=== PATIENT | female | born 1965 | race Caucasian/White ===

== ENCOUNTER 2017-01-30 18:54 | Emergency (ER) | payer SELFPAY ==
[~2017-01-30] VITALS: Ht 154.9 cm; Wt 55.7 kg
[2017-01-30 18:57] VITALS: Ht 154.9 cm; Wt 55.7 kg
[2017-01-30] MEDS ORDERED: PROPARACAINE HCL 0.5% OP SOLN 15 ML BTL OP STA (19:11)
[2017-01-30] MEDS ORDERED: MULT-223 PO (19:14)
[2017-01-30] MEDS ORDERED: B-COTAB18 PO (19:14)
[2017-01-30] MEDS ORDERED: IBUP-103 PO (19:14)
[2017-01-30] MEDS ORDERED: CIPROFLOXACIN HCL 0.3% OP SOLN 2.5 ML BTL OP ONE (20:00)
[2017-01-30 20:30] VITALS: BP 131/79; PULSE 96; TEMP 36.9; O2SAT 97
--- NOTE | 2017-02-05 22:55 | EMERGENCY ROOM VISIT NOTE ---
History Report prepared by Chepe: Mallorie Martinez Under the Supervision of: Dr. Shahid Maradiaga M.D. 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 The patient currently rates her pain as a 7/10 in severity. She states that she was mowing the lawn and a stone shot up and hit her in the eye. She notes that she was not wearing safety glasses. The patient states that her eye hurts and she is experiencing blurry vision. The patient states that bright lights make it worse. She reports that she made it through work today at [employer] and decided it wasn't getting better, so she should come to the ED. She denies any headache, use of contacts, or taking any blood thinners. She notes that she does wear reading glasses. The patient states that she does not know if her tetanus is up to date. Source of History: patient Onset: yesterday Position: eye (right) Symptom Intensity: 7/10 Timing: other (episode) Modifying Factors (Worsening): other (bright lights) Associated Symptoms: No headache Note: The patient reports blurry vision. Review of Systems See HPI for pertinent positives & negatives. A total of 10 systems reviewed and were otherwise negative. Past Medical & Surgical Medical Problems: (1) No pertinent past medical history Old medical records were reviewed. Nurse's notes were reviewed and I agree with. Family History No pertinent family history Social History Smoking Status: Current Every Day Smoker Marital Status: Housing Status: lives with significant other Occupation Status: employed Current/Historical Medications Scheduled B-Complex Vitamins (Vitamin B Complex), 1 TAB PO DAILY Ibuprofen Tab (Advil), 200 MG PO DAILY Multiple Vitamins W/ Minerals (Multi For Her 50+), 1 TAB PO DAILY Allergies Coded Allergies: No Known Allergies (Unverified , 01/30/17) Physical Exam Vital Signs Date Time Temp Pulse Resp B/P Pulse Ox O2 Delivery O2 Flow Rate FiO2 01/30/17 20:30 36.9 96 18 131/79 97 01/30/17 18:57 36.9 96 18 131/79 97 Room Air Physical Exam General: Well developed well nourished in no acute distress, breathing comfortably on room air. Normal speech. non-ill appearing middle aged female. no acute distress HEENT: Normal cephalic atraumatic. Pupils are equal round and reactive to light. Extraocular movements are intact. Oropharynx is pink with moist mucous membranes. No swelling of the mouth lips or tongue. Right eye has clear tears and injection-less flare up. No hyphema. Normal pupil exam. Extraocular movements are intact. Neck: Supple with a midline trachea. No meningeal signs or stiffness, no JVD or bruits. No Stridor. Chest: Clear to auscultation bilaterally. No wheezes or rhonchi. No increased work of breathing. Heart: regular rate and rhythm. Abdomen: Soft nontender, nondistended without rebound guarding or rigidity. Extremities: No cyanosis clubbing or edema. No calf tenderness or assymetry Spine/Back. Non tender to palpation. No CVA tenderness Skin: Good turgor without rashes. Neurologic exam: Cranial nerves two through 12 are intact. Motor and sensation are intact and symmetrical throughout. Medical Decision & Procedures Medications Administered Medications (Trade) Dose Ordered Sig/Obinna Route Start Time Stop Time Status Last Admin Dose Admin Ciprofloxacin HCl (Ciprofloxacin 0.3% Op Soln) 1 drops NOW ONCE OP 01/30/17 20:00 01/30/17 20:01 DC 01/30/17 20:06 1 DROPS Procedure Slit Lamp Examination Indication: right eye trauma The right eye was prepped with topical proparacaine. Slit lamp examination was performed in the standard fashion. Cornea appeared with a abrasion/ small laceration at approximately three o'clock. Anterior chamber normal. Scleral injection present. No discharge present. Fluorescein examination performed and revealed corneal abrasion. No foreign bodies noted. Negative Desiree sign. The patient tolerated the procedure well without complication. ED Course 1899: Past medical records reviewed. The patient was evaluated in room D3, and a complete history and physical examination were performed. 1: Ordered Proparacaine HCl 2 drops OP. 1947: I talked to Dr. Fam about the patient's case. He recommends to have the patient follow up in his office tomorrow. 1999: Ordered Ciprofloxacin HCl 1 drops OP. 2006: Upon reevaluation, the patient is resting comfortably. I discussed the results and treatment plan with her. The patient verbalized agreement of the treatment plan. The patient was discharged home. Medical Decision Differential diagnoses include corneal abrasion, foreign body in eye, hyphema, ruptured globe. This patient comes in as described above she had injury to her right eye while mowing the lawn .she has a corneal abrasion with this laceration associated with it. There is no hyphema or any anterior chamber abnormalities. There is nothing to suggest an open globe. There are no other injuries seen. She believes that she is up-to-date on her tetanus booster. I did discuss the case with Dr. Jordan, the on-call superintendent warehouse, and he will see her in the office tomorrow and I will have her use Ciloxan eyedrops 1 drop every 2 hours while awake. She can use ibuprofen for pain and/or Tylenol but do not exceed the [id number] recommended dosages. Return to the ER if: Increasing pain , change in vision , worsening of symptoms, any new problems or concerns. Consults Time Called: 1945 Consulting Physician: Dr. Fam Returned Call: [address] Fam about the patient's case. He recommends to have the patient follow up in his office tomorrow. Impression Primary Impression: Cornea abrasion Additional Impression: Pain in right eye Scribe Attestation The scribe's documentation has been prepared under my direction and personally reviewed by me in its entirety. I confirm that the note above accurately reflects all work, treatment, procedures, and medical decision making performed by me. Departure Information Dispostion Home / Self-Care Referrals Nj Braxton M.D. (PCP) Forms HOME CARE DOCUMENTATION FORM, IMPORTANT VISIT INFORMATION, WORK / SCHOOL INSTRUCTIONS Patient Instructions My [facility] Additional Instructions Rest. Use Ciloxan eyedrops-1 drop every 2 hours while awake Use ibuprofen or Tylenol and [id number] dosages as needed for pain Do not exceed the [id number] recommended dosages Follow-up with Dr. Gagnon tomorrow for recheck. He is in his [facility] [employer] office call to make an appointment Problem Qualifiers
[2017-05-25] MEDS ORDERED: DIPH25CA65 PO (16:02)
[2017-05-25] MEDS ORDERED: METF500T PO (16:02)
[2017-05-25] MEDS ORDERED: INSU1INJ17 SC (16:02)
[2017-05-25] MEDS ORDERED: CIPR250T5 PO (16:02)
[2017-07-07] MEDS ORDERED: METF-80 PO (11:05)
[2017-07-07] MEDS ORDERED: INSU70IN2 SQ (11:05)
[2017-07-07] MEDS ORDERED: DIPH25CA65 PO (11:05)
== END 2017-01-30 20:31 | disposition home or self-care (01) ==
LOC: C.EDB 18:56 → C.EDD 20:31
DX: S05.01XA Injury of conjunctiva and corneal abrasion without foreign body, right eye, initial encounter (principal); H57.11 Ocular pain, right eye; W22.8XXA Striking against or struck by other objects, initial encounter; Y92.096 Garden or yard of other non-institutional residence as the place of occurrence of the external cause; F17.210 Nicotine dependence, cigarettes, uncomplicated

== ENCOUNTER 2017-05-22 15:36 | Inpatient (IN) | payer SELFPAY ==
[~2017-05-22] VITALS: Ht 154.9 cm; Wt 48.8 kg
[~2017-05-22 15:36] MED LIST: B-COTAB18 PO; IBUP-103 PO; MULT-223 PO
[2017-05-22] MEDS ORDERED: OPTIRAY 320 IV PRN (16:00)
[2017-05-22 16:12] LABS: BASO % 0.4 %; BASO ABS # 0.04 K/uL (0-0.2); COMPLETE YES; EOS % 1.1 %; HEMATOCRIT 36.3 % (37-47); IG% 0.4 %; LYMPH % 16.9 %; LYMPH ABS # 1.93 K/uL (1.2-3.4); MEAN CELL VOLUME 90.3 fL (80-100); MEAN CORPUSCULAR HEMOGLOBIN 31.3 pg (25-34); MEAN CORPUSCULAR HGB CONC 34.7 g/dl (32-36); MEAN PLATELET VOLUME 9.7 fL (7.4-10.4); MONO % 5.5 %; NEUT % 75.7 %; PLATELET COUNT 302 K/uL (130-400); RED BLOOD COUNT 4.02 M/uL (4.2-5.4); WHITE BLOOD COUNT 11.42 K/uL (4.8-10.8)
[2017-05-22 16:40] LABS: BUN/CREATININE RATIO 4.4 (10-20); CALCIUM 9.8 mg/dl (8.5-10.1); POTASSIUM 2.4 mmol/L (3.5-5.1)
[2017-05-22 16:48] LABS: URINE APPEARANCE CLEAR (CLEAR); URINE BILIRUBIN NEG (NEG); URINE COLOR DK YELLOW; URINE NITRITE NEG (NEG); URINE PH 6.5 (4.5-7.5); URINE SPECIFIC GRAVITY 1.029 (1.000-1.030); UROBILINOGEN NEG (NEG)
[2017-05-22 16:52] LABS: MANUAL MICROSCOPIC REQUIRED? NO; REVIEW REQ? YES
[2017-05-22 16:56] LABS: BETA-HYDROXYBUTYRATE 0.98 mg/dL (0.2-2.81)
[2017-05-22] MEDS ORDERED: SODIUM CHLORIDE 0.9% 1000ML 1,000 ML IV STA (16:59)
[2017-05-22] MEDS ORDERED: POTASSIUM CHLORIDE 10 MEQ / 100ML WTR IV STA (16:59)
[2017-05-22] MEDS ORDERED: POTASSIUM CHLORIDE 10 MEQ TABCR PO STA ×2 (16:59→19:36)
--- NOTE | 2017-05-22 18:58 | DIAGNOSTIC IMAGING REPORT ---
ABD/PELVIS IV AND ORAL CONT CLINICAL HISTORY: 51 years-old Female presenting with eval for mass, lower abdominal pain and weight loss, tired and 80. TECHNIQUE: Multidetector CT of the abdomen and pelvis was performed after the administration of intravenous contrast. IV contrast: 116 mL of Optiray 320. A dose lowering technique was used consistent with the principles of ALARA (as low as reasonably achievable). COMPARISON: None. CT DOSE (mGy.cm): The estimated cumulative dose is 323.03 mGy.cm. FINDINGS: Stock Handler topogram: Unremarkable. Lung bases: Minimal dependent groundglass opacity likely atelectasis. Normal heart size. No pericardial or pleural effusion. Liver: Normal morphology. No liver lesion. Patent hepatic vasculature. Biliary: No intrahepatic or extrahepatic biliary ductal dilatation. Normal gallbladder. Pancreas: 1.6 cm cystic lesion in the tail of the pancreas with peripheral coarse calcification. Minimal upstream pancreatic ductal dilatation may be present. Spleen: Normal. Adrenal glands: Normal. Kidneys and ureters: No nephrolithiasis. Normal parenchymal enhancement. Dilatation of the bilateral renal collecting systems, left greater than right. Ureters are minimally dilated bilaterally with mild urothelial thickening. Bladder: Circumferential bladder wall thickening. No gross invasion of the bladder. Pelvic organs: The cervix is expanded with heterogeneous soft tissue which appears to grossly extend into the parametrium to the serosa of the transiting sigmoid colon. Apparent hypervascular nodularity on the ovaries may represent dilated ovarian veins versus serosal implants. Bowel: The mid sigmoid colon is narrowed by the and base of cervical mass extending into the parametrium. However, no significant upstream dilatation to suggest functional obstruction. Normal appendix. Peritoneal cavity: No free fluid or gas. No peritoneal soft tissue nodularity is apparent. No infiltration of the omentum or root of the mesentery. No abdominal wall nodularity. Vasculature: Atherosclerosis of the normal caliber abdominal aorta. Duplicated IVC. Lymph nodes: Pathologically enlarged hypervascular lymph node in the left external iliac region measuring 3 x 2.7 cm. Multiple subcentimeter aortocaval lymph nodes, which are not pathologically enlarged by CT size criteria. Abdominal wall: Normal. Musculoskeletal: Degenerative changes of the spine. IMPRESSION: 1. Findings highly suspicious for cervical neoplasm with invasion of the parametrium an invasion to the sigmoid colon serosa. No ethel bowel obstruction. 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 Grossly metastatic left external iliac lymphadenopathy (N1). 2. 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 3. Bladder wall thickening could suggest cystitis. Correlate with urinalysis. Electronically signed by: Freddie Martinez M.D. 05/22/2017 6:57 PM Dictated Date/Time: 05/22/2017 6:41 PM
[2017-05-22] MEDS ORDERED: NSS + 20MEQ KCL 1000ML 1,000 ML IV SCH (19:45)
[2017-05-22] MEDS ORDERED: INSULIN GLARGINE SOLOSTAR 100 UNITS/ML 3 ML PEN SC ONE (19:47)
[2017-05-22] MEDS ORDERED: INSULIN IV INFUSION PROTOCOL STA (19:47)
[2017-05-22] MEDS ORDERED: GLUCOSE 10 TABS/TUBE PO PRN (20:00)
[2017-05-22] MEDS ORDERED: INSULIN REGULAR 250 UNITS in SODIUM CHLORIDE 0.9% 250ML 250 ML IV SCH (20:00)
[2017-05-22] MEDS ORDERED: GLUCAGON FOR INJ 1 MG VIAL SQ PRN (20:00)
[2017-05-22] MEDS ORDERED: SEVERE STRESS LEVEL ONE (20:00)
[2017-05-22] MEDS ORDERED: GLUCOSE 40% GEL 15 GM TUBE PO PRN (20:00)
[2017-05-22] MEDS ORDERED: DEXTROSE 50% 50 ML SYR IV PRN (20:00)
[2017-05-22] MEDS ORDERED: LANTUS PER UNIT CHARGE SQ ONE (20:00)
[2017-05-22] MEDS ORDERED: NICOTINE POLACRILEX 2 MG GUM MT PRN (20:00)
[2017-05-22] MEDS ORDERED: INSULIN HUMAN REGULAR IV BOLUS 2 UNIT in SYRINGE 0 ML IV SCH (20:00)
[2017-05-22] MEDS ORDERED: INSULIN PROTOCOL GOAL RANGE ONE (20:00)
[2017-05-22] MEDS ORDERED: CEFEPIME IV 2,000 MG in DEXTROSE 5% 100ML 100 ML IV STA (20:05)
--- NOTE | 2017-05-22 20:16 | EMERGENCY ROOM VISIT NOTE ---
History Report prepared by Chepe: Franc Narayan Under the Supervision of: Dr. Tyler Hull M.D. First contact with patient: 15:42 Chief Complaint: ABDOMINAL PAIN Stated Complaint: EXTREME WEIGHT LOSS, ABDOMINAL PAIN, TIRED, ACHY History of Present Illness The patient is a 51 year old female who presents to the Emergency Room with complaints of intermittent low abdominal pain that started around a month and a half ago. The patient states that she has the pain at least 5 or 6 times per week, but not every day. The patient describes her discomfort as a cramping pain. She adds that she has not been eating as well as she used to over the past month and a half due to the pain, and has lost around 20 to 25 pounds during this time period. She was noted to only be able to eat half a hamburger at a time. The patient notes that sometimes the pain comes before eating, and sometimes the pain comes on after eating. She denies any nausea, vomiting, fevers, diarrhea, rectal bleeding, melena, or urinary symptoms. The patient notes no chronic medical problems. She adds that she was bit by fleas a while ago, and has rashes to her extremities with itching. She has since gotten rid of the calves and no longer has fleabites. She notes no history of colon cancer in her family. Source of History: patient, family Onset: Around a month and a half ago Position: abdomen (low) Quality: cramping Timing: intermittent Associated Symptoms: No fevers, No nausea, No vomiting, No melena, No diarrhea, No urinary symptoms Note: Associated symptoms: Decreased appetite, has lost 20-25 pound. Denies rectal bleeding. Rash and itching to extremities after flea bites. Review of Systems See HPI for pertinent positives & negatives. A total of 10 systems reviewed and were otherwise negative. Past Medical & Surgical Medical Problems: (1) No pertinent past medical history Family History No pertinent family history Social History Smoking Status: Current Every Day Smoker Marital Status: Housing Status: lives with significant other Occupation Status: employed Current/Historical Medications Scheduled B-Complex Vitamins (Vitamin B Complex), 1 TAB PO DAILY Ibuprofen Tab (Advil), 200 MG PO DAILY Multiple Vitamins W/ Minerals (Multi For Her 50+), 1 TAB PO DAILY Allergies Coded Allergies: No Known Allergies (Unverified , 8/31/17) Physical Exam Vital Signs Date Time Temp Pulse Resp B/P (MAP) Pulse Ox O2 Delivery O2 Flow Rate FiO2 05/22/17 19:33 85 16 127/74 96 Room Air 05/22/17 17:34 76 05/22/17 17:30 81 16 107/68 100 Room Air 05/22/17 15:39 36.7 105 16 121/81 96 Room Air Physical Exam Constitutional: Vital signs reviewed. Eyes: Pupils are equal round reactive to light. Conjunctiva are noninjected. ENT: Pharynx is clear without erythema or exudate. Mucous membranes are moist. Neck supple without meningeal signs. Respiratory: Clear to auscultation bilaterally. Breath sounds are equal bilaterally. Cardiovascular: Regular rate and rhythm. No rubs or gallops. GI: Suprapubic tenderness. Soft and nondistended Bowel sounds are present. Musculoskeletal: No CVA tenderness. No peripheral edema. Integumentary: No cyanosis. Excoriated lesions to the arms and legs. Neurological: The patient is awake and alert. No focal deficits. Psychiatric: Normal affect. Medical Decision & Procedures ER Provider Diagnostic Interpretation: CT results as stated below per my review and radiologist interpretation. ABD/PELVIS IV AND ORAL CONT CLINICAL HISTORY: 51 years-old Female presenting with eval for mass, lower abdominal pain and weight loss, tired and 80. TECHNIQUE: Multidetector CT of the abdomen and pelvis was performed after the administration of intravenous contrast. IV contrast: 116 mL of Optiray 320. A dose lowering technique was used consistent with the principles of ALARA (as low as reasonably achievable). COMPARISON: None. CT DOSE (mGy.cm): The estimated cumulative dose is 323.03 mGy.cm. FINDINGS: Outreach Professional topogram: Unremarkable. Lung bases: Minimal dependent groundglass opacity likely atelectasis. Normal heart size. No pericardial or pleural effusion. Liver: Normal morphology. No liver lesion. Patent hepatic vasculature. Biliary: No intrahepatic or extrahepatic biliary ductal dilatation. Normal gallbladder. Pancreas: 1.6 cm cystic lesion in the tail of the pancreas with peripheral coarse calcification. Minimal upstream pancreatic ductal dilatation may be present. Spleen: Normal. Adrenal glands: Normal. Kidneys and ureters: No nephrolithiasis. Normal parenchymal enhancement. Dilatation of the bilateral renal collecting systems, left greater than right. Ureters are minimally dilated bilaterally with mild urothelial thickening. Bladder: Circumferential bladder wall thickening. No gross invasion of the bladder. Pelvic organs: The cervix is expanded with heterogeneous soft tissue which appears to grossly extend into the parametrium to the serosa of the transiting sigmoid colon. Apparent hypervascular nodularity on the ovaries may represent dilated ovarian veins versus serosal implants. Bowel: The mid sigmoid colon is narrowed by the and base of cervical mass extending into the parametrium. However, no significant upstream dilatation to suggest functional obstruction. Normal appendix. Peritoneal cavity: No free fluid or gas. No peritoneal soft tissue nodularity is apparent. No infiltration of the omentum or root of the mesentery. No abdominal wall nodularity. Vasculature: Atherosclerosis of the normal caliber abdominal aorta. Duplicated IVC. Lymph nodes: Pathologically enlarged hypervascular lymph node in the left external iliac region measuring 3 x 2.7 cm. Multiple subcentimeter aortocaval lymph nodes, which are not pathologically enlarged by CT size criteria. Abdominal wall: Normal. Musculoskeletal: Degenerative changes of the spine. IMPRESSION: 1. Findings highly suspicious for cervical neoplasm with invasion of the parametrium an invasion to the sigmoid colon serosa. No ethel bowel obstruction. 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 Grossly metastatic left external iliac lymphadenopathy (N1). 2. 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 3. Bladder wall thickening could suggest cystitis. Correlate with urinalysis. Electronically signed by: Freddie Martinez M.D. 05/22/2017 6:57 PM Dictated Date/Time: 05/22/2017 6:41 PM Laboratory Results 05/22/17 16:00 Red Blood Count 4.02, Mean Corpuscular Volume 90.3, Mean Corpuscular Hemoglobin 31.3, Mean Corpuscular Hemoglobin Concent 34.7, Mean Platelet Volume 9.7, Neutrophils (%) (Auto) 75.7, Lymphocytes (%) (Auto) 16.9, Monocytes (%) (Auto) 5.5, Eosinophils (%) (Auto) 1.1, Basophils (%) (Auto) 0.4, Neutrophils # (Auto) 8.66, Lymphocytes # (Auto) 1.93, Monocytes # (Auto) 0.63, Eosinophils # (Auto) 0.12, Basophils # (Auto) 0.04 05/22/17 16:00 Test 05/22/17 16:00 White Blood Count 11.42 K/uL (4.8-10.8) Red Blood Count 4.02 M/uL (4.2-5.4) Hemoglobin 12.6 g/dL (12.0-16.0) Hematocrit 36.3 % (37-47) Mean Corpuscular Volume 90.3 fL (80-100) Mean Corpuscular Hemoglobin 31.3 pg (25-34) Mean Corpuscular Hemoglobin Concent 34.7 g/dl (32-36) Platelet Count 302 K/uL (130-400) Mean Platelet Volume 9.7 fL (7.4-10.4) Neutrophils (%) (Auto) 75.7 % Lymphocytes (%) (Auto) 16.9 % Monocytes (%) (Auto) 5.5 % Eosinophils (%) (Auto) 1.1 % Basophils (%) (Auto) 0.4 % Neutrophils # (Auto) 8.66 K/uL (1.4-6.5) Lymphocytes # (Auto) 1.93 K/uL (1.2-3.4) Monocytes # (Auto) 0.63 K/uL (0.11-0.59) Eosinophils # (Auto) 0.12 K/uL (0-0.5) Basophils # (Auto) 0.04 K/uL (0-0.2) RDW Standard Deviation 42.2 fL (36.4-46.3) RDW Coefficient of Variation 12.7 % (11.5-14.5) Immature Granulocyte % (Auto) 0.4 % Immature Granulocyte # (Auto) 0.04 K/uL (0.00-0.02) Urine Color DK YELLOW Urine Appearance CLEAR (CLEAR) Urine pH 6.5 (4.5-7.5) Urine Specific [place] 1.029 (1.000-1.030) Urine Protein NEG (NEG) Urine Glucose (UA) 3+ (NEG) Urine Ketones NEG (NEG) Urine Occult Blood 1+ (NEG) Urine Nitrite NEG (NEG) Urine Bilirubin NEG (NEG) Urine Urobilinogen NEG (NEG) Urine Leukocyte Esterase MODERATE (NEG) Urine WBC (Auto) >30 /hpf (0-5) Urine RBC (Auto) 0-4 /hpf (0-4) Urine Hyaline Casts (Auto) 0 /lpf (0-5) Urine Epithelial Cells (Auto) 10-20 /lpf (0-5) Urine Bacteria (Auto) 1+ (NEG) Anion Gap 10.0 mmol/L (3-11) Est Creatinine Clear Calc Drug Dose 49.1 ml/min Estimated GFR () 74.5 Estimated GFR (Non- 64.3 BUN/Creatinine Ratio 4.4 (10-20) Calcium Level 9.8 mg/dl (8.5-10.1) Total Bilirubin 0.5 mg/dl (0.2-1) Direct Bilirubin 0.2 mg/dl (0-0.2) Aspartate Amino Transf (AST/SGOT) 9 U/L (15-37) Alanine Aminotransferase (ALT/SGPT) 12 U/L (12-78) Alkaline Phosphatase 111 U/L (45-117) Total Protein 7.5 gm/dl (6.4-8.2) Albumin 2.9 gm/dl (3.4-5.0) Lipase 161 U/L (73-393) Beta-Hydroxybutyric Acid 0.98 mg/dL (0.2-2.81) Laboratory results as reviewed by me. Medications Administered Medications (Trade) Dose Ordered Sig/Obinna Route Start Time Stop Time Status Last Admin Dose Admin Sodium Chloride 1,000 ml @ 999 mls/hr Q1H1M STAT IV 05/22/17 16:59 05/22/17 17:59 DC 05/22/17 17:21 999 MLS/HR Potassium Chloride (Kcl 10 Meq / Wtr) 10 meq NOW STAT IV 05/22/17 16:59 05/22/17 17:00 DC 05/22/17 17:21 10 MEQ Potassium Chloride (Klor-Con M10) 40 meq NOW STAT PO 05/22/17 16:59 05/22/17 17:00 DC 05/22/17 17:22 40 MEQ ECG Indication: other (hypokalemia) Rate (beats per minute): 78 Rhythm: normal sinus Findings: T-wave inversion (in V1 and V2), other (no U waves, QTC of 465 ms) ED Course 1544: The patient was evaluated in room B7. A complete history and physical exam was performed. 1645: I reevaluated the patient and talked to her about the blood test results. 1659: Ordered Klor-Con M10 40 meq PO, Kcl 10 Meq / Wtr 10 meq IV, NSS 1000 ml @ 999 mls/hr IV. 1916: I reevaluated the patient and discussed the test results with her and her daughter. The patient verbally expressed understanding and agreement of the treatment plan. The patient will be evaluated for further treatment. 1919: I discussed the patient with Dr. Milli Owens tailings dam pumper - he will evaluate the patient for further treatment. Medical Decision This is a 51-year-old female who presents with abdominal pain and weight loss. Differential diagnosis includes colonic mass, gynecologic mass, inflammatory bowel disease, irritable bowel syndrome, pancreatitis. I did perform a limited focused review of portions of the patient's old chart on the electronic medical record. The patient has had no recent pertinent visits to this hospital. I did evaluate the patient as noted above. Patient is presenting with abdominal pain in the lower abdomen with significant weight loss. I was concerned about the potential for neoplasm. IV access was established. I did order and review the patient's blood work as noted in the electronic medical record. The patient has significant hypokalemia. She also has hyperglycemia. She has no prior history of diabetes. She is not acidotic. She is not in DKA. I did treat her with normal saline IV. The patient was placed on a continuous cardiac surgeon. I did order and personally review the patient's 12- lead EKG as described above. I did treat her with IV KCl. I did order a CT of the abdomen and pelvis. I did review the images myself as well as the radiology report as described above. She does unfortunately have what appears to be cervical cancer with metastatic spread to the sigmoid colon and lymph nodes. There is also a pancreatic mass. I did discuss the test results with the patient and her daughter. I did recommend hospitalization for further care and evaluation. I did discuss case with the hospitalist and renal case manager. Medication Reconcilliation Current Medication List: was personally reviewed by me Blood Pressure Screening Patient's blood pressure: Normal blood pressure Consults Time Called: 1917 Consulting Physician: Dr. Milli Owens tailings dam pumper Returned Call: 1919 I discussed the patient with Dr. Milli Owens tailings dam pumper - he will evaluate the patient for further treatment. Impression Primary Impression: Diabetes mellitus, new onset Additional Impressions: Hypokalemia Urinary tract infection Primary cervical cancer with metastasis to other site Scribe Attestation The scribe's documentation has been prepared under my direct and personally reviewed by me in its entirety. I confirm that the note above accurately reflects all work, treatment, procedures, and medical decision making performed by me. Departure Information Dispostion Being Evaluated By Hospitalist Referrals Nj Braxton M.D. (PCP) Patient Instructions My [facility] Problem Qualifiers Additional Impressions: Urinary tract infection Urinary tract infection type: acute cystitis Hematuria presence: with hematuria Qualified Codes: N30.01 - Acute cystitis with hematuria
[2017-05-22 20:40] VITALS: BMI 20.3
[2017-05-22] MEDS ORDERED: INSULIN ASPART 100 UNITS/ML 3 ML PEN SC SCH (21:00)
[2017-05-22] MEDS ORDERED: TRAMADOL HCL 50 MG TAB PO PRN (21:45)
[2017-05-22] MEDS ORDERED: LORAZEPAM 2 MG/ML 1 ML VIAL IV PRN (21:45)
[2017-05-22] MEDS ORDERED: IBUPROFEN 200 MG TAB PO PRN (21:45)
[2017-05-22] MEDS ORDERED: MoRPHine SULFATE 4 MG/ML 1 ML CARP\\VIAL IV PRN (21:45)
[2017-05-22] MEDS ORDERED: ACETAMINOPHEN 325 MG TAB PO PRN (21:45)
[2017-05-22] MEDS ORDERED: KETOROLAC TROMETHAMINE 15 MG/ML VIAL IV. PRN (21:45)
[2017-05-22] MEDS ORDERED: NICOTINE 14 MG/24 HR TDSY TD ONE (22:15)
[2017-05-22] MEDS ORDERED: CEFEPIME CONSULT ACTIVE PRN ×2 (22:15)
[2017-05-22] MEDS ORDERED: NSS + 20MEQ KCL 1000ML 1,000 ML IV ONE (22:15)
[2017-05-22] MEDS ORDERED: LORAZEPAM INJ 0.5 MG in SYRINGE 0.75 ML IV PRN (22:30)
[2017-05-22] MEDS ORDERED: POTASSIUM CHLORIDE 10 MEQ TABCR PO ONE (23:00)
[2017-05-22 23:07] LABS: PROTHROMBIN TIME (PATIENT) 11.1 SECONDS (9.0-12.0)
[2017-05-22 23:46] VITALS: BP 110/73; PULSE 82; TEMP 36.9; O2SAT 92
[2017-05-23] VITALS (7 sets, daily range): BP systolic 107–132; BP diastolic 69–81; PULSE 58–98; TEMP 36.2–37.2; O2SAT 93–97; BMI 20.7
--- NOTE | 2017-05-23 01:22 | HISTORY & PHYSICAL EXAMINATION ---
DATE OF ADMISSION: 05/22/2017 PRIMARY CARE DOCTOR: Dr. Braxton. CHIEF COMPLAINT: Abdominal pain. HISTORY OF PRESENT ILLNESS: History obtained from patient and records. Medical history significant for tobacco abuse. For about a month now, patient has had intermittent lower achy abdominal pain with some cramping. No vaginal bleeding, poor appetite, a 20-pound weight loss in the last month. No chest pain, no shortness of breath. Denies dysuria - sometimes urinating a lot, sometimes not as much. Patient brought to the Emergency Room. MEDICAL HISTORY: As above. SURGERIES: Removal of tubes for for ectopic HOME MEDICATIONS: Include multivitamins. ALLERGIES: No known drug allergies. FAMILY HISTORY: diabetes and some throat cancer. PERSONAL AND SOCIAL HISTORY: Half pack daily. No chronic intake of alcoholic beverages. [employer] food [employer] employee employee. REVIEW OF SYSTEMS: As per HPI, all other ROS negative. PHYSICAL EXAMINATION: VITAL SIGNS: Blood pressure was noted to be 107/60, pulse rate 81, RR 16, temperature 36.7, sats 96 on room air. GENERAL: Noted to be anxious, comfortable, no respiratory distress. SKIN: Normal color. HEENT: [place] palpable conjunctivae. Dry mucosa. NECK: No JVD. Supple. CHEST: Clear to auscultation. HEART: Regular rate and rhythm. ABDOMEN: Hypogastric tenderness. EXTREMITIES: No edema. No tenderness NEUROLOGIC: No gross focality. LABS: Hemoglobin was 13.6, hematocrit 36.3, white blood cells 11.5, platelets 212. Sodium noted to be 135, potassium 2.4, chloride 88, CO2 35, BUN 20, creatinine 1, glucose 523. CT of the abdomen and pelvis showed a possible highly suspicious cervical neoplasm invasion of the parametrium and invasion of the sigmoid colon serosa. No ethel bowel obstruction. Bilateral hydronephrosis, consistent with pelvic extension, grossly metastatic left external iliac lymphadenopathy. Incidentally, a cystic neoplasm of the pancreatic tail, cystitis. UA, occult blood, moderate, WBCs positive, epithelial cells AP 1. Complicated UTI, secondary to cervical neoplasm, likely malignancy with bilateral ureteral involvement Normal kidney function. no sepsis. 2. hyperglycemia, likely new diagnosis of diabetes mellitus 3. Hypokalemia, secondary to illness 4. pancreatic tumor on CT, possible malignancy 5. ongoing tobacco abuse, GMF Urine CS, Cefepime IV insulin overlapping with basal insulin. DC IV insulin once blood sugar less than 200. ISS BG goal 140-180. Check hemoglobin A1c. May need Diabetic education pending HgA1c results. Replace potassium. Check magnesium. Gynecology consult RE : cervical mass. Urology consult RE bilateral hydronephrosis outpatient GI consult RE : pancreatic tumor, Nicotine patch. DVT prophylaxis, Lovenox subQ. Full code. Patient's daughter requesting updates from providers. Miss Kathy Milan at [phone]. MTDD
[2017-05-23] MEDS ORDERED: DEXTROSE 50% 50 ML SYR IV PRN (02:00)
[2017-05-23] MEDS ORDERED: GLUCAGON FOR INJ 1 MG VIAL SQ PRN (02:00)
[2017-05-23] MEDS ORDERED: GLUCOSE 40% GEL 15 GM TUBE PO PRN (02:00)
[2017-05-23] MEDS ORDERED: NURSING VERBAL MED ORDER ONE (02:00)
[2017-05-23] MEDS ORDERED: GLUCOSE 10 TABS/TUBE PO PRN (02:00)
[2017-05-23] MEDS ORDERED: INSULIN ASPART 100 UNITS/ML 3 ML PEN SC ONE ×2 (04:00→06:24)
[2017-05-23 05:49] LABS: BASO % 0.3 %; BASO ABS # 0.03 K/uL (0-0.2); COMPLETE YES; EOS % 1.3 %; HEMATOCRIT 33.1 % (37-47); IG% 0.3 %; LYMPH % 14.1 %; LYMPH ABS # 1.48 K/uL (1.2-3.4); MEAN CELL VOLUME 89.9 fL (80-100); MEAN CORPUSCULAR HEMOGLOBIN 29.9 pg (25-34); MEAN CORPUSCULAR HGB CONC 33.2 g/dl (32-36); MEAN PLATELET VOLUME 9.6 fL (7.4-10.4); MONO % 6.7 %; NEUT % 77.3 %; PLATELET COUNT 300 K/uL (130-400); RED BLOOD COUNT 3.68 M/uL (4.2-5.4); WHITE BLOOD COUNT 10.53 K/uL (4.8-10.8)
[2017-05-23 06:17] LABS: BUN/CREATININE RATIO 6.3 (10-20); CALCIUM 8.8 mg/dl (8.5-10.1); CREATININE 0.65 mg/dl (0.60-1.20); POTASSIUM 3.4 mmol/L (3.5-5.1)
[2017-05-23] MEDS ORDERED: POTASSIUM CHLORIDE 10 MEQ TABCR PO STA ×2 (06:23→07:35)
[2017-05-23 06:25] LABS: ESTIMATED AVERAGE GLUCOSE 352 mg/dl; HA1C FLAG Normal (Normal)
[2017-05-23] MEDS ORDERED: INSULIN GLARGINE SOLOSTAR 100 UNITS/ML 3 ML PEN SC ONE ×2 (06:28→22:15)
[2017-05-23] MEDS ORDERED: LACTATED RINGER'S 1000ML 1,000 ML IV ONE (06:30)
[2017-05-23] MEDS ORDERED: CEFEPIME IV 1,000 MG in DEXTROSE 5% 100ML IV SCH (08:00)
[2017-05-23] MEDS ORDERED: INSULIN GLARGINE SOLOSTAR 100 UNITS/ML 3 ML PEN SC SCH ×2 (08:00→20:00)
[2017-05-23] MEDS: CEFEPIME IV 2,000 MG in DEXTROSE 5% 100ML 100 ML IV SCH ×2 (09:06→20:08)
[2017-05-23] MEDS: VITAMIN B COMPLEX TAB PO SCH (09:07)
[2017-05-23] MEDS: CEROVITE ADV FORMULA TAB PO SCH (09:08)
[2017-05-23] MEDS: ENOXAPARIN 40 MG/0.4 ML SYR SQ SCH (09:09)
[2017-05-23] MEDS: NICOTINE 14 MG/24 HR TDSY TD SCH (09:10)
[2017-05-23] MEDS ORDERED: FERRIC SUBSULFATE 8 GM VIAL ONE (10:34)
[2017-05-23] MEDS ORDERED: FERRIC SUBSULFATE 8 GM VIAL TOP ONE (10:45)
[2017-05-23] MEDS: INSULIN ASPART 100 UNITS/ML 3 ML PEN SC SCH ×3 (13:17→21:46)
--- NOTE | 2017-05-23 14:03 | Gastrointestinal Consultation ---
Gastrointestinal Consultation Date of Consultation: May 23, 2017 History of Present Illness Patient is a 51 year old female whom I been asked to see for evaluation of a pancreatic cyst. She has been having one to 2 months of lower pelvic pain described as crampy menstrual type pain without vaginal bleeding. But has apparently had a significant amount of weight loss. She has no history of alcohol as does chronically drink, she does smoke but does not have pancreatitis to her knowledge in the past. She has no family history of pancreatic disease including pancreatic cancer. Upon CT scan here she was noted to have a 1.6 cm cystic lesion in detail the pancreas without mass or lesion. More Importantly she was noted to have a significant pelvic mass lesion that after being seen by [facility] today was concern for a necrotic cervical mass. She is aware of her likely diagnosis of [facility] malignancy and is scheduled to be seen by [facility] oncology after discharge. She is tolerating diet without issues. CT Pancreas: 1.6 cm cystic lesion in the tail of the pancreas with peripheral coarse calcification. Minimal upstream pancreatic ductal dilatation may be present. Spleen: Normal. Adrenal glands: Normal. Kidneys and ureters: No nephrolithiasis. Normal parenchymal enhancement. Dilatation of the bilateral renal collecting systems, left greater than right. Ureters are minimally dilated bilaterally with mild urothelial thickening. Bladder: Circumferential bladder wall thickening. No gross invasion of the bladder. Pelvic organs: The cervix is expanded with heterogeneous soft tissue which appears to grossly extend into the parametrium to the serosa of the transiting sigmoid colon. Apparent hypervascular nodularity on the ovaries may represent dilated ovarian veins versus serosal implants. Bowel: The mid sigmoid colon is narrowed by the and base of cervical mass extending into the parametrium. However, no significant upstream dilatation to suggest functional obstruction. Normal appendix. Peritoneal cavity: No free fluid or gas. No peritoneal soft tissue nodularity is apparent. No infiltration of the omentum or root of the mesentery. No abdominal wall nodularity. Vasculature: Atherosclerosis of the normal caliber abdominal aorta. Duplicated IVC. Lymph nodes: Pathologically enlarged hypervascular lymph node in the left external iliac region measuring 3 x 2.7 cm. Multiple subcentimeter aortocaval lymph nodes, which are not pathologically enlarged by CT size criteria. Abdominal wall: Normal. Musculoskeletal: Degenerative changes of the spine. IMPRESSION: 1. Findings highly suspicious for cervical neoplasm with invasion of the parametrium an invasion to the sigmoid colon serosa. No ethel bowel obstruction. 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 Grossly metastatic left external iliac lymphadenopathy (N1). 2. 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 3. Bladder wall thickening could suggest cystitis. Correlate with urinalysis. Past Medical/Surgical History Medical Problems: (1) Diabetes mellitus, new onset Status: Acute (2) Hypokalemia Status: Acute (3) Primary cervical cancer with metastasis to other site Status: Acute (4) Urinary tract infection Status: Acute Family History No pertinent family history Social History Smoking Status: Current Every Day Smoker Marital Status: Housing Status: lives with significant other Occupation Status: employed Allergies Coded Allergies: No Known Allergies (Unverified , 05/22/17) Current Medications Home Meds and Scripts Medications Dose Route/Sig Max Daily Dose Days Date Category Advil (Ibuprofen) 200 Mg Tab 200 Mg PO DAILY 01/30/17 Reported Vitamin B Complex (B-Complex Vitamins) 1 Tab Tab 1 Tab PO DAILY 01/30/17 Reported Multi For Her 50+ (Multiple Vitamins W/ Minerals) 1 Tab Tab 1 Tab PO DAILY 01/30/17 Reported Review of Systems Constitutional: + see HPI, No fever, No chills, No sweats, No weight loss, No weakness, No fatigue, No problem reported Eyes: No see HPI, No worsening of vision, No eye pain, No redness, No discharge , No diplopia, No problem reported ENT: No see HPI, No hearing loss, No unusual epistaxis, No nasal symptoms, No sore throat, No tinnitus, No dental problems, No trouble swallowing, No pain on swallowing, No problem reported Respiratory: No see HPI, No cough, No sputum, No wheezing, No shortness of breath, No dyspnea on exertion, No dyspnea at rest, No hemoptysis, No problem reported Cardiac: No see HPI, No chest pain, No orthopnea, No PND, No edema, No claudication, No palpitations, No problem reported Abdomen: No see HPI, No pain, No nausea, No vomiting, No diarrhea, No constipation, No GI bleeding, No dysphagia, No odynophagia, No acolic stools, No jaundice, No dark urine, No problem reported Musculoskeletal: No see HPI, No joint pain, No muscle pain, No swelling, No calf pain, No problem reported Physical Exam Date Time Temp Pulse Resp B/P (MAP) Pulse Ox O2 Delivery O2 Flow Rate FiO2 05/23/17 11:51 37.0 92 18 112/75 (87) 97 Room Air 05/23/17 09:00 Room Air 05/23/17 07:21 36.7 58 16 115/73 (87) 96 Room Air 05/23/17 04:14 36.8 91 18 123/80 (94) 96 Room Air 05/23/17 02:20 Room Air 05/22/17 23:46 36.9 82 20 110/73 (85) 92 Room Air 05/22/17 21:45 80 17 128/81 95 05/22/17 21:07 86 05/22/17 20:40 Room Air 05/22/17 19:33 85 16 127/74 96 Room Air 05/22/17 17:34 76 05/22/17 17:30 81 16 107/68 100 Room Air 05/22/17 15:39 36.7 105 16 121/81 96 Room Air General Appearance: WD/WN Eyes: normal inspection ENT: normal ENT inspection Neck: supple, no adenopathy Respiratory/Chest: chest non-tender, lungs clear Cardiovascular: regular rate, rhythm, no edema, no gallop Abdomen: normal bowel sounds, non tender Extremities: normal range of motion Skin: normal color, no jaundice Laboratory Results Last 24 Hours Test 05/22/17 16:00 05/22/17 19:25 05/22/17 21:34 05/22/17 22:42 White Blood Count 11.42 K/uL Red Blood Count 4.02 M/uL Hemoglobin 12.6 g/dL Hematocrit 36.3 % Mean Corpuscular Volume 90.3 fL Mean Corpuscular Hemoglobin 31.3 pg Mean Corpuscular Hemoglobin Concent 34.7 g/dl Platelet Count 302 K/uL Mean Platelet Volume 9.7 fL Neutrophils (%) (Auto) 75.7 % Lymphocytes (%) (Auto) 16.9 % Monocytes (%) (Auto) 5.5 % Eosinophils (%) (Auto) 1.1 % Basophils (%) (Auto) 0.4 % Neutrophils # (Auto) 8.66 K/uL Lymphocytes # (Auto) 1.93 K/uL Monocytes # (Auto) 0.63 K/uL Eosinophils # (Auto) 0.12 K/uL Basophils # (Auto) 0.04 K/uL RDW Standard Deviation 42.2 fL RDW Coefficient of Variation 12.7 % Immature Granulocyte % (Auto) 0.4 % Immature Granulocyte # (Auto) 0.04 K/uL Prothrombin Time 11.1 SECONDS Prothromb Time International Ratio 1.0 Urine Color DK YELLOW Urine Appearance CLEAR Urine pH 6.5 Urine Specific [place] 1.029 Urine Protein NEG Urine Glucose (UA) 3+ Urine Ketones NEG Urine Occult Blood 1+ Urine Nitrite NEG Urine Bilirubin NEG Urine Urobilinogen NEG Urine Leukocyte Esterase MODERATE Urine WBC (Auto) >30 /hpf Urine RBC (Auto) 0-4 /hpf Urine Hyaline Casts (Auto) 0 /lpf Urine Epithelial Cells (Auto) 10-20 /lpf Urine Bacteria (Auto) 1+ Sodium Level 133 mmol/L Potassium Level 2.4 mmol/L Chloride Level 88 mmol/L Carbon Dioxide Level 35 mmol/L Anion Gap 10.0 mmol/L Blood Urea Nitrogen 4 mg/dl Creatinine 1.00 mg/dl Est Creatinine Clear Calc Drug Dose 49.1 ml/min Estimated GFR () 74.5 Estimated GFR (Non- 64.3 BUN/Creatinine Ratio 4.4 Random Glucose 523 mg/dl Estimated Average Glucose 352 mg/dl Hemoglobin A1c 13.9 % Calcium Level 9.8 mg/dl Magnesium Level 2.0 mg/dl Total Bilirubin 0.5 mg/dl Direct Bilirubin 0.2 mg/dl Aspartate Amino Transf (AST/SGOT) 9 U/L Alanine Aminotransferase (ALT/SGPT) 12 U/L Alkaline Phosphatase 111 U/L Total Protein 7.5 gm/dl Albumin 2.9 gm/dl Lipase 161 U/L Beta-Hydroxybutyric Acid 0.98 mg/dL Hepatitis C Antibody Screen NEG Bedside Glucose 362 mg/dl 374 mg/dl 356 mg/dl Test 05/22/17 23:35 05/23/17 00:32 05/23/17 01:31 05/23/17 03:58 Bedside Glucose 340 mg/dl 283 mg/dl 209 mg/dl 161 mg/dl Test 05/23/17 05:20 05/23/17 06:53 05/23/17 08:06 05/23/17 11:48 White Blood Count 10.53 K/uL Red Blood Count 3.68 M/uL Hemoglobin 11.0 g/dL Hematocrit 33.1 % Mean Corpuscular Volume 89.9 fL Mean Corpuscular Hemoglobin 29.9 pg Mean Corpuscular Hemoglobin Concent 33.2 g/dl Platelet Count 300 K/uL Mean Platelet Volume 9.6 fL Neutrophils (%) (Auto) 77.3 % Lymphocytes (%) (Auto) 14.1 % Monocytes (%) (Auto) 6.7 % Eosinophils (%) (Auto) 1.3 % Basophils (%) (Auto) 0.3 % Neutrophils # (Auto) 8.14 K/uL Lymphocytes # (Auto) 1.48 K/uL Monocytes # (Auto) 0.71 K/uL Eosinophils # (Auto) 0.14 K/uL Basophils # (Auto) 0.03 K/uL RDW Standard Deviation 41.8 fL RDW Coefficient of Variation 12.7 % Immature Granulocyte % (Auto) 0.3 % Immature Granulocyte # (Auto) 0.03 K/uL Sodium Level 141 mmol/L Potassium Level 3.4 mmol/L Chloride Level 101 mmol/L Carbon Dioxide Level 34 mmol/L Anion Gap 6.0 mmol/L Blood Urea Nitrogen 4 mg/dl Creatinine 0.65 mg/dl Est Creatinine Clear Calc Drug Dose 75.5 ml/min Estimated GFR () 117.5 Estimated GFR (Non- 101.4 BUN/Creatinine Ratio 6.3 Random Glucose 233 mg/dl Calcium Level 8.8 mg/dl Magnesium Level 1.9 mg/dl Bedside Glucose 207 mg/dl 177 mg/dl 221 mg/dl Impression Patient is a 51 year old female with a pancreatic cystic tail lesion in the setting of a new GI malignancy Plan The pancreatic tail lesion appears to be a cystic lesion without high-risk features. Her likely diagnosis of [facility] malignancy should be evaluated and treated first, we can follow her up as an outpatient for an elective endoscopic ultrasound. This does not have solid components within it to be concerning for a metastatic lesion.
--- NOTE | 2017-05-23 14:12 | GYNECOLOGICAL CONSULTATION ---
DATE OF CONSULTATION: 05/23/2017 DATE OF CONSULTATION: 05/23/2017 CONSULTING PHYSICIAN: Dr. Morley. REASON FOR CONSULT: Cervical mass, possibly cervical cancer on CT of abdomen and pelvis. CHIEF COMPLAINT: Abdominal cramping. HISTORY OF PRESENT ILLNESS: The patient is a 51-year-old G8, P7-0-1-6 postmenopausal female who is being admitted for lower abdominal cramping and hyperglycemia. She has been having lower abdominal cramping for the last 2 days and presented to ER. Cramping has been on and off and better now. She is not a good historian. She does not remember exactly how many babies she has and when was the last baby she had. She thinks her last baby was born in 2000 or 2001 when she saw her OB/chemical laboratory chief last time. Since then she has not been to any chemical laboratory chief. She does not remember having Pap smears. She was found to have hyperglycemia and started for her insulin. Her CT scan of abdomen and pelvis showed a highly suspicious lesion versus cervical neoplasm with invasion of the parametrium, invasion to the sigmoid colon serosa and hydronephrosis. This will be consistent with pelvic sidewall extension stage IIIb. I discussed the above findings with the patient and recommended a pelvic exam and Pap smear and a possible cervical biopsy. She agreed with plan. We brought her to labor and delivery room where the pelvic bed is available. She signed a consent. She declined breast examination. See below. PAST MEDICAL HISTORY: The patient denies any medical problems except lower abdominal pain and recent diagnosis hyperglycemia. PAST SURGICAL HISTORY: The patient had spontaneous vaginal deliveries and 1 time ectopic which her tubes were removed. Does not remember the date. MEDICATIONS: She only takes multivitamins and vitamin B. ALLERGIES: No known drug allergies. SOCIAL HISTORY: The patient smokes half a pack a day. She drinks alcohol. GYNECOLOGIC HISTORY: As above. She has 6 or 7 babies, 1 at 2 months of age and 1 ectopic for which she had surgery and her tubes were removed. No records. She denies any history of STDs including Chlamydia, gonorrhea, herpes. She has been sexually active with her for 5 years. She denies any problem, pain or bleeding during sex. She denies vaginal discharge, itching, burning or vaginal bleeding. She thinks she has been postmenopausal since her last child about 16 years ago. She has not had periods since then. PHYSICAL EXAMINATION: VITAL SIGNS: Blood pressure is 117/73, pulse 58, temperature 36.7, pulse ox is 96. CARDIOVASCULAR SYSTEM: S1, S2, RRR. LUNGS: Clear to auscultation bilaterally. ABDOMEN: Soft, nontender, flat. EXTREMITIES: Nontender, no edema. PELVIC EXAMINATION: External genitalia is atrophic, widened genital hiatus. She has recto and cystocele on inspection of external genitalia. Speculum was placed. Cervix was visualized to be large irregular with a necrotizing type of mass within the endocervical canal. It is firm to touch. Pap smear was obtained and the cervix started to bleed. She lost about 20 mL of blood which was controlled with pressure with sponges. then Monsel's soution was brought from pharmacy. Spekulum exam was repeated. With a long Allis clamp a small piece os tissue from the mass in the middle of the cervix was biopsied and sent to pathology. The bleeding was controlled with pressure and Monsel's solution and good hemostasis was achieved. Then bimanual exam revealed large irregular cervix fixed to the parametrium, uterus was enlarged about 8 weeks size and both adnexa were firm and palpable with fullness. ASSESSMENT AND PLAN: The patient is a 51-year-old G8, P7-0-1-6, poor historian, postmenopausal female with no DIETITIAN THERAPEUTIC care. Admitted for lower abdominal cramping and hyperglycemia found to have cervical mass extending into the parametrium and the colon on the CT scan. Pelvic examination revealed large irregular cervix with a necrotic mass in the middle of canal, most likely cervical cancer. Pap smear obtained, biopsy was taken for pathology. Plan to await the results and start referral to DIETITIAN THERAPEUTIC oncologist for further care. I explained to the patient what to expect and referral to DIETITIAN THERAPEUTIC oncologist in [facility], in [place]. She agreed with the plan. All questions were answered. OGRGE
--- NOTE | 2017-05-23 15:50 | Progress Note ---
Internal Med Progress Note Date of Service: May 23, 2017. Provider Documentation: SUBJECTIVE: resting comfortably denies abdominal pains s/p pap smear today no nausea afebrile OBJECTIVE: Vital Signs-as noted below Exam: General-alert and oriented. Not in distress. ENT-normal hearing Neck-no neck masses Lungs-cta b/l no wheezing or crackles Heart-s1 and s2 heard regular rate and rhythm, no murmurs Abdomen-soft bowel sounds present non tender no distension Extremities no edema no erythema Neuro-alert and oriented moves extremities Lab data as noted below. ASSESSMENT & PLAN: 1. Complicated UTI, secondary to most likely cervical neoplasm s/p pap smear- aait studies on cefepime for uti await urology inputs 2. New onset DM hba1c 13.2 on lantus and iss no insurance' needs insulin on discharge - possibly will be d/monica on novolin 70/30 diabetes teaching. 3. Hypokalemia, secondary to illness replaced. 4. pancreatic cyst on CT, possible malignancy? Appreciate Gi inputs f/u as out patient. 5. ongoing tobacco abuse, DVT PROPHYLAXIS Lovenox DISPOSITION to be determined Vital Signs: Date Time Temp Pulse Resp B/P (MAP) Pulse Ox O2 Delivery O2 Flow Rate FiO2 05/23/17 11:51 37.0 92 18 112/75 (87) 97 Room Air 05/23/17 09:00 Room Air 05/23/17 07:21 36.7 58 16 115/73 (87) 96 Room Air 05/23/17 04:14 36.8 91 18 123/80 (94) 96 Room Air 05/23/17 02:20 Room Air 05/22/17 23:46 36.9 82 20 110/73 (85) 92 Room Air 05/22/17 21:45 80 17 128/81 95 05/22/17 21:07 86 05/22/17 20:40 Room Air 05/22/17 19:33 85 16 127/74 96 Room Air 05/22/17 17:34 76 05/22/17 17:30 81 16 107/68 100 Room Air 05/22/17 15:39 36.7 105 16 121/81 96 Room Air Lab Results: Results Past 24 Hours Test 05/22/17 16:00 05/22/17 19:25 05/22/17 21:34 05/22/17 22:42 Range/Units White Blood Count 11.42 4.8-10.8 K/uL Red Blood Count 4.02 4.2-5.4 M/uL Hemoglobin 12.6 12.0-16.0 g/dL Hematocrit 36.3 37-47 % Mean Corpuscular Volume 90.3 80-100 fL Mean Corpuscular Hemoglobin 31.3 25-34 pg Mean Corpuscular Hemoglobin Concent 34.7 32-36 g/dl Platelet Count 302 130-400 K/uL Mean Platelet Volume 9.7 7.4-10.4 fL Neutrophils (%) (Auto) 75.7 % Lymphocytes (%) (Auto) 16.9 % Monocytes (%) (Auto) 5.5 % Eosinophils (%) (Auto) 1.1 % Basophils (%) (Auto) 0.4 % Neutrophils # (Auto) 8.66 1.4-6.5 K/uL Lymphocytes # (Auto) 1.93 1.2-3.4 K/uL Monocytes # (Auto) 0.63 0.11-0.59 K/uL Eosinophils # (Auto) 0.12 0-0.5 K/uL Basophils # (Auto) 0.04 0-0.2 K/uL RDW Standard Deviation 42.2 36.4-46.3 fL RDW Coefficient of Variation 12.7 11.5-14.5 % Immature Granulocyte % (Auto) 0.4 % Immature Granulocyte # (Auto) 0.04 0.00-0.02 K/uL Prothrombin Time 11.1 9.0-12.0 SECONDS Prothromb Time International Ratio 1.0 0.9-1.1 Urine Color DK YELLOW Urine Appearance CLEAR CLEAR Urine pH 6.5 4.5-7.5 Urine Specific [place] 1.029 1.000-1.030 Urine Protein NEG NEG Urine Glucose (UA) 3+ NEG Urine Ketones NEG NEG Urine Occult Blood 1+ NEG Urine Nitrite NEG NEG Urine Bilirubin NEG NEG Urine Urobilinogen NEG NEG Urine Leukocyte Esterase MODERATE NEG Urine WBC (Auto) >30 0-5 /hpf Urine RBC (Auto) 0-4 0-4 /hpf Urine Hyaline Casts (Auto) 0 0-5 /lpf Urine Epithelial Cells (Auto) 10-20 0-5 /lpf Urine Bacteria (Auto) 1+ NEG Sodium Level 133 136-145 mmol/L Potassium Level 2.4 3.5-5.1 mmol/L Chloride Level 88 98-107 mmol/L Carbon Dioxide Level 35 21-32 mmol/L Anion Gap 10.0 3-11 mmol/L Blood Urea Nitrogen 4 7-18 mg/dl Creatinine 1.00 0.60-1.20 mg/dl Est Creatinine Clear Calc Drug Dose 49.1 ml/min Estimated GFR () 74.5 Estimated GFR (Non- 64.3 BUN/Creatinine Ratio 4.4 10-20 Random Glucose 523 70-99 mg/dl Estimated Average Glucose 352 mg/dl Hemoglobin A1c 13.9 4.5-5.6 % Calcium Level 9.8 8.5-10.1 mg/dl Magnesium Level 2.0 1.8-2.4 mg/dl Total Bilirubin 0.5 0.2-1 mg/dl Direct Bilirubin 0.2 0-0.2 mg/dl Aspartate Amino Transf (AST/SGOT) 9 15-37 U/L Alanine Aminotransferase (ALT/SGPT) 12 12-78 U/L Alkaline Phosphatase 111 45-117 U/L Total Protein 7.5 6.4-8.2 gm/dl Albumin 2.9 3.4-5.0 gm/dl Lipase 161 73-393 U/L Beta-Hydroxybutyric Acid 0.98 0.2-2.81 mg/dL Hepatitis C Antibody Screen NEG NEG Bedside Glucose 362 374 356 70-90 mg/dl Test 05/22/17 23:35 05/23/17 00:32 05/23/17 01:31 05/23/17 03:58 Range/Units Bedside Glucose 340 283 209 161 70-90 mg/dl Test 05/23/17 05:20 05/23/17 06:53 05/23/17 08:06 05/23/17 11:48 Range/Units White Blood Count 10.53 4.8-10.8 K/uL Red Blood Count 3.68 4.2-5.4 M/uL Hemoglobin 11.0 12.0-16.0 g/dL Hematocrit 33.1 37-47 % Mean Corpuscular Volume 89.9 80-100 fL Mean Corpuscular Hemoglobin 29.9 25-34 pg Mean Corpuscular Hemoglobin Concent 33.2 32-36 g/dl Platelet Count 300 130-400 K/uL Mean Platelet Volume 9.6 7.4-10.4 fL Neutrophils (%) (Auto) 77.3 % Lymphocytes (%) (Auto) 14.1 % Monocytes (%) (Auto) 6.7 % Eosinophils (%) (Auto) 1.3 % Basophils (%) (Auto) 0.3 % Neutrophils # (Auto) 8.14 1.4-6.5 K/uL Lymphocytes # (Auto) 1.48 1.2-3.4 K/uL Monocytes # (Auto) 0.71 0.11-0.59 K/uL Eosinophils # (Auto) 0.14 0-0.5 K/uL Basophils # (Auto) 0.03 0-0.2 K/uL RDW Standard Deviation 41.8 36.4-46.3 fL RDW Coefficient of Variation 12.7 11.5-14.5 % Immature Granulocyte % (Auto) 0.3 % Immature Granulocyte # (Auto) 0.03 0.00-0.02 K/uL Sodium Level 141 136-145 mmol/L Potassium Level 3.4 3.5-5.1 mmol/L Chloride Level 101 98-107 mmol/L Carbon Dioxide Level 34 21-32 mmol/L Anion Gap 6.0 3-11 mmol/L Blood Urea Nitrogen 4 7-18 mg/dl Creatinine 0.65 0.60-1.20 mg/dl Est Creatinine Clear Calc Drug Dose 75.5 ml/min Estimated GFR () 117.5 Estimated GFR (Non- 101.4 BUN/Creatinine Ratio 6.3 10-20 Random Glucose 233 70-99 mg/dl Calcium Level 8.8 8.5-10.1 mg/dl Magnesium Level 1.9 1.8-2.4 mg/dl Bedside Glucose 207 177 221 70-90 mg/dl Microbiology Results 05/22/17 Urine Culture - Final, Complete MORE THAN THREE TYPES OF ORGANISMS SC...
--- NOTE | 2017-05-23 16:10 | Urology Consultation ---
History General Date of Service: May 23, 2017. Chief Complaint: hydronephrosis Primary Care Physician: Nj Braxton M.D. Pt seen a urologist before?: No History of Present Illness I am asked by Dr Morales to evaluate and treat patient for hydronephrosis. She is admitted with pelvic pain and weight loss. Her CT scan shows large cancer in cervix locally advanced and metastatic to one lymph node. SHe has mild bilateral hydronephrosis. Her creatinine is normal. She has weight loss and crampy pain in pelvis like a period. No vaginal bleeding. Had menopause about 10 yrs ago. SHe just had a cervical biopsy today. Imaging Imaging: CT Laboratory Results Past 24 Hours Test 05/22/17 19:25 05/22/17 21:34 05/22/17 22:42 05/22/17 23:35 Range/Units Bedside Glucose 362 374 356 340 70-90 mg/dl Test 05/23/17 00:32 05/23/17 01:31 05/23/17 03:58 05/23/17 05:20 Range/Units Bedside Glucose 283 209 161 70-90 mg/dl White Blood Count 10.53 4.8-10.8 K/uL Red Blood Count 3.68 4.2-5.4 M/uL Hemoglobin 11.0 12.0-16.0 g/dL Hematocrit 33.1 37-47 % Mean Corpuscular Volume 89.9 80-100 fL Mean Corpuscular Hemoglobin 29.9 25-34 pg Mean Corpuscular Hemoglobin Concent 33.2 32-36 g/dl Platelet Count 300 130-400 K/uL Mean Platelet Volume 9.6 7.4-10.4 fL Neutrophils (%) (Auto) 77.3 % Lymphocytes (%) (Auto) 14.1 % Monocytes (%) (Auto) 6.7 % Eosinophils (%) (Auto) 1.3 % Basophils (%) (Auto) 0.3 % Neutrophils # (Auto) 8.14 1.4-6.5 K/uL Lymphocytes # (Auto) 1.48 1.2-3.4 K/uL Monocytes # (Auto) 0.71 0.11-0.59 K/uL Eosinophils # (Auto) 0.14 0-0.5 K/uL Basophils # (Auto) 0.03 0-0.2 K/uL RDW Standard Deviation 41.8 36.4-46.3 fL RDW Coefficient of Variation 12.7 11.5-14.5 % Immature Granulocyte % (Auto) 0.3 % Immature Granulocyte # (Auto) 0.03 0.00-0.02 K/uL Sodium Level 141 136-145 mmol/L Potassium Level 3.4 3.5-5.1 mmol/L Chloride Level 101 98-107 mmol/L Carbon Dioxide Level 34 21-32 mmol/L Anion Gap 6.0 3-11 mmol/L Blood Urea Nitrogen 4 7-18 mg/dl Creatinine 0.65 0.60-1.20 mg/dl Est Creatinine Clear Calc Drug Dose 75.5 ml/min Estimated GFR () 117.5 Estimated GFR (Non- 101.4 BUN/Creatinine Ratio 6.3 10-20 Random Glucose 233 70-99 mg/dl Calcium Level 8.8 8.5-10.1 mg/dl Magnesium Level 1.9 1.8-2.4 mg/dl Test 05/23/17 06:53 05/23/17 08:06 05/23/17 11:48 Range/Units Bedside Glucose 207 177 221 70-90 mg/dl Labs were reviewed and are within normal limits unless listed below. Labs are available in the chart and at [facility] Problem List Medical Problems: (1) Diabetes mellitus, new onset Status: Acute (2) Hypokalemia Status: Acute (3) Primary cervical cancer with metastasis to other site Status: Acute (4) Urinary tract infection Status: Acute Past History no pertinent history Past Surgical History: other (salpingectomy for tubal ) Family History No pertinent family history no cancer Social History Hx Tobacco Use In Past Year?: Yes Smoking: less than 1 pack/day Alcohol: socially Drug use: none Marital status: Occupation status: employed Allergies Coded Allergies: No Known Allergies (Unverified , 05/22/17) Medications Home Medications: Home Meds and Scripts Medications Dose Route/Sig Max Daily Dose Days Date Category Advil (Ibuprofen) 200 Mg Tab 200 Mg PO DAILY 01/30/17 Reported Vitamin B Complex (B-Complex Vitamins) 1 Tab Tab 1 Tab PO DAILY 01/30/17 Reported Multi For Her 50+ (Multiple Vitamins W/ Minerals) 1 Tab Tab 1 Tab PO DAILY 01/30/17 Reported Inpatient Medications: Current Inpatient Medications Medications (Trade) Dose Ordered Sig/[place] Route Start Time Stop Time Status Last Admin Dose Admin Ioversol (Optiray 320) 100 ml UD PRN IV 05/22/17 16:00 05/26/17 15:59 Nicotine (Nicoderm Cq 14MG Patch) 1 patch QAM TD 05/23/17 08:00 06/22/17 08:59 05/23/17 09:10 1 PATCH Nicotine Polacrilex (Nicorette 2MG Gum) 1 piece Q1H PRN MT 05/22/17 20:00 06/21/17 19:59 Miscellaneous (Remove Nicoderm Patch) 1 ea HS N/A 05/23/17 07:59 06/22/17 07:58 05/23/17 09:08 1 EA Enoxaparin Sodium (Lovenox Inj) 40 mg Q24H SQ 05/23/17 09:00 06/22/17 08:59 05/23/17 09:09 40 MG Acetaminophen (Tylenol Tab) 650 mg Q4H PRN PO 05/22/17 21:45 06/21/17 21:44 Ketorolac Tromethamine (Toradol Inj) 15 mg Q6H PRN IV. 05/22/17 21:45 05/27/17 21:44 Lorazepam (Ativan Inj) 0.5 mg Q4H PRN IV 05/22/17 21:45 06/21/17 21:44 Tramadol HCl (Ultram Tab) not relieved by tylenol @ Q6H PRN PO 05/22/17 21:45 06/21/17 21:44 Morphine Sulfate (MoRPHine SULFATE INJ) 4 mg Q3H PRN IV 05/22/17 21:45 06/05/17 21:44 Multivitamins/ Minerals (Multivitamin W/ Minerals Tab) 1 tab DAILY PO 05/23/17 08:00 06/22/17 08:59 05/23/17 09:08 1 TAB Vitamin B Complex (Vitamin B Complex) 1 tab DAILY PO 05/23/17 08:00 06/22/17 08:59 05/23/17 09:07 1 TAB Ibuprofen (Advil Tab) 400 mg Q6H PRN PO 05/22/17 21:45 06/21/17 21:44 Cefepime HCl (Consult) 1 ea UD PRN N/A 05/22/17 22:15 06/21/17 22:14 Lorazepam 0.5 mg/ Syringe 1 ml @ 1 mls/min Q4H PRN IV 05/22/17 22:30 06/21/17 22:29 Cefepime HCl 2000 mg/Dextrose 112.5 ml @ 222.6 mls/ hr Q12H IV 05/23/17 08:00 06/02/17 07:59 05/23/17 09:06 222.6 MLS/HR Insulin Aspart (novoLOG ASPART) SLIDING SCALE If C... ACHS SC 05/23/17 11:00 06/22/17 10:59 05/23/17 13:17 3 UNITS Glucose (Glucose 40% Gel) 15-30 GRAMS 15 GRAMS... UD PRN PO 05/23/17 02:00 06/22/17 01:59 Glucose (Glucose Chew Tab) 4-8 Tablets 4 Tabl... UD PRN PO 05/23/17 02:00 06/22/17 01:59 Dextrose (Dextrose 50% 50ML Syringe) 25-50ML OF 50% DW IV FOR... UD PRN IV 05/23/17 02:00 06/22/17 01:59 Glucagon (Glucagon Inj) 1 mg UD PRN SQ 05/23/17 02:00 06/22/17 01:59 Insulin Glargine (Lantus Solostar Pen) 10 units BID SC 05/23/17 20:00 06/22/17 08:59 Lactated Ringer's 1,000 ml @ 80 mls/hr [id number] ONCE IV 05/23/17 06:30 05/23/17 18:59 05/23/17 06:48 80 MLS/HR Enteral Nutritional Formula (Boost Glucose Control) 1 can BID PO 05/23/17 20:00 06/22/17 19:59 Review of Systems Review of Systems Constitutional: + weight loss (10 pounds ), No fever, No chills Neurological: No dizzy Endocrine: + tired/sluggish, No excessive thirst, No too hot, No too cold Gastrointestinal: + abdominal pain, No constipation Cardiovascular: No chest pain, No palpitations Respiratory: No shortness of breath Female : + frequent urination, No weak stream, No blood in urine, No infections, No abnormal vaginal bleeding Physical Exam Vital Signs: Vital Signs Past 12 Hours Date Time Temp Pulse Resp B/P (MAP) Pulse Ox O2 Delivery O2 Flow Rate FiO2 05/23/17 15:54 36.2 69 20 132/69 (90) 93 Room Air 05/23/17 15:52 94 18 107/74 (85) 97 Room Air 05/23/17 11:51 37.0 92 18 112/75 (87) 97 Room Air 05/23/17 09:00 Room Air 05/23/17 07:21 36.7 58 16 115/73 (87) 96 Room Air 05/23/17 04:14 36.8 91 18 123/80 (94) 96 Room Air Physical Exam: General Appearance: WD/WN, no apparent distress Eyes: bilateral eyes normal inspection ENT: hearing grossly normal Neck: supple, no adenopathy, no JVD, trachea midline Respiratory/Chest: no respiratory distress, no accessory muscle use Gastrointestinal: Abdomen: normal abdomen Renal: normal renal Hernia: absent hernia Extremities: non-tender, normal inspection, no pedal edema, no calf tenderness Neurologic/Psychiatric: alert, normal mood/affect, oriented x 3 Skin: normal color, warm/dry, no rash Lymphatic: no adenopathy Assessment & Plan Assessment & Plan locally advanced colorist cancer likely cervical. no need for ureteral stenting at this time. she will have labs done intermittently and imaging in future so if more significant obstruction develops we can add stents in future.
[2017-05-23] MEDS: BOOST GLUCOSE CONTROL PO SCH (20:01)
[2017-05-24] VITALS (7 sets, daily range): BP systolic 114–126; BP diastolic 75–78; PULSE 94–100; TEMP 36.6–37.5; O2SAT 97–99; Ht 154.9 cm; Wt 48.8 kg
[2017-05-24 06:24] LABS: CREATININE 0.68 mg/dl (0.60-1.20)
[2017-05-24] MEDS ORDERED: INSULIN GLARGINE SOLOSTAR 100 UNITS/ML 3 ML PEN SC SCH (08:00)
[2017-05-24] MEDS: NICOTINE 14 MG/24 HR TDSY TD SCH (08:35)
[2017-05-24] MEDS: BOOST GLUCOSE CONTROL PO SCH ×2 (08:35→20:00)
[2017-05-24] MEDS: CEROVITE ADV FORMULA TAB PO SCH (08:37)
[2017-05-24] MEDS: VITAMIN B COMPLEX TAB PO SCH (08:37)
[2017-05-24] MEDS: CEFEPIME IV 2,000 MG in DEXTROSE 5% 100ML 100 ML IV SCH (08:49)
[2017-05-24] MEDS: ENOXAPARIN 40 MG/0.4 ML SYR SQ SCH (08:49)
[2017-05-24] MEDS: INSULIN ASPART 100 UNITS/ML 3 ML PEN SC SCH ×4 (09:16→20:33)
[2017-05-24] MEDS ORDERED: PHARMACY GLYCEMIC MGMT CONSULT PRN (13:07)
--- NOTE | 2017-05-24 14:21 | Pharmacy Progress Note ---
Glycemic Control Intl Consult Date of Service May 24, 2017. Scope Glycemic Pharmacist consulted by Dr Cota on 05/24/17 for glycemic control and to write orders per [facility] inpatient glycemic control protocol Objective Weight (Kilograms): 49.400 Accuchecks BSG (last 24hrs): Test 05/23/17 16:41 05/23/17 21:00 05/24/17 07:41 05/24/17 11:39 Bedside Glucose 188 mg/dl (70-90) 309 mg/dl (70-90) 242 mg/dl (70-90) 187 mg/dl (70-90) Laboratory Data (last 24hrs) Test 05/24/17 05:09 Creatinine 0.68 mg/dl HbA1c Test 05/22/17 16:00 Hemoglobin A1c 13.9 % (4.5-5.6) H Recent Pertinent Medications The patient is currently receiving: * Basal insulin: Lantus 20 units every 12 hours * Correctional Insulin: Novolog Correction per scale ACHS Goal Range: Low 140 mg/dL - High 180 mg/dL Correction Factor: 25 mg/dL/unit * Prandial insulin: Per carb ratio of 1 unit per 15 grams CHO consumed Risk Factors for Insulin Resistance: * Infection: complicated UTI - on Cefepime IV Assessment & Plan ASSESSMENT: * 51 yr old female with new diagnosis of diabetes, A1c 13.9% * Pt has been started on basal + bolus insulin regimen * BSGs ranged from 188 to 309 mg/dL over the past 24 hours * received 56 units of insulin (40 basal/16 units bolus) * regimen highly basal weighted - current basal dose is significantly more aggressive than wt/stress 3 * Will redistribute current regimen with goal of 50% basal and 50% bolus to avoid hypoglycemia. * ADA & AACE recommend a goal blood sugar range 140-180 mg/dl for the majority of critically ill & non-critically ill patients. However, more stringent targets may be selected in individual cases. PLAN FOR INPATIENT GLYCEMIC CONTROL: * Basal insulin * Lantus 20 units SQ this am (given prior to consult) * Lantus 5-12 units SQ tonight * 5 units for BSG less than 120 mg/dL * 10 units for BSG 120-180 mg/dL * 12 units for BSG greater than 180 mg/dL * Correctional Insulin with NOVOLOG per scale ACHS * Goal Range: Low 140 mg/dL - High 180 mg/dL * Correction Factor: 30 mg/dL/unit * Nutritional / Prandial insulin per carb ratio of 1 unit per 11 grams CHO consumed * add check with coverage at 0200 LOOKING AHEAD TO DISCHARGE: * Combination therapy with insulin warranted for A1c greater than 10% * Recommend metformin + basal insulin + mealtime insulin or GLP-1 * unable to provide doses at this time * Please note that the plan above was derived based on current level of insulin resistance and hospital stress. These recommendations are appropriate for inpatient admission only. Plan of care upon discharge will need to be reassessed to avoid potential outpatient hypo/hyperglycemia. Thank you.
--- NOTE | 2017-05-24 16:02 | Progress Note ---
Internal Med Progress Note Date of Service: May 24, 2017. Provider Documentation: SUBJECTIVE: complains of itching all over the body says she was bitten by flea few days back afebrile no nausea somewhat unhappy that she needs to be on insulin OBJECTIVE: Vital Signs-as noted below Exam: General-alert and oriented. Not in distress. ENT-normal hearing Neck-no neck masses Lungs-cta b/l no wheezing or crackles Heart-s1 and s2 heard regular rate and rhythm, no murmurs Abdomen-soft bowel sounds present non tender no distension Extremities no edema no erythema skin- papular rash all over the body Neuro-alert and oriented moves extremities Lab data as noted below. ASSESSMENT & PLAN: 1. Complicated UTI, secondary to most likely cervical neoplasm s/p pap smear- aait studies on cefepime for uti- wiill change to cipro as patient having itching 2. New onset DM hba1c 13.2 on lantus and iss no insurance' needs insulin on discharge - possibly will be d/monica on novolin 70/30 pharmacy consult diabetes teaching. 3.b/ l Hydronephrosis mostly from cervical cancer seen by urology and no plan derick stents at this time needs followup. 4. Hypokalemia, secondary to illness replaced. 5. pancreatic cyst on CT, possible malignancy? Appreciate Gi inputs f/u as out patient. 6. ongoing tobacco abuse, counselling. 7. Skin rash itching Benadryl cream stopping cefepime will monitor DVT PROPHYLAXIS Lovenox DISPOSITION possible d/c in 1-2 days Vital Signs: Date Time Temp Pulse Resp B/P (MAP) Pulse Ox O2 Delivery O2 Flow Rate FiO2 05/24/17 14:59 36.6 96 18 122/78 (93) 99 Room Air 05/24/17 11:29 36.7 95 18 114/76 (89) 99 Room Air 05/24/17 07:45 98 Room Air 05/24/17 07:35 36.7 97 18 118/75 (89) 98 Room Air 05/24/17 04:10 37.0 97 18 126/77 (93) 97 Room Air 05/24/17 00:00 Room Air 05/23/17 23:43 37.2 98 18 118/74 (89) 97 Room Air 05/23/17 21:00 Room Air 05/23/17 20:01 36.8 96 18 128/81 (97) 97 Room Air Lab Results: Results Past 24 Hours Test 05/23/17 16:41 05/23/17 21:00 05/24/17 05:09 05/24/17 07:41 Range/Units Bedside Glucose 188 309 242 70-90 mg/dl Creatinine 0.68 0.60-1.20 mg/dl Est Creatinine Clear Calc Drug Dose 72.1 ml/min Estimated GFR () 115.7 Estimated GFR (Non- 99.9 Test 05/24/17 11:39 Range/Units Bedside Glucose 187 70-90 mg/dl
[2017-05-24] MEDS: DiphenhydrAMINE 2%/ZINC 0.1% CREAM 28GM TUBE EXT SCH ×2 (16:46→20:00)
[2017-05-24] MEDS: CIPROFLOXACIN 250 MG TAB PO SCH (20:28)
[2017-05-24] MEDS: INSULIN GLARGINE SOLOSTAR 100 UNITS/ML 3 ML PEN SC SCH (20:34)
--- NOTE | 2017-05-24 21:22 | Progress Note ---
Subjective Date of Service: May 24, 2017. Subjective Pt evaluation today including: conversation w/ patient, chart review, lab review Voiding: no voiding problems Pt voiding well. No hem. No dys. No flank pain. No nausea Urine Cx: >3 types (possible contaminant) CT: B/L [place] Cr: 0.68 Problem List Medical Problems: (1) Diabetes mellitus, new onset Status: Acute (2) Hypokalemia Status: Acute (3) Primary cervical cancer with metastasis to other site Status: Acute (4) Urinary tract infection Status: Acute Review of Systems Constitutional: No fever, No chills Respiratory: No shortness of breath Cardiac: No chest pain Abdomen: No nausea Female : No dysuria, No hematuria Objective Vital Signs Date Time Temp Pulse Resp B/P (MAP) Pulse Ox O2 Delivery O2 Flow Rate FiO2 05/24/17 19:28 37.0 100 18 122/75 (91) 97 Room Air 05/24/17 15:55 Room Air 05/24/17 14:59 36.6 96 18 122/78 (93) 99 Room Air 05/24/17 11:29 36.7 95 18 114/76 (89) 99 Room Air 05/24/17 07:45 98 Room Air 05/24/17 07:35 36.7 97 18 118/75 (89) 98 Room Air 05/24/17 04:10 37.0 97 18 126/77 (93) 97 Room Air 05/24/17 00:00 Room Air 05/23/17 23:43 37.2 98 18 118/74 (89) 97 Room Air Physical Exam General Appearance: WD/WN Neck: supple Respiratory/Chest: lungs clear Cardiovascular: regular rate, rhythm Abdomen: non tender, soft Extremities: non-tender Laboratory Results Last 24 Hours Test 05/24/17 05:09 05/24/17 07:41 05/24/17 11:39 05/24/17 16:27 Creatinine 0.68 mg/dl Est Creatinine Clear Calc Drug Dose 72.1 ml/min Estimated GFR () 115.7 Estimated GFR (Non- 99.9 Bedside Glucose 242 mg/dl 187 mg/dl 185 mg/dl Test 05/24/17 20:24 Bedside Glucose 187 mg/dl Assessment and Plan (1) Hydronephrosis (2) Urinary tract infection [place] present. Cr normal. No flank pain. Still no need for surgical intervention at this time. Continue to monitor Cr. Continue antibiotics Should have repeat abd imaging w/ in 1 mos to follow hydro Problem Qualifiers (1) Urinary tract infection: Urinary tract infection type: acute cystitis Hematuria presence: with hematuria Qualified Codes: N30.01 - Acute cystitis with hematuria
[2017-05-25] MEDS ORDERED: INSULIN ASPART 100 UNITS/ML 3 ML PEN SC SCH (02:00)
[2017-05-25 04:22] VITALS: BP 115/74; PULSE 96; TEMP 37.1; O2SAT 96
[2017-05-25 05:27] LABS: HEMATOCRIT 31.6 % (37-47); MEAN CELL VOLUME 91.1 fL (80-100); MEAN CORPUSCULAR HEMOGLOBIN 30.8 pg (25-34); MEAN CORPUSCULAR HGB CONC 33.9 g/dl (32-36); MEAN PLATELET VOLUME 9.3 fL (7.4-10.4); PLATELET COUNT 290 K/uL (130-400); RED BLOOD COUNT 3.47 M/uL (4.2-5.4)
[2017-05-25 05:50] LABS: CREATININE 0.65 mg/dl (0.60-1.20)
[2017-05-25 07:45] VITALS: O2SAT 97
[2017-05-25] MEDS: BOOST GLUCOSE CONTROL PO SCH (08:00)
[2017-05-25] MEDS: DiphenhydrAMINE 2%/ZINC 0.1% CREAM 28GM TUBE EXT SCH (08:00)
[2017-05-25 08:13] VITALS: BP 109/71; PULSE 97; TEMP 37.5; O2SAT 95
[2017-05-25] MEDS: NICOTINE 14 MG/24 HR TDSY TD SCH (08:24)
[2017-05-25] MEDS: VITAMIN B COMPLEX TAB PO SCH (08:24)
[2017-05-25] MEDS: CEROVITE ADV FORMULA TAB PO SCH (08:24)
[2017-05-25] MEDS: CIPROFLOXACIN 250 MG TAB PO SCH (08:24)
[2017-05-25] MEDS: ENOXAPARIN 40 MG/0.4 ML SYR SQ SCH (08:26)
[2017-05-25] MEDS: INSULIN ASPART 100 UNITS/ML 3 ML PEN SC SCH ×3 (09:01→16:30)
[2017-05-25] MEDS: INSULIN GLARGINE SOLOSTAR 100 UNITS/ML 3 ML PEN SC SCH (09:29)
--- NOTE | 2017-05-25 09:58 | Pharmacy Progress Note ---
Glycemic Control Progress Note Date of Service May 25, 2017. Scope Glycemic Pharmacist consulted for glycemic control to write orders per [facility] inpatient glycemic control protocol. Objective Accuchecks BSG (last 24hrs): Test 05/24/17 11:39 05/24/17 16:27 05/24/17 20:24 05/25/17 01:56 Bedside Glucose 187 mg/dl (70-90) 185 mg/dl (70-90) 187 mg/dl (70-90) 131 mg/dl (70-90) Test 05/25/17 07:37 Bedside Glucose 99 mg/dl (70-90) HbA1c: Test 05/22/17 16:00 Hemoglobin A1c 13.9 % (4.5-5.6) H Recent Pertinent Medications The patient is currently receiving: * Basal insulin: Lantus 20 units qAM and 12 units qPM (on 05/24) * Correctional Insulin: Novolog Correction per scale ACHS Goal Range: Low 140 mg/dL - High 180 mg/dL Correction Factor: 30 mg/dL/unit * Prandial insulin: Per carb ratio of 1 unit per 11 grams CHO consumed Risk Factors for Insulin Resistance: * Infection: complicated UTI. Cefepime IV -> cipro PO Outpatient Anti-Diabetic Meds none Assessment & Plan ASSESSMENT: * 51 yr old female with new diagnosis of diabetes, A1c 13.9%. Pt being treated for UTI, hydronephrosis. * Pt has been started on basal + bolus insulin regimen. * Consulted Circuit Judge to assist in care * BSGs ranged from 99 - 242 mg/dL over the past 24 hours * received 49 units of insulin (32 basal/17 units bolus) * fasting BSG (99 mg/dL) improved and at goal * unexpected BSG of 310 mg/dL at lunch - discussed with SLOAN Evans; pt denies snacking between meals, however, she does report bad eating habits at home. I am hesitant to overreact to this value since BSGs have otherwise been trending down over the past 12 hours. * Will slightly tighten CF/CR. * will continue to redistribute current regimen with goal of 50% basal and 50% bolus to avoid hypoglycemia PLAN FOR INPATIENT GLYCEMIC CONTROL: * Basal insulin * Lantus 10 units SQ qAM * Lantus 15 - 18 units SQ qPM * 15 units for BSG 180 mg/dL or less * 18 units for BSG > 180 mg/dL * Correctional Insulin with NOVOLOG per scale ACHS * Goal Range: Low 140 mg/dL - High 180 mg/dL * Correction Factor: 25 mg/dL/unit * Nutritional / Prandial insulin per carb ratio of 1 unit per 9 grams CHO consumed * add check with coverage at 00 and 04 LOOKING AHEAD TO DISCHARGE: * Combination therapy with insulin warranted for A1c greater than 10% * Recommend metformin + basal insulin + mealtime insulin or GLP-1 * unable to provide exact doses at this time * Please note that the plan above was derived based on current level of insulin resistance and hospital stress. These recommendations are appropriate for inpatient admission only. Plan of care upon discharge will need to be reassessed to avoid potential outpatient hypo/hyperglycemia. Thank you.
[2017-05-25 11:18] VITALS: BP 111/71; PULSE 94; TEMP 36.8; O2SAT 98
[2017-05-25 15:06] VITALS: BP 103/67; PULSE 94; TEMP 36.9; O2SAT 97
[2017-05-25] MEDS ORDERED: METF500T PO (16:02)
[2017-05-25] MEDS ORDERED: INSU1INJ17 SC (16:02)
[2017-05-25] MEDS ORDERED: DIPH25CA65 PO (16:02)
[2017-05-25] MEDS ORDERED: CPR250 PO (16:02)
--- NOTE | 2017-05-25 16:10 | Discharge Instructions ---
Discharge Instructions Date of Service May 25, 2017. Admission Reason for Admission: Hyperglycemia Discharge Discharge Diagnosis / Problem: new onset DM, cervical mass, uti? Discharge Goals Goal(s): Decrease discomfort, Improve function Activity Recommendations Activity Limitations: resume your previous activity . Instructions / Follow-Up Instructions / Follow-Up FOLLOWUP WITH FAMILY DOCTOR Nj Agustin ON AT 11AM. FOLLOWUP WITH RELAY TELEGRAPHER Jovani Tejeda NEXT WEEK FOR BIOPSY RESULTS AND FURTHER PLAN OF CARE. FOLLOWUP WITH UROLOGY IN ONE MONTH FOR RENAL ULTRASOUND FOR HYDRONEPHROSIS. FOLLOWUP WITH GI FOR PANCREATIC CYST IN 1 MONTH. PLEASE CHECK BLOOD SUGARS TWICE DAILY, ONCE BEFORE MEALS AND ONCE AFTER MEALS AND NOTE THE READINGS IN A LOG BOOK AND SHOW THEM TO FAMILY DOCTOR FOR FURTHER ADJUSTMENTS OF INSULIN REGIMEN. TO CALL FAMILY DOCTOR IF BLOOD SUGARS ABOVE 350 OR BELOW 80. TO TAKE SUGAR OR ORANGE JUICE IF BLOOD SUGARS BELOW 80 AND CALL FAMILY DOCTOR. REPORT TO ER FOR ANY CHANGE IN MEDICAL CONDITION. Current Hospital Diet Patient's current hospital diet: Diabetes Type 2 Diet Discharge Diet Recommended Diet: Diabetes Type 2 Diet Pending Studies Studies pending at discharge: no Laboratory Results Hemoglobin A1c Test 05/22/17 16:00 Range/Units Estimated Average Glucose 352 mg/dl Hemoglobin A1c 13.9 H 4.5-5.6 % Medical Emergencies . Who to Call and When: Medical Emergencies: If at any time you feel your situation is an emergency, please call 911 immediately. . Non-Emergent Contact Non-Emergency issues call your: Primary Care Provider . . "Provider Documentation" section prepared by Sajan Cota. . VTE Core Measure Inpt VTE Proph given/why not?: Enoxaparin (Lovenox)SQ (DECLINED)
[2017-05-25] MEDS ORDERED: INSULIN HUMAN 70% NPH/30% REGULAR SC SCH (17:00)
[2017-05-25 17:14] VITALS: BP 103/67; PULSE 94; TEMP 36.9; O2SAT 97
--- NOTE | 2017-05-25 17:15 | Progress Note ---
Internal Med Progress Note Date of Service: May 25, 2017. Provider Documentation: SUBJECTIVE: resting comfortably itching improving ambulated fine eating ok no sob afebrile ok to go home OBJECTIVE: Vital Signs-as noted below Exam: General-alert and oriented. Not in distress. ENT-normal hearing Neck-no neck masses Lungs-cta b/l no wheezing or crackles Heart-s1 and s2 heard regular rate and rhythm, no murmurs Abdomen-soft bowel sounds present non tender no distension Extremities no edema no erythema skin- papular rash all over the body-improving Neuro-alert and oriented moves extremities Lab data as noted below. ASSESSMENT & PLAN: 1. Complicated UTI, secondary to most likely cervical neoplasm s/p pap smear- aait studies on cefepime for uti- wiill change to cipro as patient having itching d/c on po cipro 2. New onset DM hba1c 13.2 on lantus and iss no insurance' needs insulin on discharge - possibly will be d/monica on novolin 70/30 pharmacy consult diabetes teaching. discharged on novolin 70/30 20units bid metformin 500mg daily and further titration by PCP close followup with pcp 3.B/LHydronephrosis mostly from cervical cancer seen by urology and no plan derick stents at this time Urology recommends one month f/u with repeat renal ultrasound. 4. Hypokalemia, secondary to illness replaced. 5. pancreatic cyst on CT, possible malignancy? Appreciate Gi inputs f/u as out patient. 6. ongoing tobacco abuse, counselling. 7. Skin rash itching Benadryl cream stopping cefepime Discharged home Vital Signs: Date Time Temp Pulse Resp B/P (MAP) Pulse Ox O2 Delivery O2 Flow Rate FiO2 05/25/17 15:06 36.9 94 18 103/67 (79) 97 Room Air 05/25/17 11:18 36.8 94 18 111/71 (84) 98 Room Air 05/25/17 08:13 37.5 97 18 109/71 (84) 95 Room Air 05/25/17 07:45 97 Room Air 05/25/17 04:22 37.1 96 18 115/74 (88) 96 Room Air 05/25/17 00:00 Room Air 05/24/17 23:35 37.5 94 18 118/75 (89) 97 Room Air 05/24/17 21:37 Room Air 05/24/17 19:28 37.0 100 18 122/75 (91) 97 Room Air Lab Results: Results Past 24 Hours Test 05/24/17 20:24 05/25/17 01:56 05/25/17 05:08 05/25/17 07:37 Range/Units Bedside Glucose 187 131 99 70-90 mg/dl White Blood Count 12.30 4.8-10.8 K/uL Red Blood Count 3.47 4.2-5.4 M/uL Hemoglobin 10.7 12.0-16.0 g/dL Hematocrit 31.6 37-47 % Mean Corpuscular Volume 91.1 80-100 fL Mean Corpuscular Hemoglobin 30.8 25-34 pg Mean Corpuscular Hemoglobin Concent 33.9 32-36 g/dl RDW Standard Deviation 43.3 36.4-46.3 fL RDW Coefficient of Variation 13.0 11.5-14.5 % Platelet Count 290 130-400 K/uL Mean Platelet Volume 9.3 7.4-10.4 fL Creatinine 0.65 0.60-1.20 mg/dl Est Creatinine Clear Calc Drug Dose 75.5 ml/min Estimated GFR () 117.5 Estimated GFR (Non- 101.4 Test 05/25/17 11:49 05/25/17 16:36 Range/Units Bedside Glucose 310 94 70-90 mg/dl
--- NOTE | 2017-05-25 19:41 | Discharge Summary ---
Discharge Summary Date of Service May 25, 2017. Discharge Summary Admission Date: May 22, 2017 at 20:43 Discharge Date: May 25, 2017 Discharge Disposition: Home Principal Diagnosis: CERVICAL MASS B/L HYDRONEPHROSIS NEW ONSET DIABETES PANCREATIC CYST UTI? Procedures: CT ABD/PELVIS: 1. Findings highly suspicious for cervical neoplasm with invasion of the parametrium an invasion to the sigmoid colon serosa. No ethel bowel obstruction. 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 Grossly metastatic left external iliac lymphadenopathy (N1). 2. 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 3. Bladder wall thickening could suggest cystitis. Correlate with urinalysis. S/P PAP SMEAR Consultations: [facility]OLOG[facility] GI Medication Reconciliation New Medications: Diphenhydramine Hcl (Benadryl Allergy) 25 Mg Cap 1 CAP PO BID PRN for Itching for 30 Days, #20 CAP Insulin Isophane & Reg (Human) (Novolin 70/30 Relion) 1 Inj Inj 20 UNITS SC BID, #1 3 Refills Metformin Hcl (Glucophage) 500 Mg Tab 500 MG PO DAILY, #30 TAB 1 Refill Ciprofloxacin (Ciprofloxacin HCl) 250 Mg Tab 250 MG PO BID for 3 Days, TAB Continued Medications: B-Complex Vitamins (Vitamin B Complex) 1 Tab Tab 1 TAB PO DAILY Multiple Vitamins W/ Minerals (Multi For Her 50+) 1 Tab Tab 1 TAB PO DAILY Discontinued Medications: Ibuprofen Tab (Advil) 200 Mg Tab 200 MG PO DAILY, TAB Admission Information HPI (per Admitting provider): History obtained from patient and records. Medical history significant for tobacco abuse. For about a month now, patient has had intermittent lower achy abdominal pain with some cramping. No vaginal bleeding, poor appetite, a 20-pound weight loss in the last month. No chest pain, no shortness of breath. Denies dysuria - sometimes urinating a lot, sometimes not as much. Physical Exam (per Admitting): VITAL SIGNS: Blood pressure was noted to be 107/60, pulse rate 81, RR 16, temperature 36.7, sats 96 on room air. GENERAL: Noted to be anxious, comfortable, no respiratory distress. SKIN: Normal color. HEENT: [place] palpable conjunctivae. Dry mucosa. NECK: No JVD. Supple. CHEST: Clear to auscultation. HEART: Regular rate and rhythm. ABDOMEN: Hypogastric tenderness. EXTREMITIES: No edema. No tenderness NEUROLOGIC: No gross focality Hospital Course 1. Complicated UTI, secondary to most likely cervical neoplasm s/p pap smear- aait studies on cefepime for uti- wiill change to cipro as patient having itching d/c on po cipro 2. New onset DM hba1c 13.2 on lantus and iss no insurance' needs insulin on discharge - possibly will be d/monica on novolin 70/30 pharmacy consult diabetes teaching. discharged on novolin 70/30 20units bid metformin 500mg daily and further titration by PCP close followup with pcp 3.B/LHydronephrosis mostly from cervical cancer seen by urology and no plan derick stents at this time Urology recommends one month f/u with repeat renal ultrasound. 4. Hypokalemia, secondary to illness replaced. 5. pancreatic cyst on CT, possible malignancy? Appreciate Gi inputs f/u as out patient. 6. ongoing tobacco abuse, counselling. 7. Skin rash itching Benadryl cream stopping cefepime Discharged home Total time spent on discharge = 40MINUTES This includes examination of the patient, discharge planning, medication reconciliation, and communication with other providers. Discharge Instructions Discharge Instructions Date of Service May 25, 2017. Admission Reason for Admission: Hyperglycemia Discharge Discharge Diagnosis / Problem: new onset DM, cervical mass, uti? Discharge Goals Goal(s): Decrease discomfort, Improve function Activity Recommendations Activity Limitations: resume your previous activity . Instructions / Follow-Up Instructions / Follow-Up FOLLOWUP WITH FAMILY DOCTOR Nj Agustin ON AT 11AM. FOLLOWUP WITH RING CONDUCTOR Jovani Tejdea NEXT WEEK FOR BIOPSY RESULTS AND FURTHER PLAN OF CARE. FOLLOWUP WITH UROLOGY IN ONE MONTH FOR RENAL ULTRASOUND FOR HYDRONEPHROSIS. FOLLOWUP WITH GI FOR PANCREATIC CYST IN 1 MONTH. PLEASE CHECK BLOOD SUGARS TWICE DAILY, ONCE BEFORE MEALS AND ONCE AFTER MEALS AND NOTE THE READINGS IN A LOG BOOK AND SHOW THEM TO FAMILY DOCTOR FOR FURTHER ADJUSTMENTS OF INSULIN REGIMEN. TO CALL FAMILY DOCTOR IF BLOOD SUGARS ABOVE 350 OR BELOW 80. TO TAKE SUGAR OR ORANGE JUICE IF BLOOD SUGARS BELOW 80 AND CALL FAMILY DOCTOR. REPORT TO ER FOR ANY CHANGE IN MEDICAL CONDITION. Current Hospital Diet Patient's current hospital diet: Diabetes Type 2 Diet Discharge Diet Recommended Diet: Diabetes Type 2 Diet Pending Studies Studies pending at discharge: no Laboratory Results Hemoglobin A1c Test 05/22/17 16:00 Range/Units Estimated Average Glucose 352 mg/dl Hemoglobin A1c 13.9 H 4.5-5.6 % Medical Emergencies . Who to Call and When: Medical Emergencies: If at any time you feel your situation is an emergency, please call 911 immediately. . Non-Emergent Contact Non-Emergency issues call your: Primary Care Provider . . "Provider Documentation" section prepared by Sajan Cota.
[2017-05-26] MEDS ORDERED: INSULIN ASPART 100 UNITS/ML 3 ML PEN SC SCH
== END 2017-05-25 18:34 | disposition home or self-care (01) | DRG 744 ==
LOC: C.EDB 15:38 → C.4E 20:43 → ENRESERV 20:57
PROVIDERS: ADMIT Internal Medicine; ATTEND Internal Medicine
PROC: 0UBC7ZX Excision of Cervix, Via Natural or Artificial Opening, Diagnostic (ICD-10-PCS; principal; 2017-05-23)
DX: C53.9 Malignant neoplasm of cervix uteri, unspecified (principal); C78.5 Secondary malignant neoplasm of large intestine and rectum; N39.0 Urinary tract infection, site not specified; N13.30 Unspecified hydronephrosis; E11.9 Type 2 diabetes mellitus without complications; E87.6 Hypokalemia; F17.200 Nicotine dependence, unspecified, uncomplicated; Z83.3 Family history of diabetes mellitus; R21 Rash and other nonspecific skin eruption

== ENCOUNTER → 2017-06-25 | Outpatient (CLI) | payer SELFPAY ==
[~2017-06-25] MED LIST changes: +CPR250 PO; +DIPH25CA65 PO; -IBUP-103 PO; +INSU1INJ17 SC; +METF500T PO
--- NOTE | 2017-06-25 12:34 | DIAGNOSTIC IMAGING REPORT ---
LEFT LOWER EXTREMITY VENOUS DOPPLER HISTORY: Left leg SWELLING COMPARISON STUDY: None. FINDINGS: There is normal compressibility, flow, and augmentation within the left lower extremity deep venous system. IMPRESSION: No DVT within the left lower extremity. Electronically signed by: Herb Kay M.D. 06/25/2017 12:33 PM Dictated Date/Time: 06/25/2017 12:33 PM
== END | disposition home or self-care (01) ==
LOC: C.ULTR 11:36
PROVIDERS: ATTEND Physician Assistant Medical
DX: M79.605 Pain in left leg (principal); R22.42 Localized swelling, mass and lump, left lower limb

== ENCOUNTER → 2017-06-30 | Outpatient (CLI) | payer OTHER ==
[~2017-06-30] MED LIST changes: -CPR250 PO; +GADAVIST IV PRN; +INSU70IN2 SQ; +METF-80 PO
--- NOTE | 2017-07-01 12:51 | DIAGNOSTIC IMAGING REPORT ---
MRI OF THE BRAIN WITHOUT AND WITH IV CONTRAST CLINICAL HISTORY: Abnormal PET/CT. Cervical cancer. COMPARISON STUDY: PET CT June 18, 2017. TECHNIQUE: Utilizing a 1.5 Debo magnet and dedicated coil, multiplanar, multiecho imaging of the brain was performed pre and postcontrast administration. IV administration of 5 mL of Gadavist contrast was uneventful. Thin cut post contrast imaging was performed. FINDINGS: There are no areas of restricted diffusion. No acute intracranial hemorrhage, midline shift or mass effect is present. Ventricular system is normal. Basilar cisterns are patent. There are no extra-axial collections. Flow-voids for the major intracranial vessels are present. There is no intracranial mass or pathologic enhancement. Specifically, there is no abnormality to correspond to the focus of radiotracer uptake within the right frontal lobe shown on prior PET/CT of June 18, 2017. A few small white matter T2 hyperintense foci suggest mild small vessel disease. No calvarial lesions are identified. The sinuses and orbits are unremarkable. IMPRESSION: 1. No evidence of metastatic disease. No finding to correspond to the focus of radiotracer uptake on PET/CT of June 18, 2017 which was likely artifactual. 2. No acute intracranial findings. 3. Minimal small vessel disease. Electronically signed by: Leo Louis M.D. 07/01/2017 12:50 PM Dictated Date/Time: 06/30/2017 8:47 AM
== END | disposition home or self-care (01) ==
LOC: C.MRIBC 07:03
PROVIDERS: ATTEND Physician Assistant Medical
DX: R93.8 Abnormal findings on diagnostic imaging of other specified body structures (principal); C53.8 Malignant neoplasm of overlapping sites of cervix uteri

== ENCOUNTER → 2017-07-01 | Outpatient (CLI) | payer OTHER ==
--- NOTE | 2017-07-01 13:15 | DIAGNOSTIC IMAGING REPORT ---
MRI OF THE PELVIS WITH AND WITHOUT CONTRAST CLINICAL HISTORY: Recently diagnosed cervical cancer. Abnormal PET/CT. COMPARISON STUDY: CT of the abdomen and pelvis May 22, 2017 and PET/CT June 18, 2017. TECHNIQUE: Utilizing a 1.5 Debo magnet, multiplanar, multiecho imaging of the pelvis was performed pre and postcontrast ministration. Injection of 5.1 cc of Gadavist IV was uneventful. FINDINGS: Note is made of a large T1 hypointense, intermediate T2 signal intensity mass centered within the left aspect of the cervix that measures approximately 6.9 x 6.3 x 6.4 cm. There is invasion of the parametrium and tumor invasion into the adjacent soft tissues, including extensive involvement of the mid sigmoid colon, as shown on prior PET/CT. No definite rectal involvement is present. There is invasion into the inferior aspect of the uterus as well as the upper vagina. Note is made of mild left hydroureter due to ureteral involvement. A 4.2 x 3.5 x 2.8 cm pathologic left iliac bifurcation node shown on image 12 of 46 represents alison involvement. This pathologic lymph node results in severe narrowing of the left external iliac vein. There is a smaller adjacent pathologic lymph node as well. A 1.9 x 1.2 cm left presacral implant is noted on axial image 14 of 46. There is associated diminished T1 signal and marrow edema on the T2-weighted sequence within the adjacent osseous structures. This suggests bony involvement. No additional sites of marrow signal abnormality are present. Mild left pelvic/left hip soft tissue edema is present. IMPRESSION: 1. 6.9 x 6.3 x 6.4 cm cervical mass with parametrial invasion and invasion into the adjacent soft tissues, including involvement of the sigmoid colon, uterus and vagina. No rectal involvement identified by MRI. Mild left hydroureter due to involvement of the distal left ureter. 2. 4.2 x 3.5 x 2.8 cm left iliac bifurcation lymph node consistent with alison spread of disease. This node results in severe narrowing of the left external iliac vein. 3. 1.9 x 1.2 cm left presacral tumor implant with findings suspicious for involvement of the underlying bone. Electronically signed by: Leo Louis M.D. 07/01/2017 1:14 PM Dictated Date/Time: 07/01/2017 12:18 PM
== END ==
LOC: C.MRI 09:51
PROVIDERS: ATTEND Physician Assistant Medical
DX: M79.605 Pain in left leg (principal); R22.42 Localized swelling, mass and lump, left lower limb; C53.8 Malignant neoplasm of overlapping sites of cervix uteri; R93.8 Abnormal findings on diagnostic imaging of other specified body structures

== ENCOUNTER → 2017-07-08 | Day surgery (SDC) | payer SELFPAY ==
[2017-07-07 11:05] VITALS: BMI 23.0
[~2017-07-08] VITALS: Ht 152.4 cm; Wt 53.2 kg
[~2017-07-08] MED LIST changes: +CEFAZOLIN 2000 MG/60 ML D5W 60 ML IV SCH; +FENTANYL CITRATE INJ 50 MCG/1 ML 2 ML VIAL ONE; -GADAVIST IV PRN; -INSU1INJ17 SC; +LACTATED RINGER'S 1000ML 1,000 ML IV SCH; +LIDOCAINE HCL 2% 2 ML VIAL (20MG/ML) ONE; -METF500T PO; +MIDAZOLAM HCL 1 MG/ML 2ML VIAL ONE; +POTASSIUM CHLORIDE 20 MEQ TABCR PO SCH; +POTASSIUM CHLORIDE 20 MEQ TABCR PO STA; +PROPOFOL IV EMULSION 10 MG/ML 20 ML VIAL IV ONE
[2017-07-08 07:21] VITALS: BP 120/69; PULSE 89; TEMP 37.2; O2SAT 99; Ht 152.4 cm; Wt 53.2 kg
[2017-07-08 08:39] LABS: BUN/CREATININE RATIO 9.6 (10-20); CALCIUM 9.5 mg/dl (8.5-10.1); CREATININE 0.79 mg/dl (0.60-1.20); POTASSIUM 2.2 mmol/L (3.5-5.1)
== END | disposition home or self-care (01) ==
LOC: C.ACU 06:39
PROVIDERS: ATTEND Surgery
DX: C53.1 Malignant neoplasm of exocervix (principal); Z53.9 Procedure and treatment not carried out, unspecified reason; F17.200 Nicotine dependence, unspecified, uncomplicated; E11.9 Type 2 diabetes mellitus without complications; K86.9 Disease of pancreas, unspecified; Z79.4 Long term (current) use of insulin; Z82.49 Family history of ischemic heart disease and other diseases of the circulatory system; Z83.3 Family history of diabetes mellitus

== ENCOUNTER → 2017-10-21 | Outpatient (CLI) | payer OTHER ==
[~2017-10-21] MED LIST changes: -CEFAZOLIN 2000 MG/60 ML D5W 60 ML IV SCH; -FENTANYL CITRATE INJ 50 MCG/1 ML 2 ML VIAL ONE; +GADAVIST IV PRN; -LACTATED RINGER'S 1000ML 1,000 ML IV SCH; -LIDOCAINE HCL 2% 2 ML VIAL (20MG/ML) ONE; -MIDAZOLAM HCL 1 MG/ML 2ML VIAL ONE; -POTASSIUM CHLORIDE 20 MEQ TABCR PO SCH; -POTASSIUM CHLORIDE 20 MEQ TABCR PO STA; -PROPOFOL IV EMULSION 10 MG/ML 20 ML VIAL IV ONE
--- NOTE | 2017-10-21 18:00 | DIAGNOSTIC IMAGING REPORT ---
MRI ABDOMEN COMBO CLINICAL HISTORY: Squamous cell carcinoma the cervix. Cystic pancreatic lesion. TECHNIQUE: Imaging was performed prior to and following IV contrast injection. The patient was administered 5.5 cc of intravenous Gadavist. COMPARISON STUDY: CT scan dated 05/22/2017 FINDINGS: Imaging was performed in the coronal and axial planes before and after the administration of contrast. No hepatic masses are visualized. There is borderline gallbladder distention. No calculi are visualized. There is no ductal dilatation. No splenic masses are visualized. Incidental note is made of a small splenule. No renal masses are visualized. There is no evidence of abdominal aortic dilatation. No adrenal masses are visualized. There is no evidence of pathologic upper abdominal lymphadenopathy. There is a 15 mm cystic lesion within the pancreatic tail. This likely abuts the pancreatic duct. There is no pathologic enhancement. There are no mural nodules. This lesion likely represents either a mucinous cystic neoplasm or IPMN. The lesion remains unchanged in size when compared the prior CT scan. IMPRESSION: 1. Stable 15 mm cystic pancreatic tail lesion. There is no pathologic mural nodularity. There is no significant ductal dilatation This lesion likely represents either a mucinous cystic neoplasm or IPMN. Electronically signed by: Lance Cameron M.D. 10/21/2017 5:58 PM Dictated Date/Time: 10/21/2017 5:50 PM
== END | disposition home or self-care (01) ==
LOC: C.MRI 16:37
PROVIDERS: ATTEND Internal Medicine Hematology & Oncology
DX: C53.9 Malignant neoplasm of cervix uteri, unspecified (principal); K86.2 Cyst of pancreas

== ENCOUNTER → 2017-10-29 | Outpatient (CLI) | payer OTHER ==
--- NOTE | 2017-10-29 16:58 | DIAGNOSTIC IMAGING REPORT ---
MRI OF THE PELVIS WITH AND WITHOUT CONTRAST CLINICAL HISTORY: MALIGNANT NEOPLASM OVERLAPING SITES CERVIX/UTERI COMPARISON STUDY: Pelvis MRI 07/01/2017. TECHNIQUE: Utilizing a 1.5 Debo magnet, multiplanar, multiecho imaging of the pelvis was performed pre and postcontrast ministration. Injection of Gadavist IV was uneventful. FINDINGS: There is again noted a T1 hypointense, intermediate T2 signal intensity mass within the cervix that measures approximately 5.1 x 3.1 x 3.0 cm. This has decreased in size and previously measured again noted 6.9 x 6.3 x 6.4 cm. There is invasion of the parametrium and tumor invasion into the adjacent soft tissues which is also improved. The tumor abuts and likely invades into the undersurface of the mid sigmoid colon. However, this is also significantly improved. No definite rectal involvement is present. There is invasion into the inferior aspect of the uterus as well as the upper vagina which has improved. The mass abuts but does not clearly invade into the posterior bladder wall. The distal left ureter is partially encased which has improved. The left-sided hydroureter has resolved decrease in size in the left pelvic sidewall lymph nodes. Dominant lymph node measures 2.3 cm, previous measuring 3.5 cm. The left presacral implant has also improved and currently measures 9 mm, previously measuring 19 mm. No sites of marrow signal abnormality are present at this time. Mild left pelvic/left hip soft tissue edema is present. IMPRESSION: 1. Overall improvement in disease compared to the prior study. 2. Specifically, the 5.1 x 3.1 x 3.0 cm cervical mass has decreased in size. This demonstrates improved parametrial invasion and invasion into the adjacent soft tissues, including involvement of the sigmoid colon, uterus and vagina. No rectal involvement identified by MRI. Mild left hydroureter has resolved. 3. Decrease in size in the left iliac bifurcation lymphadenopathy and left presacral implant. Electronically signed by: Herb Kay M.D. 10/29/2017 4:56 PM Dictated Date/Time: 10/29/2017 4:42 PM
== END | disposition home or self-care (01) ==
LOC: C.MRI 15:09
PROVIDERS: ATTEND Physician Assistant Medical
DX: C53.8 Malignant neoplasm of overlapping sites of cervix uteri (principal)

== ENCOUNTER 2017-12-07 19:44 | Emergency (ER) | payer OTHER ==
[~2017-12-07] VITALS: Ht 152.4 cm; Wt 57.6 kg
[~2017-12-07 19:44] MED LIST changes: -GADAVIST IV PRN
[2017-12-07 19:47] VITALS: Ht 152.4 cm; Wt 57.6 kg
[2017-12-07] MEDS ORDERED: ONDANSETRON 4MG OD TAB PO STA (19:57)
--- NOTE | 2017-12-07 20:13 | EMERGENCY ROOM VISIT NOTE ---
History Report prepared by Chepe: Corey Domínguez Under the Supervision of: Dr. Carlitos Cook M.D. First contact with patient: 19:53 Chief Complaint: HYPOGLYCEMIA Stated Complaint: SUGAR LOW,SWEATING,CHILLING History of Present Illness The patient is a 52 year old female who presents to the Emergency Room with complaints of constant hyperglycemia that began this morning. The patient states that she developed nausea yesterday, which resulted in her vomiting. The patient states that her blood sugar was 58 this morning, which is low for her. She states that she felt generally ill today, including shaking, diaphoresis, and chills. The patient states that at one point her blood sugar declined to 39. She states that she tried to eat and drink a Pepsi today to increase her blood sugar without any success. The patient reports that she has also been experiencing a cough. She denies a change in medications and urinary symptoms.The patient states that she has a history of Diabetes mellitus and cervical cancer. She states that she is being treated with radiation 5 times a week and chemotherapy every week, with her last chemo treatment three days ago. Source of History: patient Onset: this morning Position: other (global) Quality: other (39) Timing: constant Modifying Factors (Relieving): other (Pepsi, food) Associated Symptoms: + cough, + nausea, + vomiting, No urinary symptoms Review of Systems See HPI for pertinent positives & negatives. A total of 10 systems reviewed and were otherwise negative. Past Medical & Surgical Medical Problems: (1) Hydronephrosis (2) Hyperglycemia (3) No pertinent past medical history Family History No pertinent family history Social History Smoking Status: Current Every Day Smoker Marital Status: Housing Status: lives with significant other Occupation Status: employed Current/Historical Medications Scheduled B-Complex Vitamins (Vitamin B Complex), 1 TAB PO QAM Diphenhydramine Hcl (Benadryl Allergy), 1 CAP PO QAM Insulin Isophan/Regular (Novolin 70/30), 20 UNITS SQ BID Metformin Hcl (Fortamet), 500 MG PO QAM Multiple Vitamins W/ Minerals (Multi For Her 50+), 1 TAB PO QAM Allergies Coded Allergies: No Known Allergies (Unverified , 12/07/17) Physical Exam Vital Signs Date Time Temp Pulse Resp B/P (MAP) Pulse Ox O2 Delivery O2 Flow Rate FiO2 3/19/18 02:54 82 18 101/60 99 12/08/17 02:22 82 17 92/63 97 Room Air 12/08/17 00:30 80 18 106/63 96 Room Air 12/07/17 23:30 75 18 87/62 96 Room Air 12/07/17 21:34 36.4 87 16 88/56 97 Room Air 12/07/17 20:52 33.8 12/07/17 19:47 91 18 105/75 95 Room Air Physical Exam GENERAL: Patient is in no acute distress. HEENT: No acute trauma, normocephalic atraumatic, mucous membranes moist, no nasal congestion, no scleral icterus. NECK: No stridor, no adenopathy, no meningismus, trachea is midline. LUNGS: Clear to auscultation bilaterally, no wheeze, no rhonchi, breath sounds equal. HEART: Without murmurs gallops or rubs, regular rate and rhythm. ABDOMEN: Soft, nontender, bowel sounds positive, no hernias, no peritonitis. EXTREMITIES: No cyanosis or edema, full range of motion of all the joints without pain or difficulty, no signs for acute trauma. NEUROLOGIC: Oriented x 3, no acute motor or sensory deficits, no focal weakness. SKIN: No rash, no jaundice, no diaphoresis, slightly pale. Medical Decision & Procedures ER Provider Diagnostic Interpretation: X-ray results as stated below per interpretation by me and the radiologist: CHEST ONE VIEW PORTABLE HISTORY: 52 years-old Female EVALUATE ALTERED MENTAL STATUS/WEAKNESS acute altered mental status COMPARISON: PET CT 10/15/2017 TECHNIQUE: Portable AP view of the chest FINDINGS: Cardiomediastinal and hilar silhouettes are within normal limits. There is no pneumothorax, pleural effusion, focal airspace consolidation or overt pulmonary edema. The bones of the chest appear grossly intact. Degenerative changes are seen throughout the shoulders and spine. IMPRESSION: No acute process. The above report was generated using voice recognition software. It may contain grammatical, syntax or spelling errors. Electronically signed by: Deniz Rivera M.D. 12/07/2017 8:24 PM Dictated Date/Time: 12/07/2017 8:22 PM Laboratory Results 12/07/17 23:32 Red Blood Count 3.77, Mean Corpuscular Volume 91.5, Mean Corpuscular Hemoglobin 31.6, Mean Corpuscular Hemoglobin Concent 34.5, Mean Platelet Volume 9.0, Neutrophils (%) (Auto) 73.5, Lymphocytes (%) (Auto) 12.0, Monocytes (%) (Auto) 9.5, Eosinophils (%) (Auto) 4.7, Basophils (%) (Auto) 0.3, Neutrophils # (Auto) 2.33, Lymphocytes # (Auto) 0.38, Monocytes # (Auto) 0.30, Eosinophils # (Auto) 0.15, Basophils # (Auto) 0.01 12/07/17 23:32 Test 12/07/17 22:24 12/07/17 23:32 12/08/17 02:44 Urine Color DK YELLOW Urine Appearance CLOUDY (CLEAR) Urine pH 5.0 (4.5-7.5) Urine Specific [place] 1.020 (1.000-1.030) Urine Protein TRACE (NEG) Urine Glucose (UA) TRACE (NEG) Urine Ketones NEG (NEG) Urine Occult Blood NEG (NEG) Urine Nitrite NEG (NEG) Urine Bilirubin NEG (NEG) Urine Urobilinogen NEG (NEG) Urine Leukocyte Esterase SMALL (NEG) Urine WBC (Auto) 10-30 /hpf (0-5) Urine RBC (Auto) 10-30 /hpf (0-4) Urine Hyaline Casts (Auto) 10-30 /lpf (0-5) Urine Epithelial Cells (Auto) >30 /lpf (0-5) Urine Bacteria (Auto) 3+ (NEG) Urine Renal Epithelial Cells /lpf (0-5) White Blood Count 3.17 K/uL (4.8-10.8) Red Blood Count 3.77 M/uL (4.2-5.4) Hemoglobin 11.9 g/dL (12.0-16.0) Hematocrit 34.5 % (37-47) Mean Corpuscular Volume 91.5 fL (80-100) Mean Corpuscular Hemoglobin 31.6 pg (25-34) Mean Corpuscular Hemoglobin Concent 34.5 g/dl (32-36) Platelet Count 126 K/uL (130-400) Mean Platelet Volume 9.0 fL (7.4-10.4) Neutrophils (%) (Auto) 73.5 % Lymphocytes (%) (Auto) 12.0 % Monocytes (%) (Auto) 9.5 % Eosinophils (%) (Auto) 4.7 % Basophils (%) (Auto) 0.3 % Neutrophils # (Auto) 2.33 K/uL (1.4-6.5) Lymphocytes # (Auto) 0.38 K/uL (1.2-3.4) Monocytes # (Auto) 0.30 K/uL (0.11-0.59) Eosinophils # (Auto) 0.15 K/uL (0-0.5) Basophils # (Auto) 0.01 K/uL (0-0.2) RDW Standard Deviation 46.9 fL (36.4-46.3) RDW Coefficient of Variation 14.6 % (11.5-14.5) Immature Granulocyte % (Auto) 0.0 % Immature Granulocyte # (Auto) 0.00 K/uL (0.00-0.02) Anion Gap 7.0 mmol/L (3-11) Est Creatinine Clear Calc Drug Dose 39.0 ml/min Estimated GFR () 53.4 Estimated GFR (Non- 46.0 BUN/Creatinine Ratio 11.4 (10-20) Calcium Level 9.6 mg/dl (8.5-10.1) Magnesium Level 1.4 mg/dl (1.8-2.4) Total Bilirubin 0.3 mg/dl (0.2-1) Aspartate Amino Transf (AST/SGOT) 21 U/L (15-37) Alanine Aminotransferase (ALT/SGPT) 23 U/L (12-78) Alkaline Phosphatase 61 U/L (45-117) Total Protein 7.1 gm/dl (6.4-8.2) Albumin 3.4 gm/dl (3.4-5.0) Globulin 3.7 gm/dl (2.5-4.0) Albumin/Globulin Ratio 0.9 (0.9-2) Bedside Glucose 245 mg/dl (70-90) Laboratory results reviewed by me. Medications Administered Medications (Trade) Dose Ordered Sig/Obinna Route Start Time Stop Time Status Last Admin Dose Admin Ondansetron HCl (Zofran Odt) 8 mg NOW STAT PO 12/07/17 19:57 12/07/17 20:00 DC 12/07/17 20:04 8 MG Sodium Chloride 1,000 ml @ 999 mls/hr Q1H1M STAT IV 12/07/17 22:58 12/07/17 23:58 DC 12/07/17 22:58 999 MLS/HR Magnesium Sulfate (Magnesium Sulfate) 2 gm NOW STAT IV 12/08/17 00:01 12/08/17 00:02 DC 12/08/17 00:18 2 GM ED Course 1954: The patient was evaluated in room C07. A complete history and physical exam was performed. 1956: Ordered Ondansetron HCl 8 mg PO. 2211: I reevaluated the patient and she is doing better. She is going to try and give a urine sample. 2253: I reevaluated the patient and she is feeling better. She still has an elevated blood pressure. I will start and IV. 2257: Ordered Sodium Chloride 1000 ml @ 999 mls/hr IV. 2257: Ordered Magnesium Sulfate 2 gm IV. 16: I reevaluated the patient and she is better. Her blood pressure is improving. Medical Decision The patient is a 52 year old female who presents to the Emergency Room with complaints of constant hyperglycemia that began this morning. Differential diagnoses considered include dehydration, pneumonia, UTI, poor PO intake, hypoglycemia, and accidental medication overdose. The patient does have a mildly low white count, hemoglobin and platelet count- this is likely from her chemotherapy. Renal panel testing does not show renal failure. Blood sugar was initially low in the 50s. Magnesium was low. There was no hepatitis. Urinalysis shows contamination, no obvious infection, urine culture is pending. Chest film does not show pneumonia or CHF. The patient presented with hypoglycemia which had been persistent all day. She was awake and talking, she was alert. Her body temperature was low, likely from the persistent hypoglycemia throughout the day. She was placed on the warren hugger. Initially, the patient did not want any IV access. She was given a meal, she received oral Zofran. Her blood sugar did improve. The patient's blood pressure dropped to the 80 systolic range. I had a discussion with her and she did consent to an IV. She received IV saline and then IV magnesium. Her blood pressure is now adequate and she feels well. The patient is being discharged to stay hydrated. She will keep a watch on her blood sugar and try to eat more proper, regular meals. If worsening, she can return. Medication Reconcilliation Current Medication List: was personally reviewed by me Blood Pressure Screening Patient's blood pressure: Normal blood pressure Impression Primary Impression: Hypoglycemia Additional Impressions: Hypotension Hypomagnesemia Dehydration Hypothermia Scribe Attestation The scribe's documentation has been prepared under my direction and personally reviewed by me in its entirety. I confirm that the note above accurately reflects all work, treatment, procedures, and medical decision making performed by me. Departure Information Dispostion Home / Self-Care Referrals No Doctor, Assigned (PCP) Forms HOME CARE DOCUMENTATION FORM, IMPORTANT VISIT INFORMATION, WORK / SCHOOL INSTRUCTIONS Patient Instructions [facility] Additional Instructions fluids rest keep a watch on your blood sugars talk with your doctors tomorrow return if worsening be sure to eat regular meals to keep the sugar adequate Problem Qualifiers
--- NOTE | 2017-12-07 20:25 | DIAGNOSTIC IMAGING REPORT ---
CHEST ONE VIEW PORTABLE HISTORY: 52 years-old Female EVALUATE ALTERED MENTAL STATUS/WEAKNESS acute altered mental status COMPARISON: PET CT 10/15/2017 TECHNIQUE: Portable AP view of the chest FINDINGS: Cardiomediastinal and hilar silhouettes are within normal limits. There is no pneumothorax, pleural effusion, focal airspace consolidation or overt pulmonary edema. The bones of the chest appear grossly intact. Degenerative changes are seen throughout the shoulders and spine. IMPRESSION: No acute process. The above report was generated using voice recognition software. It may contain grammatical, syntax or spelling errors. Electronically signed by: Deniz Rivera M.D. 12/07/2017 8:24 PM Dictated Date/Time: 12/07/2017 8:22 PM
[2017-12-07 21:34] VITALS: TEMP 36.4
[2017-12-07] MEDS ORDERED: SODIUM CHLORIDE 0.9% 1000ML 1,000 ML IV STA (22:58)
[2017-12-07 23:41] LABS: BASO % 0.3 %; BASO ABS # 0.01 K/uL (0-0.2); EOS % 4.7 %; EOS ABS # 0.15 K/uL (0-0.5); HEMATOCRIT 34.5 % (37-47); HEMOGLOBIN 11.9 g/dL (12.0-16.0); LYMPH ABS # 0.38 K/uL (1.2-3.4); MEAN CELL VOLUME 91.5 fL (80-100); MEAN CORPUSCULAR HEMOGLOBIN 31.6 pg (25-34); MEAN CORPUSCULAR HGB CONC 34.5 g/dl (32-36); MONO % 9.5 %; NEUT % 73.5 %; NEUT ABS # 2.33 K/uL (1.4-6.5); PLATELET COUNT 126 K/uL (130-400); RED CELL DISTRIBUTION WIDTH CV 14.6 % (11.5-14.5); RED CELL DISTRIBUTION WIDTH SD 46.9 fL (36.4-46.3); WHITE BLOOD COUNT 3.17 K/uL (4.8-10.8)
[2017-12-07 23:59] LABS: ALBUMIN 3.4 gm/dl (3.4-5.0); CALCIUM 9.6 mg/dl (8.5-10.1); CREATININE 1.31 mg/dl (0.60-1.20); POTASSIUM 4.1 mmol/L (3.5-5.1)
[2017-12-08] MEDS ORDERED: MAGNESIUM SULFATE 1GM / D5W 1 GM BAG IV STA (00:01)
[2017-12-08 00:07] LABS: TOTAL PROTEIN 7.1 gm/dl (6.4-8.2)
[2017-12-08] MEDS ORDERED: SODIUM CHLORIDE 0.9% 500ML 500 ML IV STA (02:35)
[2017-12-08 02:54] VITALS: BP 101/60; PULSE 82; O2SAT 99
[2017-12-09] MEDS ORDERED: PROM25TA9 PO (14:49)
[2017-12-09] MEDS ORDERED: ONDA-170 PO (14:49)
[2017-12-09] MEDS ORDERED: CARV12.52 PO (14:49)
--- NOTE | 2017-12-11 15:09 | Pharmacy Progress Note ---
ED Pharmacist Culture FollowUp Date of Service: Dec 11, 2017. Enterobacter aerogenes isolated from urine culture. Patient had denied urinary symptoms during her ED visit. It is possible that this is a contaminant as patient had numerous epithelial cells in her UA but patient is at high risk for UTI and also at risk for significant complications were this to be a UTI as follows: she has cervical cancer for which she is actively receiving both chemotherapy (last 3 days prior to this visit) and radiation. Furthermore, upon further review of her chart, she has surgery planned for insertion of cervical sleeve and D&C on 12/17. Called patient - she denied any urinary symptoms, including but not limited to increased urinary frequency/urgency, dysuria, or suprapubic pain. I notified her of bacteria found in her urine and possible UTI. However, because she is asymptomatic, no antibiotics were prescribed at this time. Instead, patient was instructed to obtain an appointment for a repeat urine culture [place]. Counseled that she should discuss the best way to ensure culture is a clean- catch specimen prior to providing the repeat sample. I also counseled that both her oncologist and her surgeon should be notified (prior to surgery). I informed her that a repeat urine culture must be done prior to her scheduled surgery in 6 days and that this may end up delaying her surgery, at the discretion of her surgical/oncological team. Patient acknowledged understanding. Patient noted she has an appointment at the cancer center tomorrow.
== END 2017-12-08 02:56 | disposition home or self-care (01) ==
LOC: C.EDB 19:45 → C.EDC 12-08 02:56
DX: E11.649 Type 2 diabetes mellitus with hypoglycemia without coma (principal); I95.9 Hypotension, unspecified; E61.2 Magnesium deficiency; E86.0 Dehydration; R68.0 Hypothermia, not associated with low environmental temperature; D72.819 Decreased white blood cell count, unspecified; D69.6 Thrombocytopenia, unspecified; D64.9 Anemia, unspecified; R11.2 Nausea with vomiting, unspecified; C53.9 Malignant neoplasm of cervix uteri, unspecified; F17.200 Nicotine dependence, unspecified, uncomplicated; Z79.84 Long term (current) use of oral hypoglycemic drugs; Z79.4 Long term (current) use of insulin

== ENCOUNTER → 2017-12-30 | Day surgery (SDC) | payer OTHER ==
[2017-12-09 14:51] VITALS: BMI 24.0
[2017-12-23 09:59] VITALS: BMI 24.0
--- NOTE | 2017-12-23 10:23 | PAT Medication Instructions ---
Service Date Dec 23, 2017. Current Home Medication List B-Complex Vitamins (Vitamin B Complex), 1 TAB PO QAM Carvedilol (Coreg), 12.5 MG PO BID Diphenhydramine Hcl (Benadryl Allergy), 1 CAP PO QAM PRN for ITCHING Insulin Isophan/Regular (Novolin 70/30), 20 UNITS SQ BID Metformin Hcl (Fortamet), 500 MG PO QAM Multiple Vitamins W/ Minerals (Multi For Her 50+), 1 TAB PO QAM Ondansetron Hcl (Zofran), 8 MG PO Q8H PRN for Nausea Promethazine Hcl (Phenergan), 25 MG PO Q4H PRN for Nausea Medication Instructions For Your Scheduled Surgery - Hold the following medications the morning of surgery: B-Complex Vitamins (Vitamin B Complex), 1 TAB PO QAM Diphenhydramine Hcl (Benadryl Allergy), 1 CAP PO QAM PRN for ITCHING Metformin Hcl (Fortamet), 500 MG PO QAM Multiple Vitamins W/ Minerals (Multi For Her 50+), 1 TAB PO QAM - Take the following medications the morning of surgery with a sip of water: Carvedilol (Coreg), 12.5 MG PO BID Ondansetron Hcl (Zofran), 8 MG PO Q8H PRN for Nausea (if needed) Promethazine Hcl (Phenergan), 25 MG PO Q4H PRN for Nausea (if needed) - Take the following medications as scheduled the night before surgery: Carvedilol (Coreg), 12.5 MG PO BID Diphenhydramine Hcl (Benadryl Allergy), 1 CAP PO QAM PRN for ITCHING (if needed) Insulin Isophan/Regular (Novolin 70/30), 20 UNITS SQ BID Ondansetron Hcl (Zofran), 8 MG PO Q8H PRN for Nausea (if needed) Promethazine Hcl (Phenergan), 25 MG PO Q4H PRN for Nausea (if needed) - For Insulin Dependent Diabetic patients: Test blood sugar A.M. of surgery. - If BLOOD SUGAR IS GREATER 150, take half of your regular dose of: Insulin Isophan/Regular (Novolin 70/30) --TAKE 10 UNITS - If BLOOD SUGAR IS LESS THAN 150, do not take any: Insulin Isophan/ Regular (Novolin 70/30) If you have any questions please call us at [phone] or [phone] or [phone]
--- NOTE | 2017-12-26 10:37 | Radiation Oncology Follow-Up ---
Radiation Oncology Follow-Up Date of Visit Dec 26, 2017. Reason For Visit To undergo tandem and ovoid placement for HDR radiation therapy. Procedure in the operating room. She will have a total of 5 treatments. These will begin December 30. Diagnosis (1) Cervical carcinoma Status: Acute Onset Date: 05/23/2017 Histology Subtype: Squamous cell carcinoma Stage: lll (B) Permanent Comment: Abdominal pain, ER evaluation and finding of a cervical mass on CT Status post cervical biopsy 05/23/2017 revealing high-grade squamous cell carcinoma Clinical stage T3b N1 Stage IIIB Status post 3 cycles of chemotherapy, Taxol and Platinol Last Edited By: Lillian Ren on Oct 24, 2017 11:01 History of Present Illness Ms. Whiting presented with complaints of abdominal pain and presented to the emergency room. The patient underwent a CT of the abdomen/pelvis on 05/22/2017 which revealed: "IMPRESSION: 1. Findings highly suspicious for cervical neoplasm with invasion of the parametrium an invasion to the sigmoid colon serosa. No ethel bowel obstruction. 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 Grossly metastatic left external iliac lymphadenopathy (N1). 2. 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 3. Bladder wall thickening could suggest cystitis. Correlate with urinalysis." The patient was seen by Dr. Manuel from gynecology who did perform a biopsy of the cervical mass which did reveal invasive nonkeratinizing squamous cell carcinoma. The patient was referred to Dr. Haas from gynecology oncology in [facility] in [place], [place].. Dr. Haas did perform a gynecologic examination which revealed a large cervical mass replacing the cervix and involving the upper vagina with extension to the left pelvic sidewall and right parametrial involvement as well. Dr. Haas ordered a PET/CT scan which was completed on 06/19/2017 which revealed an infiltrative left cervical tumor with suspected invasion of the uterus, vagina, left distal ureter, overlying sigmoid colon and possibly the rectum; there was also noted to be metastatic implants into the left pelvic sidewall as well as involvement into the left parasagittal presacral space with potential neural foraminal involvement. The CT component of the scan also noted left hydroureteronephrosis due to obstructed distal ureter and did note a foci of metabolic activity in the right frontal lobe that was partially imaged potentially concerning for metastatic disease. A cystic mass in the distal pancreas was also noted. The patient is scheduled to see Dr. Wilks from medical oncology. We are now seeing the patient in consultation to discuss the role of radiation therapy. She had undergone an MRI of the pelvis. With the extent of her disease it was felt that she should undergo chemotherapy prior to her combined radiation and chemotherapy. Chemotherapy began with cycle 1 on 08/11/2017. Cycle 2 was given 09/02/2017 and cycle 3 was given 09/24/2017. She received cisplatin and paclitxel. She tolerated this well. She had no nausea, vomiting, or diarrhea. She did have fatigue the week after chemotherapy. This would then resolved. She has no complaints of neuropathy. She's had no vaginal discharge or bleeding. She has no abdominal pressure pain no pelvic pressure or pain. She is presented today for her CT simulation to begin the process of radiation therapy. We had seen her previously in consultation and discussed the external beam treatment as well as brachytherapy with tandem and ovoids. Chemotherapy is planned with weekly cisplatin. Interim History She has been undergoing combined radiation and chemotherapy. She will have a total of 33 external treatments. She will be undergoing 5 HDR treatments. She has been doing well. She did have some issues with diarrhea. This is now controlled. She also was treated for urinary tract infection. Urinalysis was rechecked and has shown that the infection was cleared. She underwent placement of a cervical sleeve by Dr. Haas. She will begin HDR treatments December 30. Allergies Coded Allergies: No Known Allergies (Unverified , 12/23/17) Home Medications Scheduled B-Complex Vitamins (Vitamin B Complex), 1 TAB PO QAM Carvedilol (Coreg), 12.5 MG PO BID Insulin Isophan/Regular (Novolin 70/30), 20 UNITS SQ BID Metformin Hcl (Fortamet), 500 MG PO QAM Multiple Vitamins W/ Minerals (Multi For Her 50+), 1 TAB PO QAM Scheduled PRN Diphenhydramine Hcl (Benadryl Allergy), 1 CAP PO QAM PRN for ITCHING Ondansetron Hcl (Zofran), 8 MG PO Q8H PRN for Nausea Promethazine Hcl (Phenergan), 25 MG PO Q4H PRN for Nausea Review of Systems Gastrointestinal: Symptoms: Diarrhea (Now controlled with Imodium and Lomotil) Oral: Symptoms: No Problems Respiratory: Symptoms: Moist Cough (Resolving upper respiratory infection steadily improved) Urinary: Symptoms: WNL (Previous urinary tract infection. Recheck urinalysis and C& S reveals that the infection has cleared) Skin: Other Skin Symptoms: No complaints of external skin irritation Physical Exam General Appearance: no apparent distress Eyes: normal inspection, EOMI ENT: normal ENT inspection, hearing grossly normal Respiratory/Chest: no respiratory distress, no accessory muscle use, + decreased breath sounds Cardiovascular: regular rate, rhythm, no gallop, no murmur Abdomen: non tender, soft, no organomegaly Extremities: no pedal edema Neurologic/Psychiatric: no motor/sensory deficits, alert, normal mood/affect Skin: warm/dry Pain Management Patient Reports Pain: No Pain Management Plan She denies pain therefore requires no pain management. Laboratory Laboratory Results: were reviewed Laboratory Comments: Preadmission testing reviewed. Pathology Pathology Results: were reviewed, and pertinent findings noted in HPI Imaging Imaging Studies: were reviewed, and pertinent findings noted in HPI Assessment & Plan Plan: Patient will continue and complete her 33 fractions of radiation therapy. She will have 5 HDR treatments. These will require placement of tandem and ovoids. Surgical sleeve placed by Dr. Haas. Tandem and ovoids will be placed in the operating room. She previously signed her consents and these are up-to-date. Dr. Valverde reviewed with her potential side effects. We will continue to follow her at her on treatment visits until the external treatments are complete. Assessment & Plan (Attending) I agree with note created by Lillian Ren PA-C. I reviewed the patient's chart and information with her. I have examined and evaluated the patient. I reviewed relevant clinical information and answered the patient's and/or family' s questions. [employer]ISS[employer]WMEMBER Total Time In Follow-Up Previously spent 20 minutes speaking to the patient and performing examination. I spent 15 minutes reviewing information and completing this note. She is seen and examined every Friday during her external beam therapy. Copy To Mary Brown MD; Boris Haas DO; Nj Braxton M.D.
[~2017-12-30] VITALS: Ht 152.4 cm; Wt 55.7 kg
[~2017-12-30] MED LIST changes: +ATROPINE SULFATE 0.1 MG/ML 5ML SYR IV PRN; +CARV12.52 PO; +EpHEDrine SULFATE INJ 50 MG/ML AMP IV PRN; +FENTANYL CITRATE INJ 50 MCG/1 ML 2 ML VIAL IV PRN; +FENTANYL CITRATE INJ 50 MCG/1 ML 2 ML VIAL ONE; +LACTATED RINGER'S 1000ML 1,000 ML IV SCH; +LACTATED RINGER'S 1000ML 500 ML IV SCH; +LIDOCAINE HCL 2% 2 ML VIAL (20MG/ML) ONE; +MIDAZOLAM HCL 1 MG/ML 2ML VIAL ONE; +ONDA-170 PO; +ONDANSETRON INJ 2 MG/ML 2 ML VIAL IV PRN; +ONDANSETRON INJ 2 MG/ML 2 ML VIAL ONE; +PROM25TA9 PO; +PROPOFOL IV EMULSION 10 MG/ML 20 ML VIAL IV ONE
[2017-12-30 06:20] VITALS: BP 101/69; PULSE 92; TEMP 36.4; O2SAT 96; Ht 152.4 cm; Wt 55.7 kg
[2017-12-30 06:28] LABS: BASO % 0.4 %; BASO ABS # 0.01 K/uL (0-0.2); EOS % 1.3 %; EOS ABS # 0.03 K/uL (0-0.5); HEMATOCRIT 27.9 % (37-47); HEMOGLOBIN 9.7 g/dL (12.0-16.0); IG# 0.01 K/uL (0.00-0.02); LYMPH % 23.6 %; LYMPH ABS # 0.54 K/uL (1.2-3.4); MEAN CELL VOLUME 94.6 fL (80-100); MEAN CORPUSCULAR HEMOGLOBIN 32.9 pg (25-34); MEAN PLATELET VOLUME 8.7 fL (7.4-10.4); MONO % 10.9 %; MONO ABS # 0.25 K/uL (0.11-0.59); NEUT % 63.4 %; NEUT ABS # 1.45 K/uL (1.4-6.5); PLATELET COUNT 118 K/uL (130-400); RED CELL DISTRIBUTION WIDTH CV 16.4 % (11.5-14.5); RED CELL DISTRIBUTION WIDTH SD 54.8 fL (36.4-46.3); WHITE BLOOD COUNT 2.29 K/uL (4.8-10.8)
[2017-12-30 06:29] LABS: MEAN CORPUSCULAR HGB CONC 34.8 g/dl (32-36)
--- NOTE | 2017-12-30 07:03 | History & Physical Bridge Note ---
H&P Re-Evaluation Bridge Note: I have examined the patient, reviewed the History & Physical and in the interval since the performance of the History & Physical I have noted the following changes of clinical significance: No changes noted. Tandem Ovoid Insertion 09/26.
--- NOTE | 2017-12-30 08:32 | [facility] Post Operative Brief Note ---
Immediate Operative Summary Operative Date Dec 30, 2017. Pre-Operative Diagnosis Cervical carcinoma Post-Operative Diagnosis Cervical carcinoma Procedure(s) Performed Insertion of Tandem and Oviods Surgeon Dr. Ivette Valverde Twister In Surgeon(s) Lillian Ren PA-c Estimated Blood Loss 0 ml Findings Cervical sleeve in place. No evidence of perforation, lacerations or tears. Specimens None per surgeon Anesthesia Deep Sedation Complication(s) None Disposition Recovery Room / PACU
--- NOTE | 2017-12-30 08:50 | DIAGNOSTIC IMAGING REPORT ---
PELVIS 1 OR 2 VIEWS ROUTINE CLINICAL HISTORY: 52 years-old Female presenting with INSERTION OF TANDEM AND OVOIDS. TECHNIQUE: 2 fluoroscopic spot image(s) obtained as part of an intraoperative procedure. COMPARISON: CT from 05/22/2017. FINDINGS/IMPRESSION: Cervical radiation probe projects in the region of the cervix and uterus. A Mccollum catheter is in place. Please see surgical report for further details. Fluoroscopy dosage (mGy): 2.72. Fluoroscopy time: 10.9 seconds. Number of fluoroscopic spot images: 2. Electronically signed by: Freddie Martinez M.D. 12/30/2017 8:49 AM Dictated Date/Time: 12/30/2017 8:47 AM
--- NOTE | 2017-12-30 09:33 | Anesthesiology Progress Note ---
Anesthesia Post Op Note Date & Time Dec 30, 2017 at 09:33 Vital Signs Pain Intensity: 0 Vital Signs Past 12 Hours Date Time Temp Pulse Resp B/P (MAP) Pulse Ox O2 Delivery O2 Flow Rate FiO2 12/30/17 09:20 67 16 109/72 100 Oxymask 4 12/30/17 09:14 36.4 66 19 113/61 100 Oxymask 4 12/30/17 06:20 36.4 92 20 101/69 (80) 96 Room Air Notes Mental Status: alert / awake / arousable, participated in evaluation Pt Amnestic to Procedure: Yes Nausea / Vomiting: adequately controlled Pain: adequately controlled Airway Patency, RR, SpO2: stable & adequate BP & HR: stable & adequate Hydration State: stable & adequate Neuraxial Anesthesia: was administered, sensory block is resolving Anesthetic Complications: no major complications apparent
[2017-12-30 09:45] VITALS: BP 114/73; PULSE 82; TEMP 36.3; O2SAT 97
[2017-12-30 10:15] VITALS: BP 109/68; PULSE 85; TEMP 36.7; O2SAT 98
--- NOTE | 2017-12-30 10:22 | [facility] Operative Report ---
Operative Report Operative Date Dec 30, 2017. Pre-Operative Diagnosis Cervical carcinoma Post-Operative Diagnosis Cervical carcinoma Procedure(s) Performed Placement of Tandem/Ovoid HDR Applicator for Treatment of Cervical Cancer, Insertion 09/[address] Ivette Valverde Incendiary Powder Mixer Surgeon(s) Lillian Ren PA-c Estimated Blood Loss 0 ml Findings Cervical sleeve in place and sutured to vagina/cervix. Minimal blood in the vaginal vault noted prior to procedure. No palpable clinical disease involving the cervix/vagina. No evidence of lacerations/perforations/tears prior to or following the completion of the procedure. Specimens None per surgeon Anesthesia Deep Sedation Complication(s) None Disposition Recovery Room / PACU Indications Ms. Whiting is a 52 year old female with locally advanced cervical cancer who has elected for pelvic chemoradiation and Tandem/Ovoid HDR Brachytherapy. She now presents for tandem/ovoid HDR brachytherapy. Insertion 1 of . Description of Procedure The patient was seen today for her 1st of a planned 5 insertions. The patient was identified in the operating room and a timeout was performed. The patient was placed in stirrups and the packing that was placed to prevent movement of the cervical sleeve was removed. The area was cleansed with iodine. A Mccollum catheter was placed. We confirmed no evidence of perforations/tears/ lacerations in the vagina/cervix region. The cervical sleeve was identified and a tandem was inserted into the cervical sleeve. The left ovoid was then placed followed by the right ovoid. These 3 devices were connected and secured. The ovoids were spread and secured. Alatus vaginal packing balloons were placed anteriorly/posteriorly and filled with 30 mL each to provide adequate bladder and rectal packing. Radiology was then called for imaging. An anterior image was taken showing good orientation of the tandem and ovoid. A lateral image was then obtained showing excellent placement without significant rotation. The insertion procedure was completed and the patient was taken to the recovery room. There was minimal evidence of excoriation of the introitus secondary to her treatment. There was no significant blood loss during the procedure. The patient will be brought to our department where she will undergo a simulation and following completion of treatment planning will receive her second fraction of HDR brachytherapy. I attest to the content of the Intraoperative Record and any orders documented therein. Any exceptions are noted below.
[2017-12-30 10:45] VITALS: BP 120/68; PULSE 89; TEMP 37; O2SAT 99
== END | disposition home or self-care (01) ==
LOC: C.ACU 06:00
PROVIDERS: ATTEND Radiology Radiation Oncology
DX: C53.9 Malignant neoplasm of cervix uteri, unspecified (principal); D69.6 Thrombocytopenia, unspecified; E11.9 Type 2 diabetes mellitus without complications; F17.200 Nicotine dependence, unspecified, uncomplicated; Z79.84 Long term (current) use of oral hypoglycemic drugs; Z79.4 Long term (current) use of insulin

== ENCOUNTER → 2018-01-01 | Day surgery (SDC) | payer OTHER ==
[2017-12-31 10:13] VITALS: BMI 24.0
[~2018-01-01] VITALS: Ht 152.4 cm; Wt 55.7 kg
[~2018-01-01] MED LIST changes: +Cysto-Conray II 17.2% 250ML BOTTLE ONE; +EpHEDrine SULFATE 50MG/5ML SYR ONE; +FLUMAZENIL 0.1 MG/1 ML 10 ML VIAL IV PRN; +HYDROmorphone INJ 2 MG/ML SYR/VIAL IV PRN; +LABETALOL HCL IV 5 MG/ML 20ML IV PRN; -LACTATED RINGER'S 1000ML 500 ML IV SCH; +MEPERIDINE HCL 25 MG/ML CARP IV PRN; +NALOXONE HCL 0.4 MG/1 ML VIAL/CARP IV PRN; +PHENYLEPHRINE 100MCG/ML 5ML SYR IV PRN
[2018-01-01 06:37] VITALS: BP 98/69; PULSE 96; TEMP 36.5; O2SAT 97; Ht 152.4 cm; Wt 55.7 kg
--- NOTE | 2018-01-01 07:00 | History & Physical Bridge Note ---
H&P Re-Evaluation Bridge Note: I have examined the patient, reviewed the History & Physical and in the interval since the performance of the History & Physical I have noted the following changes of clinical significance: No changes noted. Insertion 2 of 5.
[2018-01-01 07:05] LABS: HEMATOCRIT 24.7 % (37-47); HEMOGLOBIN 8.5 g/dL (12.0-16.0); MEAN CORPUSCULAR HEMOGLOBIN 32.7 pg (25-34); MEAN PLATELET VOLUME 8.8 fL (7.4-10.4); PLATELET COUNT 138 K/uL (130-400); RED CELL DISTRIBUTION WIDTH CV 16.9 % (11.5-14.5); WHITE BLOOD COUNT 3.13 K/uL (4.8-10.8)
[2018-01-01 07:12] LABS: MEAN CORPUSCULAR HGB CONC 34.4 g/dl (32-36)
--- NOTE | 2018-01-01 08:35 | [facility] Post Operative Brief Note ---
Immediate Operative Summary Operative Date Jan 01, 2018. Pre-Operative Diagnosis Cervical Carcinoma Post-Operative Diagnosis Cervical Carcinoma Procedure(s) Performed Insertion of Tandem and Ovoids Surgeon Dr Valverde Tree Expert Surgeon(s) Lillian Ren PA-C Estimated Blood Loss 0 cc Findings Sleeve in place. No lacerations/tears/perforations noted prior to or after completion of the procedure. Tandem/Ovoid applicator and vaginal packing balloons successfully placed. Specimens None per surgeon Drains Urinary dean catheter Anesthesia Sedation with saddle block Complication(s) None Disposition Radiation Oncology
--- NOTE | 2018-01-01 09:03 | Anesthesiology Progress Note ---
Anesthesia Post Op Note Date & Time Jan 01, 2018 at 09:02 Vital Signs Pain Intensity: 0 Vital Signs Past 12 Hours Date Time Temp Pulse Resp B/P (MAP) Pulse Ox O2 Delivery O2 Flow Rate FiO2 01/01/18 06:37 36.5 96 20 98/69 (79) 97 Room Air Notes Mental Status: alert / awake / arousable, participated in evaluation Pt Amnestic to Procedure: Yes Nausea / Vomiting: adequately controlled Pain: adequately controlled Airway Patency, RR, SpO2: stable & adequate BP & HR: stable & adequate Hydration State: stable & adequate Neuraxial Anesthesia: was administered, sensory block is resolving Anesthetic Complications: no major complications apparent The patient was transferred by Dr. Henson to radiation oncology.
--- NOTE | 2018-01-01 09:10 | DIAGNOSTIC IMAGING REPORT ---
PELVIS POST SEED IMPLANT CLINICAL HISTORY: 52 years-old Female presenting with TANDEM AND OVOID INSERTION. TECHNIQUE: 2 fluoroscopic image(s) recorded as part of an intraoperative procedure. COMPARISON: Nondiagnostic CT from the earlier the same day. FINDINGS/IMPRESSION: Tandem and ovoids brachytherapy applicator projects over the uterus and vagina. A Mccollum catheter is in place. Please see surgical report for further details. Fluoroscopy dosage (mGy): 3.38. Fluoroscopy time: 12.4 seconds. Number of fluoroscopic spot images: 0. Electronically signed by: Freddie Martinez M.D. 01/01/2018 9:09 AM Dictated Date/Time: 01/01/2018 9:07 AM
[2018-01-01 09:45] VITALS: BP 135/78; PULSE 80; TEMP 36.5; O2SAT 96
[2018-01-01 10:15] VITALS: BP 114/73; PULSE 78; O2SAT 96
--- NOTE | 2018-01-01 11:06 | [facility] Operative Report ---
Operative Report Operative Date Jan 01, 2018. Pre-Operative Diagnosis Cervical Carcinoma Post-Operative Diagnosis Cervical Carcinoma Procedure(s) Performed Placement of Tandem/Ovoid HDR Applicator for Treatment of Cervical Cancer, Insertion 10/[address] Valverde Skills Instructor Surgeon(s) Lillian Ren PA-C Estimated Blood Loss 0 cc Findings Cervical sleeve in place and sutured to vagina/cervix. Minimal blood in the vaginal vault noted prior to procedure. No palpable clinical disease involving the cervix/vagina. No evidence of lacerations/perforations/tears prior to or following the completion of the procedure. Specimens None per surgeon Drains Urinary dean catheter Anesthesia Sedation with saddle block Complication(s) None Disposition Radiation Oncology Indications Ms. Whiting is a 52 year old female with locally advanced cervical cancer who has elected for pelvic chemoradiation and Tandem/Ovoid HDR Brachytherapy. She now presents for tandem/ovoid HDR brachytherapy. Insertion 2 of 5. Description of Procedure The patient was seen today for her 2nd of a planned 5 insertions. The patient was identified in the operating room and a timeout was performed. The patient was placed in stirrups and the packing that was placed to prevent movement of the cervical sleeve was removed. The area was cleansed with iodine. A Dean catheter was placed. We confirmed no evidence of perforations/tears/ lacerations in the vagina/cervix region. The cervical sleeve was identified and a tandem was inserted into the cervical sleeve. The left ovoid was then placed followed by the right ovoid. These 3 devices were connected and secured. The ovoids were spread and secured. Alatus vaginal packing balloons were placed anteriorly/posteriorly and filled with 30 mL each to provide adequate bladder and rectal packing. Radiology was then called for imaging. An anterior image was taken showing good orientation of the tandem and ovoid. A lateral image was then obtained showing excellent placement without significant rotation. The insertion procedure was completed and the patient was taken to the recovery room. There was minimal evidence of excoriation of the introitus secondary to her treatment. There was no significant blood loss during the procedure. The patient will be brought to our department where she will undergo a simulation and following completion of treatment planning will receive her second fraction of HDR brachytherapy. I attest to the content of the Intraoperative Record and any orders documented therein. Any exceptions are noted below.
== END | disposition home or self-care (01) ==
LOC: C.ACU 06:10
PROVIDERS: ATTEND Radiology Radiation Oncology
DX: C53.9 Malignant neoplasm of cervix uteri, unspecified (principal); K86.2 Cyst of pancreas; R00.0 Tachycardia, unspecified; E10.9 Type 1 diabetes mellitus without complications; D69.6 Thrombocytopenia, unspecified

== ENCOUNTER → 2018-01-14 | Day surgery (SDC) | payer OTHER ==
[2018-01-12 15:20] VITALS: BMI 24.0
[~2018-01-14] VITALS: Ht 152.4 cm; Wt 55.7 kg
[~2018-01-14] MED LIST changes: -Cysto-Conray II 17.2% 250ML BOTTLE ONE; +DEXAMETHASONE SOD INJ 4 MG/ML VIAL ONE; -EpHEDrine SULFATE 50MG/5ML SYR ONE; -FENTANYL CITRATE INJ 50 MCG/1 ML 2 ML VIAL IV PRN; -FLUMAZENIL 0.1 MG/1 ML 10 ML VIAL IV PRN; -HYDROmorphone INJ 2 MG/ML SYR/VIAL IV PRN; -LABETALOL HCL IV 5 MG/ML 20ML IV PRN; -MEPERIDINE HCL 25 MG/ML CARP IV PRN; -NALOXONE HCL 0.4 MG/1 ML VIAL/CARP IV PRN
[2018-01-14 05:48] VITALS: BP 87/61; PULSE 104; TEMP 36.8; O2SAT 97; Ht 152.4 cm; Wt 55.7 kg
[2018-01-14 06:00] LABS: HEMATOCRIT 27.8 % (37-47); HEMOGLOBIN 9.6 g/dL (12.0-16.0); MEAN CELL VOLUME 96.5 fL (80-100); MEAN CORPUSCULAR HEMOGLOBIN 33.3 pg (25-34); MEAN PLATELET VOLUME 8.9 fL (7.4-10.4); PLATELET COUNT 127 K/uL (130-400); RED CELL DISTRIBUTION WIDTH CV 16.8 % (11.5-14.5); RED CELL DISTRIBUTION WIDTH SD 59.1 fL (36.4-46.3); WHITE BLOOD COUNT 4.73 K/uL (4.8-10.8)
[2018-01-14 06:05] LABS: MEAN CORPUSCULAR HGB CONC 34.5 g/dl (32-36)
--- NOTE | 2018-01-14 07:13 | History & Physical Bridge Note ---
H&P Re-Evaluation Bridge Note: I have examined the patient, reviewed the History & Physical and in the interval since the performance of the History & Physical I have noted the following changes of clinical significance: No changes noted. Insertion and HDR Fraction 11/24.
--- NOTE | 2018-01-14 08:20 | [facility] Post Operative Brief Note ---
Immediate Operative Summary Operative Date Jan 14, 2018. Pre-Operative Diagnosis Cervical carcinoma Post-Operative Diagnosis Cervical Carcinoma Procedure(s) Performed Insertion of tandem and ovoids Surgeon Dr. Ivette Valverde Dispatch Officer Surgeon(s) Lillian Ren PA-C Estimated Blood Loss 0 ml Findings Tandem/ovoid applicator successfully placed and confirmed by X-Ray. No blood loss. No lacerations, tears or perforation. Specimens none Drains Mccollum Urinary Catheter Anesthesia Sedation with saddle block. Complication(s) None Disposition Recovery Room / PACU
--- NOTE | 2018-01-14 08:37 | [facility] Operative Report ---
Operative Report Operative Date Jan 14, 2018. Pre-Operative Diagnosis Cervical Carcinoma Post-Operative Diagnosis Cervical Carcinoma Procedure(s) Performed Placement of Tandem/Ovoid HDR Applicator for Treatment of Cervical Cancer, Insertion 11/[address] Ivette Valverde Fruit Worker Surgeon(s) Lillian Ren PA-C Estimated Blood Loss 0 ml Findings Cervical sleeve in place and sutured to vagina/cervix. No blood in the vaginal vault noted prior to procedure. No palpable clinical disease involving the cervix/vagina. No evidence of lacerations/perforations/tears prior to or following the completion of the procedure. Specimens none Drains Mccollum Urinary Catheter Anesthesia Sedation with saddle block. Complication(s) None Disposition Recovery Room / PACU Indications Ms. Whiting is a 52 year old female with locally advanced cervical cancer who has elected for pelvic chemoradiation and Tandem/Ovoid HDR Brachytherapy. She now presents for tandem/ovoid HDR brachytherapy. Insertion 3 of 5. Description of Procedure The patient was seen today for her 3rd of a planned 5 insertions. The patient was identified in the operating room and a timeout was performed. The patient was placed in stirrups and the packing that was placed to prevent movement of the cervical sleeve was removed. The area was cleansed with iodine. A Mccollum catheter was placed. We confirmed no evidence of perforations/tears/ lacerations in the vagina/cervix region. The cervical sleeve was identified and a tandem was inserted into the cervical sleeve. The left ovoid was then placed followed by the right ovoid. These 3 devices were connected and secured. The ovoids were spread and secured. Alatus vaginal packing balloons were placed anteriorly/posteriorly and filled with 30 mL each to provide adequate bladder and rectal packing. Radiology was then called for imaging. An anterior image was taken showing good orientation of the tandem and ovoid. A lateral image was then obtained showing excellent placement without significant rotation. The insertion procedure was completed and the patient was taken to the recovery room. There was minimal evidence of excoriation of the introitus secondary to her treatment. There was no significant blood loss during the procedure. The patient will be brought to our department where she will undergo a simulation and following completion of treatment planning will receive her second fraction of HDR brachytherapy. I attest to the content of the Intraoperative Record and any orders documented therein. Any exceptions are noted below.
--- NOTE | 2018-01-14 08:49 | DIAGNOSTIC IMAGING REPORT ---
[facility] POST SEED IMPLANT CLINICAL HISTORY: INSERTION OF TANDEM AND OVOIDS Fluoroscopy time: 23 seconds. FINDINGS: 2 fluoroscopic spot images of the pelvis were submitted. Fluoroscopy was provided for insertion of tandem and ovoid. These appear to be in good position. IMPRESSION: Fluoroscopy provided for radiation oncology procedure. Electronically signed by: Herb Kay M.D. 01/14/2018 8:48 AM Dictated Date/Time: 01/14/2018 8:47 AM
--- NOTE | 2018-01-14 09:03 | Anesthesiology Progress Note ---
Anesthesia Post Op Note Date & Time Jan 14, 2018 at 09:03 Vital Signs Pain Intensity: 0 Vital Signs Past 12 Hours Date Time Temp Pulse Resp B/P (MAP) Pulse Ox O2 Delivery O2 Flow Rate FiO2 01/14/18 08:55 80 14 93/64 100 Nasal Cannula 2 01/14/18 08:45 82 14 88/61 98 Nasal Cannula 2 01/14/18 08:35 78 18 92/60 98 Nasal Cannula 2 01/14/18 08:27 36.7 92 18 96/64 98 Nasal Cannula 2 01/14/18 05:48 36.8 104 20 87/61 (70) 97 Room Air Notes Mental Status: alert / awake / arousable, participated in evaluation Pt Amnestic to Procedure: Yes Nausea / Vomiting: adequately controlled Pain: adequately controlled Airway Patency, RR, SpO2: stable & adequate BP & HR: stable & adequate Hydration State: stable & adequate Anesthetic Complications: no major complications apparent
[2018-01-14 09:54] VITALS: PULSE 84; TEMP 36.8
[2018-01-14 10:10] VITALS: BP 90/61; O2SAT 93
[2018-01-14 10:40] VITALS: BP 90/63; PULSE 92; O2SAT 96
[2018-01-14 11:10] VITALS: BP 90/63; PULSE 92; O2SAT 97
[2018-01-14 11:40] VITALS: BP 84/59; PULSE 100; O2SAT 98
== END | disposition home or self-care (01) ==
LOC: C.ACU 05:26
PROVIDERS: ATTEND Radiology Radiation Oncology
DX: C53.9 Malignant neoplasm of cervix uteri, unspecified (principal)

== ENCOUNTER → 2018-01-16 | Day surgery (SDC) | payer OTHER ==
[2018-01-12 15:30] VITALS: BMI 24.0
[~2018-01-16] VITALS: Ht 152.4 cm; Wt 55.7 kg
[~2018-01-16] MED LIST changes: +CONRAY 60% 50 ML VIAL INSTIL ONE; -DEXAMETHASONE SOD INJ 4 MG/ML VIAL ONE; +FENTANYL CITRATE INJ 50 MCG/1 ML 2 ML VIAL IV PRN; -PHENYLEPHRINE 100MCG/ML 5ML SYR IV PRN
[2018-01-16 05:45] LABS: HEMATOCRIT 29.1 % (37-47); HEMOGLOBIN 9.9 g/dL (12.0-16.0); MEAN CELL VOLUME 98.3 fL (80-100); MEAN CORPUSCULAR HEMOGLOBIN 33.4 pg (25-34); MEAN PLATELET VOLUME 8.8 fL (7.4-10.4); PLATELET COUNT 161 K/uL (130-400); RED CELL DISTRIBUTION WIDTH CV 16.7 % (11.5-14.5); RED CELL DISTRIBUTION WIDTH SD 59.4 fL (36.4-46.3); WHITE BLOOD COUNT 4.33 K/uL (4.8-10.8)
[2018-01-16 05:49] VITALS: BP 116/78; PULSE 88; TEMP 36.5; O2SAT 98; Ht 152.4 cm; Wt 55.7 kg
--- NOTE | 2018-01-16 06:32 | History & Physical Bridge Note ---
H&P Re-Evaluation Bridge Note: I have examined the patient, reviewed the History & Physical and in the interval since the performance of the History & Physical I have noted the following changes of clinical significance: No changes noted. Insertion 12/25.
--- NOTE | 2018-01-16 07:54 | [facility] Post Operative Brief Note ---
Immediate Operative Summary Operative Date Jan 16, 2018. Pre-Operative Diagnosis Cervical carcinoma Post-Operative Diagnosis Cervical Carcinoma Procedure(s) Performed Insertion of Tandem and Ovoids Surgeon Dr Ezekiel Valverde Commercial Marketing Specialist Surgeon(s) Cherri Ren PA-C Estimated Blood Loss 5ML Findings Vincent Sleeve in place. No lacerations/tears/perforations noted before, during or after procedure. Tandem/Ovoid applicator successfully placed. Specimens None Drains Mccollum Urinary Anesthesia Saddle block with conscious sedation Complication(s) None Disposition Recovery Room / PACU
--- NOTE | 2018-01-16 08:19 | Anesthesiology Progress Note ---
Anesthesia Post Op Note Date & Time Jan 16, 2018 at 08:19 Vital Signs Pain Intensity: 0 Vital Signs Past 12 Hours Date Time Temp Pulse Resp B/P (MAP) Pulse Ox O2 Delivery O2 Flow Rate FiO2 01/16/18 05:49 36.5 88 16 116/78 (91) 98 Room Air Notes Mental Status: alert / awake / arousable, participated in evaluation Pt Amnestic to Procedure: Yes Nausea / Vomiting: adequately controlled Pain: adequately controlled Airway Patency, RR, SpO2: stable & adequate BP & HR: stable & adequate Hydration State: stable & adequate Neuraxial Anesthesia: was administered, sensory block is resolving Anesthetic Complications: no major complications apparent
--- NOTE | 2018-01-16 09:02 | [facility] Operative Report ---
Operative Report Operative Date Jan 16, 2018. Pre-Operative Diagnosis Cervical carcinoma Post-Operative Diagnosis Cervical Carcinoma Procedure(s) Performed Placement of Tandem/Ovoid HDR Applicator for Treatment of Cervical Cancer, Insertion 12/[address] Ivette Valverde Passenger Rate Clerk Surgeon(s) Cherri Ren PA-C Estimated Blood Loss 5ML Findings Cervical sleeve in place and sutured to vagina/cervix. No blood in the vaginal vault noted prior to procedure. No palpable clinical disease involving the cervix/vagina. Of note, the sleeve/uterus was more anteverted today so it made it more difficult to initially confirm the opening of the sleeve. Angling the speculum enabled optimal visualization of the sleeve opening and we were finally able to insert the tandem into the sleeve with no compication.. Minimal bleeding noted from the cervix during manipulation due to mucosal friability. No evidence of lacerations/perforations/tears prior to or following the completion of the procedure. Specimens None Drains Mccollum Urinary Anesthesia Saddle block with conscious sedation Complication(s) None Disposition Recovery Room / PACU Indications Ms. Whiting is a 52 year old female with locally advanced cervical cancer who has elected for pelvic chemoradiation and Tandem/Ovoid HDR Brachytherapy. She now presents for tandem/ovoid HDR brachytherapy. Insertion 4 of 5. Description of Procedure The patient was seen today for her 4th of a planned 5 insertions. The patient was identified in the operating room and a timeout was performed. The patient was placed in stirrups and the packing that was placed to prevent movement of the cervical sleeve was removed. The area was cleansed with iodine. A Mccollum catheter was placed. We confirmed no evidence of perforations/tears/ lacerations in the vagina/cervix region. Of note, the sleeve/uterus was more anteverted today so it made it more difficult to initially confirm the opening of the sleeve. Angling the speculum enabled optimal visualization and the tandem was successfully placed with no complications. The left ovoid was then placed followed by the right ovoid. These 3 devices were connected and secured. The ovoids were spread and secured. Alatus vaginal packing balloons were placed anteriorly/posteriorly and filled with 30 mL each to provide adequate bladder and rectal packing. No evidence of lacerations/perforations/ tears prior to or following the completion of the procedure. Radiology was then called for imaging. An anterior image was taken showing good orientation of the tandem and ovoid. A lateral image was then obtained showing excellent placement without significant rotation. The insertion procedure was completed and the patient was taken to the recovery room. There was minimal evidence of excoriation of the introitus secondary to her treatment. There was no significant blood loss during the procedure. The patient will be brought to our department where she will undergo a simulation and following completion of treatment planning will receive her fourth fraction of HDR brachytherapy. I attest to the content of the Intraoperative Record and any orders documented therein. Any exceptions are noted below.
[2018-01-16 09:08] VITALS: BP 106/71; PULSE 84; TEMP 36.6; O2SAT 97
--- NOTE | 2018-01-16 09:16 | DIAGNOSTIC IMAGING REPORT ---
[facility] POST SEED IMPLANT CLINICAL HISTORY: TANDEM AND OVOIDS INSERTION FLUOROSCOPY TIME: 9 seconds. FINDINGS: 2 fluoroscopic images were submitted for interpretation. Fluoroscopy was provided for insertion of tandem and ovoid. Positioning appears appropriate. IMPRESSION: Fluoroscopy for tandem and ovoids insertion. Electronically signed by: Leo Louis M.D. 01/16/2018 9:15 AM Dictated Date/Time: 01/16/2018 9:13 AM
[2018-01-16 09:38] VITALS: BP 102/61; PULSE 80; O2SAT 96
[2018-01-16 10:08] VITALS: BP 93/63; PULSE 84; O2SAT 96
[2018-01-16 10:38] VITALS: BP 86/62; PULSE 84; O2SAT 97
[2018-01-16 11:08] VITALS: BP 95/63; PULSE 84; O2SAT 95
== END | disposition home or self-care (01) ==
LOC: C.ACU 05:17
PROVIDERS: ATTEND Radiology Radiation Oncology
DX: C53.9 Malignant neoplasm of cervix uteri, unspecified (principal); E11.9 Type 2 diabetes mellitus without complications; Z98.51 Tubal ligation status; F17.200 Nicotine dependence, unspecified, uncomplicated

== ENCOUNTER → 2018-01-20 | Day surgery (SDC) | payer OTHER ==
[2018-01-12 15:40] VITALS: BMI 24.0
[~2018-01-20] VITALS: Ht 152.4 cm; Wt 55.7 kg
[~2018-01-20] MED LIST changes: +DEXAMETHASONE SOD INJ 4 MG/ML VIAL ONE; -FENTANYL CITRATE INJ 50 MCG/1 ML 2 ML VIAL IV PRN; -ONDANSETRON INJ 2 MG/ML 2 ML VIAL IV PRN; +PHENYLEPHRINE 100MCG/ML 5ML SYR ONE; -PROPOFOL IV EMULSION 10 MG/ML 20 ML VIAL IV ONE; +PROPOFOL IV EMULSION 10 MG/ML 20 ML VIAL ONE
[2018-01-20 05:35] LABS: HEMATOCRIT 30.9 % (37-47); HEMOGLOBIN 10.4 g/dL (12.0-16.0); MEAN CELL VOLUME 98.7 fL (80-100); MEAN CORPUSCULAR HEMOGLOBIN 33.2 pg (25-34); PLATELET COUNT 214 K/uL (130-400); RED CELL DISTRIBUTION WIDTH CV 16.5 % (11.5-14.5); RED CELL DISTRIBUTION WIDTH SD 59.5 fL (36.4-46.3); WHITE BLOOD COUNT 5.28 K/uL (4.8-10.8)
[2018-01-20 05:40] VITALS: BP 99/66; PULSE 99; TEMP 36.8; O2SAT 95; Ht 152.4 cm; Wt 55.7 kg
[2018-01-20 05:40] LABS: MEAN CORPUSCULAR HGB CONC 33.7 g/dl (32-36)
--- NOTE | 2018-01-20 07:10 | History & Physical Bridge Note ---
H&P Re-Evaluation Bridge Note: I have examined the patient, reviewed the History & Physical and in the interval since the performance of the History & Physical I have noted the following changes of clinical significance: No changes noted
--- NOTE | 2018-01-20 08:19 | [facility] Operative Report ---
Operative Report Operative Date January 20, 2018. Pre-Operative Diagnosis Stage 3 cervical carcinoma Post-Operative Diagnosis Same Procedure(s) Performed Insertion of Tandem and Ovoids Surgeon Dr Jones Gum Machine Operator Surgeon(s) None Estimated Blood Loss 0 ml Findings Cervicle sleeve was in place and sutured to the cervix. There was no blood loss from the procedure. There was no vaginal lacerations/perforations/tears noted either prior to or after the procedure. Specimens None Drains Urinary floey catheter Anesthesia Type Spinal MAC Complication(s) none Description of Procedure The patient was seen today for her fifth of a planned five insertions. The patient was identified in the operating room and a time out was performed. The patient was placed in stirrups and the area was cleansed with iodine. A Mccollum catheter was placed. Examination confirmed no laceratiions/perforation/ tears were noted. The number 3 tandem with balloon surrounding the tandem and set for 6 cm depth was placed into the cervical sleeve. The right and then left small ovoids were place into the vaginal vault. The position was approved and the devices were connected . The rectal and then the vaginal balloon were place between the ovoid and the vagina. They were then inflated with 30 cc of fluid. An anterior and lateral images were taken and approved. There was no blood loss. The patient will be brought to our department where she will undergo simulation an following completion of treatment planning she will receive her fifth and final fraction of HDR brachytherapy. I attest to the content of the Intraoperative Record and any orders documented therein. Any exceptions are noted below.
--- NOTE | 2018-01-20 08:53 | Anesthesiology Progress Note ---
Anesthesia Post Op Note Date & Time January 20, 2018 at 08:53 Vital Signs Pain Intensity: 0 Vital Signs Past 12 Hours Date Time Temp Pulse Resp B/P (MAP) Pulse Ox O2 Delivery O2 Flow Rate FiO2 01/20/18 08:45 36.8 85 18 84/61 94 Room Air 01/20/18 08:35 83 18 80/58 96 Room Air 01/20/18 08:25 86 18 83/61 97 Room Air 01/20/18 08:15 89 18 76/46 99 Room Air 01/20/18 08:09 36.5 94 18 75/52 98 Room Air 01/20/18 05:40 36.8 99 18 99/66 (77) 95 Room Air Notes Mental Status: alert / awake / arousable, participated in evaluation Pt Amnestic to Procedure: Yes Nausea / Vomiting: adequately controlled Pain: adequately controlled Airway Patency, RR, SpO2: stable & adequate BP & HR: stable & adequate Hydration State: stable & adequate Anesthetic Complications: no major complications apparent
[2018-01-20 09:03] VITALS: BP 90/59; PULSE 83; TEMP 36.4; O2SAT 93
[2018-01-20 09:56] VITALS: BP 91/64; PULSE 8; PULSE 87; TEMP 36.7; O2SAT 95
[2018-01-20 10:35] VITALS: BP 90/63; PULSE 85; TEMP 36.7; O2SAT 94
[2018-01-20 11:30] VITALS: BP 108/67; PULSE 88; O2SAT 94
--- NOTE | 2018-01-20 13:44 | DIAGNOSTIC IMAGING REPORT ---
PELVIS POST SEED IMPLANT CLINICAL HISTORY: 52 years-old Female presenting with INSERTION OF TANDEM AND OVOIDS. TECHNIQUE: 2 fluoroscopic image(s) recorded as part of an intraoperative procedure. COMPARISON: 01/16/2018. FINDINGS/IMPRESSION: Tandem and ovoids project over the pelvis. Positioning appears appropriate. A Mccollum catheter may be in place. Please see surgical report for further details. Fluoroscopy dosage (mGy): 4.03. Fluoroscopy time: 8.7 seconds. Number of fluoroscopic spot images: 0. Electronically signed by: Freddie Martinez M.D. 01/20/2018 1:43 PM Dictated Date/Time: 01/20/2018 1:40 PM
== END | disposition home or self-care (01) ==
LOC: C.ACU 05:06
PROVIDERS: ATTEND Radiology Radiation Oncology
DX: C53.1 Malignant neoplasm of exocervix (principal); E11.9 Type 2 diabetes mellitus without complications; F17.200 Nicotine dependence, unspecified, uncomplicated; Z79.899 Other long term (current) drug therapy

== ENCOUNTER 2019-02-03 16:34 | Inpatient (IN) ==
[2019-02-03] MEDS ORDERED: SODIUM CHLORIDE 0.9% 1000ML 2,000 ML IV ONE (17:22)
[2019-02-03] MEDS ORDERED: ONDANSETRON INJ 2 MG/ML 2 ML VIAL IV STA (17:22)
[2019-02-03 17:58] LABS: Basophils # (auto) 0.02 K/uL (0-0.2); Basophils % (auto) 0.2 %; Eosinophils # (auto) 0.03 K/uL (0-0.5); Eosinophils % (auto) 0.3 %; Hematocrit (blood only) 34.7 % (37-47); Hemoglobin 11.7 g/dL (12.0-16.0); Immature Granulocytes # (auto) 0.03 K/uL (0.00-0.02); Immature Granulocytes % (auto) 0.3 %; Lymphocytes # (auto) 1.03 K/uL (1.2-3.4); Lymphocytes % (auto) 8.9 %; Mean Corpuscular Hgb Conc 33.7 g/dL (32-36); Mean Corpuscular Volume 94.6 fL (80-100); Mean Platelet Volume 9.4 fL (7.4-10.4); Monocytes # (auto) 0.86 K/uL (0.11-0.59); Monocytes % (auto) 7.5 %; Neutrophils # (auto) 9.54 K/uL (1.4-6.5); Neutrophils % (auto) 82.8 %; Platelet Count 261 K/uL (130-400); RDW Coefficient of Variation 15.5 % (11.5-14.5); RDW Standard Deviation 53.4 fL (36.4-46.3); Red Blood Count 3.67 M/uL (4.2-5.4); White Blood Count 11.51 K/uL (4.8-10.8)
[2019-02-03 18:28] LABS: Alanine Aminotransferase 13 U/L (12-78); Aspartate Aminotransferase 11 U/L (15-37); Blood Urea Nitrogen 23 mg/dl (7-18); Calcium 9.8 mg/dl (8.5-10.1); Carbon Dioxide 30 mmol/L (21-32); Chloride 94 mmol/L (98-107); Est GFR (African American) 90.7; Est GFR (Non-African American) 78.2; Glucose 120 mg/dl (70-99); Potassium 3.5 mmol/L (3.5-5.1); Sodium 133 mmol/L (136-145)
--- NOTE | 2019-02-03 18:29 | Emergency Department Note ---
History of Present Illness General Chief complaint: Weakness Stated complaint: REACTION TO CHEMO, WEAKNESS Source: patient Mode of arrival: ambulatory Limitations: no limitations History of Present Illness Provider Complaint: + generalized weakness and + lack of energy Onset (ago): week(s) 4 Duration: + constant and + progressively worsening Location: + generalized Migration: + none Severity: moderate Maximum Pain Intensity: 6 Current Pain Intensity: 6 Quality: + aching Relieved By: + none Exacerbated By: + movement Context: + history of similar (associated with chemotherapy) Associated symptoms: + loss of appetite and + myalgias This 53 year old female patient presents to the ED today, complaining of generalized weakness, myalgias, and loss of appetite for the past month since chemotherapy. The patient is been seen here twice in the past month since her last round of chemotherapy on January 07 for the same symptoms. The patient states she is feeling generalized weakness and fatigue. She was supposed to have a treatment on Friday, but did not due to her sensation of weakness. She has been following up with her oncologist, Dr. Bonilla, who is aware of the fatigue and weakness, but she did not contact them today prior to coming to the emergency department. The patient states she is now scheduled for her next chemotherapy infusion as well as PET scan in a few weeks. She reports nausea and some mild lower abdominal pain. Neither of the symptoms are new. She does report decreased appetite and states she has not eaten for several days. She denies any fever, illness, chest pain, difficulty breathing, constipation or diarrhea, or vomiting. The patient states her last bowel movement was today and was normal. She has been able to tolerate fluids. Home Medications Home Medications Medication Instructions Recorded Confirmed Type Paraplatin 1 dose IV DIRECTED 12/18/18 02/03/19 History bevacizumab [Avastin] 1 dose IV DIRECTED 12/18/18 02/03/19 History carvedilol 12.5 mg PO BID 12/18/18 02/03/19 History dexamethasone 12 mg PO DIRECTED 12/18/18 02/03/19 History qvzapxum-[id number]-N[place]-Ca carb-vit K 1 tab PO DAILY 12/18/18 02/03/19 History [Women's 50 Plus Daily Formula] ondansetron HCl [Zofran] 8 mg PO Q8 PRN 12/18/18 02/03/19 History paclitaxel 1 dose IV DIRECTED 12/18/18 02/03/19 History pegfilgrastim [Neulasta] 1 dose SUBCUT DIRECTED 12/18/18 02/03/19 History prochlorperazine maleate 10 mg PO Q6 PRN 12/18/18 02/03/19 History vitamin B complex 1 tab PO DAILY 12/18/18 02/03/19 History Allergies Allergy/AdvReac Type Severity Reaction Status Date / Time No Known Allergies Allergy Verified 02/03/19 18:37 Past Med/Surg History Medical History Cervical carcinoma Social History Preferred Language: Filipino Beliefs That Will Affect Care: None Feels Safe at Home: Yes Smoking Status: Current every day smoker Review of Systems A total of 10 systems reviewed and were otherwise negative Physical Exam Vital Signs Vital Signs - 24 hr 02/03/19 16:47 02/03/19 17:52 02/03/19 18:01 Temperature 36.5 C Temperature Source Oral Sepsis Recent Fever Within 48 Hours No Sepsis New/Unexplained Change in Mental Status No Sepsis Action Taken by Nursing No Action Required Pulse Rate 126 H 110 H Pulse Rate [Finger] Pulse Rate from SpO2 Sensor 111 H Respiratory Rate 20 21 Respiratory Effort / Characteristics Respiratory Depth Blood Pressure 113/80 149/107 H Blood Pressure [Left Arm] Blood Pressure Mean 91 121 Blood Pressure Mean [Left Arm] Pulse Oximetry 98 97 95 Oxygen Delivery Method Room Air Room Air Room Air 02/03/19 19:01 02/03/19 20:00 02/03/19 21:28 Temperature Temperature Source Sepsis Recent Fever Within 48 Hours Sepsis New/Unexplained Change in Mental Status Sepsis Action Taken by Nursing Pulse Rate 93 H 96 H 102 H Pulse Rate [Finger] Pulse Rate from SpO2 Sensor Respiratory Rate 20 15 18 Respiratory Effort / Characteristics Respiratory Depth Blood Pressure 119/76 122/75 134/86 Blood Pressure [Left Arm] Blood Pressure Mean 90 90 102 Blood Pressure Mean [Left Arm] Pulse Oximetry 97 96 94 Oxygen Delivery Method Room Air Room Air Room Air 02/03/19 22:39 02/03/19 23:33 Temperature Temperature Source Sepsis Recent Fever Within 48 Hours Sepsis New/Unexplained Change in Mental Status Sepsis Action Taken by Nursing Pulse Rate 100 H Pulse Rate [Finger] 104 H Pulse Rate from SpO2 Sensor Respiratory Rate 17 22 Respiratory Effort / Characteristics Non-Labored Spontaneous Respiratory Depth Normal Blood Pressure 120/66 Blood Pressure [Left Arm] 118/72 Blood Pressure Mean 84 Blood Pressure Mean [Left Arm] 87 Pulse Oximetry 95 99 Oxygen Delivery Method Room Air Room Air VITALS: Vitals are noted on the nurse's note and reviewed by myself. Patient is tachycardic with a heart rate of 126. GENERAL: This is a 53-year-old white female, in no acute distress, nondiaphoretic, well-developed well-nourished. The patient moves around the bed and changes positions without difficulty. SKIN: The skin was without rashes, erythema, edema, or bruising. There is no tenting of the skin. Capillary reflex less than 2 seconds. HEAD: Normocephalic atraumatic. EARS: External auditory canals clear, tympanic membranes pearly herrera without erythema or effusion bilaterally. EYES: Pupils equal round and reactive to light and accommodation. Conjunctivae without injection, sclerae without icterus. Extraocular movements intact. NOSE: Patent, turbinates without inflammation or discharge. No sinus tenderness. MOUTH: Mucous membranes moist. Tonsils are not enlarged. Pharynx without erythema or exudate. Uvula midline. Airway patent. Tongue does not deviate. NECK: Supple without nuchal rigidity. No lymphadenopathy. No thyromegaly. Cervical spine is nontender. No JVD. HEART: Regular rate and rhythm without murmurs gallops or rubs. LUNGS: Clear to auscultation bilaterally without wheezes, rales or rhonchi. No dullness to percussion. No retractions or accessory muscle use. ABDOMEN: Positive bowel sounds x 4. Normal tympanic percussion. Soft, nontender, without masses or organomegaly. Roberson sign negative. No guarding o r rebound tenderness. MUSCULOSKELETAL: No muscle atrophy, erythema, or edema noted. Full range of m otion without joint tenderness in all extremities. No tenderness to palpation. Normal gait. Strength 5/5 throughout. NEURO: Patient was alert and oriented to person place and time. Normal sensatio n to light and sharp touch. Deep tendon reflexes 2+ throughout. No focal neurological deficits. Course The patient was seen and evaluated as above. Previous medical records reviewed. IV access obtained, labs drawn. Labs reviewed by myself. I discussed the findings with the patient at bedside. She was reassessed and has been unable to provide a urine sample. The patient tried again to provide a urine sample and was unable. At this time, she states her suprapubic pain is worse than previously. We did elect to perform CT scan of the abdomen/pelvis to evaluate the pain. CT scan performed reviewed by myself and radiologist as above. I discussed the case with my attending. I consulted with Dr. Goff via phone. I advised him of the patient condition and sigmoid perforation noted on scan. He advised that this is not surgical and requested the patient be admitted to medicine with surgery consult. Patient was given IV Zosyn. Mccollum catheter placed due to urinary retention. Patient drained 800 cc of urine. Discussed the case with Dr. Morley. He did agree to evaluate the patient for admission. Please see hospitalist dictation regarding ongoing management care of this patient. Administered Medications Ioversol (Optiray 320 100ml) 94 ml IV ONCE PRN PRN Reason: Interaction Checking Stop: 02/07/19 22:01 Last Admin: 02/03/19 22:04 Dose: 94 ml Documented by: [id number] Discontinued Medications Sodium Chloride (Nss 1000ml) 2,000 mls @ 999 mls/hr IV .Q2H1M ONE Stop: 02/03/19 19:22 Last Infusion: 02/03/19 20:15 Dose: 0 mls/hr Documented by: [id number] Admin: 02/03/19 17:57 Dose: 999 mls/hr Documented by: [id number] Ketorolac Tromethamine (Toradol) Confirm Administered Dose 15 mg .ROUTE .STK-MED ONE Stop: 02/04/19 00:12 Last Admin: 02/04/19 00:13 Dose: 15 mg Documented by: [id number] Ondansetron HCl (Zofran) 4 mg IV NOW STA Stop: 02/03/19 17:23 Last Admin: 02/03/19 17:57 Dose: 4 mg Documented by: [id number] Medical Decision Making Differential Diagnosis + acute myocardial infarction, + anemia, + hypoglycemia, + hypothyroidism, + rhabdomyolysis, + sepsis, + dehydration, + UTI, + metabolic pneumonia, + ACS, + dysrhythmia, + orthostasis, + hypoglycemia, + hyperglycemia, + electrolyte abnormalities, + intracerebral event, + toxicologic and + neurologic Adverse reaction to chemotherapy, malignancy, and others Home Medications Current Medication List: was personally reviewed by me Laboratory Data Attestation: I reviewed the patient's lab results. Mild leukocytosis of 11.5. Mild anemia. No thrombus cytopenia. These labs are consistent with previous labs which have been performed. There is a shift with a neutrophil count of 9000. Patient is mildly hyponatremic at 133. Renal, hepatic function without significant abnormalities. Lipase 77. Magnesium 1.7. Urinalysis positive for 2+ ketones, otherwise no evidence of infection. Result diagrams: 02/03/19 17:44 02/03/19 17:44 Lab Results 02/03/19 02/03/19 02/03/19 Range/Units 17:44 17:44 23:35 WBC 11.51 H (4.8-10.8) K/uL RBC 3.67 L (4.2-5.4) M/uL Hgb 11.7 L (12.0-16.0) g/dL Hct 34.7 L (37-47) % MCV 94.6 (80-100) fL MCH 31.9 (25-34) pg MCHC 33.7 (32-36) g/dL RDW Std Deviation 53.4 H (36.4-46.3) fL RDW Coeff of Jessica 15.5 H (11.5-14.5) % Plt Count 261 (130-400) K/uL MPV 9.4 (7.4-10.4) fL Immature Gran % (Auto) 0.3 % Neut % (Auto) 82.8 % Lymph % (Auto) 8.9 % Hardy % (Auto) 7.5 % Eos % (Auto) 0.3 % Baso % (Auto) 0.2 % Immature Gran # (Auto) 0.03 H (0.00-0.02) K/uL Neut # (Auto) 9.54 H (1.4-6.5) K/uL Lymph # (Auto) 1.03 L (1.2-3.4) K/uL Hardy # (Auto) 0.86 H (0.11-0.59) K/uL Eos # (Auto) 0.03 (0-0.5) K/uL Baso # (Auto) 0.02 (0-0.2) K/uL Sodium 133 L (136-145) mmol/L Potassium 3.5 (3.5-5.1) mmol/L Chloride 94 L (98-107) mmol/L Carbon Dioxide 30 (21-32) mmol/L Anion Gap 9.0 (3-11) BUN 23 H (7-18) mg/dl Creatinine 0.84 (0.6-1.2) mg/dl Est Cr Clr Drug Dosing Not Reportable Est GFR ( Amer) 90.7 Est GFR (Non-Af Amer) 78.2 BUN/Creatinine Ratio 28.0 H (10-20) Glucose 120 H (70-99) mg/dl Calcium 9.8 (8.5-10.1) mg/dl Magnesium 1.7 L (1.8-2.4) mg/dl Total Bilirubin 0.4 (0.2-1) mg/dl AST 11 L (15-37) U/L ALT 13 (12-78) U/L Alkaline Phosphatase 77 (45-117) U/L Total Protein 7.9 (6.4-8.2) gm/dl Albumin 3.0 L (3.4-5.0) gm/dl Globulin 4.9 H (2.5-4.0) gm/dl Albumin/Globulin Ratio 0.6 L (0.9-2) Lipase 77 (73-393) U/L Urine Color Yellow Urine Appearance Clear (Clear) Urine pH 5.0 (4.5-7.5) Ur Specific [place] 1.032 H (1.000-1.030) Urine Protein Negative (Negative) Urine Glucose (UA) Negative (Negative) Urine Ketones 2+ H (Negative) Urine Blood Negative (Negative) Urine Nitrite Negative (Negative) Urine Bilirubin Negative (Negative) Urine Urobilinogen Negative (Negative) Ur Leukocyte Esterase Negative (Negative) Imaging Data Radiologist's Impression: CT abd pelvis IV con only CLINICAL HISTORY: urinary retention, lower abdominal pain COMPARISON STUDY: July 2018 TECHNIQUE: Patient was scanned in a dynamic helical fashion during intravenous administration of 94 cc of Optiray 320. A dose lowering technique was utilized adhering to the principles of ALARA. CT DOSE: 269.82 mGy.cm FINDINGS: Lower chest: The heart is normal in size and configuration, without pericardial effusion. The lung bases and pleural spaces are clear. Liver: The contrast-enhanced liver is normal in size, contour, and attenuation. There is no intrahepatic biliary ductal dilatation. The hepatic veins and portal veins are patent. Gallbladder: Unremarkable. Spleen: Normal in size and attenuation. Pancreas: Unremarkable. Adrenal glands: Unremarkable. Kidneys: There is symmetric renal cortical enhancement. The kidneys are normal in size without hydronephrosis. Bowel: There are no transition zones to indicate bowel obstruction. There is no acute diverticulitis. The appendix appears normal. Peritoneum: There is extraluminal air posterior to the uterus and the perisigmoid and perirectal space. There is minimal infiltration of the fat. There appears to be a focal defect within the anterior wall the sigmoid and the findings likely represent a sigmoid perforation. Surgical consultation is advocated. Vasculature: The abdominal aorta is normal in course and caliber. Adenopathy: None. Pelvic viscera: The bladder, and pelvic viscera are unremarkable. Skeletal structures: No destructive osseous lesions are seen. IMPRESSION: 1. Extraluminal gas is located posterior to the uterus and anterior to the sigmoid. 2. Focus of abnormally diminished enhancement involving the anterior wall of the sigmoid colon. The findings likely represent a sigmoid perforation. 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 Surgical consultation is advocated Electronically signed by: Lance Cameron M.D. 02/03/2019 10:42 PM ECG Data Attestation: I personally reviewed and interpreted this ECG as follows: Indication: tachycardia and weakness Rate (beats per minute): 119 Rhythm: sinus tachycardia Findings: no acute ischemic change and no ectopy Comparison ECG Date: from (January 11, 2019) Change: the following changes noted (T wave inversion no longer evident in anterior leads.) Blood Pressure Blood Pressure Findings: Normal blood pressure Head Trauma GCS Score: 15 MDM Narrative 53-year-old female patient presents to department today complaining of weakness, nausea, and generalized malaise and illness for the past month. This is the patient's third visit to the emergency department for the same symptoms. Today, she developed some left lower quadrant and suprapubic abdominal pain. Patient also states her symptoms with reaction from her chemotherapy which she last had 1 month ago. She was mildly tachycardic during evaluation. She did feel somewhat better after IV fluids and Zofran, but continued to experience the abdominal pain. Because of this and the patient's inability to provide a urine sample for approximately 5 hours after 2 L of fluids, we did elect to perform a CT scan of the abdomen/pelvis to evaluate for urinary retention. This showed evidence of a perforated sigmoid, likely associated with the patient's prior history of radiation for cervical cancer. I did consult with the general surgeon. He did not feel that this was a surgical problem at this time and requested the patient be admitted to medicine with surgical consult. I did speak with the medicine team. They agreed to admit the patient. A Mccollum catheter was placed. Please see hospitalist dictation regarding ongoing management care of this patient. The chart was completed utilizing [employer] Speech voice recognition software. Grammatical errors, random word insertions, pronoun errors, and incomplete sentences are an occasional consequence of this system due to software limitations, ambient noise, and hardware issues. Any formal questions or concerns about the content, text, or information contained within the body of this dictation should be directly addressed to the provider for clarification. Impression & Plan Perforation of sigmoid colon, Weakness, Acute urinary retention Discharge Plan Visit Data Chief Complaint: Weakness Stated Complaint: REACTION TO CHEMO, WEAKNESS ED Provider: Cody Herrera ED Midlevel Provider: Dominique Vanessa Discharge Problem: Perforation of sigmoid colon, Weakness, Acute urinary retention Patient Disposition: Admitted As Inpatient Condition: Fair Forms Stand Alone Forms: [facility], Important Visit Information Prescriptions Prescriptions: No Action carvedilol 12.5 mg Tablet 12.5 mg PO BID RF: 0 ondansetron HCl [Zofran] 8 mg Tablet 8 mg PO Q8 PRN (Reason: Nausea) RF: 0 prochlorperazine maleate 10 mg Tablet 10 mg PO Q6 PRN (Reason: Nausea) RF: 0 dexamethasone 4 mg Tablet 12 mg PO DIRECTED RF: 0 vitamin B complex Tablet 1 tab PO DAILY RF: 0 paclitaxel 6 mg/mL Concentrate 1 dose IV DIRECTED RF: 0 Avastin 25 mg/mL Solution 1 dose IV DIRECTED RF: 0 Women's 50 Plus Daily Formula 400 mcg-500 mg calcium-20 mcg Tablet 1 tab PO DAILY RF: 0 Neulasta 6 mg/0.6 mL Syringe, W/ Wearable Injector 1 dose SUBCUT DIRECTED RF: 0 Paraplatin 1 dose IV DIRECTED RF: 0 Referrals Referrals: Nj Braxton MD [Primary Care Provider] - Cadence Bonilla MD [Physician] -
[2019-02-03 18:30] LABS: Albumin Globulin Ratio 0.6 (0.9-2); Alkaline Phosphatase 77 U/L (45-117); Bilirubin,Total 0.4 mg/dl (0.2-1); Globulin 4.9 gm/dl (2.5-4.0); Total Protein 7.9 gm/dl (6.4-8.2)
[2019-02-03] MEDS ORDERED: IOVERSOL 100ml IV PRN (22:02)
--- NOTE | 2019-02-03 22:44 | CT Scan Report ---
CT abd pelvis IV con only CLINICAL HISTORY: urinary retention, lower abdominal pain COMPARISON STUDY: July 2018 TECHNIQUE: Patient was scanned in a dynamic helical fashion during intravenous administration of 94 c c of Optiray 320. A dose lowering technique was utilized adhering to the principles of ALARA. CT DOSE: 269.82 mGy.cm FINDINGS: Lower chest: The heart is normal in size and configuration, without pericardial effusion. The lung ba ses and pleural spaces are clear. Liver: The contrast-enhanced liver is normal in size, contour, and attenuation. There is no intrahepa tic biliary ductal dilatation. The hepatic veins and portal veins are patent. Gallbladder: Unremarkable. Spleen: Normal in size and attenuation. Pancreas: Unremarkable. Adrenal glands: Unremarkable. Kidneys: There is symmetric renal cortical enhancement. The kidneys are normal in size without hydron ephrosis. Bowel: There are no transition zones to indicate bowel obstruction. There is no acute diverticulitis. The appendix appears normal. Peritoneum: There is extraluminal air posterior to the uterus and the perisigmoid and perirectal spac e. There is minimal infiltration of the fat. There appears to be a focal defect within the anterior w all the sigmoid and the findings likely represent a sigmoid perforation. Surgical consultation is adv ocated. Vasculature: The abdominal aorta is normal in course and caliber. Adenopathy: None. Pelvic viscera: The bladder, and pelvic viscera are unremarkable. Skeletal structures: No destructive osseous lesions are seen. IMPRESSION: 1. Extraluminal gas is located posterior to the uterus and anterior to the sigmoid. 2. Focus of abnormally diminished enhancement involving the anterior wall of the sigmoid colon. The f indings likely represent a sigmoid perforation. Although the etiology of this perforation is not know n, given the history of prior radiation, this could represent a perforation secondary to radiation en teritis. Surgical consultation is advocated Electronically signed by: Lance Cameron M.D. 02/03/2019 10:42 PM
[2019-02-03] MEDS ORDERED: PIPERACILLIN/TAZOBACTAM 4.5 GM/120 ML BAG IV ONE (23:00)
[2019-02-03] MEDS ORDERED: PIPERACILL/TAZOBAC CONSULT ACTIVE PRN (23:00)
[2019-02-03 23:26] LABS: Magnesium 1.7 mg/dl (1.8-2.4)
[2019-02-03 23:46] LABS: Appearance Urine Clear (Clear); Bilirubin Urine Negative (Negative); Blood Urine Negative (Negative); Color Urine Yellow; Glucose Urine UA Negative (Negative); Ketones Urine 2+ (Negative); Leukocyte Esterase Urine Negative (Negative); Nitrite Urine Negative (Negative); Protein Urine Negative (Negative); Specific Gravity Urine 1.032 (1.000-1.030); Urobilinogen Urine Negative (Negative)
--- NOTE | 2019-02-04 00:06 | History & Physical Report ---
Date of Service February 04, 2019 Assessment & Plan (1) Sepsis: Secondary to sigmoid perforation hx recurrent cervical cancer with local mets ongoing chemotherapy status post radiation Hypertension, stable DM2, currently diet-controlled as per patient preference Suboptimal control as of recent outpatient hemoglobin A1c of 9.8 last September 2017 ongoing tobacco abuse Medical telemetry Cultures, check lactic acid, IV Zosyn Strict n.p.o. Surgery consult RE bowel perforation (ER provider already in touch with Dr. Goff.) ISS BG goal 140-180, basal insulin as necessary to attain goal, update hemoglobin A1c Nicotine patch as needed DVT prophylaxis. Lovenox subcu Full code Patient's requesting updates from providers. Mr.Bob Whiting, contact #[phone]. History of Present Illness Chief Complaint: Weakness Primary Care Provider: Nj Braxton MD History obtained from patient, family, and records. Medical history significant for recurrent cervical cancer ongoing chemotherapy status post radiation, HTN, hyperlipidemia as per records, DM2 currently diet- controlled as per patient preference, ongoing tobacco abuse. Recent confinement May 2017 for complicated UTI, new onset diabetes.. Cervical mass noted during confinement later found to be cervical cancer. Patient subsequently underwent chemotherapy followed by radiation. Psoas muscle mets later found status post radiation. PET scan done October 2018 showed left perirectal fossa/left posterior vaginal area tumor recurrence. Chemotherapy subsequently reinitiated. Chemotherapy on hold following G oncologist office appointment 3 days ago due to patient generalized weakness and poor performance status. PET scan contemplated end of the month. This week patient noted constipation more than usual, poor appetite and mild achy lower abdominal pain. No fever, no chills, no chest pain, no S OB. Patient brought to ER by due to worsening symptoms. CAT scan abdomen pelvis showed 1. Extraluminal gas is located posterior to the uterus and anterior to the sigmoid. 2. Focus of abnormally diminished enhancement involving the anterior wall of the sigmoid colon. The findings likely represent a sigmoid perforation. 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 Surgical consultation is advocated. IV Zosyn given at the ER. 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 Allergies Allergy/AdvReac Type Severity Reaction Status Date / Time No Known Allergies Allergy Verified 02/03/19 18:37 Home Medications Home Medications Medication Instructions Recorded Confirmed Type Paraplatin 1 dose IV DIRECTED 12/18/18 02/03/19 History bevacizumab [Avastin] 1 dose IV DIRECTED 12/18/18 02/03/19 History carvedilol 12.5 mg PO BID 12/18/18 02/03/19 History dexamethasone 12 mg PO DIRECTED 12/18/18 02/03/19 History [id number]-TY-Ca carb-vit K 1 tab PO DAILY 12/18/18 02/03/19 History [Women's 50 Plus Daily Formula] ondansetron HCl [Zofran] 8 mg PO Q8 PRN 12/18/18 02/03/19 History paclitaxel 1 dose IV DIRECTED 12/18/18 02/03/19 History pegfilgrastim [Neulasta] 1 dose SUBCUT DIRECTED 12/18/18 02/03/19 History prochlorperazine maleate 10 mg PO Q6 PRN 12/18/18 02/03/19 History vitamin B complex 1 tab PO DAILY 12/18/18 02/03/19 History Past Med/Surg History Medical History Cervical carcinoma Social History Preferred Language: Nepali Communication Ability: Effective Aligner Typewriter Required: No Beliefs That Will Affect Care: None Current Living Situation: Spouse Other Information That Helps Us Care for You: No Feels Safe at Home: Yes Safety Concerns: Feels Safe At This Time Smoking Status: Light tobacco smoker Tobacco Type: cigarettes Do You Dip or Chew Tobacco: No Tobacco Cessation Education Requested by Patient: No Hx Alcohol Use: No Hx Substance Use: No Review of Systems Review of Systems: As per HPI, all 10 systems reviewed, all other ROS negative Physical Exam Physical Exam: GENERAL: uncomfortable, no respiratory distress SKIN: Pallor, warm HEENT: Alopecia, pale palpebral conjunctivae, no ptosis, dry buccal mucosa, face mask covering lower half of the face NECK : Supple, no tenderness CHEST : Decreased breath sounds , no tenderness HEART : Tachycardic, no obvious murmurs ABDOMEN: distention, hypogastric tenderness EXTREMITIES : No LE swelling/tenderness, no other conspicuous deformities noted NEUROLOGIC : Coherent, no facial asymmetry, no other gross focality Results & Data Vital Signs (Past 12 Hours) Vital Signs Temp Pulse Pulse Resp BP BP Pulse Ox 02/03/19 23:33 104 H 22 118/72 99 02/03/19 22:39 100 H 17 120/66 95 02/03/19 21:28 102 H 18 134/86 94 02/03/19 20:00 96 H 15 122/75 96 02/03/19 19:01 93 H 20 119/76 97 02/03/19 18:01 110 H 21 149/107 H 95 02/03/19 17:52 97 02/03/19 16:47 36.5 C 126 H 20 113/80 98 Laboratory Results Laboratory Results WBC 11.51 K/uL (4.8-10.8) H 02/03/19 17:44 RBC 3.67 M/uL (4.2-5.4) L 02/03/19 17:44 Hgb 11.7 g/dL (12.0-16.0) L 02/03/19 17:44 Hct 34.7 % (37-47) L 02/03/19 17:44 MCV 94.6 fL (80-100) 02/03/19 17:44 MCH 31.9 pg (25-34) 02/03/19 17:44 MCHC 33.7 g/dL (32-36) 02/03/19 17:44 RDW Std Deviation 53.4 fL (36.4-46.3) H 02/03/19 17:44 RDW Coeff of Jessica 15.5 % (11.5-14.5) H 02/03/19 17:44 Plt Count 261 K/uL (130-400) 02/03/19 17:44 MPV 9.4 fL (7.4-10.4) 02/03/19 17:44 Immature Gran % (Auto) 0.3 % 02/03/19 17:44 Neut % (Auto) 82.8 % 02/03/19 17:44 Lymph % (Auto) 8.9 % 02/03/19 17:44 [place] % (Auto) 7.5 % 02/03/19 17:44 Eos % (Auto) 0.3 % 02/03/19 17:44 Baso % (Auto) 0.2 % 02/03/19 17:44 Immature Gran # (Auto) 0.03 K/uL (0.00-0.02) H 02/03/19 17:44 Neut # (Auto) 9.54 K/uL (1.4-6.5) H 02/03/19 17:44 Lymph # (Auto) 1.03 K/uL (1.2-3.4) L 02/03/19 17:44 [place] # (Auto) 0.86 K/uL (0.11-0.59) H 02/03/19 17:44 Eos # (Auto) 0.03 K/uL (0-0.5) 02/03/19 17:44 Baso # (Auto) 0.02 K/uL (0-0.2) 02/03/19 17:44 Sodium 133 mmol/L (136-145) L 02/03/19 17:44 Potassium 3.5 mmol/L (3.5-5.1) 02/03/19 17:44 Chloride 94 mmol/L (98-107) L 02/03/19 17:44 Carbon Dioxide 30 mmol/L (21-32) 02/03/19 17:44 9.0 (3-11) 02/03/19 17:44 BUN 23 mg/dl (7-18) H 02/03/19 17:44 0.84 mg/dl (0.6-1.2) 02/03/19 17:44 Est Cr Clr Drug Dosing Not Reportable 02/03/19 17:44 Est GFR ( Amer) 90.7 02/03/19 17:44 Est GFR (Non-Af Amer) 78.2 02/03/19 17:44 28.0 (10-20) H 02/03/19 17:44 Glucose 120 mg/dl (70-99) H 02/03/19 17:44 Calcium 9.8 mg/dl (8.5-10.1) 02/03/19 17:44 Magnesium 1.7 mg/dl (1.8-2.4) L 02/03/19 17:44 0.4 mg/dl (0.2-1) 02/03/19 17:44 AST 11 U/L (15-37) L 02/03/19 17:44 ALT 13 U/L (12-78) 02/03/19 17:44 77 U/L (45-117) 02/03/19 17:44 7.9 gm/dl (6.4-8.2) 02/03/19 17:44 3.0 gm/dl (3.4-5.0) L 02/03/19 17:44 4.9 gm/dl (2.5-4.0) H 02/03/19 17:44 0.6 (0.9-2) L 02/03/19 17:44 77 U/L (73-393) 02/03/19 17:44 Yellow 02/03/19 23:35 Clear (Clear) 02/03/19 23:35 5.0 (4.5-7.5) 02/03/19 23:35 Ur Specific [place] 1.032 (1.000-1.030) H 02/03/19 23:35 Negative (Negative) 02/03/19 23:35 Negative (Negative) 02/03/19 23:35 2+ (Negative) H 02/03/19 23:35 Negative (Negative) 02/03/19 23:35 Negative (Negative) 02/03/19 23:35 Negative (Negative) 02/03/19 23:35 Negative (Negative) 02/03/19 23:35 Ur Leukocyte Esterase Negative (Negative) 02/03/19 23:[address] abdomen pelvis as per HPI EKG as per my interpretation rate 120, sinus tachycardia, incomplete right bundle branch block, T wave flattening anterior leads
[2019-02-04] MEDS ORDERED: NSS + 20MEQ KCL 20 MEQ/1,000 ML BAG IV ONE (00:09)
[2019-02-04] MEDS ORDERED: KETOROLAC TROMETHAMINE 15 MG/ML VIAL ONE (00:11)
[2019-02-04] MEDS ORDERED: KETOROLAC TROMETHAMINE 15 MG/ML VIAL IV STA (00:22)
[2019-02-04] MEDS ORDERED: METOPROLOL TARTRATE 1 MG/ML VIAL IV STA (01:07)
[2019-02-04] MEDS ORDERED: GLUCOSE 40% GEL 15 GM TUBE PO PRN (03:07)
[2019-02-04] MEDS ORDERED: GLUCOSE 10 TABS/TUBE PO PRN (03:07)
[2019-02-04] MEDS ORDERED: DEXTROSE 50% 50 ML SYRINGE IV PRN (03:07)
[2019-02-04] MEDS ORDERED: GLUCAGON FOR INJ 1 MG VIAL SQ PRN (03:07)
[2019-02-04] MEDS ORDERED: LORazepam 0.25 MG/0.5 ML VIAL IV PRN (03:07)
[2019-02-04] MEDS ORDERED: MAGNESIUM SULFATE / D5W 1 GM/100 ML BAG IV ONE (03:07)
[2019-02-04] MEDS ORDERED: CARBOHYDRATES FOR HYPOGLYCEMIA PO PRN (03:07)
[2019-02-04] MEDS ORDERED: ACETAMINOPHEN 65 ML IV PRN (03:07)
[2019-02-04] MEDS: MoRPHine SULFATE 4 MG/ML 1 ML CARP\\VIAL IV PRN ×2 (03:22→11:45)
[2019-02-04] MEDS: LACTATED RINGER'S 1,000 ML IV SCH ×2 (03:38→20:18)
[2019-02-04] MEDS: INSULIN ASPART 100 UNITS/ML 3 ML PEN SC SCH ×5 (03:51→20:21)
[2019-02-04] MEDS: PIPERACILLIN/TAZOBACTAM 3.375 GM in DEXTROSE 5% 100 ML IV SCH ×3 (05:00→20:33)
[2019-02-04 05:57] LABS: Estimated Average Glucose 192 mg/dl; Hemoglobin A1C 8.3 % (4.5-5.6)
[2019-02-04] MEDS: METOPROLOL TARTRATE 1 MG/ML VIAL IV SCH ×3 (06:07→18:14)
[2019-02-04 07:20] LABS: Basophils # (auto) 0.01 K/uL (0-0.2); Basophils % (auto) 0.1 %; Eosinophils # (auto) 0.04 K/uL (0-0.5); Eosinophils % (auto) 0.5 %; Hematocrit (blood only) 26.8 % (37-47); Immature Granulocytes # (auto) 0.03 K/uL (0.00-0.02); Immature Granulocytes % (auto) 0.4 %; Lymphocytes # (auto) 0.93 K/uL (1.2-3.4); Lymphocytes % (auto) 11.1 %; Mean Corpuscular Hgb Conc 33.6 g/dL (32-36); Mean Corpuscular Volume 93.7 fL (80-100); Mean Platelet Volume 8.7 fL (7.4-10.4); Monocytes # (auto) 0.63 K/uL (0.11-0.59); Monocytes % (auto) 7.5 %; Neutrophils # (auto) 6.71 K/uL (1.4-6.5); Neutrophils % (auto) 80.4 %; Platelet Count 214 K/uL (130-400); RDW Coefficient of Variation 15.5 % (11.5-14.5); Red Blood Count 2.86 M/uL (4.2-5.4); White Blood Count 8.35 K/uL (4.8-10.8)
[2019-02-04 07:28] LABS: INR 1.1 (0.9-1.1); Prothrombin Time 11.1 Seconds (9.0-12.0)
[2019-02-04 07:59] LABS: Calcium 8.4 mg/dl (8.5-10.1); Creatinine Clr Calc Pharmacy 59.3 ml/min; Est GFR (African American) 100.7; Est GFR (Non-African American) 86.9
[2019-02-04] MEDS: ENOXAPARIN INJ 30 MG/0.3 ML SYR SQ SCH (08:37)
--- NOTE | 2019-02-04 12:42 | Surgery Consultation ---
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 Exam is benign, WBC improved. Continue Zosyn. Will follow with serial exams, consider starting clears in next 24 hours. Supervising Physician Co-Signing Physician Notes Patient seen and examined, labs and images reviewed, agree with above. 53-year-old female with history of cervical cancer status post radiation therapy, now on her second round of chemotherapy. She presented with several weeks of abdominal pelvic pain. Admitted overnight with CT scan showing rectosigmoid perforation, no abscess. This morning her pain was improved, this afternoon it is a little worse after sitting up. However is still better than it has been over the past few weeks. She is currently being managed nonoperatively with antibiotics. On exam she has some suprapubic and left lower quadrant tenderness, no peritonitis. 53-year-old female with a clear radiation proctitis and perforation. Plan for nonoperative management at this time. Treat with antibiotics, would not advance her past clear liquids until her symptoms improve. Surgery will follow. History of Present Illness Attending Physician: Ashlie Duke MD History of Present Illness 53 y/o female being treated for cervical cancer with several weeks of weakness, malaise, loss of appetite and more recently abdominal pain with constipation. Has completed pelvic radiation and her chemo treatment was not completed last week (01/28) due to her weakness. She was admitted from ER last night for rectosigmoid perforation. Her abdominal pain is improved this morning. Allergies Allergy/AdvReac Type Severity Reaction Status Date / Time No Known Allergies Allergy Verified 02/03/19 18:37 Home Medications Home Medications Medication Instructions Recorded Confirmed Type Paraplatin 1 dose IV DIRECTED 12/18/18 02/03/19 History bevacizumab [Avastin] 1 dose IV DIRECTED 12/18/18 02/03/19 History carvedilol 12.5 mg PO BID 12/18/18 02/03/19 History dexamethasone 12 mg PO DIRECTED 12/18/18 02/03/19 History ofgljepq-zla-ID-Ca carb-vit K 1 tab PO DAILY 12/18/18 02/03/19 History [Women's 50 Plus Daily Formula] ondansetron HCl [Zofran] 8 mg PO Q8 PRN 12/18/18 02/03/19 History paclitaxel 1 dose IV DIRECTED 12/18/18 02/03/19 History pegfilgrastim [Neulasta] 1 dose SUBCUT DIRECTED 12/18/18 02/03/19 History prochlorperazine maleate 10 mg PO Q6 PRN 12/18/18 02/03/19 History vitamin B complex 1 tab PO DAILY 12/18/18 02/03/19 History Patient History Medical History Cervical carcinoma Social History Preferred Language: Romanian Communication Ability: Effective Final Inspector Paper Required: No Beliefs That Will Affect Care: None Current Living Situation: Spouse Other Information That Helps Us Care for You: No Feels Safe at Home: Yes Safety Concerns: Feels Safe At This Time Smoking Status: Light tobacco smoker Tobacco Type: cigarettes Do You Dip or Chew Tobacco: No Tobacco Cessation Education Requested by Patient: No Hx Alcohol Use: No Hx Substance Use: No Review of Systems Constitutional: + fatigue, + malaise, + weakness and + anorexia; no fever and no chills Gastrointestinal: + abdominal pain, + constipation and + diarrhea/loose stools (after chemo); no nausea and no vomiting Physical Exam Constitutional: WD/WN, vitals as above no acute distress Respiratory: normal respiratory effort, lungs clear to auscultation Cardiovascular: RRR, no murmur, no edema Gastrointestinal (Abdomen): Inspection/Auscultation: abdomen not distended Percussion/Palpation: + abdomen tender (minimal suprapubic) and abdomen soft; no guarding Results & Data Vital Signs (Past 12 Hours) Vital Signs Temp Pulse Pulse Resp BP BP Pulse Ox 02/04/19 12:00 36.8 C 77 18 96/53 L 97 02/04/19 08:20 79 02/04/19 07:30 36.4 C L 74 18 97/64 L 98 02/04/19 06:07 86 97/64 L 02/04/19 06:06 86 97/64 L 02/04/19 02:51 84 02/04/19 02:30 36.8 C 87 18 128/66 99 02/04/19 02:11 85 20 125/76 95 02/04/19 01:24 96 H 20 150/75 H 99 02/04/19 00:59 102 H 20 156/67 H [address] abd pelvis IV con only CLINICAL HISTORY: urinary retention, lower abdominal pain COMPARISON STUDY: July 2018 TECHNIQUE: Patient was scanned in a dynamic helical fashion during intravenous administration of 94 cc of Optiray 320. A dose lowering technique was utilized adhering to the principles of ALARA. CT DOSE: 269.82 mGy.cm FINDINGS: Lower chest: The heart is normal in size and configuration, without pericardial effusion. The lung bases and pleural spaces are clear. Liver: The contrast-enhanced liver is normal in size, contour, and attenuation. There is no intrahepatic biliary ductal dilatation. The hepatic veins and portal veins are patent. Gallbladder: Unremarkable. Spleen: Normal in size and attenuation. Pancreas: Unremarkable. Adrenal glands: Unremarkable. Kidneys: There is symmetric renal cortical enhancement. The kidneys are normal in size without hydronephrosis. Bowel: There are no transition zones to indicate bowel obstruction. There is no acute diverticulitis. The appendix appears normal. Peritoneum: There is extraluminal air posterior to the uterus and the perisigmoid and perirectal space. There is minimal infiltration of the fat. There appears to be a focal defect within the anterior wall the sigmoid and the findings likely represent a sigmoid perforation. Surgical consultation is advoc ated. Vasculature: The abdominal aorta is normal in course and caliber. Adenopathy: None. Pelvic viscera: The bladder, and pelvic viscera are unremarkable. Skeletal structures: No destructive osseous lesions are seen. IMPRESSION: 1. Extraluminal gas is located posterior to the uterus and anterior to the sigmoid. 2. Focus of abnormally diminished enhancement involving the anterior wall of the sigmoid colon. The findings likely represent a sigmoid perforation. 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 Surgical consultation is advocated Electronically signed by: Lance Cameron M.D. 02/03/2019 10:42 PM
[2019-02-04] MEDS ORDERED: HYDROmorphone INJ 1 MG/ML SYRINGE IV STA (18:03)
[2019-02-04] MEDS ORDERED: PROCHLORPERAZINE MALEATE 10 MG TAB PO PRN (18:13)
--- NOTE | 2019-02-04 19:29 | Hospitalist Progress Note ---
Date of Service February 04, 2019 Assessment & Plan (1) Radiation proctitis: Patient presents with abdominal pain, CT abdomen pelvis shows possible sigmoid abscess/perforation, appreciate input from surgery, radiation proctitis secondary to recent radiation treatment for cervical cancer Recommend conservative treatment with IV fluids pain control, bowel rest Patient reports of markedly improve of lower abdominal pain discomfort Afebrile vitals remained stable In agreement with conservative approach (2) Sepsis: Due to above, radiation proctitis- hx recurrent cervical cancer with local mets ongoing chemotherapy status post radiation Clinically improved, continue IV hydration broad-spectrum antibiotic, clear liquid diet, surgery following closely (3) Cervical carcinoma: Diagnosed in 2017, Biopsy showed high-grade squamous cell carcinoma Status post radiation treatment, CODE STATUS: Full code DVT prophylaxis moderate to high risk, On subcu Lovenox expected to be discharged home when medically stable pt's Mr.Bob Whiting, contact #[phone]. Subjective abdominal pain improved no fever or chills No nausea vomiting, did not had any blood in stool Physical Exam Constitutional: WD/WN, vitals as above no acute distress Eyes: + anicteric sclerae ENMT: external ear and nose normal, oropharynx normal Neck: trachea midline, no thyromegaly Respiratory: normal respiratory effort, lungs clear to auscultation Cardiovascular: RRR, no murmur, no edema Gastrointestinal (Abdomen): Inspection/Auscultation: abdomen not distended Percussion/Palpation: + abdomen tender (minimal suprapubic) and abdomen soft; no guarding Musculoskeletal: no cyanosis or clubbing, extremities motor strength 5/5 Skin: no rashes, warm and dry Neurologic: PERRL, EOMI, accommodation nl, no face palsy, no dysarthria Psychiatric: A+Ox3, euthymic affect Results & Data Vital Signs (Past 12 Hours) Vital Signs Temp Pulse Pulse Resp BP Pulse Ox 02/04/19 15:24 36.5 C 88 16 100/66 98 02/04/19 15:10 88 02/04/19 12:00 36.8 C 77 18 96/53 L 97 02/04/19 08:20 79 02/04/19 07:30 36.4 C L 74 18 97/64 L 98 (1) Sepsis Sepsis type: sepsis due to unspecified organism Qualified Code(s): A41.9 - Sepsis, unspecified organism
[2019-02-05] MEDS: HYDROmorphone INJ 1 MG/ML SYRINGE IV PRN ×4 (00:48→15:46)
[2019-02-05] MEDS: PIPERACILLIN/TAZOBACTAM 3.375 GM in DEXTROSE 5% 100 ML IV SCH ×3 (04:44→20:04)
[2019-02-05] MEDS: INSULIN ASPART 100 UNITS/ML 3 ML PEN SC SCH ×4 (08:33→20:16)
[2019-02-05] MEDS: ENOXAPARIN INJ 30 MG/0.3 ML SYR SQ SCH (08:34)
[2019-02-05] MEDS: VITAMIN B COMPLEX TAB PO SCH (08:38)
--- NOTE | 2019-02-05 09:35 | Surgery Progress Note ---
Date of Service February 05, 2019 Assessment & Plan (1) Perforation of sigmoid colon: Exam is similar to yesterday. HR normal, afebrile. Repeat labs in AM. Consider advancing to full liquids in next 24 hours. Continue IV abx over the weekend, [facility] surgery will be covering. Subjective no fevers or chills, scant flatus, no BM feeling a little better, tolerating liquids Physical Exam Gastrointestinal (Abdomen): Inspection/Auscultation: abdomen not distended Percussion/Palpation: + abdomen tender (mild suprapubic) and abdomen soft; no guarding Results & Data Vital Signs (Past 12 Hours) Vital Signs Temp Pulse Resp BP Pulse Ox 02/05/19 07:37 36.9 C 79 20 103/66 97 02/05/19 03:43 36.7 C 76 16 109/69 98 02/04/19 23:25 36.7 C 84 16 112/72 96
--- NOTE | 2019-02-05 19:44 | Hospitalist Progress Note ---
Date of Service February 05, 2019 Assessment & Plan (1) Radiation proctitis: Clinically improvedWith medical management, tolerating clears, no blood in stool, no fever or chills, Patient presents with abdominal pain, CT abdomen pelvis shows possible sigmoid abscess/perforation, appreciate input from surgery, radiation proctitis secondary to recent radiation treatment for cervical cancer Recommend conservative treatment with IV fluids pain control, bowel rest Patient reports of markedly improve of lower abdominal pain discomfort Afebrile vitals remained stable Appreciate input from surgery Diet will be advanced to full liquid tomorrow, continue IV Zosyn (2) Sepsis: Due to above, radiation proctitis- Resolved, afebrile, vitals remained stable hx recurrent cervical cancer with local mets ongoing chemotherapy status post radiation Clinically improved, Continue IV antibiotics Zosyn, diet advanced to full liquid diet tomorrow, surgery following (3) Cervical carcinoma: Diagnosed in 2017, Biopsy showed high-grade squamous cell carcinoma Status post radiation treatment, CODE STATUS: Full code DVT prophylaxis moderate to high risk, On subcu Lovenox Patient lives at home with , independent in ADLs, encouraged to increase activity PT OT evaluation, social service consulted for discharge planning, referral for home health visiting nurse if needed expected to be discharged home when medically stable pt's Mr.Bob Whiting, contact #[phone].-Update given over phone Subjective Patient found sitting up on the each of the bed, feels much better, abdominal pain has improved, had no bowel movement, no blood in stool no blood per rectum, tolerating full liquid diet, no nausea, no fever or chills Request to cut down IV Dilaudid to one half dose, as 1 mg dose making her sleepy Ordered Percocet 1 tablet p.o. every 4 hours as needed, iv Dilaudid changed to 0.5 mg every 2 hours as needed for breakthrough pain MiraLAX P.o. daily scheduled dose to prevent narcotic induced Physical Exam Constitutional: WD/WN, vitals as above no acute distress Eyes: + anicteric sclerae ENMT: external ear and nose normal, oropharynx normal Hair loss secondary to recent chemo treatment Neck: trachea midline, no thyromegaly Respiratory: normal respiratory effort, lungs clear to auscultation Cardiovascular: RRR, no murmur, no edema Gastrointestinal (Abdomen): Inspection/Auscultation: abdomen not distended Percussion/Palpation: + abdomen tender (minimal suprapubic) and abdomen soft; no guarding Musculoskeletal: no cyanosis or clubbing, extremities motor strength 5/5 Skin: no rashes, warm and dry Neurologic: PERRL, EOMI, accommodation nl, no face palsy, no dysarthria Psychiatric: A+Ox3, euthymic affect Results & Data Vital Signs (Past 12 Hours) Vital Signs Temp Pulse Resp BP Pulse Ox 02/05/19 19:30 36.7 C 102 H 18 97/65 L 02/05/19 15:11 36.8 C 89 20 102/66 96 02/05/19 15:00 88 02/05/19 12:08 36.8 C 72 20 114/74 99 (1) Sepsis Sepsis type: sepsis due to unspecified organism Qualified Code(s): A41.9 - Sepsis, unspecified organism
[2019-02-05] MEDS: POLYETHYLENE (MIRALAX) 17 GM PACK PO SCH (20:01)
[2019-02-05] MEDS: HYDROmorphone INJ 0.5 MG/0.5 ML SYR IV PRN ×2 (20:12→23:16)
[2019-02-06] MEDS: PIPERACILLIN/TAZOBACTAM 3.375 GM in DEXTROSE 5% 100 ML IV SCH ×3 (03:52→19:38)
[2019-02-06] MEDS: HYDROmorphone INJ 0.5 MG/0.5 ML SYR IV PRN ×4 (03:57→18:17)
[2019-02-06 07:02] LABS: Basophils # (auto) 0.02 K/uL (0-0.2); Basophils % (auto) 0.3 %; Eosinophils # (auto) 0.07 K/uL (0-0.5); Eosinophils % (auto) 0.9 %; Hematocrit (blood only) 29.4 % (37-47); Hemoglobin 9.7 g/dL (12.0-16.0); Immature Granulocytes # (auto) 0.01 K/uL (0.00-0.02); Immature Granulocytes % (auto) 0.1 %; Lymphocytes % (auto) 9.1 %; Mean Corpuscular Volume 95.1 fL (80-100); Mean Platelet Volume 8.8 fL (7.4-10.4); Monocytes # (auto) 0.59 K/uL (0.11-0.59); Monocytes % (auto) 7.6 %; Neutrophils # (auto) 6.33 K/uL (1.4-6.5); Platelet Count 202 K/uL (130-400); RDW Coefficient of Variation 15.6 % (11.5-14.5); RDW Standard Deviation 53.5 fL (36.4-46.3); Red Blood Count 3.09 M/uL (4.2-5.4); White Blood Count 7.72 K/uL (4.8-10.8)
[2019-02-06 07:33] LABS: BUN Creatinine Ratio 5.2 (10-20); Creatinine Clr Calc Pharmacy 57.8 ml/min; Est GFR (African American) 97.7; Est GFR (Non-African American) 84.3; Potassium 3.4 mmol/L (3.5-5.1)
[2019-02-06] MEDS: POLYETHYLENE (MIRALAX) 17 GM PACK PO SCH (08:21)
[2019-02-06] MEDS: ENOXAPARIN INJ 30 MG/0.3 ML SYR SQ SCH (08:21)
[2019-02-06] MEDS: VITAMIN B COMPLEX TAB PO SCH (08:22)
[2019-02-06] MEDS: INSULIN ASPART 100 UNITS/ML 3 ML PEN SC SCH ×4 (08:32→21:09)
--- NOTE | 2019-02-06 10:58 | Surgery Progress Note ---
Date of Service pt feels better, less abdominal pain, no nausea, no vomiting, she tolerated diet, no fever, February 06, 2019 Assessment & Plan (1) Perforation of sigmoid colon: doing better, less abdominal pain, tolerated diet, continue iv antibiotic, will F/U Subjective Patient found sitting up on the each of the bed, feels much better, abdominal pain has improved, had no bowel movement, no blood in stool no blood per rectum, tolerating full liquid diet, no nausea, no fever or chills Request to cut down IV Dilaudid to one half dose, as 1 mg dose making her sleepy Ordered Percocet 1 tablet p.o. every 4 hours as needed, iv Dilaudid changed to 0.5 mg every 2 hours as needed for breakthrough pain MiraLAX P.o. daily scheduled dose to prevent narcotic induced Physical Exam Constitutional: WD/WN, vitals as above well developed Neck: trachea midline, no thyromegaly Respiratory: normal respiratory effort, lungs clear to auscultation normal respiratory effort Cardiovascular: RRR, no murmur, no edema Gastrointestinal (Abdomen): Percussion/Palpation: abdomen soft slightly tenderness at lower abdomen, no rebound pain, no guarding, no rigidity, Neurologic: awake Psychiatric: Orientation: alert and oriented x 3 Results & Data Vital Signs (Past 12 Hours) Vital Signs Temp Pulse Resp BP Pulse Ox 02/06/19 07:13 36.6 C 78 16 109/73 94 02/06/19 03:53 36.8 C 86 20 103/70 98 02/05/19 23:32 36.8 C 77 18 108/72 92 Laboratory Results Abnormal lab results 02/05/19 02/05/19 02/05/19 Range/Units 11:37 16:36 19:58 RBC (4.2-5.4) M/uL Hgb (12.0-16.0) g/dL Hct (37-47) % RDW Std Deviation (36.4-46.3) fL RDW Coeff of Jessica (11.5-14.5) % Lymph # (Auto) (1.2-3.4) K/uL Potassium (3.5-5.1) mmol/L Carbon Dioxide (21-32) mmol/L BUN (7-18) mg/dl BUN/Creatinine Ratio (10-20) POC Glucose 105 H 131 H 220 H (70-99) 02/06/19 02/06/19 02/06/19 Range/Units 06:45 06:45 07:18 RBC 3.09 L (4.2-5.4) M/uL Hgb 9.7 L (12.0-16.0) g/dL Hct 29.4 L (37-47) % RDW Std Deviation 53.5 H (36.4-46.3) fL RDW Coeff of Jessica 15.6 H (11.5-14.5) % Lymph # (Auto) 0.70 L (1.2-3.4) K/uL Potassium 3.4 L (3.5-5.1) mmol/L Carbon Dioxide 33 H (21-32) mmol/L BUN 4 L D (7-18) mg/dl BUN/Creatinine Ratio 5.2 L (10-20) POC Glucose 103 H (70-99)
[2019-02-06] MEDS: PROMETHAZINE HCL 12.5 MG in SODIUM CHLORIDE 0.9% 50 ML IV PRN (13:46)
--- NOTE | 2019-02-06 14:17 | Hospitalist Progress Note ---
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 cancer Recommend conservative treatment with IV fluids pain control, bowel rest Patient reports of markedly improve of lower abdominal pain discomfort Afebrile vitals remained stable Appreciate input from surgery Diet advanced to low fiber, tolerating well will change antibiotic to oral, continue to monitor (2) Sepsis: Due to above, radiation proctitis- Resolved, afebrile, vitals remained stable hx recurrent cervical cancer with local mets ongoing chemotherapy status post radiation Clinically improved, Diet advanced, surgery following, no indication for surgical procedure (3) Cervical carcinoma: Diagnosed in 2017, Biopsy showed high-grade squamous cell carcinoma Status post radiation treatment, CODE STATUS: Full code DVT prophylaxis moderate to high risk, On subcu Lovenox Patient lives at home with , independent in ADLs, encouraged to increase activity PT OT evaluation, social service consulted for discharge planning, referral for home health visiting nurse if needed expected to be discharged home in next 1 to 2 days as medically stable pt's Mr.Bob Whiting, contact #[phone].-Update given over phone Subjective Abdominal pain much better today, no nausea vomiting tolerating diet Physical Exam Constitutional: WD/WN, vitals as above no acute distress Eyes: + anicteric sclerae ENMT: external ear and nose normal, oropharynx normal Neck: trachea midline, no thyromegaly Respiratory: normal respiratory effort, lungs clear to auscultation Cardiovascular: RRR, no murmur, no edema Gastrointestinal (Abdomen): Inspection/Auscultation: abdomen not distended Percussion/Palpation: + abdomen tender (minimal suprapubic) and abdomen soft; no guarding Musculoskeletal: no cyanosis or clubbing, extremities motor strength 5/5 Skin: no rashes, warm and dry Neurologic: PERRL, EOMI, accommodation nl, no face palsy, no dysarthria Psychiatric: A+Ox3, euthymic affect Results & Data Vital Signs (Past 12 Hours) Vital Signs Temp Pulse Resp BP Pulse Ox 02/06/19 11:35 36.7 C 80 16 106/71 95 02/06/19 07:13 36.6 C 78 16 109/73 94 02/06/19 03:53 36.8 C 86 20 103/70 98 (1) Sepsis Sepsis type: sepsis due to unspecified organism Qualified Code(s): A41.9 - Sepsis, unspecified organism
[2019-02-06] MEDS ORDERED: POTASSIUM CHLORIDE 20 MEQ TABCR PO STA (16:49)
[2019-02-06] MEDS: OXYCODONE/ACETAMINOPHEN 5mg/325mg TAB PO PRN (19:45)
[2019-02-07] MEDS: OXYCODONE/ACETAMINOPHEN 5mg/325mg TAB PO PRN ×3 (04:52→17:28)
[2019-02-07] MEDS: PIPERACILLIN/TAZOBACTAM 3.375 GM in DEXTROSE 5% 100 ML IV SCH ×3 (04:52→20:21)
[2019-02-07] MEDS: POLYETHYLENE (MIRALAX) 17 GM PACK PO SCH (07:45)
[2019-02-07] MEDS: ENOXAPARIN INJ 30 MG/0.3 ML SYR SQ SCH (07:45)
[2019-02-07] MEDS: VITAMIN B COMPLEX TAB PO SCH (07:46)
[2019-02-07] MEDS: INSULIN ASPART 100 UNITS/ML 3 ML PEN SC SCH ×4 (08:41→20:58)
--- NOTE | 2019-02-07 12:12 | Surgery Progress Note ---
Date of Service doing fine, no significant abdominal pain, she tolerated diet, no nausea, no vomiting, February 07, 2019 Assessment & Plan (1) Perforation of sigmoid colon: doing better, less abdominal pain, tolerated diet, continue iv antibiotic, will F/U 02/07/2019 12:12pm continue treatment. will F/U Subjective Abdominal pain much better today, no nausea vomiting tolerating diet Physical Exam Constitutional: WD/WN, vitals as above well developed Neck: trachea midline, no thyromegaly Respiratory: normal respiratory effort, lungs clear to auscultation normal respiratory effort Cardiovascular: RRR, no murmur, no edema Gastrointestinal (Abdomen): NT, ND, Neurologic: awake Psychiatric: Orientation: alert and oriented x 3 Results & Data Vital Signs (Past 12 Hours) Vital Signs Temp Pulse Resp BP Pulse Ox 02/07/19 07:44 36.6 C 84 18 124/74 98 02/07/19 04:00 36.7 C 89 18 117/78 98
[2019-02-07] MEDS ORDERED: BISACODYL 5 MG TABEC PO PRN (15:30)
[2019-02-07] MEDS ORDERED: BISACODYL 5 MG TABEC PO ONE (15:31)
[2019-02-07] MEDS ORDERED: POTASSIUM CHLORIDE 20 MEQ TABCR PO STA (15:31)
--- NOTE | 2019-02-07 18:13 | Hospitalist Progress Note ---
Date of Service February 07, 2019 Assessment & Plan (1) Radiation proctitis: Clinically improved With medical management, tolerating clears, no blood in stool, no fever or chills, Patient presents with abdominal pain, CT abdomen pelvis shows possible sigmoid abscess/perforation, appreciate input from surgery, radiation proctitis secondary to recent radiation treatment for cervical cancer Recommend conservative treatment with IV fluids pain control, bowel rest Patient reports of markedly improve of lower abdominal pain discomfort Afebrile vitals remained stable Appreciate input from surgery-no surgical indication needed Diet advanced to low fiber, tolerating well will change antibiotic to oral, continue to monitor Had constipation with blood-streaked stool, order for stool softener, monitor H&H (2) Sepsis: Due to above, radiation proctitis- Resolved, afebrile, vitals remained stable hx recurrent cervical cancer with local mets ongoing chemotherapy status post radiation Clinically improved, Diet advanced, surgery following, no indication for surgical procedure (3) Cervical carcinoma: Diagnosed in 2017, Biopsy showed high-grade squamous cell carcinoma Status post radiation treatment, CODE STATUS: Hold subcu Lovenox for blood in stool Patient lives at home with , independent in ADLs, encouraged to increase activity PT OT evaluation, social service consulted for discharge planning, referral for home health visiting nurse if needed expected to be discharged home in next 1 to 2 days as medically stable pt's Mr.Bob Whiting, contact #[phone].-Present at bedside updated Subjective Abdominal pain much better today, no nausea vomiting tolerating diet Concern for constipation, getting MiraLAX as needed, had a small bowel movement with blood-tinged feels tired and weak Physical Exam Constitutional: WD/WN, vitals as above no acute distress Eyes: + anicteric sclerae ENMT: external ear and nose normal, oropharynx normal Neck: trachea midline, no thyromegaly Respiratory: normal respiratory effort, lungs clear to auscultation Cardiovascular: RRR, no murmur, no edema Gastrointestinal (Abdomen): Inspection/Auscultation: abdomen not distended Percussion/Palpation: + abdomen tender (minimal suprapubic) and abdomen soft; no guarding Musculoskeletal: no cyanosis or clubbing, extremities motor strength 5/5 Skin: no rashes, warm and dry Neurologic: PERRL, EOMI, accommodation nl, no face palsy, no dysarthria Psychiatric: A+Ox3, euthymic affect Results & Data Vital Signs (Past 12 Hours) Vital Signs Temp Pulse Resp BP Pulse Ox 02/07/19 15:59 36.7 C 80 18 127/78 98 02/07/19 07:44 36.6 C 84 18 124/74 98 (1) Sepsis Sepsis type: sepsis due to unspecified organism Qualified Code(s): A41.9 - Sepsis, unspecified organism
[2019-02-07] MEDS ORDERED: DOCUSATE SODIUM/SENNA 50/8.6MG TAB PO SCH (21:00)
[2019-02-07] MEDS: PROMETHAZINE HCL 12.5 MG in SODIUM CHLORIDE 0.9% 50 ML IV PRN (23:48)
[2019-02-08] MEDS: PIPERACILLIN/TAZOBACTAM 3.375 GM in DEXTROSE 5% 100 ML IV SCH ×3 (03:30→20:01)
[2019-02-08 07:16] LABS: Hematocrit (blood only) 31.3 % (37-47); Hemoglobin 10.6 g/dL (12.0-16.0); Mean Corpuscular Hgb Conc 33.9 g/dL (32-36); Mean Corpuscular Volume 94.6 fL (80-100); Mean Platelet Volume 8.5 fL (7.4-10.4); Platelet Count 246 K/uL (130-400); RDW Coefficient of Variation 15.7 % (11.5-14.5); RDW Standard Deviation 54.2 fL (36.4-46.3); Red Blood Count 3.31 M/uL (4.2-5.4); White Blood Count 7.77 K/uL (4.8-10.8)
[2019-02-08 07:51] LABS: BUN Creatinine Ratio 4.3 (10-20); Calcium 9.8 mg/dl (8.5-10.1); Creatinine Clr Calc Pharmacy 53.1 ml/min; Est GFR (African American) 88.1; Est GFR (Non-African American) 76.1; Magnesium 1.7 mg/dl (1.8-2.4); Potassium 4.4 mmol/L (3.5-5.1)
[2019-02-08] MEDS: VITAMIN B COMPLEX TAB PO SCH (08:08)
[2019-02-08] MEDS: POLYETHYLENE (MIRALAX) 17 GM PACK PO SCH (08:10)
[2019-02-08] MEDS: INSULIN ASPART 100 UNITS/ML 3 ML PEN SC SCH ×4 (09:35→20:55)
--- NOTE | 2019-02-08 09:40 | Surgery Progress Note ---
Date of Service February 08, 2019 Assessment & Plan (1) Perforation of sigmoid colon: was feeling better until dinner, was her second regular meal wants to try full liquids again WBC, HR, temp are normal consider repeat CT if not improving Subjective didn't feel well after eating tuna salad for dinner, some flatus, no BM Physical Exam Gastrointestinal (Abdomen): Percussion/Palpation: + abdomen tender (suprapubic) and abdomen soft Results & Data Vital Signs (Past 12 Hours) Vital Signs Temp Pulse Resp BP Pulse Ox 02/08/19 07:56 36.8 C 63 20 126/84 96 02/08/19 04:00 36.9 C 107 H 18 124/85 96 02/07/19 23:27 36.8 C 92 H 18 130/87 96
[2019-02-08] MEDS: PROMETHAZINE HCL 12.5 MG in SODIUM CHLORIDE 0.9% 50 ML IV PRN (12:23)
[2019-02-08] MEDS ORDERED: IOVERSOL 100ml IV PRN (15:00)
[2019-02-08] MEDS: OXYCODONE/ACETAMINOPHEN 5mg/325mg TAB PO PRN (16:03)
--- NOTE | 2019-02-08 16:10 | CT Scan Report ---
ABDOMEN AND PELVIS CT WITH IV CONTRAST CT DOSE: 275.55 mGy.cm HISTORY: Lower abdominal pain. Perforation. TECHNIQUE: Multiaxial CT images of the abdomen and pelvis were performed following the use of intrave nous contrast. A dose lowering technique was utilized adhering to the principles of ALARA. COMPARISON STUDY: Abdomen and pelvis CT 02/03/2019. FINDINGS: The lung bases are clear. No suspicious lytic or blastic osseous lesions. The liver, spleen , adrenal glands, and right kidney are unremarkable. There is mild left hydroureteronephrosis to leve l of the distal ureter. There is also mild diffuse urothelial enhancement within the left ureter. A l eft ureteral stent has been removed. There is narrowing of the distal left ureter best in image 356. This could be due to the surrounding inflammatory change/fluid within the deep pelvis. The bladder is mildly distended. Focal dilatation of the main pancreatic duct at the tail the pancreas with multipl e calcifications remains unchanged. This could represent chronic pancreatitis. No evidence for acute pancreatitis. The gallbladder is mildly distended. No gallbladder wall thickening. No retroperitoneal lymphadenopathy. Mild calcified plaque within the normal caliber abdominal aorta. Progressive fluid and inflammatory change seen at the pelvic cul-de-sac and surrounding the distal sigmoid colon. There is mild thickening of the distal sigmoid colon and rectum. Focal area of extraluminal gas anterior t o the distal sigmoid colon is again noted. There appears to be extraluminal bowel contents/stool ante rior to the distal sigmoid colon best seen on image 344. This is new from the prior study. Focal narr owing of the distal inflamed sigmoid colon. There is mild distention of the majority of the proximal colon containing moderate stool. Therefore, this could represent a low-grade partial large bowel obst ruction due to the inflammatory change at this location. The inflammatory change also surrounds the p osterior wall the cervix/vagina. IMPRESSION: 1. There is progressive fluid and inflammatory change at the pelvic cul-de-sac surrounding the thicke karis distal sigmoid colon. The extraluminal gas at this location is consistent with focal microperfora tion and remains unchanged. However, there has been interval development of extraluminal bowel conten ts/stool anterior to the distal sigmoid colon extending through the site of perforation. 2. The progressive inflammatory change surrounding the distal sigmoid colon appears to result in foca l narrowing of the distal left ureter with mild left hydronephrosis as well as focal narrowing of the distal sigmoid colon likely resulting in a low-grade partial large bowel obstruction. Therefore, luzma gical consultation recommended. 3. Additional findings as described above. Electronically signed by: Herb Kay M.D. 02/08/2019 4:09 PM
[2019-02-09] MEDS: PIPERACILLIN/TAZOBACTAM 3.375 GM in DEXTROSE 5% 100 ML IV SCH ×2 (03:35→11:57)
[2019-02-09] MEDS ORDERED: Nursing to Pharmacy Communication ONE (07:12)
[2019-02-09] MEDS: INSULIN ASPART 100 UNITS/ML 3 ML PEN SC SCH ×2 (09:25→13:45)
--- NOTE | 2019-02-09 11:35 | Surgery Progress Note ---
Date of Service February 09, 2019 Assessment & Plan (1) Perforation of sigmoid colon: Will likely need diverting colostomy Considering transfer to [facility] [place], she wants to discuss with her Supervising Physician Co-Signing Physician Notes Patient seen and examined, imaging from yesterday reviewed, agree with above. 53-year-old female with history of cervical cancer status post pelvic radiation, on chemotherapy, admitted with rectosigmoid perforation. After she had some increase in her pain yesterday performed a CT scan which showed resolving extraluminal air, but a question of some stool outside of the colon wall. She is feeling better this morning and on exam she is less tender in the left lower quadrant. However I am concerned that this is a progressing problem and she may need surgical intervention. I offered her a diverting colostomy and drain placement here, however I think there may be some better options available. We will refer her to a tertiary center for further evaluation. We discussed this with the patient and she would like to go to [facility]. Subjective CT noted, feels about the same today, no fevers Physical Exam Gastrointestinal (Abdomen): Percussion/Palpation: + abdomen tender (suprapubic) and abdomen soft Results & Data Vital Signs (Past 12 Hours) Vital Signs Temp Pulse Resp BP Pulse Ox 02/09/19 07:51 36.8 C 100 H 20 115/81 92 02/09/19 03:43 36.5 C 106 H 18 127/84 97 Diagnostic Findings ABDOMEN AND PELVIS CT WITH IV CONTRAST CT DOSE: 275.55 mGy.cm HISTORY: Lower abdominal pain. Perforation. TECHNIQUE: Multiaxial CT images of the abdomen and pelvis were performed following the use of intravenous contrast. A dose lowering technique was utilized adhering to the principles of ALARA. COMPARISON STUDY: Abdomen and pelvis CT 02/03/2019. FINDINGS: The lung bases are clear. No suspicious lytic or blastic osseous lesions. The liver, spleen, adrenal glands, and right kidney are unremarkable. There is mild left hydroureteronephrosis to level of the distal ureter. There is also mild diffuse urothelial enhancement within the left ureter. A left ureteral stent has been removed. There is narrowing of the distal left ureter best in image 356. This could be due to the surrounding inflammatory change/fluid within the deep pelvis. The bladder is mildly distended. Focal dilatation of the main pancreatic duct at the tail the pancreas with multiple calcifications remains unchanged. This could represent chronic pancreatitis. No evidence for acute williamson creatitis. The gallbladder is mildly distended. No gallbladder wall thickening. No retroperitoneal lymphadenopathy. Mild calcified plaque within the normal caliber abdominal aorta. Progressive fluid and inflammatory change seen at the pelvic cul-de-sac and surrounding the distal sigmoid colon. There is mild thickening of the distal sigmoid colon and rectum. Focal area of extraluminal gas anterior to the distal sigmoid colon is again noted. There appears to be extraluminal bowel contents/stool anterior to the distal sigmoid colon best seen on image 344. This is new from the prior study. Focal narrowing of the distal inflamed sigmoid colon. There is mild distention of the majority of the proximal colon containing moderate stool. Therefore, this could represent a low-grade partial large bowel obstruction due to the inflammatory change at this location. The inflammatory change also surrounds the posterior wall the cervix/vagina. IMPRESSION: 1. There is progressive fluid and inflammatory change at the pelvic cul-de-sac surrounding the thickened distal sigmoid colon. The extraluminal gas at this location is consistent with focal microperforation and remains unchanged. However, there has been interval development of extraluminal bowel contents/stool anterior to the distal sigmoid colon extending through the site of perforation. 2. The progressive inflammatory change surrounding the distal sigmoid colon appears to result in focal narrowing of the distal left ureter with mild left hydronephrosis as well as focal narrowing of the distal sigmoid colon likely resulting in a low-grade partial large bowel obstruction. Therefore, surgical consultation recommended. 3. Additional findings as described above. Electronically signed by: Herb Kay M.D. 02/08/2019 4:09 PM
[2019-02-09] MEDS: HYDROmorphone INJ 0.5 MG/0.5 ML SYR IV PRN ×2 (11:57→16:23)
--- NOTE | 2019-02-09 13:17 | Hospitalist Progress Note ---
Date of Service February 08, 2019 late entry , pt was seen on 02/08/19 at approx 6:30 pm Assessment & Plan (1) Radiation proctitis: Worsening of abdominal pain noted CT abdomen pelvis 02/07/19 IMPRESSION: 1. There is progressive fluid and inflammatory change at the pelvic cul-de-sac surrounding the thickened distal sigmoid colon. The extraluminal gas at this location is consistent with focal microperforation and remains unchanged. However, there has been interval development of extraluminal bowel contents/stool anterior to the distal sigmoid colon extending through the site of perforation. 2. The progressive inflammatory change surrounding the distal sigmoid colon appears to result in focal narrowing of the distal left ureter with mild left hydronephrosis as well as focal narrowing of the distal sigmoid colon likely resulting in a low-grade partial large bowel obstruction. Therefore, surgical consultation recommended. 3. Additional findings as described above. Plan of care discussed with surgery, patient and family, Will need to be transferred to tertiary care/[facility] for evaluation Patient presents with abdominal pain, CT abdomen pelvis shows possible sigmoid abscess/perforation, appreciate input from surgery, radiation proctitis secondary to recent radiation treatment for cervical cancer Recommend conservative treatment with IV fluids pain control, bowel rest Patient reports of markedly improve of lower abdominal pain discomfort Afebrile vitals remained stable Appreciate input from surgery-\ (2) Sepsis: Due to above, radiation proctitis- hx recurrent cervical cancer with local mets ongoing chemotherapy status post radiation Patient had continued treatment with IV Zosyn (3) Cervical carcinoma: Diagnosed in 2017, Biopsy showed high-grade squamous cell carcinoma Status post radiation treatment, PET scan done on 11/13/2018: Shows possible local recurrence of malignancy at left vaginal cuff area CT abdomen pelvis on 11/11/2018 shows progression of disease, with possible involvement on left ureter causing mild left-sided hydroureteronephrosis, possible involvement of the sigmoid colon causing microperforation, partial s mall bowel obstruction Overall prognosis remains poor Patient will need to be transferred to tertiary care for further evaluation CODE STATUS: Full code Hold subcu Lovenox for blood in stool Subjective Patient complains of intermittent lower abdominal pain, having diarrhea, no blood in stool CT abdomen pelvis shows progression of sigmoid perforation/inflammation/possible partial large bowel obstruction with sigmoid area narrowing As discussed with surgery team, Due to complexity of nature of bowel perforation/with possible underlying me tastatic cervical cancer Surgery should suggest patient would better be evaluated at tertiary care center preferably in [place] with [employer] oncology/surgery service Physical Exam Constitutional: WD/WN, vitals as above no acute distress Eyes: + anicteric sclerae ENMT: external ear and nose normal, oropharynx normal Neck: trachea midline, no thyromegaly Respiratory: normal respiratory effort, lungs clear to auscultation Cardiovascular: RRR, no murmur, no edema Gastrointestinal (Abdomen): Inspection/Auscultation: abdomen not distended Percussion/Palpation: + abdomen tender (minimal suprapubic) and abdomen soft; no guarding Musculoskeletal: no cyanosis or clubbing, extremities motor strength 5/5 Skin: no rashes, warm and dry Neurologic: PERRL, EOMI, accommodation nl, no face palsy, no dysarthria Psychiatric: A+Ox3, euthymic affect Results & Data Vital Signs (Past 12 Hours) Vital Signs Temp Pulse Resp BP Pulse Ox 02/09/19 07:51 36.8 C 100 H 20 115/81 92 02/09/19 03:43 36.5 C 106 H 18 127/84 97 (1) Sepsis Sepsis type: sepsis due to unspecified organism Qualified Code(s): A41.9 - Sepsis, unspecified organism
[2019-02-09 15:45] VITALS: BP 124/84; PULSE 107; TEMP 98.1; O2SAT 97
--- NOTE | 2019-02-09 16:26 | Discharge Summary ---
Date of Service February 09, 2019 Admission HPI Per Admitting Provider History obtained from patient, family, and records. Medical history significant for recurrent cervical cancer ongoing chemotherapy status post radiation, HTN, hyperlipidemia as per records, DM2 currently diet-controlled as per patient preference, ongoing tobacco abuse. Recent confinement May 2017 for complicated UTI, new onset diabetes.. Cervical mass noted during confinement later found to be cervical cancer. Patient subsequently underwent chemotherapy followed by radiation. Psoas muscle mets later found status post radiation. PET scan done October 2018 showed left perirectal fossa/left posterior vaginal area tumor recurrence. Chemotherapy subsequently reinitiated. Chemotherapy on hold following [facility] oncologist office appointment 3 days ago due to patient generalized weakness and poor performance status. PET scan contemplated end of the month. This week patient noted constipation more than usual, poor appetite and mild achy lower abdominal pain. No fever, no chills, no chest pain, no S OB. Patient brought to ER by due to worsening symptoms. CAT scan abdomen pelvis showed 1. Extraluminal gas is located posterior to the uterus and anterior to the sigmoid. 2. Focus of abnormally diminished enhancement involving the anterior wall of the sigmoid colon. The findings likely represent a sigmoid perforation. 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 Surgical consultation is advocated. IV Zosyn given at the ER. 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 Noted on latest CT abdomen pelvis Discharge Exam Constitutional WD/WN, vitals as above no acute distress Eyes + anicteric sclerae ENMT external ear and nose normal, oropharynx normal Neck trachea midline, no thyromegaly Respiratory normal respiratory effort, lungs clear to auscultation Cardiovascular RRR, no murmur, no edema Gastrointestinal (Abdomen) Inspection/Auscultation: abdomen not distended Percussion/Palpation: + abdomen tender (minimal suprapubic) and abdomen soft; no guarding Musculoskeletal no cyanosis or clubbing, extremities motor strength 5/5 Skin no rashes, warm and dry Neurologic PERRL, EOMI, accommodation nl, no face palsy, no dysarthria Psychiatric A+Ox3, euthymic affect Discharge Data Allergies Allergy/AdvReac Type Severity Reaction Status Date / Time No Known Allergies Allergy Verified 02/03/19 18:37 Consultations 02/03/19 23:21 ED Decision to Admit Stat 02/04/19 03:07 Consult General Surgery Routine 02/09/19 13:43 Burn CD for patient Routine Ordered Studies 02/03/19 21:38 CT abd pelvis IV con only Stat 02/08/19 14:18 CT abd pelvis IV con only Routine Hospital Course (1) Radiation proctitis: Worsening of abdominal pain noted CT abdomen pelvis 02/07/19 IMPRESSION: 1. There is progressive fluid and inflammatory change at the pelvic cul-de-sac surrounding the thickened distal sigmoid colon. The extraluminal gas at this location is consistent with focal microperforation and remains unchanged. However, there has been interval development of extraluminal bowel contents/stool anterior to the distal sigmoid colon extending through the site of perforation. 2. The progressive inflammatory change surrounding the distal sigmoid colon appears to result in focal narrowing of the distal left ureter with mild left hydronephrosis as well as focal narrowing of the distal sigmoid colon likely resulting in a low-grade partial large bowel obstruction. Therefore, surgical consultation recommended. 3. Additional findings as described above. Plan of care discussed with surgery, patient and family, Will need to be transferred to tertiary care/[facility] for evaluation Spoke with [facility] in [place] today, plan of care discussed with on-call general surgery Dr.Kenneth Parsons and hospitalist Dr. 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 Recommend conservative treatment with IV fluids pain control, bowel rest Patient reports of markedly improve of lower abdominal pain discomfort Afebrile vitals remained stable Appreciate input from surgery-\ (2) Sepsis: Due to above, radiation proctitis- hx recurrent cervical cancer with local mets ongoing chemotherapy status post radiation Patient will need continued treatment with IV Zosyn (3) Cervical carcinoma: Diagnosed in 2017, Biopsy showed high-grade squamous cell carcinoma Status post radiation treatment, PET scan done on 11/13/2018: Shows possible local recurrence of malignancy at left vaginal cuff area CT abdomen pelvis on 11/11/2018 shows progression of disease, with possible involvement on left ureter causing mild left-sided hydroureteronephrosis, possible involvement of the sigmoid colon causing microperforation, partial small bowel obstruction Overall prognosis remains poor Patient will need to be transferred to tertiary care for further evaluation Accepted at [facility] under hospitalist service Accepting physician Dr. Dorita Davies CODE STATUS: Full code Disposition: Transfer to [facility] today Current Inpatient Medications Dextrose (Dextrose 50%) 25 - 50 ml IV UD PRN; Protocol PRN Reason: Hypoglycemia Protocol Stop: 03/06/19 03:06 Glucagon (Glucagen) 1 mg SQ UD PRN; Protocol PRN Reason: Hypoglycemia Protocol Stop: 03/06/19 03:06 Glucose (Dex4 Glucose) 4 - 8 tabs PO UD PRN; Protocol PRN Reason: Hypoglycemia Protocol Stop: 03/06/19 03:06 Glucose (Glucose 40%) 15 - 30 gm PO UD PRN; Protocol PRN Reason: Hypoglycemia Protocol Stop: 03/06/19 03:06 Hydromorphone HCl (Dilaudid) 0.5 mg IV Q2H PRN PRN Reason: Pain Stop: 02/18/19 18:02 Last Admin: 02/09/19 16:23 Dose: 0.5 mg Documented by: Acetaminophen (Ofirmev) 65 mls @ 200 mls/hr IV Q6H PRN PRN Reason: Fever Stop: 03/06/19 03:06 Lorazepam (Ativan) 0.25 mg in 0.5 mls @ 0.5 mls/min IV Q4H PRN PRN Reason: Anxiety Stop: 03/06/19 03:06 Promethazine HCl 12.5 mg/ (Sodium Chloride) 50.5 mls @ 202 mls/hr IV Q6H PRN PRN Reason: Nausea And Vomiting Stop: 03/06/19 03:06 Last Infusion: 02/08/19 12:49 Dose: Infused Documented by: Piperacillin Sod/Tazobactam (Sod 3.375 gm/ Dextrose) 115 mls @ 28.75 mls/hr IV Q8H [facility]; Protocol Stop: 02/14/19 03:59 Last Infusion: 02/09/19 16:23 Dose: Infused Documented by: Insulin Aspart (Novolog Flexpen) 0 units SC Q6H TYRESE Stop: 03/11/19 07:59 Last Admin: 02/09/19 13:45 Dose: Not Given Documented by: Ioversol (Optiray 320 100ml) 90 ml IV ONCE PRN PRN Reason: Interaction Checking Stop: 02/12/19 14:59 Last Admin: 02/08/19 15:01 Dose: 90 ml Documented by: Miscellaneous (Carbohydrates For Hypoglycemia) 15 - 30 gm PO UD PRN PRN Reason: Hypoglycemia Treatment Stop: 03/06/19 03:06 Miscellaneous Information (Consult) 1 ea N/A UD PRN PRN Reason: Consult Stop: 03/05/19 22:59 Total Time Total Time Spent Total Time Spent (In Minutes): approx 50 mins Total Time Includes: Examination of the Patient, Discharge Planning, Medication Reconciliation and Communication With Other Providers Discharge Plan Discharge Items Patient Disposition: Transfer Acute Care Hospital Reason For Visit: SEPSIS Discharge Diagnosis: METASTATIC CERVICAL CA /SIGMOID PERFORATION Condition: Fair Discharge Goals: Decrease discomfort Activity: Resume your previous activity Non-emergency contact: Primary Care Provider Call non-emergency contact if: you have any medication questions Follow-up/Referrals: Nj Braxton MD [Primary Care Provider] - Diet: See below Diet Comment: NPO Addtl Provider Instructions: pt is being transferred to [facility] Accepting Hospitalist Dr Dorita Davies Prescriptions: Discontinued carvedilol 12.5 mg Tablet 12.5 mg PO BID RF: 0 ondansetron HCl [Zofran] 8 mg Tablet 8 mg PO Q8 PRN (Reason: Nausea) RF: 0 prochlorperazine maleate 10 mg Tablet 10 mg PO Q6 PRN (Reason: Nausea) RF: 0 dexamethasone 4 mg Tablet 12 mg PO DIRECTED RF: 0 vitamin B complex Tablet 1 tab PO DAILY RF: 0 paclitaxel 6 mg/mL Concentrate 1 dose IV DIRECTED RF: 0 Avastin 25 mg/mL Solution 1 dose IV DIRECTED RF: 0 Women's 50 Plus Daily Formula 400 mcg-500 mg calcium-20 mcg Tablet 1 tab PO DAILY RF: 0 Neulasta 6 mg/0.6 mL Syringe, W/ Wearable Injector 1 dose SUBCUT DIRECTED RF: 0 Paraplatin 1 dose IV DIRECTED RF: 0 Stand-Alone Forms: [facility] Discharge Orders: Discharge Order (Routine); Ordered 02/09/19 Ordered By: Ashlie Duke Admission Data Admit Date/Time: 02/04/19 00:08 Attending Provider: Ashlie Duke Admit Provider: Ravi Morley Primary Care Provider: Nj Braxton Other Providers: Jose M Goff ; Ravi Morley Service: Telemetry Other Interventions: Discharge Summary Assessment (RN) Last Done: 02/09/19 14:34
== END 2019-02-09 16:57 | disposition short-term general hospital (02) | DRG 872 ==
LOC: ED 16:34 → 2W 02-04 00:08

== ENCOUNTER 2019-02-24 16:17 | Inpatient (IN) ==
[2019-02-24] MEDS ORDERED: SODIUM CHLORIDE 0.9% 1000ML 1,000 ML IV STA (16:34)
[2019-02-24] MEDS ORDERED: SODIUM CHLORIDE 0.9% 500 ML IV SCH (16:45)
[2019-02-24] MEDS ORDERED: PIPERACILL/TAZOBAC CONSULT ACTIVE PRN ×2 (16:58→22:08)
[2019-02-24] MEDS ORDERED: PIPERACILLIN/TAZOBACTAM 4.5 GM/120 ML BAG IV ONE (16:58)
[2019-02-24 17:29] LABS: Basophils # (auto) 0.03 K/uL (0-0.2); Basophils % (auto) 0.3 %; Eosinophils # (auto) 0.03 K/uL (0-0.5); Eosinophils % (auto) 0.3 %; Hematocrit (blood only) 31.5 % (37-47); Hemoglobin 10.4 g/dL (12.0-16.0); Immature Granulocytes # (auto) 0.03 K/uL (0.00-0.02); Immature Granulocytes % (auto) 0.3 %; Lymphocytes # (auto) 0.91 K/uL (1.2-3.4); Lymphocytes % (auto) 8.3 %; Mean Platelet Volume 8.9 fL (7.4-10.4); Monocytes % (auto) 6.4 %; Neutrophils # (auto) 9.27 K/uL (1.4-6.5); Neutrophils % (auto) 84.4 %; Platelet Count 403 K/uL (130-400); RDW Standard Deviation 56.9 fL (36.4-46.3); Red Blood Count 3.28 M/uL (4.2-5.4); White Blood Count 10.97 K/uL (4.8-10.8)
[2019-02-24] MEDS ORDERED: ONDANSETRON INJ 2 MG/ML 2 ML VIAL IV STA (17:29)
[2019-02-24] MEDS: HYDROmorphone INJ 0.5 MG/0.5 ML SYR IV PRN ×2 (17:36→21:30)
[2019-02-24 17:48] LABS: Albumin Level 2.7 gm/dl (3.4-5.0); BUN Creatinine Ratio 20.7 (10-20); Calcium 9.9 mg/dl (8.5-10.1); Creatinine Clr Calc Pharmacy 58.5 ml/min; Est GFR (African American) 99.2; Est GFR (Non-African American) 85.6; Potassium 3.4 mmol/L (3.5-5.1)
[2019-02-24 17:51] LABS: Albumin Globulin Ratio 0.5 (0.9-2); Bilirubin,Total 0.6 mg/dl (0.2-1); Globulin 5.4 gm/dl (2.5-4.0); Total Protein 8.1 gm/dl (6.4-8.2)
--- NOTE | 2019-02-24 18:03 | Surgery Consultation ---
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 She was referred to the hospital after findings on repeat CT scan for possible abscess drainage. In review of the CT scan she continues to have free air in the pelvis, which is only slightly increased. She does have a small fluid collection (~3.8 cm). - Recommend admission for abx. I did not feel this collection was drainable, but after discussion with the patient who strongly desired drainage I did contact [facility] [place] [place] [facility], who agreed that the collection was not drainable. - Consider Urology consult for hydronephrosis and hydroureter - Consider [facility] consult, per PCP notes the patient wishes to consider surgery and she also voices to me that she is interested in surgical intervention. I do not feel an emergent surgical intervention is necessary for the sigmoid perforation, a ferry terminal agent management plan is needed. Initially the pt opted for chemo instead of surgery, but now wants to reconsider, so it may be beneficial to discuss with [facility] possible surgical intervention. They may be able to be addressed on an outpatient basis, and may require consultation with Dr. Haas, who recently evaluated her - Recommend VTE chemoprophylaxis - Will continue to follow History of Present Illness Reason for Consultation: Sigmoid perforation History of Present Illness Cristina Whiting is a 53 yo female with a history of recurrent cervical cancer (PET in October 2018 showed mets on the psoas muscle and left perirectal fossa/ left posterior vaginal area) s/p radiation and chemotherapy (including Avastin) who was admitted to [facility] on 02/04/19 with extraluminal air posterior to the uterus and perisigmoid and perirectal space with focal defect in anterior wall of sigmoid concerning for perforation. She was managed with Zosyn and NPO and eventually transferred to [facility] [place] [place] after another CT scan showed increased fluid and inflammation and "interval development of extraluminal bowel contents and stool anterior to distal sigmoid colon as well as inflammation of distal sigmoid colon causing low grade partial SBO." She was managed conservatively there as well. It was felt perforation was likely secondary to radiation enteritis. Prior to the above admissions, she saw Dr. Haas, [facility] at [facility] [place] [place], on 11/23/18 who discussed treatment options with the patient, which included, per her note, "possibility for exoneration after we ensured there is no disease in the psoas muscle. This would most likely be a posterior exoneration which would include permanent ostomy. We discussed the risk and benefits of this and the patient is hesitant with an ostomy and does not want that at this time." She was seen by her PCP for hospital discharge f/u on 02/22/19, at which time appetite remained poor, and she still is only able to drink a small amount of Ensure a day, and nausea. Because of tachycardia and ongoing/possible worsening abdominal pain a repeat CT scan was ordered. Today she was contacted by her PCP office because of concerning CT scan findings and to "have the new collection drained." Her PCP also planned to contact [facility] to see if there were surgical options as the patient has "reconsidered." She currently reports lower abdominal pain, which is unchanged since hospital discharge, a poor appetite, and nausea. She has not had "normal stool" for a long time, and reports it is either soft or runny. She denies fevers and reports chills, but states that is chronic since being diagnosed with cancer. Allergies Allergy/AdvReac Type Severity Reaction Status Date / Time No Known Allergies Allergy Verified 02/24/19 17:11 Home Medications Home Medications Medication Instructions Recorded Confirmed Type ciprofloxacin HCl [Cipro] 500 mg PO Q12H 02/24/19 02/24/19 History metoprolol succinate 25 mg PO DAILY 02/24/19 02/24/19 History metronidazole 500 mg PO TID 02/24/19 02/24/19 History oxycodone 5 mg PO Q4H PRN 02/24/19 02/24/19 History promethazine 25 mg PO Q6H PRN 02/24/19 02/24/19 History Patient History Medical History Radiation proctitis Sepsis Weakness (Acute) Perforation of sigmoid colon (Acute) Acute urinary retention (Acute) Cervical carcinoma (Acute 05/23/17) "Abdominal pain, ER evaluation and finding of a cervical mass on CT Status post cervical biopsy 05/23/2017 revealing 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 Radiation completed January 20, 2018. She had external beam therapy as well as HDR treatments. She received 5940 cGy with external beam treatment. She had 5 HDR treatments at 550 cGy for a total of 2750 cGy. Chemotherapy was comprised of weekly cisplatin." PET positive and biopsy-proven recurrence left psoas muscle 07/14/2018 Status post completion of stereotactic body radiation therapy completed August 19, 2018. She received 2500 cGy. Cornea abrasion (Acute) Hydronephrosis Hyperglycemia Pain in right eye (Acute) Cervical carcinoma Family History Other No significant family history Social History Preferred Language: Chadian Communication Ability: Effective Beliefs That Will Affect Care: None marital status: Current Living Situation: Spouse current occupational status: disabled Feels Safe at Home: Yes Smoking Status: Current every day smoker Tobacco Type: cigarettes Hx Alcohol Use: No Hx Substance Use: No Review of Systems Review of Systems: All systems reviewed & are unremarkable except as noted in HPI & below Physical Exam Constitutional: chronically ill appearing Eyes: PERRL, conjunctivae normal, anicteric sclerae ENMT: external ear and nose normal, oropharynx normal Neck: normal visual inspection Respiratory: normal respiratory effort Cardiovascular: Rate/Rhythm: regular rhythm mild tachycardia Gastrointestinal (Abdomen): soft, nondistended, lower abdominal tenderness, no rebound or guarding Results & Data Vital Signs (Past 12 Hours) Vital Signs Temp Pulse Pulse Resp BP BP Pulse Ox 02/24/19 17:20 103 H 11 L 117/78 94 02/24/19 16:21 36.7 C 128 H 18 102/77 97 Laboratory Results 02/24/19 02/24/19 02/24/19 Range/Units 17:25 17:13 17:13 WBC 10.97 H (4.8-10.8) K/uL RBC 3.28 L (4.2-5.4) M/uL Hgb 10.4 L (12.0-16.0) g/dL Hct 31.5 L (37-47) % MCV 96.0 (80-100) fL MCH 31.7 (25-34) pg MCHC 33.0 (32-36) g/dL RDW Std Deviation 56.9 H (36.4-46.3) fL RDW Coeff of Jessica 16.0 H (11.5-14.5) % Plt Count 403 H (130-400) K/uL MPV 8.9 (7.4-10.4) fL Immature Gran % (Auto) 0.3 % Neut % (Auto) 84.4 % Lymph % (Auto) 8.3 % [place] % (Auto) 6.4 % Eos % (Auto) 0.3 % Baso % (Auto) 0.3 % Immature Gran # (Auto) 0.03 H (0.00-0.02) K/uL Neut # (Auto) 9.27 H (1.4-6.5) K/uL Lymph # (Auto) 0.91 L (1.2-3.4) K/uL [place] # (Auto) 0.70 H (0.11-0.59) K/uL Eos # (Auto) 0.03 (0-0.5) K/uL Baso # (Auto) 0.03 (0-0.2) K/uL Sodium 132 L (136-145) mmol/L Potassium 3.4 L (3.5-5.1) mmol/L Chloride 90 L (98-107) mmol/L Carbon Dioxide 29 (21-32) mmol/L Anion Gap 13.0 H (3-11) BUN 16 (7-18) mg/dl Creatinine 0.78 (0.6-1.2) mg/dl Est Cr Clr Drug Dosing 58.5 ml/min Est GFR ( Amer) 99.2 Est GFR (Non-Af Amer) 85.6 BUN/Creatinine Ratio 20.7 H (10-20) Glucose 84 (70-99) mg/dl POC Lactic Acid Alessandro 1.39 (0.90-1.70) mmol/L Calcium 9.9 (8.5-10.1) mg/dl Total Bilirubin 0.6 (0.2-1) mg/dl AST 13 L (15-37) U/L ALT 15 (12-78) U/L Alkaline Phosphatase 83 (45-117) U/L Total Protein 8.1 (6.4-8.2) gm/dl Albumin 2.7 L (3.4-5.0) gm/dl Globulin 5.4 H (2.5-4.0) gm/dl Albumin/Globulin Ratio 0.5 L (0.9-2) Lipase 49 L (73-393) U/L Diagnostic Findings (02/24/19) CT Abdomen and Pelvis: Report from [facility] [place] [place] records: FINDINGS LOWER CHEST: Mild coronary calcification. ABDOMEN/PELVIS: LIVER: Unremarkable BILE DUCTS: Unremarkable GALLBLADDER: Unremarkable PANCREAS: Punctate calcifications in the pancreatic tail with parenchymal atrop hy and mild pancreatic ductal dilation measuring up to 5 mm. Findings suggesting chronic calcific pancreatitis. SPLEEN: Unremarkable ADRENALS: Unremarkable KIDNEYS/URETERS: Moderate left hydronephrosis and hydroureter with narrowing of the distal left ureter showing mild urothelial enhancement. This may represent a stricture. Further evaluation by ureteroscopy recommended to exclude any urothelial lesion in this area. BLADDER: Unremarkable BOWEL: Wall thickening and enhancement involving the rectosigmoid with adjacent prominent vascularity and fat stranding in the mesorectal and presacral region. Redemonstration of free air adjacent to the rectosigmoid. This has minimally increased when compared to previous study. There is a 1.9 x 3.8 cm locule containing fluid and air suggesting an abscess. There is wall thickening and enhancement involving a few small bowel loops in the pelvis on images 128-125 of series 4 may also represent postradiation changes. LYMPH NODES: Unremarkable VESSELS: Unremarkable REPRODUCTIVE ORGANS: Known cervical malignancy could not be well assessed on this CT. Small amount of air in the vaginal canal may be physiologic. Fistulous connection with adjacent bowel is also a consideration. PERITONEUM/RETROPERITONEUM: Unremarkable ABDOMINAL WALL/SOFT TISSUES: Unremarkable BONES: Degenerative osseous changes. IMPRESSION 1. Redemonstration of free air in the pelvis adjacent to the rectosigmoid, slightly increased when compared to previous study. This is concerning for perforation. Locule of air and fluid adjacent to the rectosigmoid concerning for an abscess. 2. Inflammatory changes in the rectosigmoid may be related to postradiation changes. Probable inflammatory changes and a few small bowel loops in the pelvis also probably related to postradiation changes. 3. Left hydronephrosis and hydroureter. This may be related to stricture in the distal left ureter which could be related to prior radiation. Further evaluation by ureteroscopy recommended to exclude a focal urothelial lesion. 4. Known cervical malignancy could not be well assessed. Air in the vagina may be physiologic. Fistulous connection with adjacent bowel is also a consid eration. 5. Focal atrophy, calcification and pancreatic duct dilation in the pancreatic tail region suggesting chronic pancreatitis. Consider endoscopic ultrasound. 6. Additional findings as described above.
--- NOTE | 2019-02-24 19:08 | History & Physical Report ---
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 There is progressive fluid and inflammatory change at the pelvic cul-de-sac surrounding the thickened distal sigmoid colon. The extraluminal gas at this location is consistent with focal microperforation and remains unchanged. However, there has been interval development of extraluminal bowel contents/stool anterior to the distal sigmoid colon extending through the site of perforation. 2. The progressive inflammatory change surrounding the distal sigmoid colon appears to result in focal narrowing of the distal left ureter with mild left hydronephrosis as well as focal narrowing of the distal sigmoid colon likely resulting in a low-grade partial large bowel obstruction. Therefore, surgical consultation recommended. --Abscess not drainable as per surgery (Surgery discussed with [facility]--who agrees) --Appreciate Surgery Input --Conservative Management --NPO for now --IV fluids, Pain control --Started on IV Zosyn Diarrhea: Stool studies to R/O C.diff IV fluids Left Hydronephrosis Denies flank pain Urology consulted for Input Hypokalemia: Likely due to poor oral intake Replace electrolytes as needed H/O Recurrent Metastatic Cervical Cancer S/P radiation, ongoing chemotherapy Follows with [facility]/onc Needs follow up with Oncology upon discharge Anemia of Chronic disease Hb at baseline Hyponatremia Hypochloremia Likely due to poor oral intake IV fluids Monitor electrolytes DM II: Currently diet controlled Check A1C ISS for now Ongoing Tobacco Use: Refuses Nicotine patch DVT Px: Lovenox SQ Code Status Full Code History of Present Illness Chief Complaint: Abdominal Pain Primary Care Provider: Dorita Mendoza MD Patient is a 53-year-old female with history of recurrent metastatic cervical cancer, DM II, likely use disorder, dyslipidemia and other problems who was recently transferred from [facility] to [facility] for management of sigmoid perforation, radiation proctitis. Patient was treated conservatively at [facility]. Patient was seen by PCP after being discharged from [facility] for hospital discharge follow up. Patient complains of ongoing abdominal pain since last admission, which is intermittent, 6/10 intensity, lower abdominal, n onradiating, with no aggravating relieving factors, associated with diarrhea which is nonbloody. Patient also reports poor appetite, weight loss of about 25 pounds since 2 to 3 months duration. Currently she follows with [facility]/Onc is planning to discuss options of surgical exoneration with ostomy versus systemic chemotherapy. Also follows with Oncology locally. CT abdomen suggestive of focal microperforation of the sigmoid colon, possible abscess , left ureteral, hydronephrosis and findings suggestive low-grade partial large bowel obstruction. ED physician consulted surgery who discussed with [facility] and was thought that this is not drainable. Plan is to treat conservatively with IV antibiotics. Denies any history of chest pain, SOB, dizziness, cough, fever, chills, headache, dysuria, hematuria. Allergies Allergy/AdvReac Type Severity Reaction Status Date / Time No Known Allergies Allergy Verified 02/24/19 17:11 Home Medications Home Medications Medication Instructions Recorded Confirmed Type ciprofloxacin HCl [Cipro] 500 mg PO Q12H 02/24/19 02/24/19 History metoprolol succinate 25 mg PO DAILY 02/24/19 02/24/19 History metronidazole 500 mg PO TID 02/24/19 02/24/19 History oxycodone 5 mg PO Q4H PRN 02/24/19 02/24/19 History promethazine 25 mg PO Q6H PRN 02/24/19 02/24/19 History Past Med/Surg History Medical History Radiation proctitis Sepsis Weakness (Acute) Perforation of sigmoid colon (Acute) Acute urinary retention (Acute) Cervical carcinoma (Acute 05/23/17) "Abdominal pain, ER evaluation and finding of a cervical mass on CT Status post cervical biopsy 05/23/2017 revealing 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 Radiation completed January 20, 2018. She had external beam therapy as well as HDR treatments. She received 5940 cGy with external beam treatment. She had 5 HDR treatments at 550 cGy for a total of 2750 cGy. Chemotherapy was comprised of weekly cisplatin." PET positive and biopsy-proven recurrence left psoas muscle 07/14/2018 Status post completion of stereotactic body radiation therapy completed August 19, 2018. She received 2500 cGy. Cornea abrasion (Acute) Hydronephrosis Hyperglycemia Pain in right eye (Acute) Cervical carcinoma Family History Other No significant family history Social History Preferred Language: Irish Communication Ability: Effective Beliefs That Will Affect Care: None marital status: Current Living Situation: Spouse current occupational status: disabled Feels Safe at Home: Yes Smoking Status: Current every day smoker Tobacco Type: cigarettes Hx Alcohol Use: No Hx Substance Use: No Review of Systems Review of Systems: All systems reviewed & are unremarkable except as noted in HPI & below Physical Exam Physical Exam: Physical Exam: Vitals signs as noted above General Appearance:Chronic ill appearing, thin, no apparent distress Head: normocephalic, Atraumatic Eyes: normal inspection, EOMI Neck: supple, Trachea midline Respiratory/Chest: Normal breath sounds, CTA Cardiovascular: S1, S2, No murmur Abdomen/GI:Soft, lower abdomen tender, Bowel sounds present Extremities/Musculoskelatal:normal inspection, no edema Neurologic/Psych:AAOX3, grossly no focal neurological deficits Skin: normal color, warm Results & Data Vital Signs (Past 12 Hours) Vital Signs Temp Pulse Pulse Resp BP BP Pulse Ox 02/24/19 19:00 94 H 15 110/71 95 02/24/19 18:30 95 H 16 108/69 94 02/24/19 18:00 93 H 16 110/67 92 02/24/19 17:30 99 H 19 112/79 96 02/24/19 17:20 103 H 11 L 117/78 94 02/24/19 16:21 36.7 C 128 H 18 102/77 97 Laboratory Results Short CBC 02/24/19 Range/Units 17:13 WBC 10.97 H (4.8-10.8) K/uL Hgb 10.4 L (12.0-16.0) g/dL Hct 31.5 L (37-47) % Plt Count 403 H (130-400) K/uL BMP 02/24/19 17:13 Sodium 132 L Potassium 3.4 L Chloride 90 L Carbon Dioxide 29 BUN 16 Creatinine 0.78 Glucose 84 Calcium 9.9 Liver Function 02/24/19 Range/Units 17:13 Total Bilirubin 0.6 (0.2-1) mg/dl AST 13 L (15-37) U/L ALT 15 (12-78) U/L Alkaline Phosphatase 83 (45-117) U/L Albumin 2.7 L (3.4-5.0) gm/dl Diagnostic Findings CT ABD: 1. There is progressive fluid and inflammatory change at the pelvic cul-de-sac surrounding the thickened distal sigmoid colon. The extraluminal gas at this location is consistent with focal microperforation and remains unchanged. However, there has been interval development of extraluminal bowel contents/stool anterior to the distal sigmoid colon extending through the site of perforation. 2. The progressive inflammatory change surrounding the distal sigmoid colon appears to result in focal narrowing of the distal left ureter with mild left hydronephrosis as well as focal narrowing of the distal sigmoid colon likely resulting in a low-grade partial large bowel obstruction. Therefore, surgical consultation recommended. 3. Additional findings as described above.
[2019-02-24] MEDS ORDERED: INSULIN ASPART 100 UNITS/ML 3 ML PEN SC SCH (22:02)
[2019-02-24] MEDS ORDERED: ACETAMINOPHEN 325 MG TAB PO PRN (22:02)
[2019-02-24] MEDS ORDERED: PROMETHAZINE HCL 6.25 MG in SODIUM CHLORIDE 0.9% 50 ML IV PRN (22:02)
[2019-02-24] MEDS ORDERED: GLUCAGON FOR INJ 1 MG VIAL SQ PRN (22:02)
[2019-02-24] MEDS ORDERED: CONSULT PHARMACY STA (22:02)
[2019-02-24] MEDS ORDERED: GLUCOSE 40% GEL 15 GM TUBE PO PRN (22:02)
[2019-02-24] MEDS ORDERED: DEXTROSE 50% 50 ML SYRINGE IV PRN (22:02)
[2019-02-24] MEDS ORDERED: CARBOHYDRATES FOR HYPOGLYCEMIA PO PRN (22:02)
[2019-02-24] MEDS ORDERED: GLUCOSE 10 TABS/TUBE PO PRN (22:02)
--- NOTE | 2019-02-24 22:13 | Emergency Department Note ---
Entered by Mallorie Martinez acting as a scribe for ED Provider Note CHIEF COMPLAINT: Abnormal Labs/Diagnostic Testing HISTORY OF PRESENT ILLNESS: The patient is a 53 year old female who presents to the Emergency Room with complaints of an episode of an abnormal diagnostic test occurring prior to arrival. The patient states that she has cervical cancer and is receiving chemo and radiation. She notes that her last dose was January 07. She states that since then she has been having lower abdominal pain that she currently rates as a 7/10 in severity and diarrhea. She notes that it is worse when she sits up and better lying down. The patient states that she had a CT of her abdomen done today to determine what was going on today. She states that they called with the results and immediately informed her to come to the ED. She notes that she took pain medications 2 hours ago. The patient complains of intermittent leg swelling and left leg tingling. She notes that the tumor is towards her left leg. The patient denies constipation and problems with her chemo. Pt denies LOC, headache, fevers, chills, diaphoresis, visual changes, neck pain, chest pain, breathing difficulties, nausea, vomiting, back pain, melena, hematochezia, urinary symptoms, numbness, weakness, lymphadenopathy, rash, or other complaints. REVIEW OF SYSTEMS: See HPI for pertinent positives and negatives. A total of ten systems were reviewed and were otherwise negative. PMHx/PSHx: Radiation Proctitis, Sepsis, Cervical Carcinoma, Urinary Retention, Hydronephrosis SOCIAL HISTORY: Patient lives at home with her . She is disabled and is a current every day smoker. She denies using alcohol and using any substances. PHYSICAL EXAM: GENERAL: Awake, alert, uncomfortable appearing, in no distress HENT: Normocephalic, atraumatic. Oropharynx unremarkable. EYES: PERRL. Normal conjunctiva. Sclera non-icteric. NECK: Inspection normal. Non-tender. Supple. No nuchal rigidity. FROM. No masses. RESPIRATORY: Clear to auscultation. No wheezes. No rales. Normal respiratory effort. CARDIAC: Normal rate. Normal rhythm. No murmurs. No rubs. Extremities warm and well perfused. Pulses equal. No JVD. GI: Soft, non-distended. Suprapubic tenderness to palpation. No rebound or guarding. No masses. RECTAL: Deferred. MUSCULOSKELETAL: Atraumatic. Chest examination reveals no tenderness. The back is symmetrical on inspection without obvious abnormality. There is no CVA tenderness to palpation. No joint edema. LOWER EXTREMITIES: Calves are equal size bilaterally and non-tender. No edema. No discoloration. NEURO: Normal sensorium. No sensory or motor deficits noted. SKIN: No rash or jaundice noted. EMERGENCY DEPARTMENT COURSE: 1627: Past medical records reviewed. The patient was evaluated in room B3B, and a complete history and physical examination were performed. The patient denies wanting anything for pain at this time. 1633: I spoke to the case management specialist to get records from [facility]. 1659: I reevaluated the patient and she is resting comfortably. I updated her on her results thus far. I again asked if she would like anything for pain and she again denied. 1710: I discussed the patient's case with Dr. Mariusz Alfaro. She will come see the patient. She recommends that given the patient's findings that the patient be admitted medically and surgery will consult. At this point, she doesn't recommend evaluation for IR or transfer. 1749: I spoke to Dr. Mariusz Alfaro again on the patient's case. She recommends holding on medical admission at this point till she speaks with aMrielle. 1810: I discussed the patient's case with Dr. Mariusz Alfaro. She spoke to Marielle and reports that they recommend IV antibiotics and not intervention to drain the abscess at this point in time. 1819: I discussed the patient's case with Magdalene Mullen PA-C-[facility]. She will evaluate the patient for further management. 1825: I reevaluated the patient and she is resting comfortably. I updated her on her test results and the treatment plan. She verbally agrees and understands. MEDICAL DECISION MAKING: Prior records/ancillary studies reviewed. Outpatient CT scan report obtained. The patient's CT scan shows that she has redemonstration of free air in the pelvis adjacent to the rectosigmoid, slightly increased when compared to previous study. This is concerning for perforation. Locule of air and fluid adjacent to the rectosigmoid concerning for an abscess. This measures 1.9 x 3.8 cm. Inflammatory changes are noted in the rectosigmoid and may be related to postradiation changes. Probable inflammatory changes and a few small bowel loops in the pelvis are also probably related to postradiation changes. There is left-sided hydronephrosis and hydroureter. This may be relating to stricture in the distal left ureter which could be from prior radiation. Radiology recommended further evaluation by ureteroscopy. There was noted in the vaginal canal. Radiology noted it may be physiologic. Fistulous connection with the adjacent bowel is also a consideration. The patient has focal atrophy, calcification and pancreatic ductal dilatation in the pancreatic tail region suggesting chronic pancreatitis. Triage Nursing notes reviewed and agree them. Additional history obtained from patient significant other.. The patient's history was concerning for abdominal pain. Differential diagnosis: Etiologies such as appendicitis, diverticulitis, PUD, biliary pathology, UTI, pancreatitis, obstruction, mesenteric ischemia, aortic pathology, infections, inflammatory bowel disease, renal colic, as well as others were entertained. Physical examination findings: As above. ER treatment provided: Saline hydration IV Zosyn Cardiac monitoring On reassessment the patient felt better. Diagnostics interpreted by me: The labs revealed except for mild anemia and slight leukocytosis. Chemistry panel unremarkable. Consultation: A consultation was placed with the general surgeon on-call, Dr. Chloé Plascencia. The case was discussed and diagnostics were reviewed. The patient was evaluated in the ER for further treatment. She did contact [facility] and discussed the case with interventional radiology. Given the small size of the abscess she as well as interventional radiology felt that this was not amenable to drainage. Medical management was recommended. I also placed a consult with [facility] internal medicine. The patient was evaluated in the ER and admitted by the hospitalist. IMPRESSION: Perforated bowel, Intra-abdominal abscess, Left ureteral stricture, Cervical cancer PLAN: Being Evaluated by the Hospitalist The scribe's documentation has been prepared under my direction and personally reviewed by me in its entirety. I confirm that the note above accurately reflects all work, treatment, procedures, and medical decision making performed by me. Impression & Plan Perforated bowel, Intra-abdominal abscess, Ureteral stricture, left, Cervical cancer Past Med/Surg History Medical History Radiation proctitis Sepsis Weakness (Acute) Perforation of sigmoid colon (Acute) Acute urinary retention (Acute) Cervical carcinoma (Acute 05/23/17) "Abdominal pain, ER evaluation and finding of a cervical mass on CT Status post cervical biopsy 05/23/2017 revealing 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 Radiation completed January 20, 2018. She had external beam therapy as well as HDR treatments. She received 5940 cGy with external beam treatment. She had 5 HDR treatments at 550 cGy for a total of 2750 cGy. Chemotherapy was comprised of weekly cisplatin." PET positive and biopsy-proven recurrence left psoas muscle 07/14/2018 Status post completion of stereotactic body radiation therapy completed August 19, 2018. She received 2500 cGy. Cornea abrasion (Acute) Hydronephrosis Hyperglycemia Pain in right eye (Acute) Cervical carcinoma Family History Other No significant family history Social History Preferred Language: Maltese Communication Ability: Effective Beliefs That Will Affect Care: None marital status: Current Living Situation: Spouse current occupational status: disabled Feels Safe at Home: Yes Smoking Status: Current every day smoker Tobacco Type: cigarettes Hx Alcohol Use: No Hx Substance Use: No Results & Data Vital Signs Vital Signs - 24 hr 02/24/19 16:21 02/24/19 17:20 02/24/19 17:30 Temperature 36.7 C Temperature Source Oral Sepsis Recent Fever Within 48 Hours No Sepsis New/Unexplained Change in Mental Status No Sepsis Action Taken by Nursing No Action Required Pulse Rate 128 H 99 H Pulse Rate [Apical] 103 H Pulse Rate from SpO2 Sensor 100 H Respiratory Rate 18 11 L 19 Respiratory Effort / Characteristics Non-Labored Spontaneous Non-Labored Spontaneous Respiratory Depth Normal Normal Respiratory Pattern Regular Regular Blood Pressure 102/77 112/79 Blood Pressure [Left Arm] 117/78 Blood Pressure Mean 85 90 Blood Pressure Mean [Left Arm] 91 Blood Pressure Position Sitting Pulse Oximetry 97 94 96 Oxygen Delivery Method Room Air Room Air Room Air 02/24/19 18:00 02/24/19 18:30 02/24/19 19:00 Temperature Temperature Source Sepsis Recent Fever Within 48 Hours Sepsis New/Unexplained Change in Mental Status Sepsis Action Taken by Nursing Pulse Rate 93 H 95 H 94 H Pulse Rate [Apical] Pulse Rate from SpO2 Sensor 94 H 96 H 95 H Respiratory Rate 16 16 15 Respiratory Effort / Characteristics Respiratory Depth Respiratory Pattern Blood Pressure 110/67 108/69 110/71 Blood Pressure [Left Arm] Blood Pressure Mean 81 82 84 Blood Pressure Mean [Left Arm] Blood Pressure Position Pulse Oximetry 92 94 95 Oxygen Delivery Method Room Air Room Air Room Air 02/24/19 19:30 02/24/19 20:00 Temperature Temperature Source Sepsis Recent Fever Within 48 Hours Sepsis New/Unexplained Change in Mental Status Sepsis Action Taken by Nursing Pulse Rate 90 94 H Pulse Rate [Apical] Pulse Rate from SpO2 Sensor 90 94 H Respiratory Rate 12 17 Respiratory Effort / Characteristics Respiratory Depth Respiratory Pattern Blood Pressure 110/77 104/73 Blood Pressure [Left Arm] Blood Pressure Mean 88 83 Blood Pressure Mean [Left Arm] Blood Pressure Position Pulse Oximetry 97 94 Oxygen Delivery Method Room Air Room Air Home Medications Current Medication List: was personally reviewed by me Laboratory Data Attestation: I reviewed the patient's lab results. Result diagrams: 02/24/19 17:13 02/24/19 17:13 Lab Results 02/24/19 02/24/19 02/24/19 Range/Units 17:13 17:13 17:25 WBC 10.97 H (4.8-10.8) K/uL RBC 3.28 L (4.2-5.4) M/uL Hgb 10.4 L (12.0-16.0) g/dL Hct 31.5 L (37-47) % MCV 96.0 (80-100) fL MCH 31.7 (25-34) pg MCHC 33.0 (32-36) g/dL RDW Std Deviation 56.9 H (36.4-46.3) fL RDW Coeff of Jessica 16.0 H (11.5-14.5) % Plt Count 403 H (130-400) K/uL MPV 8.9 (7.4-10.4) fL Immature Gran % (Auto) 0.3 % Neut % (Auto) 84.4 % Lymph % (Auto) 8.3 % Mckinley % (Auto) 6.4 % Eos % (Auto) 0.3 % Baso % (Auto) 0.3 % Immature Gran # (Auto) 0.03 H (0.00-0.02) K/uL Neut # (Auto) 9.27 H (1.4-6.5) K/uL Lymph # (Auto) 0.91 L (1.2-3.4) K/uL Mckinley # (Auto) 0.70 H (0.11-0.59) K/uL Eos # (Auto) 0.03 (0-0.5) K/uL Baso # (Auto) 0.03 (0-0.2) K/uL Sodium 132 L (136-145) mmol/L Potassium 3.4 L (3.5-5.1) mmol/L Chloride 90 L (98-107) mmol/L Carbon Dioxide 29 (21-32) mmol/L Anion Gap 13.0 H (3-11) BUN 16 (7-18) mg/dl Creatinine 0.78 (0.6-1.2) mg/dl Est Cr Clr Drug Dosing 58.5 ml/min Est GFR ( Amer) 99.2 Est GFR (Non-Af Amer) 85.6 BUN/Creatinine Ratio 20.7 H (10-20) Glucose 84 (70-99) mg/dl POC Lactic Acid Alessandro 1.39 (0.90-1.70) mmol/L Calcium 9.9 (8.5-10.1) mg/dl Total Bilirubin 0.6 (0.2-1) mg/dl AST 13 L (15-37) U/L ALT 15 (12-78) U/L Alkaline Phosphatase 83 (45-117) U/L Total Protein 8.1 (6.4-8.2) gm/dl Albumin 2.7 L (3.4-5.0) gm/dl Globulin 5.4 H (2.5-4.0) gm/dl Albumin/Globulin Ratio 0.5 L (0.9-2) Lipase 49 L (73-393) U/L Administered Medications Sodium Chloride (Nss 1000ml) 1,000 mls @ 125 mls/hr IV .Q8H STA Stop: 02/25/19 00:33 Last Infusion: 02/24/19 21:42 Dose: 0 mls/hr Documented by: [id number] Admin: 02/24/19 17:48 Dose: 125 mls/hr Documented by: [id number] Discontinued Medications Hydromorphone HCl (Dilaudid) 0.5 mg IV Q15M PRN PRN Reason: Pain Stop: 03/10/19 17:28 Last Admin: 02/24/19 21:30 Dose: 0.5 mg Documented by: [id number] Admin: 02/24/19 17:36 Dose: 0.5 mg Documented by: [id number] Sodium Chloride (Nss) 500 mls @ 999 mls/hr IV .Q31M TYRESE Stop: 02/24/19 17:15 Last Infusion: 02/24/19 17:47 Dose: 0 mls/hr Documented by: [id number] Admin: 02/24/19 17:16 Dose: 999 mls/hr Documented by: [id number] Piperacillin Sod/Tazobactam Sod (Zosyn) 4.5 gm in 120 mls @ 240 mls/hr IV NOW ONE Stop: 02/24/19 17:27 Last Infusion: 02/24/19 18:06 Dose: 0 mls/hr Documented by: [id number] Admin: 02/24/19 17:36 Dose: 240 mls/hr Documented by: [id number] Ondansetron HCl (Zofran) 4 mg IV NOW STA Stop: 02/24/19 17:30 Last Admin: 02/24/19 17:36 Dose: 4 mg Documented by: [id number] Blood Pressure Blood Pressure Findings: Normal blood pressure Blood Pressure Disposition: did not require urgent referral Discharge Plan Visit Data *Final* Discharge Date/Time: 02/24/19 21:41 Chief Complaint: Abnormal Labs/Diagnostic Testing Stated Complaint: FLUID- CANCER PT ED Provider: Andrew Augustin Discharge Problem: Perforated bowel, Intra-abdominal abscess, Ureteral stricture, left, Cervical cancer Patient Disposition: Being Evaluated by Hospitalist Discharge Instructions Interventions: ED Discharge Assessment Last Done: 02/24/19 21:41 Discharge Problem: Cervical cancer Qualifiers: Malignant neoplasm of cervix location: unspecified location Qualified Code(s): C53.9 - Malignant neoplasm of cervix uteri, unspecified The scribe's documentation has been prepared under my direction and personally reviewed by me in its entirety. I confirm that the note above accurately reflects all work, treatment, procedures, and medical decision making performed by me.
[2019-02-24] MEDS: NSS + 20MEQ KCL 20 MEQ/1,000 ML BAG IV SCH (23:38)
[2019-02-24] MEDS: D5W AND LACTATED RINGERS 1,000 ML IV SCH (23:43)
[2019-02-25] MEDS: PIPERACILLIN/TAZOBACTAM 3.375 GM in DEXTROSE 5% 100 ML IV SCH ×4 (00:12→22:47)
[2019-02-25] MEDS: MoRPHine SULFATE 2 MG/ML CARP IV PRN ×5 (00:17→21:02)
[2019-02-25] MEDS: INSULIN ASPART 100 UNITS/ML 3 ML PEN SC SCH ×3 (06:29→18:31)
[2019-02-25 07:42] LABS: Basophils # (auto) 0.03 K/uL (0-0.2); Basophils % (auto) 0.4 %; Eosinophils # (auto) 0.06 K/uL (0-0.5); Eosinophils % (auto) 0.7 %; Hematocrit (blood only) 28.7 % (37-47); Hemoglobin 9.2 g/dL (12.0-16.0); Immature Granulocytes # (auto) 0.02 K/uL (0.00-0.02); Immature Granulocytes % (auto) 0.2 %; Lymphocytes # (auto) 0.47 K/uL (1.2-3.4); Lymphocytes % (auto) 5.6 %; Mean Corpuscular Hgb Conc 32.1 g/dL (32-36); Mean Corpuscular Volume 95.3 fL (80-100); Mean Platelet Volume 8.9 fL (7.4-10.4); Monocytes # (auto) 0.61 K/uL (0.11-0.59); Monocytes % (auto) 7.3 %; Neutrophils # (auto) 7.18 K/uL (1.4-6.5); Neutrophils % (auto) 85.8 %; Platelet Count 308 K/uL (130-400); RDW Coefficient of Variation 16.1 % (11.5-14.5); RDW Standard Deviation 56.8 fL (36.4-46.3); Red Blood Count 3.01 M/uL (4.2-5.4); White Blood Count 8.37 K/uL (4.8-10.8)
[2019-02-25 08:08] LABS: BUN Creatinine Ratio 17.3 (10-20); Calcium 9.3 mg/dl (8.5-10.1); Creatinine Clr Calc Pharmacy 64.3 ml/min; Est GFR (African American) 111.1; Est GFR (Non-African American) 95.9; Magnesium 1.6 mg/dl (1.8-2.4); Potassium 3.1 mmol/L (3.5-5.1)
[2019-02-25] MEDS: METOPROLOL SUCC 25MG EXT REL TAB PO SCH (08:12)
[2019-02-25] MEDS: ENOXAPARIN INJ 30 MG/0.3 ML SYR SQ SCH (08:12)
[2019-02-25 09:21] LABS: Estimated Average Glucose 154 mg/dl
[2019-02-25] MEDS ORDERED: MAGNESIUM SULFATE / D5W 1 GM/100 ML BAG IV ONE (09:54)
[2019-02-25] MEDS: NSS + 20MEQ KCL 20 MEQ/1,000 ML BAG IV SCH (10:22)
[2019-02-25] MEDS: POTASSIUM CHLORIDE / WTR 10 MEQ/100 ML PLCT IV SCH ×3 (10:42→12:09)
--- NOTE | 2019-02-25 10:52 | Urology Consultation ---
Date of Consultation February 25, 2019 Assessment & Plan (1) Acute urinary retention: Hydronephrosis: Patient is not experiencing any flank pain or symptoms of urinary infection - will defer ureteral stent placement today. Should patient's condition decline or she develops flank pain or fever will likely require intervention. Please contact us with change in patient status. Urinary difficulty: continue spontaneous void with bladder scan and CIC PRN. Would consider indwelling Mccollum if repeat catheterization needed.Check urinalysis Thanks for the consult, will continue to closely follow. (2) Hydronephrosis: History of Present Illness Attending Physician: Alexandra Em MD History of Present Illness Ms. 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 Her surgical consultation is reviewed and patient is currently being managed conservatively with IV antibiotics. Patient reports some intermittent difficulty emptying her bladder, has required straight catheterization x 1 but continues to spontaneously void. Reports that this has been an ongoing issue x several months with chemotherapy. No fevers. No hematuria. No flank pain. Labs reviewed Cr WNL. Spoke with patient and explained mild hydronephrosis and reasons not to place stent unless she develops flank pain or fever . She has had some difficulty voiding with chemo . No recent urine on chart . Wilver degroot Allergies Allergy/AdvReac Type Severity Reaction Status Date / Time No Known Allergies Allergy Verified 02/24/19 17:11 Home Medications Home Medications Medication Instructions Recorded Confirmed Type ciprofloxacin HCl [Cipro] 500 mg PO Q12H 02/24/19 02/24/19 History metoprolol succinate 25 mg PO DAILY 02/24/19 02/24/19 History metronidazole 500 mg PO TID 02/24/19 02/24/19 History oxycodone 5 mg PO Q4H PRN 02/24/19 02/24/19 History promethazine 25 mg PO Q6H PRN 02/24/19 02/24/19 History Patient History Medical History Radiation proctitis Sepsis Weakness (Acute) Perforation of sigmoid colon (Acute) Acute urinary retention (Acute) Cervical carcinoma (Acute 05/23/17) "Abdominal pain, ER evaluation and finding of a cervical mass on CT Status post cervical biopsy 05/23/2017 revealing high-grade squamous cell c arcinoma Clinical stage T3b N1 Stage IIIB Status post 3 cycles of chemotherapy, Taxol and Platinol Status post completion of definitive combined radiation and chemotherapy. Radiation completed January 20, 2018. She had external beam therapy as well as HDR treatments. She received 5940 cGy with external beam treatment. She had 5 HDR treatments at 550 cGy for a total of 2750 cGy. Chemotherapy was comprised of weekly cisplatin." PET positive and biopsy-proven recurrence left psoas muscle 07/14/2018 Status post completion of stereotactic body radiation therapy completed August 19, 2018. She received 2500 cGy. Cornea abrasion (Acute) Hydronephrosis Hyperglycemia Pain in right eye (Acute) Cervical carcinoma Family History Other No significant family history Social History Preferred Language: Mohawk Communication Ability: Effective Sheet Rock Sander Required: No Beliefs That Will Affect Care: None marital status: Current Living Situation: Spouse current occupational status: disabled Other Information That Helps Us Care for You: No Feels Safe at Home: Yes Safety Concerns: Feels Safe At This Time Smoking Status: Current every day smoker Tobacco Type: cigarettes Do You Dip or Chew Tobacco: No Second Hand Exposure: Yes Tobacco Cessation Education Requested by Patient: No Hx Alcohol Use: No Hx Substance Use: No Review of Systems Constitutional: + fatigue; no fever and no chills Eyes: no worsening vision Ear, Nose, Mouth, Throat: no hearing loss Respiratory: no dyspnea Cardiovascular: no chest pain Gastrointestinal: + nausea; no abdominal pain Genitourinary: + urinary hesitancy; no dysuria and no hematuria Musculoskeletal: no back pain Neurologic: no confusion Psychiatric: no problem reported Endocrine: + fatigue Physical Exam Constitutional: + ill appearing; no acute distress Neck: normal visual inspection Respiratory: normal respiratory effort; no respiratory distress Cardiovascular: Vessels: no JVD Gastrointestinal (Abdomen): Percussion/Palpation: abdomen soft; abdomen nontender Psychiatric: A+Ox3, euthymic affect Genitourinary: no CVA tenderness Speculum/Bimanual Exam: bladder normal to palpation Results & Data Vital Signs (Past 12 Hours) Vital Signs Temp Pulse Resp BP Pulse Ox 02/25/19 07:45 36.7 C 90 16 100/63 96 02/25/19 00:01 36.8 C 96 H 19 / 97
[2019-02-25] MEDS ORDERED: POTASSIUM CHLORIDE 20 MEQ TABCR PO STA (12:00)
--- NOTE | 2019-02-25 12:07 | Progress Note ---
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 She was referred to the hospital after findings on repeat CT scan for possible abscess drainage. In review of the CT scan she continues to have free air in the pelvis, which is only slightly increased. She does have a small fluid collection (~3.8 cm), which is undrainable. - Continue abx, NPO (may be able to advance later today pending progress and discussion below) - I have placed a message out to Dr. Haas from [facility] at [facility] [place] and will discuss the case further with her today - Recommend VTE chemoprophylaxis - Will continue to follow Subjective No significant changes since seen last night. No BM since admission. Pain remains stable. Physical Exam Constitutional: chronically ill appearing Respiratory: normal respiratory effort Cardiovascular: Rate/Rhythm: regular rate Gastrointestinal (Abdomen): soft, nondistended, lower abdominal tenderness, no rebound or guarding Results & Data Vital Signs (Past 12 Hours) Vital Signs Temp Pulse Resp BP Pulse Ox 02/25/19 07:45 36.7 C 90 16 100/63 96 Laboratory Results 02/25/19 02/25/19 02/25/19 Range/Units 08:20 07:01 07:01 WBC (4.8-10.8) K/uL RBC (4.2-5.4) M/uL Hgb (12.0-16.0) g/dL Hct (37-47) % MCV (80-100) fL MCH (25-34) pg MCHC (32-36) g/dL RDW Std Deviation (36.4-46.3) fL RDW Coeff of Jessica (11.5-14.5) % Plt Count (130-400) K/uL MPV (7.4-10.4) fL Immature Gran % (Auto) % Neut % (Auto) % Lymph % (Auto) % Kings % (Auto) % Eos % (Auto) % Baso % (Auto) % Immature Gran # (Auto) (0.00-0.02) K/uL Neut # (Auto) (1.4-6.5) K/uL Lymph # (Auto) (1.2-3.4) K/uL Kings # (Auto) (0.11-0.59) K/uL Eos # (Auto) (0-0.5) K/uL Baso # (Auto) (0-0.2) K/uL Sodium 135 L (136-145) mmol/L Potassium 3.1 L (3.5-5.1) mmol/L Chloride 96 L (98-107) mmol/L Carbon Dioxide 30 (21-32) mmol/L Anion Gap 9.0 (3-11) BUN 12 (7-18) mg/dl Creatinine 0.71 (0.6-1.2) mg/dl Est Cr Clr Drug Dosing 64.3 ml/min Est GFR ( Amer) 111.1 Est GFR (Non-Af Amer) 95.9 BUN/Creatinine Ratio 17.3 (10-20) Glucose 108 H (70-99) mg/dl POC Glucose 118 H (70-99) Estimat Average Glucose 154 mg/dl Hemoglobin A1c 7.0 H (4.5-5.6) % POC Lactic Acid Alessandro (0.90-1.70) mmol/L Calcium 9.3 (8.5-10.1) mg/dl Magnesium 1.6 L (1.8-2.4) mg/dl Total Bilirubin (0.2-1) mg/dl AST (15-37) U/L ALT (12-78) U/L Alkaline Phosphatase (45-117) U/L Total Protein (6.4-8.2) gm/dl Albumin (3.4-5.0) gm/dl Globulin (2.5-4.0) gm/dl Albumin/Globulin Ratio (0.9-2) Lipase (73-393) U/L 02/25/19 02/25/19 02/24/19 Range/Units 07:01 06:08 23:01 WBC 8.37 (4.8-10.8) K/uL RBC 3.01 L (4.2-5.4) M/uL Hgb 9.2 L (12.0-16.0) g/dL Hct 28.7 L (37-47) % MCV 95.3 (80-100) fL MCH 30.6 (25-34) pg MCHC 32.1 (32-36) g/dL RDW Std Deviation 56.8 H (36.4-46.3) fL RDW Coeff of Jessica 16.1 H (11.5-14.5) % Plt Count 308 (130-400) K/uL MPV 8.9 (7.4-10.4) fL Immature Gran % (Auto) 0.2 % Neut % (Auto) 85.8 % Lymph % (Auto) 5.6 % Kings % (Auto) 7.3 % Eos % (Auto) 0.7 % Baso % (Auto) 0.4 % Immature Gran # (Auto) 0.02 (0.00-0.02) K/uL Neut # (Auto) 7.18 H (1.4-6.5) K/uL Lymph # (Auto) 0.47 L (1.2-3.4) K/uL Kings # (Auto) 0.61 H (0.11-0.59) K/uL Eos # (Auto) 0.06 (0-0.5) K/uL Baso # (Auto) 0.03 (0-0.2) K/uL Sodium (136-145) mmol/L Potassium (3.5-5.1) mmol/L Chloride (98-107) mmol/L Carbon Dioxide (21-32) mmol/L Anion Gap (3-11) BUN (7-18) mg/dl Creatinine (0.6-1.2) mg/dl Est Cr Clr Drug Dosing ml/min Est GFR ( Amer) Est GFR (Non-Af Amer) BUN/Creatinine Ratio (10-20) Glucose (70-99) mg/dl POC Glucose 115 H 81 (70-99) Estimat Average Glucose mg/dl Hemoglobin A1c (4.5-5.6) % POC Lactic Acid Alessandro (0.90-1.70) mmol/L Calcium (8.5-10.1) mg/dl Magnesium (1.8-2.4) mg/dl Total Bilirubin (0.2-1) mg/dl AST (15-37) U/L ALT (12-78) U/L Alkaline Phosphatase (45-117) U/L Total Protein (6.4-8.2) gm/dl Albumin (3.4-5.0) gm/dl Globulin (2.5-4.0) gm/dl Albumin/Globulin Ratio (0.9-2) Lipase (73-393) U/L 02/24/19 02/24/19 02/24/19 Range/Units 17:25 17:13 17:13 WBC 10.97 H (4.8-10.8) K/uL RBC 3.28 L (4.2-5.4) M/uL Hgb 10.4 L (12.0-16.0) g/dL Hct 31.5 L (37-47) % MCV 96.0 (80-100) fL MCH 31.7 (25-34) pg MCHC 33.0 (32-36) g/dL RDW Std Deviation 56.9 H (36.4-46.3) fL RDW Coeff of Jessica 16.0 H (11.5-14.5) % Plt Count 403 H (130-400) K/uL MPV 8.9 (7.4-10.4) fL Immature Gran % (Auto) 0.3 % Neut % (Auto) 84.4 % Lymph % (Auto) 8.3 % Kings % (Auto) 6.4 % Eos % (Auto) 0.3 % Baso % (Auto) 0.3 % Immature Gran # (Auto) 0.03 H (0.00-0.02) K/uL Neut # (Auto) 9.27 H (1.4-6.5) K/uL Lymph # (Auto) 0.91 L (1.2-3.4) K/uL Kings # (Auto) 0.70 H (0.11-0.59) K/uL Eos # (Auto) 0.03 (0-0.5) K/uL Baso # (Auto) 0.03 (0-0.2) K/uL Sodium 132 L (136-145) mmol/L Potassium 3.4 L (3.5-5.1) mmol/L Chloride 90 L (98-107) mmol/L Carbon Dioxide 29 (21-32) mmol/L Anion Gap 13.0 H (3-11) BUN 16 (7-18) mg/dl Creatinine 0.78 (0.6-1.2) mg/dl Est Cr Clr Drug Dosing 58.5 ml/min Est GFR ( Amer) 99.2 Est GFR (Non-Af Amer) 85.6 BUN/Creatinine Ratio 20.7 H (10-20) Glucose 84 (70-99) mg/dl POC Glucose (70-99) Estimat Average Glucose mg/dl Hemoglobin A1c (4.5-5.6) % POC Lactic Acid Alessandro 1.39 (0.90-1.70) mmol/L Calcium 9.9 (8.5-10.1) mg/dl Magnesium (1.8-2.4) mg/dl Total Bilirubin 0.6 (0.2-1) mg/dl AST 13 L (15-37) U/L ALT 15 (12-78) U/L Alkaline Phosphatase 83 (45-117) U/L Total Protein 8.1 (6.4-8.2) gm/dl Albumin 2.7 L (3.4-5.0) gm/dl Globulin 5.4 H (2.5-4.0) gm/dl Albumin/Globulin Ratio 0.5 L (0.9-2) Lipase 49 L (73-393) U/L
[2019-02-25 14:43] LABS: Appearance Urine Clear (Clear); Bilirubin Urine Negative (Negative); Blood Urine Negative (Negative); Color Urine Yellow; Glucose Urine UA Negative (Negative); Ketones Urine 1+ (Negative); Leukocyte Esterase Urine Negative (Negative); Nitrite Urine Negative (Negative); Protein Urine Negative (Negative); Specific Gravity Urine 1.029 (1.000-1.030); Urobilinogen Urine Negative (Negative)
[2019-02-25] MEDS: D5W AND LACTATED RINGERS 1,000 ML IV SCH (16:27)
[2019-02-25 16:54] LABS: Cdiff Antigen Positive
[2019-02-25 16:55] LABS: Cdiff Toxin A+B Negative Cdiff Toxin (Negative)
--- NOTE | 2019-02-25 19:04 | Hospitalist Progress Note ---
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 The extraluminal gas at this location is consistent with focal microperforation and remains unchanged. However, there has been interval development of extr aluminal bowel contents/stool anterior to the distal sigmoid colon extending through the site of perforation. The progressive inflammatory change surrounding the distal sigmoid colon appears to result in focal narrowing of the distal left ureter with mild left hydronephrosis as well as focal narrowing of the distal sigmoid colon likely resulting in a low-grade partial large bowel obstruction. Surgery on board recommended conservative management. No surgical intervention since abscess is not drainable (also surgery discussed case with [facility] [place] who agreed as well that that the collection was not drainable.) Continue IV Zosyn Continue IVF and pain controlled NPO except ice/sips Chronic Diarrhea Possible related to chemo and radiation Stool for C-diff toxin negative (No active Cdiff) Diarrhea has not been worst WBC trending down Monitor electrolytes Left Hydronephrosis Denies flank pain Urology on board recommended conservative management No ureteral stent placement unless patient condition declined Electrolytes Imbalance Likely due to poor oral intake and diarrhea K and Mg replaced Monitor electrolytes H/O Recurrent Metastatic Cervical Cancer S/P radiation, ongoing chemotherapy Surgery discussed case with Chha/onc that recommended conservative management with IV abx If symptoms worsening, will consider surgical intervention Anemia of Chronic disease Hbg 9.2 today Monitor CBC DM II: Most recent Hba1c 7 Currently diet controlled Continue monitor BS Tobacco Use: Counseling on smoking cessation DVT Px: Lovenox SQ Code Status Full Code Subjective Pt was seen and examined Lying in bed with and son at bedside Pt said that she continue to have intermittent abdominal pain She said that she does have chronic loose stool Denies any chest pain, palpitation, dizziness and SOB Physical Exam Physical Exam: General- No acute distress Head- atraumatic Eyes- PERRL, EOMI, ENT- oropharynx clear Neck- supple, no JVD Lungs- clear to auscultation Heart- regular rhythm; no murmur Abdomen- normal bowel sounds, soft, +tender Extremities- no calf tenderness Neuro- alert, oriented x 3; PERRL, EOMI; no facial palsy; no dysarthria Skin- warm & dry Results & Data Vital Signs (Past 12 Hours) Vital Signs Temp Pulse Resp BP Pulse Ox 02/25/19 15:38 36.8 C 83 17 112/72 97 02/25/19 07:45 36.7 C 90 16 100/63 96
[2019-02-26] MEDS: MoRPHine SULFATE 2 MG/ML CARP IV PRN ×6 (00:08→23:32)
[2019-02-26] MEDS: INSULIN ASPART 100 UNITS/ML 3 ML PEN SC SCH ×5 (00:50→22:05)
[2019-02-26] MEDS ORDERED: LACTATED RINGER'S 1,000 ML IV ONE (06:22)
[2019-02-26] MEDS: PIPERACILLIN/TAZOBACTAM 3.375 GM in DEXTROSE 5% 100 ML IV SCH ×3 (06:23→23:15)
[2019-02-26 07:25] LABS: Hematocrit (blood only) 25.6 % (37-47); Hemoglobin 8.3 g/dL (12.0-16.0); Mean Corpuscular Hgb Conc 32.4 g/dL (32-36); Mean Corpuscular Volume 95.5 fL (80-100); Mean Platelet Volume 8.7 fL (7.4-10.4); Platelet Count 310 K/uL (130-400); RDW Standard Deviation 56.8 fL (36.4-46.3); Red Blood Count 2.68 M/uL (4.2-5.4); White Blood Count 7.23 K/uL (4.8-10.8)
[2019-02-26 08:04] LABS: Calcium 8.8 mg/dl (8.5-10.1); Creatinine Clr Calc Pharmacy 74.8 ml/min; Est GFR (African American) 118.3; Est GFR (Non-African American) 102.1; Magnesium 1.7 mg/dl (1.8-2.4); Potassium 3.4 mmol/L (3.5-5.1)
[2019-02-26] MEDS: ENOXAPARIN INJ 30 MG/0.3 ML SYR SQ SCH (08:47)
[2019-02-26] MEDS: METOPROLOL SUCC 25MG EXT REL TAB PO SCH (08:48)
[2019-02-26] MEDS ORDERED: POTASSIUM CHLORIDE 20 MEQ TABCR PO STA (09:35)
[2019-02-26] MEDS ORDERED: MAGNESIUM SULFATE / D5W 1 GM/100 ML BAG IV ONE (09:58)
--- NOTE | 2019-02-26 12:17 | Urology Progress Note ---
Date of Service February 26, 2019 Assessment & Plan (1) Hydronephrosis: No flank pain or fever. Mccollum not bothersome. Will continue to closely monitor. Subjective 53 YO female with cervical cancer s/p radiation and mild hydronephrosis. Patient reports feeling okay this morning +fatigue. Had Mccollum placed overnight due to repeated straight catheterization. Not bothersome. No hematuria. No fevers. No flank/abdominal pain. Review of Systems Review of Systems: All systems reviewed & are unremarkable except as noted in HPI & below Physical Exam Physical Exam: NAD. Resp effort normal. No JVD. Abd soft/nontender. : Mccollum in place, patent, draining clear yellow urine. No CVA tenderness. A&O x3, appropriate affect. Results & Data Vital Signs (Past 12 Hours) Vital Signs Temp Pulse Resp BP Pulse Ox 02/26/19 07:32 36.9 C 84 18 102/66 93
--- NOTE | 2019-02-26 15:38 | Surgery Progress Note ---
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 She was referred to the hospital after findings on repeat CT scan for possible abscess drainage. In review of the CT scan she continues to have free air in the pelvis, which is only slightly increased. She does have a small fluid collection (~3.8 cm), which is undrainable. - Continue abx - Advance to clear liquids, advised to go slow - Dr. Haas recommending course of abx and if does well with advancement of diet transition to oral abx and follow-up as an outpatient. If clinically worse [place] [facility] [place] VTE chemoprophylaxis - Dr. Wood to cover this weekend Dr. Blackwood has seen and examined pt, agrees with above. Supervising Physician Co-Signing Physician Notes I have seen and evaluated the patient and reviewed the medical record. I agree with the documentation as provided in this note by Kim Puente PA-C. Subjective pain about the same, no nausea or vomiting per nursing staff she had mucous like bowel movement, incontinent +hungry urinating without difficulty Physical Exam Constitutional: no acute distress Respiratory: normal respiratory effort; no respiratory distress Gastrointestinal (Abdomen): Inspection/Auscultation: abdomen normal to inspection; abdomen not distended Percussion/Palpation: + abdomen tender (lower abdomen bilaterally) and abdomen soft; no guarding and abdomen not rigid Skin: no rashes, warm and dry Psychiatric: A+Ox3, euthymic affect Results & Data Vital Signs (Past 12 Hours) Vital Signs Temp Pulse Resp BP BP Pulse Ox 02/26/19 14:58 36.8 C 89 16 124/80 97 02/26/19 07:32 36.9 C 84 18 102/66 93
[2019-02-26] MEDS ORDERED: Nursing to Pharmacy Communication ONE (17:48)
--- NOTE | 2019-02-26 18:22 | Hospitalist Progress Note ---
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 The extraluminal gas at this location is consistent with focal microperforation and remains unchanged. However, there has been interval development of extr aluminal bowel contents/stool anterior to the distal sigmoid colon extending through the site of perforation. The progressive inflammatory change surrounding the distal sigmoid colon appears to result in focal narrowing of the distal left ureter with mild left hydronephrosis as well as focal narrowing of the distal sigmoid colon likely resulting in a low-grade partial large bowel obstruction. Surgery on board recommended conservative management. No surgical intervention since abscess is not drainable (also surgery discussed case with [facility] [place] [facility] in [place] who agreed as well that that the collection was not drainable.) Continue IV Zosyn Continue IVF and pain controlled Starting on clear liquid diet Chronic Diarrhea Possible related to chemo and radiation Stool for C-diff toxin negative (No active Cdiff) Only had one episode of diarrhea today WBC normal Monitor electrolytes Left Hydronephrosis Denies flank pain Urology on board recommended conservative management No ureteral stent placement unless patient condition declined Electrolytes Imbalance Likely due to poor oral intake and diarrhea K and Mg replaced Monitor electrolytes H/O Recurrent Metastatic Cervical Cancer S/P radiation, ongoing chemotherapy Surgery discussed case with Online Advertising Director/onc that recommended conservative management with IV abx If symptoms worsening, will consider surgical intervention Anemia of Chronic disease Hbg 8.3 today Monitor CBC DM II: Most recent Hba1c 7 Currently diet controlled Continue monitor BS Tobacco Use: Counseling on smoking cessation DVT Px: Lovenox SQ Code Status Full Code Subjective Pt was seen and examined Lying in bed with no distress Pt said that she feels a little better today She just had one episode of diarrhea today She said that her abdominal pain slightly improves Tolerated with clear liquid diet Denies any chest pain, palpitation, dizziness and SOB Physical Exam Physical Exam: General- No acute distress Head- atraumatic Eyes- PERRL, EOMI, ENT- oropharynx clear Neck- supple, no JVD Lungs- clear to auscultation Heart- regular rhythm; no murmur Abdomen- normal bowel sounds, soft, +tender with palpation Extremities- no calf tenderness Neuro- alert, oriented x 3; PERRL, EOMI; no facial palsy; no dysarthria Skin- warm & dry Results & Data Vital Signs (Past 12 Hours) Vital Signs Temp Pulse Resp BP BP Pulse Ox 02/26/19 14:58 36.8 C 89 16 124/80 97 02/26/19 07:32 36.9 C 84 18 102/66 93
[2019-02-27] MEDS: PIPERACILLIN/TAZOBACTAM 3.375 GM in DEXTROSE 5% 100 ML IV SCH ×3 (06:12→23:24)
[2019-02-27] MEDS: MoRPHine SULFATE 2 MG/ML CARP IV PRN ×4 (06:29→22:35)
[2019-02-27 08:09] LABS: Hematocrit (blood only) 27.2 % (37-47); Hemoglobin 8.5 g/dL (12.0-16.0); Mean Corpuscular Hgb Conc 31.3 g/dL (32-36); Mean Corpuscular Volume 96.8 fL (80-100); Mean Platelet Volume 8.6 fL (7.4-10.4); Platelet Count 312 K/uL (130-400); RDW Coefficient of Variation 15.8 % (11.5-14.5); RDW Standard Deviation 56.1 fL (36.4-46.3); Red Blood Count 2.81 M/uL (4.2-5.4); White Blood Count 7.13 K/uL (4.8-10.8)
[2019-02-27 08:37] LABS: BUN Creatinine Ratio 4.9 (10-20); Calcium 9.3 mg/dl (8.5-10.1); Creatinine Clr Calc Pharmacy 68.1 ml/min; Est GFR (African American) 114.7; Magnesium 1.7 mg/dl (1.8-2.4); Potassium 4.4 mmol/L (3.5-5.1)
[2019-02-27] MEDS: INSULIN ASPART 100 UNITS/ML 3 ML PEN SC SCH ×4 (09:00→21:18)
[2019-02-27] MEDS: METOPROLOL SUCC 25MG EXT REL TAB PO SCH (09:05)
[2019-02-27] MEDS: ENOXAPARIN INJ 30 MG/0.3 ML SYR SQ SCH (09:05)
--- NOTE | 2019-02-27 11:53 | Surgery Progress Note ---
Date of Service February 27, 2019 Assessment & Plan (1) Intra-abdominal abscess: Subjectively unchanged WBC is normal Afebrile Recommend continuing with conservative measures with IV antibiotics for now Encourage ambulation Subjective Abdominal pain in the lower portion of her abdomen is unchanged in intensity and frequency Still having loose stool, no hematochezia No nausea or vomiting Physical Exam Gastrointestinal (Abdomen): Inspection/Auscultation: abdomen not distended Percussion/Palpation: + abdomen tender (Lower abdomen to mild to moderate palpation) and abdomen soft Results & Data Vital Signs (Past 12 Hours) Vital Signs Temp Pulse Resp BP Pulse Ox 02/27/19 07:40 36.7 C 85 18 113/74 96 Laboratory Results 02/27/19 02/27/19 02/27/19 Range/Units 08:26 07:48 07:48 WBC 7.13 (4.8-10.8) K/uL RBC 2.81 L (4.2-5.4) M/uL Hgb 8.5 L (12.0-16.0) g/dL Hct 27.2 L (37-47) % MCV 96.8 (80-100) fL MCH 30.2 (25-34) pg MCHC 31.3 L (32-36) g/dL RDW Std Deviation 56.1 H (36.4-46.3) fL RDW Coeff of Jessica 15.8 H (11.5-14.5) % Plt Count 312 (130-400) K/uL MPV 8.6 (7.4-10.4) fL Sodium 137 (136-145) mmol/L Potassium 4.4 D (3.5-5.1) mmol/L Chloride 99 (98-107) mmol/L Carbon Dioxide 32 (21-32) mmol/L Anion Gap 6.0 (3-11) BUN 3 L (7-18) mg/dl Creatinine 0.67 (0.6-1.2) mg/dl Est Cr Clr Drug Dosing 68.1 ml/min Est GFR ( Amer) 114.7 Est GFR (Non-Af Amer) 99.0 BUN/Creatinine Ratio 4.9 L (10-20) Glucose 94 (70-99) mg/dl POC Glucose 101 H (70-99) Calcium 9.3 (8.5-10.1) mg/dl Magnesium 1.7 L (1.8-2.4) mg/dl 02/26/19 02/26/19 02/26/19 Range/Units 20:44 17:47 12:22 WBC (4.8-10.8) K/uL RBC (4.2-5.4) M/uL Hgb (12.0-16.0) g/dL Hct (37-47) % MCV (80-100) fL MCH (25-34) pg MCHC (32-36) g/dL RDW Std Deviation (36.4-46.3) fL RDW Coeff of Jessica (11.5-14.5) % Plt Count (130-400) K/uL MPV (7.4-10.4) fL Sodium (136-145) mmol/L Potassium (3.5-5.1) mmol/L Chloride (98-107) mmol/L Carbon Dioxide (21-32) mmol/L Anion Gap (3-11) BUN (7-18) mg/dl Creatinine (0.6-1.2) mg/dl Est Cr Clr Drug Dosing ml/min Est GFR ( Amer) Est GFR (Non-Af Amer) BUN/Creatinine Ratio (10-20) Glucose (70-99) mg/dl POC Glucose 117 H 86 125 H (70-99) Calcium (8.5-10.1) mg/dl Magnesium (1.8-2.4) mg/dl
--- NOTE | 2019-02-27 18:15 | Hospitalist Progress Note ---
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 The extraluminal gas at this location is consistent with focal microperforation and remains unchanged. However, there has been interval development of extr aluminal bowel contents/stool anterior to the distal sigmoid colon extending through the site of perforation. The progressive inflammatory change surrounding the distal sigmoid colon appears to result in focal narrowing of the distal left ureter with mild left hydronephrosis as well as focal narrowing of the distal sigmoid colon likely resulting in a low-grade partial large bowel obstruction. Surgery on board recommended conservative management. No surgical intervention since abscess is not drainable (also surgery discussed [place] [facility] [place] who agreed as well that that the collection was not drainable.) Continue IV Zosyn Continue IVF and pain controlled Continue clear liquid diet Chronic Diarrhea Possible related to chemo and radiation Stool for C-diff toxin negative (No active Cdiff) Only had one episode of diarrhea today WBC normal Monitor electrolytes Left Hydronephrosis Denies flank pain Urology on board recommended conservative management No ureteral stent placement unless patient condition declined Electrolytes Imbalance Likely due to poor oral intake and diarrhea K and Mg replaced Monitor electrolytes H/O Recurrent Metastatic Cervical Cancer S/P radiation, ongoing chemotherapy Surgery discussed case with Dock Associate/onc that recommended conservative management with IV abx If symptoms worsening, will consider surgical intervention Anemia of Chronic disease Hbg 8.5 today Monitor CBC DM II: Most recent Hba1c 7 Currently diet controlled Continue monitor BS Tobacco Use: Counseling on smoking cessation DVT Px: Lovenox SQ Code Status Full Code Subjective Pt was seen and examined Lying in bed with no distress Pt said that her pain is located below her low abdomen around her pelvis She said that the pain seems to be related to her usual cancer pain She said that she had 2 loose BM today Denies any fever, palpitation and SOB Physical Exam Physical Exam: General- No acute distress Head- atraumatic Eyes- PERRL, EOMI, ENT- oropharynx clear Neck- supple, no JVD Lungs- clear to auscultation Heart- regular rhythm; no murmur Abdomen- normal bowel sounds, soft, +tender with palpation in lower abdomen Extremities- no calf tenderness Neuro- alert, oriented x 3; PERRL, EOMI; no facial palsy; no dysarthria Skin- warm & dry Results & Data Vital Signs (Past 12 Hours) Vital Signs Temp Pulse Resp BP Pulse Ox 02/27/19 15:23 36.8 C 89 18 112/75 98 02/27/19 07:40 36.7 C 85 18 113/74 96
[2019-02-28] MEDS: MoRPHine SULFATE 2 MG/ML CARP IV PRN ×5 (02:13→23:46)
[2019-02-28] MEDS: PIPERACILLIN/TAZOBACTAM 3.375 GM in DEXTROSE 5% 100 ML IV SCH ×3 (07:53→23:36)
[2019-02-28] MEDS: ENOXAPARIN INJ 30 MG/0.3 ML SYR SQ SCH (08:28)
[2019-02-28] MEDS: METOPROLOL SUCC 25MG EXT REL TAB PO SCH (08:28)
[2019-02-28] MEDS: INSULIN ASPART 100 UNITS/ML 3 ML PEN SC SCH ×4 (08:32→21:26)
--- NOTE | 2019-02-28 10:45 | Surgery Progress Note ---
Date of Service February 28, 2019 Assessment & Plan (1) Intra-abdominal abscess: Intra-abdominal collection being treated with conservative measures Subjectively unchanged Continue with IV antibiotics Can reassess with repeat scan in 1 to 2 days Present on Admission?: Yes Subjective Feels about the same as yesterday Abdominal pain is intermittent Denies nausea and vomiting Physical Exam Gastrointestinal (Abdomen): Inspection/Auscultation: abdomen not distended Percussion/Palpation: + abdomen tender (Less tender today) and abdomen soft Results & Data Vital Signs (Past 12 Hours) Vital Signs Temp Pulse Resp BP Pulse Ox 02/28/19 07:33 36.6 C 91 H 16 112/74 97 02/27/19 23:40 36.8 C 90 16 127/83 95 Laboratory Results 02/28/19 02/27/19 02/27/19 Range/Units 08:13 20:59 17:08 POC Glucose 104 H 99 117 H (70-99) 02/27/19 Range/Units 12:09 POC Glucose 137 H (70-99)
--- NOTE | 2019-02-28 10:50 | Surgery Progress Note ---
Date of Service February 28, 2019 Assessment & Plan (1) Perforated bowel: Postoperative day #2 status post Amy procedure Peristalsis seems to be returning Discontinue NG tube and start sips of clear liquids Encouraged ambulation Subjective Postoperative day #2 status post Amy procedure Feels some better today Ambulated to chair yesterday Required straight cath so we will follow that Denies nausea and vomiting HANY drainage not assessed Gas present in colostomy bag No solid or liquid colostomy output as yet Physical Exam Gastrointestinal (Abdomen): Inspection/Auscultation: normal bowel sounds; abdomen not distended Percussion/Palpation: abdomen soft Results & Data Vital Signs (Past 12 Hours) Vital Signs Temp Pulse Resp BP Pulse Ox 02/28/19 07:33 36.6 C 91 H 16 112/74 97 02/27/19 23:40 36.8 C 90 16 127/83 95 Laboratory Results 02/28/19 02/27/19 02/27/19 Range/Units 08:13 20:59 17:08 POC Glucose 104 H 99 117 H (70-99) 02/27/19 Range/Units 12:09 POC Glucose 137 H (70-99)
--- NOTE | 2019-02-28 18:46 | Hospitalist Progress Note ---
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 The extraluminal gas at this location is consistent with focal microperforation and remains unchanged. However, there has been interval development of extr aluminal bowel contents/stool anterior to the distal sigmoid colon extending through the site of perforation. The progressive inflammatory change surrounding the distal sigmoid colon appears to result in focal narrowing of the distal left ureter with mild left hydronephrosis as well as focal narrowing of the distal sigmoid colon likely resulting in a low-grade partial large bowel obstruction. Surgery on board recommended conservative management. No surgical intervention since abscess is not drainable (also surgery discussed case with [facility] [place] who agreed as well that that the collection was not drainable.) Continue IV Zosyn Continue IVF and pain controlled Continue clear liquid diet Chronic Diarrhea Possible related to chemo and radiation Stool for C-diff toxin negative (No active Cdiff) Only had one episode of diarrhea today WBC normal Monitor electrolytes Left Hydronephrosis Denies flank pain Urology on board recommended conservative management No ureteral stent placement unless patient condition declined Electrolytes Imbalance Likely due to poor oral intake and diarrhea Monitor electrolytes H/O Recurrent Metastatic Cervical Cancer S/P radiation, ongoing chemotherapy Surgery discussed case with Online Marketing Director/onc that recommended conservative management with IV abx If symptoms worsening, will consider surgical intervention Anemia of Chronic disease Hbg 8.5 Monitor CBC DM II: Most recent Hba1c 7 Currently diet controlled Continue monitor BS Tobacco Use: Counseling on smoking cessation DVT Px: Lovenox SQ Code Status Full Code Subjective Pt was seen and and examined Lying in bed with no distress She continues to have pain But her pain is more above her bladder area She said that the dean helps with the pain She wants to continue the clear liquid diet She said that the pain she is having now it is her chronic pain Denies any chest pain, palpitation and SOB Physical Exam Physical Exam: General- No acute distress Head- atraumatic Eyes- PERRL, EOMI, ENT- oropharynx clear Neck- supple, no JVD Lungs- clear to auscultation Heart- regular rhythm; no murmur Abdomen- normal bowel sounds, soft, +tender with palpation above her bladder area Extremities- no calf tenderness Neuro- alert, oriented x 3; PERRL, EOMI; no facial palsy; no dysarthria Skin- warm & dry Results & Data Vital Signs (Past 12 Hours) Vital Signs Temp Pulse Resp BP Pulse Ox 02/28/19 14:53 36.8 C 89 16 100/68 95 02/28/19 07:33 36.6 C 91 H 16 112/74 97
[2019-03-01] MEDS: MoRPHine SULFATE 2 MG/ML CARP IV PRN ×5 (05:54→22:14)
[2019-03-01] MEDS: PIPERACILLIN/TAZOBACTAM 3.375 GM in DEXTROSE 5% 100 ML IV SCH ×3 (06:36→22:14)
[2019-03-01 07:37] LABS: BUN Creatinine Ratio 5.9 (10-20); Calcium 9.5 mg/dl (8.5-10.1); Creatinine Clr Calc Pharmacy 57.8 ml/min; Est GFR (African American) 97.7; Est GFR (Non-African American) 84.3; Magnesium 1.8 mg/dl (1.8-2.4); Potassium 3.9 mmol/L (3.5-5.1)
[2019-03-01] MEDS: ENOXAPARIN INJ 30 MG/0.3 ML SYR SQ SCH (08:33)
[2019-03-01] MEDS: METOPROLOL SUCC 25MG EXT REL TAB PO SCH (08:35)
[2019-03-01] MEDS: INSULIN ASPART 100 UNITS/ML 3 ML PEN SC SCH ×4 (08:37→21:07)
--- NOTE | 2019-03-01 09:54 | Progress Note ---
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 She was referred to the hospital on 02/24/19 after findings on repeat CT scan for possible abscess drainage. In review of the CT scan she continued to have free air in the pelvis, which is only slightly increased as well as a small fluid collection (~3.8 cm), which is undrainable. The case was discussed with Dr. Haas, Psychologist Personnel Onc at [facility] [place], who agreed with conservative management. If patient were to not respond would transfer to [place], and will continue to update Dr. Haas. Currently trial of management with IV antibiotics. - Continue IV abx - Repeat CT scan with IV and PO contrast to assess status - Continue clears until results of CT scan - Further recommendations pending results of CT scan Subjective Pt continues to have abdominal pain, which is at its baseline. States condition fluctuates, over the weekend she felt she had improved somewhat and now feels like she is almost back to how she was on admission. However, she is tolerating clears. Has 2-3 BMs daily which are soft or liquid. Physical Exam Constitutional: chronically ill appearing Respiratory: normal respiratory effort Gastrointestinal (Abdomen): soft, nondistended, suprapubic tenderness Results & Data Vital Signs (Past 12 Hours) Vital Signs Temp Pulse Pulse Resp BP Pulse Ox 03/01/19 08:35 96 H 107/75 03/01/19 07:49 36.5 C 92 H 14 99/68 L 96 02/28/19 22:25 36.6 C 85 19 111/74 97 Laboratory Results 03/01/19 03/01/19 02/28/19 Range/Units 08:13 06:47 20:54 Sodium 136 (136-145) mmol/L Potassium 3.9 (3.5-5.1) mmol/L Chloride 98 (98-107) mmol/L Carbon Dioxide 33 H (21-32) mmol/L Anion Gap 5.0 (3-11) BUN 5 L (7-18) mg/dl Creatinine 0.79 (0.6-1.2) mg/dl Est Cr Clr Drug Dosing 57.8 ml/min Est GFR ( Amer) 97.7 Est GFR (Non-Af Amer) 84.3 BUN/Creatinine Ratio 5.9 L (10-20) Glucose 108 H (70-99) mg/dl POC Glucose 105 H 126 H (70-99) Calcium 9.5 (8.5-10.1) mg/dl Magnesium 1.8 (1.8-2.4) mg/dl 02/28/19 02/28/19 Range/Units 17:12 12:25 Sodium (136-145) mmol/L Potassium (3.5-5.1) mmol/L Chloride (98-107) mmol/L Carbon Dioxide (21-32) mmol/L Anion Gap (3-11) BUN (7-18) mg/dl Creatinine (0.6-1.2) mg/dl Est Cr Clr Drug Dosing ml/min Est GFR ( Amer) Est GFR (Non-Af Amer) BUN/Creatinine Ratio (10-20) Glucose (70-99) mg/dl POC Glucose 114 H 160 H (70-99) Calcium (8.5-10.1) mg/dl Magnesium (1.8-2.4) mg/dl
--- NOTE | 2019-03-01 11:23 | Urology Progress Note ---
Date of Service March 01, 2019 Assessment & Plan (1) Hydronephrosis: (2) Acute urinary retention: 53yo F with metastatic cervical cancer, sigmoid bowel perforation, incomplete emptying with indwelling catheter Tolerating catheter well. We briefly discussed options moving forward, hopeful that once she starts to feel better her urination will improve. However we did discuss potential option for [facility]IC in the future. She is reluctant to this, but through more conversation states she may be open to learning if necessary. Will add flomax to regimen for possible benefit with incomplete emptying, please discontinue if she develops new onset lightheadness/dizziness. Plan for CT abd/pelvis today to assess bowel perf by general surgery, will check status of hydronephrosis on CT. Monitoring conservatively unless she develops severe L flank pain, kidney failure or fever >101F. Will plan for outpatient visit with TOV in 7-10 days as outpatient. However, if inpatient hospitalization remains required until this time we can perform passive trial of void inpatient or at rehab facility. Subjective 53yo F with metastatic cervical cancer s/p radiation with ongoing chemotherapy, admitted to [facility] on 02/24 for lower abdominal pain, diarrhea. 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 We were consulted to assist with finding of mild left hydroureteronephrosis from CT performed on 02/08, as well as incomplete emptying. Pt does acknowledge some need to push/strain to urinate prior to admission. She ultimately had catheter placed for repeated straight cath on on 02/26. She is tolerating catheter well. Denies bladder pain, suprapubic discomfort or bladder spasms. NO further complaints. No previous evaluation prior to this admission. Currently drinking oral contrast for planned CT ordered by General Surgery. Review of Systems Review of Systems: All systems reviewed & are unremarkable except as noted in HPI & below Physical Exam Physical Exam: A&Ox3 RRR abd soft, no guarding some lower abdominal/suprapubic tenderness - nothing new or different per patient report. dean draining clear yellow Results & Data Vital Signs (Past 12 Hours) Vital Signs Temp Pulse Pulse Resp BP Pulse Ox 03/01/19 08:35 96 H 107/75 03/01/19 07:49 36.5 C 92 H 14 99/68 L 96
--- NOTE | 2019-03-01 14:25 | Hospitalist Progress Note ---
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 The extraluminal gas at this location is consistent with focal microperforation and remains unchanged. However, there has been interval development of ext raluminal bowel contents/stool anterior to the distal sigmoid colon extending through the site of perforation. The progressive inflammatory change surrounding the distal sigmoid colon appears to result in focal narrowing of the distal left ureter with mild left hydronephrosis as well as focal narrowing of the distal sigmoid colon likely resulting in a low-grade partial large bowel obstruction. Surgery on board recommended conservative management. No surgical intervention since abscess is not drainable (also surgery discussed case with [facility] [place] who agreed as well that that the collection was not drainable.) Continue to have pain CT abd/pelvis w/wo contrast ordered by surgery team She is trying to drink the contrast Continue IV Zosyn Continue IVF and pain controlled Continue clear liquid diet Chronic Diarrhea Possible related to chemo and radiation Stool for C-diff toxin negative (No active Cdiff) Only had one episode of diarrhea today WBC normal Monitor electrolytes Left Hydronephrosis Denies flank pain Urology on board recommended conservative management No ureteral stent placement unless patient condition declined Continue dean catheter as per urology Electrolytes Imbalance Likely due to poor oral intake and diarrhea Monitor electrolytes H/O Recurrent Metastatic Cervical Cancer S/P radiation, ongoing chemotherapy Surgery discussed case with Leather Scrubber/onc that recommended conservative management with IV abx If symptoms worsening, will consider surgical intervention Anemia of Chronic disease Hbg 8.5 Monitor CBC DM II: Most recent Hba1c 7 Currently diet controlled Continue monitor BS Tobacco Use: Counseling on smoking cessation DVT Px: Lovenox SQ Code Status Full Code Subjective Pt was seen and examined Lying in bed with no distress Pt said that she had pain med early and her pain is better control now She is trying to drink the contrast for the repeat CT She said that she continue to have the pain above the bladder/pelvis area Denies any chest pain, palpitation, dizziness and SOB Physical Exam Physical Exam: General- No acute distress Head- atraumatic Eyes- PERRL, EOMI, ENT- oropharynx clear Neck- supple, no JVD Lungs- clear to auscultation Heart- regular rhythm; no murmur Abdomen- normal bowel sounds, soft, +tender with palpation above her bladder area Extremities- no calf tenderness Neuro- alert, oriented x 3; PERRL, EOMI; no facial palsy; no dysarthria Skin- warm & dry Results & Data Vital Signs (Past 12 Hours) Vital Signs Temp Pulse Pulse Resp BP Pulse Ox 03/01/19 08:35 96 H 107/75 03/01/19 07:49 36.5 C 92 H 14 99/68 L 96
[2019-03-01] MEDS ORDERED: IOVERSOL 100ml IV PRN (14:56)
--- NOTE | 2019-03-01 15:14 | CT Scan Report ---
CT abd pelvis oral and IV con CLINICAL HISTORY: 53 years-old Female presenting with assess status of colon perf, abscess. TECHNIQUE: Multidetector CT of the abdomen and pelvis was performed after the administration of oral and intravenous contrast. IV contrast: 94 mL of Optiray 320. One or more dose lowering techniques wer e used consistent with the principles of ALARA (as low as reasonably achievable), including automatic exposure control, mA or kV adjustment to individual patient size, and/or use of iterative reconstruc tion. COMPARISON: 02/08/2019. CT DOSE (mGy.cm): The estimated cumulative dose is 284.06 mGy.cm. FINDINGS: Echometer Engineer topogram: Cholecystectomy clips. Lung bases: Normal heart size. Coronary artery and aortic valve calcification. No pericardial or pleu ral effusion. No focal infiltrate or nodule at the lung bases. Liver: Normal morphology. No liver lesion. Patent hepatic vasculature. Biliary: No intrahepatic or extrahepatic biliary ductal dilatation. The gallbladder is likely distend ed on a physiologic basis. No associated wall thickening or inflammatory change. Pancreas: Limited pancreatic ductal dilatation in the distal most pancreatic tail with calcifications potentially within the pancreatic duct. The appearance is unchanged from prior. Spleen: Normal. Adrenal glands: Normal. Kidneys and ureters: Moderate left pelvocaliectasis slightly worsened from prior exam with distention of the left ureter to the level of the left pelvic sidewall. No right hydronephrosis. There is sligh tly delayed perfusion of the left kidney in comparison to the right. Bladder: Bladder decompressed with a Mccollum catheter. Pelvic organs: Uterus and ovaries are present. Extensive fluid and gas within the vaginal fornix, whi ch is poorly delineated and potentially perforated. Extensive fluid within the vagina as well as muco ethan hyperemia. Bowel: Circumferentially thick-walled rectum with mucosal hyperenhancement. This appearance extends f rom the lower rectum to the mid sigmoid colon. Sigmoid colon in the mid to distal portion is severely stenotic and unchanged in configuration from prior. Foci of extraluminal gas along this region (seri es 3 image 333). Adjacent peritoneal thickening in the pelvis. No gross discontinuity of the sigmoid colon wall. Mild up stream distention in the proximal sigmoid colon, which contains fluid. The remain rebecca of the colon is not significant nondistended. The appendix is normal. No high-grade partial or co mplete bowel obstruction. The stomach is mildly distended. Peritoneal cavity: Fluid and gas noted within the rectouterine recess with gross continuity of the va ginal vault. No rim-enhancing collection is suggest abscess. No free intraperitoneal gas though there is extraluminal gas within the pelvis as mentioned above. Extensive extrapleural fluid and fascial t hickening along the pelvic sidewalls and in the presacral region. Lymph nodes: No enlarged lymph nodes in the abdomen or pelvis. Vasculature: Extensive atherosclerosis of the normal caliber abdominal aorta. IVC patent. Few foci of gas in the subcutaneous tissue of the anterior abdominal wall likely relates to medication administr ation. Abdominal wall: Normal. Musculoskeletal: Degenerative changes of the spine. IMPRESSION: 1. Persistent extraluminal gas and fluid in the rectouterine recess with associated inflammatory estrella nge. Mucosal discontinuity of the vaginal vault is highly suspicious for vaginal perforation. Given t he history of cervical and/or uterine radiation, this may be a consequence of postradiation necrosis and/or inflammatory change. 2. No well delineated perforation site of the sigmoid colon on the current exam. If this remains of clinical concern, a fluoroscopic examination with water-soluble contrast could be performed versus CT with delayed oral contrast or rectal contrast. 3. Diffuse wall thickening of the mid to distal sigmoid colon and rectum can be seen in the setting of post radiation change. 4. No complete or high-grade partial bowel obstruction. 5. Slight interval worsening of left moderate hydroureteronephrosis. This is likely due to inflammat ory and/or fibrotic change along the left pelvic sidewall. Electronically signed by: Freddie Martinez M.D. 03/01/2019 3:13 PM
[2019-03-01] MEDS: TAMSULOSIN HCL 0.4 MG CAP PO SCH (22:14)
[2019-03-02] MEDS: MoRPHine SULFATE 2 MG/ML CARP IV PRN ×5 (06:32→22:17)
[2019-03-02] MEDS: PIPERACILLIN/TAZOBACTAM 3.375 GM in DEXTROSE 5% 100 ML IV SCH ×3 (06:33→22:17)
[2019-03-02 07:23] LABS: Hematocrit (blood only) 30.8 % (37-47); Hemoglobin 9.7 g/dL (12.0-16.0); Mean Corpuscular Hgb Conc 31.5 g/dL (32-36); Mean Corpuscular Volume 97.2 fL (80-100); Mean Platelet Volume 8.8 fL (7.4-10.4); Platelet Count 295 K/uL (130-400); RDW Standard Deviation 57.1 fL (36.4-46.3); Red Blood Count 3.17 M/uL (4.2-5.4); White Blood Count 6.28 K/uL (4.8-10.8)
[2019-03-02 08:03] LABS: BUN Creatinine Ratio 5.1 (10-20); Calcium 9.7 mg/dl (8.5-10.1); Creatinine Clr Calc Pharmacy 57.8 ml/min; Est GFR (African American) 97.7; Est GFR (Non-African American) 84.3; Potassium 3.6 mmol/L (3.5-5.1)
[2019-03-02] MEDS: ENOXAPARIN INJ 30 MG/0.3 ML SYR SQ SCH (09:23)
[2019-03-02] MEDS: METOPROLOL SUCC 25MG EXT REL TAB PO SCH (09:24)
[2019-03-02] MEDS: INSULIN ASPART 100 UNITS/ML 3 ML PEN SC SCH ×4 (09:24→21:19)
--- NOTE | 2019-03-02 11:45 | Urology Progress Note ---
Date of Service March 02, 2019 Assessment & Plan (1) Hydronephrosis: (2) Ureteral stricture, left: (3) Acute urinary retention: 53yo F with metastatic cervical ca, sigmoid bowel perforation, incomplete emptying with indwelling catheter. Final UC&S no growth. Continue dean catheter. Continue flomax, watch for side effects of dizziness/lightheadedness. L hydro -slightly worsened on CT imaging. Will continue to monitor conservatively as patient remains asymptomatic. Please recontact our service for severe L flank pain, fevers >101F, or deteriorating kidney function. Will followup as outpatient, arrangement to be made by our office. Will arrange TOV as outpatient unless inpatient or rehab status maintains x2 weeks then okay to attempt passive TOV in facility. Please reconsult us with questions, concerns or changes in patient status. Subjective 53yo F with metastatic cervical cancer s/p radiation with ongoing chemotherapy, admitted to [facility] on 02/24 for lower abdominal pain, diarrhea. 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 Continues to tolerate catheter well. Denies bladder pain, suprapubic discomfort or bladder spasms. Denies hematuria. No new complaints today. Continues to tolerate clear liquid diet without nausea/vomiting. Review of Systems Review of Systems: All systems reviewed & are unremarkable except as noted in HPI & below Physical Exam Physical Exam: A&Ox3 RRR Abd soft, nontender some suprapubic tenderness but improved from yesterday's exam Results & Data Vital Signs (Past 12 Hours) Vital Signs Temp Pulse Resp BP Pulse Ox 03/02/19 07:49 36.5 C 87 14 103/48 L 100 Laboratory Results Laboratory Results - last 48 hr 02/28/19 02/28/19 03/01/19 17:12 20:54 06:47 WBC RBC Hgb Hct MCV MCH MCHC RDW Std Deviation RDW Coeff of Jessica Plt Count MPV Sodium 136 Potassium 3.9 Chloride 98 Carbon Dioxide 33 H Anion Gap 5.0 BUN 5 L Creatinine 0.79 Est Cr Clr Drug Dosing 57.8 Est GFR ( Amer) 97.7 Est GFR (Non-Af Amer) 84.3 BUN/Creatinine Ratio 5.9 L Glucose 108 H POC Glucose 114 H 126 H Calcium 9.5 Magnesium 1.8 03/01/19 03/01/19 03/01/19 08:13 12:02 17:37 WBC RBC Hgb Hct MCV MCH MCHC RDW Std Deviation RDW Coeff of Jessica Plt Count MPV Sodium Potassium Chloride Carbon Dioxide Anion Gap BUN Creatinine Est Cr Clr Drug Dosing Est GFR ( Amer) Est GFR (Non-Af Amer) BUN/Creatinine Ratio Glucose POC Glucose 105 H 191 H 131 H Calcium Magnesium 03/01/19 03/02/19 03/02/19 20:55 07:08 07:08 WBC 6.28 RBC 3.17 L Hgb 9.7 L Hct 30.8 L MCV 97.2 MCH 30.6 MCHC 31.5 L RDW Std Deviation 57.1 H RDW Coeff of Jessica 16.0 H Plt Count 295 MPV 8.8 Sodium 138 Potassium 3.6 Chloride 97 L Carbon Dioxide 31 Anion Gap 10.0 BUN 4 L Creatinine 0.79 Est Cr Clr Drug Dosing 57.8 Est GFR ( Amer) 97.7 Est GFR (Non-Af Amer) 84.3 BUN/Creatinine Ratio 5.1 L Glucose 131 H POC Glucose 158 H Calcium 9.7 Magnesium 03/02/19 03/02/19 08:35 11:54 WBC RBC Hgb Hct MCV MCH MCHC RDW Std Deviation RDW Coeff of Jessica Plt Count MPV Sodium Potassium Chloride Carbon Dioxide Anion Gap BUN Creatinine Est Cr Clr Drug Dosing Est GFR ( Amer) Est GFR (Non-Af Amer) BUN/Creatinine Ratio Glucose POC Glucose 150 H 117 H Calcium Magnesium
--- NOTE | 2019-03-02 12:05 | Surgery Progress Note ---
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 She was referred to the hospital on 02/24/19 after findings on repeat CT scan for possible abscess drainage. In review of the CT scan she continued to have free air in the pelvis, which is only slightly increased as well as a small fluid collection (~3.8 cm), which is undrainable. The case was discussed with Dr. Haas, Political Advisor [place] [facility] [place] agreed with conservative management. Patient had repeat CT scan with oral contrast on 03/01/19 which showed concern for vaginal perforation instead of sigmoid colon perforation. No abscesses. She had positive PET scan in October with new vaginal lesion. Concern for peritoneal seeding given vaginal perforation with new vaginal tumor. - Continue IV abx - advance to full liquids, add BOOST BID - All CT scan [place] [facility] [place] to [place]. If patient were to not respond or clinically become unstable would recommend transfer to [facility] - await Dr. Lopez review of CT scan reports especially 03/01/[address] Plascencia at 5:30 pm. She spoke with Dr. Haas who reviewed recent CT scan of 03/01/19. No recommendations for intervention based on CT report findings. Recommend advancing diet as tolerate, increase nutrition, and continue antibiotics for two weeks with close follow-up with Dr. Haas as an outpatient early next week. Dr. Wood has seen and examined pt, agrees with above. Subjective feeling okay pain comes and goes, about the same, lower abdomen liquid bowel movements denies nausea or vomiting appetite minimal, cannot tolerate peach boost denies any stool coming from vagina or air from vagina back pain in middle of back, comes and goes Physical Exam Constitutional: + ill appearing (s/p chemo /radiation); no acute distress Respiratory: normal respiratory effort; no respiratory distress Gastrointestinal (Abdomen): Percussion/Palpation: + abdomen tender (mild tenderness lower abdomen, no peritonitis, rigidity, guarding, rebound.) Skin: no rashes, warm and dry Psychiatric: A+Ox3, euthymic affect Results & Data Vital Signs (Past 12 Hours) Vital Signs Temp Pulse Resp BP Pulse Ox 03/02/19 07:49 36.5 C 87 14 103/48 L 100
--- NOTE | 2019-03-02 15:01 | Hospitalist Progress Note ---
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 The extraluminal gas at this location is consistent with focal microperforation and remains unchanged. However, there has been interval development of ext raluminal bowel contents/stool anterior to the distal sigmoid colon extending through the site of perforation. The progressive inflammatory change surrounding the distal sigmoid colon appears to result in focal narrowing of the distal left ureter with mild left hydronephrosis as well as focal narrowing of the distal sigmoid colon likely resulting in a low-grade partial large bowel obstruction. Surgery on board recommended conservative management. No surgical intervention since abscess is not drainable (also surgery discussed case with [facility] [place] who agreed as well that that the collection was not drainable.) Continue to have pain CT abd/pelvis w/wo contrast : 03/01/2019 Persistent extraluminal gas and fluid in the rectouterine recess with associated inflammatory change. Mucosal discontinuity of the vaginal vault is highly suspicious for vaginal perforation. Given the history of cervical and/or uterine radiation, this may be a consequence of postradiation necrosis and/or inflammatory change. No evidence of sigmoid perforation noted, Patient input from surgery, CT images reviewed with [employer] oncology Dr. Haas and [facility] Recommend continue conservative approach, as patient does not have any clinical decline, no evidence of sepsis or evidence of peritonitis Continue IV Zosyn Diet advanced to full liquid Chronic Diarrhea Possible related to chemo and radiation Stool for C-diff toxin negative (No active Cdiff) Left Hydronephrosis Possible progression of pelvic malignancy Denies flank pain Urology on board recommended conservative management No ureteral stent placement unless patient condition declined Continue dean catheter as per urology Recurrent Metastatic Cervical Cancer Diagnosed in 2017 with mets to Psoas muscle S/P radiation, ongoing chemotherapy Surgery discussed case with Siding Mechanic/onc that recommended conservative management with IV abx Recent PET scan done on 10/2018: Showed evidence of new malignancy/focal lesion in the vaginal wall CT abdomen pelvis on 03/01/2019 shows vaginal wall perforation possibly secondary to invasive malignancy Overall prognosis remains extremely poor Patient and aware Anemia of Chronic disease Hemoglobin remained stable, no evidence of GI bleed DM II: Most recent Hba1c 7 Currently diet controlled Continue monitor BS Tobacco Use: Counseling on smoking cessation DVT Px: Moderate to high risk given extensive malignancy, debilitating status with poor functional capacity Lovenox SQ Code Status Full Code Have discussion with patient and family regarding overall poor prognosis Will benefit with palliative care consult Disposition: Continue conservative management with IV antibiotic, advance diet as tolerated Expected to be discharged home when medically stable Subjective Complaints of pain on the suprapubic area, No fever or chills, No nausea, ordered for full liquid diet by surgery, appetite remains very poor Physical Exam Constitutional: + ill appearing, + thin and + cachectic Eyes: + anicteric sclerae ENMT: external ear and nose normal, oropharynx normal Neck: trachea midline, no thyromegaly Respiratory: normal respiratory effort, lungs clear to auscultation Cardiovascular: RRR, no murmur, no edema Gastrointestinal (Abdomen): Percussion/Palpation: + abdomen tender (On suprapubic area) Musculoskeletal: no cyanosis or clubbing, extremities motor strength 5/5 Skin: no rashes, warm and dry Neurologic: PERRL, EOMI, accommodation nl, no face palsy, no dysarthria Psychiatric: Orientation: alert and oriented x 3 Affect: + flat affect Results & Data Vital Signs (Past 12 Hours) Vital Signs Temp Pulse Resp BP Pulse Ox 03/02/19 07:49 36.5 C 87 14 103/48 L 100
[2019-03-02] MEDS: TAMSULOSIN HCL 0.4 MG CAP PO SCH (21:19)
[2019-03-03] MEDS: MoRPHine SULFATE 2 MG/ML CARP IV PRN ×7 (03:45→22:26)
[2019-03-03] MEDS: PIPERACILLIN/TAZOBACTAM 3.375 GM in DEXTROSE 5% 100 ML IV SCH ×3 (06:38→22:26)
--- NOTE | 2019-03-03 07:56 | Surgery Progress Note ---
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 She was referred to the hospital on 02/24/19 after findings on repeat CT scan for possible abscess drainage. In review of the CT scan she continued to have free air in the pelvis, which is only slightly increased as well as a small fluid collection (~3.8 cm), which is undrainable. The case was discussed with Dr. Haas, Control Clerk Repairs [place] [facility] [place] who agreed with conservative management. Patient had repeat CT scan with oral contrast on 03/01/19 which showed concern for vaginal perforation instead of sigmoid colon perforation. No abscesses. She had positive PET scan in October with new vaginal lesion. Concern for peritoneal seeding given vaginal perforation with new vaginal tumor. - Continue IV abx, transition to oral abx for 2 weeks once tolerating oral intake and ready for discharge - advance diet as tolerated, continue boost BID for nutrition - Close follow up with Dr. Haas early next week if discharged end of week/weekend - Continue medical management Dr. Wood has seen and examined pt, agrees with above. Subjective feeling okay abdominal pain about the same tolerated some of her full liquids last night, no nausea or vomiting after no fevers Physical Exam Constitutional: + thin; no acute distress and not ill appearing Respiratory: normal respiratory effort; no respiratory distress Gastrointestinal (Abdomen): Inspection/Auscultation: abdomen normal to inspection; abdomen not distended Percussion/Palpation: + abdomen tender (lower midline) and abdomen soft; no guarding and abdomen not rigid Skin: no rashes, warm and dry Psychiatric: Orientation: alert and oriented x 3 Affect: + depressed affect and + flat affect Results & Data Vital Signs (Past 12 Hours) Vital Signs Temp Pulse Resp BP Pulse Ox 03/02/19 22:54 36.7 C 95 H 16 90/66 L 97 Laboratory Results 03/02/19 03/02/19 03/02/19 Range/Units 21:07 17:51 11:54 Sodium (136-145) mmol/L Potassium (3.5-5.1) mmol/L Chloride (98-107) mmol/L Carbon Dioxide (21-32) mmol/L Anion Gap (3-11) BUN (7-18) mg/dl Creatinine (0.6-1.2) mg/dl Est Cr Clr Drug Dosing ml/min Est GFR ( Amer) Est GFR (Non-Af Amer) BUN/Creatinine Ratio (10-20) Glucose (70-99) mg/dl POC Glucose 177 H 145 H 117 H (70-99) Calcium (8.5-10.1) mg/dl 03/02/19 03/02/19 Range/Units 08:35 07:08 Sodium 138 (136-145) mmol/L Potassium 3.6 (3.5-5.1) mmol/L Chloride 97 L (98-107) mmol/L Carbon Dioxide 31 (21-32) mmol/L Anion Gap 10.0 (3-11) BUN 4 L (7-18) mg/dl Creatinine 0.79 (0.6-1.2) mg/dl Est Cr Clr Drug Dosing 57.8 ml/min Est GFR ( Amer) 97.7 Est GFR (Non-Af Amer) 84.3 BUN/Creatinine Ratio 5.1 L (10-20) Glucose 131 H (70-99) mg/dl POC Glucose 150 H (70-99) Calcium 9.7 (8.5-10.1) mg/dl (1) Cervical cancer Malignant neoplasm of cervix location: unspecified location Qualified Code(s): C53.9 - Malignant neoplasm of cervix uteri, unspecified
[2019-03-03 08:38] LABS: Creatinine Clr Calc Pharmacy 65.2 ml/min; Est GFR (Non-African American) 97.5
[2019-03-03] MEDS: INSULIN ASPART 100 UNITS/ML 3 ML PEN SC SCH ×4 (09:35→22:04)
[2019-03-03] MEDS: ENOXAPARIN INJ 30 MG/0.3 ML SYR SQ SCH (09:41)
[2019-03-03] MEDS: METOPROLOL SUCC 25MG EXT REL TAB PO SCH (09:41)
--- NOTE | 2019-03-03 15:55 | Hospitalist Progress Note ---
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 The extraluminal gas at this location is consistent with focal microperforation and remains unchanged. However, there has been interval development of ext raluminal bowel contents/stool anterior to the distal sigmoid colon extending through the site of perforation. The progressive inflammatory change surrounding the distal sigmoid colon appears to result in focal narrowing of the distal left ureter with mild left hydronephrosis as well as focal narrowing of the distal sigmoid colon likely resulting in a low-grade partial large bowel obstruction. Surgery on board recommended conservative management. No surgical intervention since abscess is not drainable (also surgery discussed case with [facility] in [place] who agreed as well that that the collection was not drainable.) Continue to have pain CT abd/pelvis w/wo contrast : 03/01/2019 Persistent extraluminal gas and fluid in the rectouterine recess with associated inflammatory change. Mucosal discontinuity of the vaginal vault is highly suspicious for vaginal perforation. Given the history of cervical and/or uterine radiation, this may be a consequence of postradiation necrosis and/or inflammatory change. No evidence of sigmoid perforation noted, Patient input from surgery, CT images reviewed with [employer] oncology Dr. Haas and [facility] Recommend continue conservative approach, as patient does not have any clinical decline, no evidence of sepsis or evidence of peritonitis Continue IV Zosyn Diet advanced to full liquid Chronic Diarrhea Possible related to chemo and radiation Stool for C-diff toxin negative (No active Cdiff) Left Hydronephrosis Possible progression of pelvic malignancy Denies flank pain Urology on board recommended conservative management No ureteral stent placement unless patient condition declined Continue dean catheter as per urology Recurrent Metastatic Cervical Cancer Diagnosed in 2017 with mets to Psoas muscle S/P radiation, ongoing chemotherapy Surgery discussed case with Assembly Machine Tool Setter/onc that recommended conservative management with IV abx Recent PET scan done on 10/2018: Showed evidence of new malignancy/focal lesion in the vaginal wall CT abdomen pelvis on 03/01/2019 shows vaginal wall perforation possibly secondary to invasive malignancy Overall prognosis remains extremely poor Patient and aware Anemia of Chronic disease Hemoglobin remained stable, no evidence of GI bleed DM II: Most recent Hba1c 7 Currently diet controlled Continue monitor BS Tobacco Use: Counseling on smoking cessation DVT Px: Moderate to high risk given extensive malignancy, debilitating status with poor functional capacity Lovenox SQ Code Status Discussed with the patient, aware of the poor prognosis, does not have a living with Does not want heroic measures or resuscitation status in the case of cardiopulmonary arrest CODE STATUS changed to DNR/DNI Disposition: Briefly discussed role of hospice/palliative care To continue with IV antibiotics, outpatient follow-up with E[employer]IC oncology for further treatment plan Understands that if there is no other treatment available/develops continued clinical decline/she can reach for palliative care team for support and treatment of pain symptoms/discomfort Continue conservative management with IV antibiotic, advance diet as tolerated Expected to be discharged home when medically stable (2) Cervical carcinoma: Diagnosed in May 2017 Was admitted to [facility] for complicated UTI, newly diagnosed diabetes CT abdomen pelvis showed cervical mass Status post cervical biopsy in clinic by E[employer] Dr. Soler Noted to have poorly differentiated squamous cell carcinoma Patient subsequently underwent chemotherapy followed by radiation. Psoas muscle mets later found status post radiation. PET scan done October 2018 showed left perirectal fossa/left posterior vaginal area tumor recurrence. 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 Haas [facility] oncology at [place] After failure of both radiation and chemo treatment, ongoing progression of di sease Patient now willing to consider surgery, if she is still a candidate for the extensive surgical procedure Once patient clinically improves, less abdominal pain, able to tolerate diet Transition antibiotic to p.o.-2 weeks of treatment Patient will need to see [employer] oncology as soon as possible within a week of discharge from hospital and discuss possible treatment options Subjective Lower abdominal pain, no fever or chills Very poor appetite Had 2 episode of loose bowel movement, no blood in stool Physical Exam Constitutional: + ill appearing, + thin and + cachectic Eyes: + anicteric sclerae ENMT: external ear and nose normal, oropharynx normal Neck: trachea midline, no thyromegaly Respiratory: normal respiratory effort, lungs clear to auscultation Cardiovascular: RRR, no murmur, no edema Gastrointestinal (Abdomen): Percussion/Palpation: + abdomen tender (On suprapubic area) Musculoskeletal: no cyanosis or clubbing, extremities motor strength 5/5 Skin: no rashes, warm and dry Neurologic: PERRL, EOMI, accommodation nl, no face palsy, no dysarthria Psychiatric: Orientation: alert and oriented x 3 Affect: + flat affect Results & Data Vital Signs (Past 12 Hours) Vital Signs Temp Pulse Pulse Pulse Resp BP Pulse Ox 03/03/19 15:04 36.8 C 114 H 18 97/66 L 96 03/03/19 09:40 105 H 92/61 L 03/03/19 07:52 36.4 C L 105 H 15 94/64 L 95
[2019-03-03] MEDS ORDERED: LACTATED RINGER'S 1,000 ML IV SCH (16:15)
[2019-03-04] MEDS: MoRPHine SULFATE 2 MG/ML CARP IV PRN ×7 (00:24→23:23)
[2019-03-04] MEDS: PIPERACILLIN/TAZOBACTAM 3.375 GM in DEXTROSE 5% 100 ML IV SCH (06:12)
[2019-03-04] MEDS: METOPROLOL SUCC 25MG EXT REL TAB PO SCH (08:30)
[2019-03-04] MEDS: ENOXAPARIN INJ 30 MG/0.3 ML SYR SQ SCH (08:30)
[2019-03-04] MEDS: INSULIN ASPART 100 UNITS/ML 3 ML PEN SC SCH ×4 (09:26→22:20)
--- NOTE | 2019-03-04 11:00 | Progress Note ---
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 She was referred to the hospital on 02/24/19 after findings on repeat CT scan for possible abscess drainage. In review of the CT scan she continued to have free air in the pelvis, which is only slightly increased as well as a small fluid collection (~3.8 cm), which is undrainable. The case was discussed with Dr. Haas, Flying Instructor Onc at [facility] [place], who agreed with conservative management. Patient had repeat CT scan with oral contrast on 03/01/19 which showed concern for vaginal perforation instead of sigmoid colon perforation. No abscesses. She had positive PET scan in October with new vaginal lesion. Concern for peritoneal seeding given vaginal perforation with new vaginal tumor. - Okay to transition to oral abx for 2 weeks once tolerating oral intake and ready for discharge - advance to regular diet, continue boost with all meals plus as snack for nutrition (okay for family to bring Ensure as she prefers this - Close follow up with Dr. Haas early next week if discharged end of week/weekend - Discussed possible discharge over the next few days with the patient. Emphasized that she has a chronic severe disease and goal is not to resolve all pain or have all symptoms resolved prior to discharge. She does not want to be discharged if she is incontinent of stool. I explained that this is highly likely to continue to happen and perhaps setting up home health and education on caring for her current condition as an outpatient is warranted. Explained that main goal is to have a stable WBC, no worsening of hemodynamics, and for her to stay well hydrated. As long as she is tolerating some oral intake I do not expect that this will drastically improve while an inpatient, and if intake is reasonable but she is mostly taking Ensure and soft diet that this is okay too. Malignant neoplasm of cervix location: unspecified location Qualified Code(s): C53.9 - Malignant neoplasm of cervix uteri, unspecified Subjective Pt continues to have lower abdominal pain Having loose stool and is incontinent Discussed possibility of discharge over the next few days and pt does not want to be discharged with main concerns of being incontinent of stool. Physical Exam Respiratory: normal respiratory effort Gastrointestinal (Abdomen): soft, nondistended, suprapubic tenderness Results & Data Vital Signs (Past 12 Hours) Vital Signs Temp Pulse Resp BP BP Pulse Ox 03/04/19 07:35 36.7 C 109 H 20 109/74 96 03/03/19 23:10 37 C 102 H 16 114/77 95 Laboratory Results 03/04/19 03/03/19 03/03/19 Range/Units 08:19 21:32 17:35 POC Glucose 109 H 122 H 126 H (70-99) 03/03/19 Range/Units 12:16 POC Glucose 151 H (70-99)
[2019-03-04] MEDS: AMOXICILLIN/CLAVULANATE 875 MG TAB PO SCH (16:44)
--- NOTE | 2019-03-04 19:01 | Hospitalist Progress Note ---
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 The extraluminal gas at this location is consistent with focal microperforation and remains unchanged. However, there has been interval development of ext raluminal bowel contents/stool anterior to the distal sigmoid colon extending through the site of perforation. The progressive inflammatory change surrounding the distal sigmoid colon appears to result in focal narrowing of the distal left ureter with mild left hydronephrosis as well as focal narrowing of the distal sigmoid colon likely resulting in a low-grade partial large bowel obstruction. Surgery on board recommended conservative management. No surgical intervention since abscess is not drainable (also surgery discussed case with [facility] in [place] who agreed as well that that the collection was not drainable.) Continue to have pain CT abd/pelvis w/wo contrast : 03/01/2019 Persistent extraluminal gas and fluid in the rectouterine recess with associated inflammatory change. Mucosal discontinuity of the vaginal vault is highly suspicious for vaginal perforation. Given the history of cervical and/or uterine radiation, this may be a consequence of postradiation necrosis and/or inflammatory change. No evidence of sigmoid perforation noted, Patient input from surgery, CT images reviewed with [facility] oncology Dr. Haas and [facility] Recommend continue conservative approach, as patient does not have any clinical decline, no evidence of sepsis or evidence of peritonitis Continue IV Zosyn Diet advanced to full liquid Chronic Diarrhea Possible related to chemo and radiation Stool for C-diff toxin negative (No active Cdiff) Left Hydronephrosis Possible progression of pelvic malignancy Denies flank pain Urology on board recommended conservative management No ureteral stent placement unless patient condition declined Continue dean catheter as per urology Recurrent Metastatic Cervical Cancer Diagnosed in 2017 with mets to Psoas muscle S/P radiation, ongoing chemotherapy Surgery discussed case with [employer]/onc that recommended conservative management with IV abx Recent PET scan done on 10/2018: Showed evidence of new malignancy/focal lesion in the vaginal wall CT abdomen pelvis on 03/01/2019 shows vaginal wall perforation possibly secondary to invasive malignancy Overall prognosis remains extremely poor Patient and aware Anemia of Chronic disease Hemoglobin remained stable, no evidence of GI bleed DM II: Most recent Hba1c 7 Currently diet controlled Continue monitor BS Tobacco Use: Counseling on smoking cessation DVT Px: Moderate to high risk given extensive malignancy, debilitating status with poor functional capacity Lovenox SQ Code Status Discussed with the patient, aware of the poor prognosis, does not have a living with Does not want heroic measures or resuscitation status in the case of cardiopulmonary arrest CODE STATUS changed to DNR/DNI Disposition: Briefly discussed role of hospice/palliative care To continue with IV antibiotics, outpatient follow-up with [facility] oncology for further treatment plan Understands that if there is no other treatment available/develops continued clinical decline/she can reach for palliative care team for support and treatment of pain symptoms/discomfort We will change antibiotic to p.o., Plan to discharge home in next 1 to 2 days patient can follow-up with GI and oncology in [place] (2) Cervical carcinoma: Diagnosed in May 2017 Was admitted to [facility] for complicated UTI, newly diagnosed diabetes CT abdomen pelvis showed cervical mass Status post cervical biopsy in clinic by [facility] Dr. Soler Noted to have poorly differentiated squamous cell carcinoma Patient subsequently underwent chemotherapy followed by radiation. Psoas muscle mets later found status post radiation. PET scan done October 2018 showed left perirectal fossa/left posterior vaginal area tumor recurrence. 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 Haas [facility] oncology at [place] After failure of both radiation and chemo treatment, ongoing progression of dis ease Patient now willing to consider surgery, if she is still a candidate for the extensive surgical procedure Once patient clinically improves, less abdominal pain, able to tolerate diet Transition antibiotic to p.o today.- needs 2 weeks of treatment Patient will need to see [facility] oncology as soon as possible within a week of discharge from hospital and discuss possible treatment options Subjective Pt continues to have lower abdominal pain Appetite remains poor Stool incontinence, No fever chills Discussed option of possible discharge home over the weekend and follow-up with [facility] oncology in [place] as soon as possible next week Patient and wants to consider that Understands at present there is not much treatment can be offered for progression/invasion of cancer Does not want to consider hospice yet For the option of definite treatment/pelvic exenteration surgery needs to be evaluated by [facility] oncology and [facility] Physical Exam Constitutional: + ill appearing, + thin and + cachectic Eyes: + anicteric sclerae ENMT: external ear and nose normal, oropharynx normal Neck: trachea midline, no thyromegaly Respiratory: normal respiratory effort, lungs clear to auscultation Cardiovascular: RRR, no murmur, no edema Gastrointestinal (Abdomen): Percussion/Palpation: + abdomen tender (On suprapubic area) Musculoskeletal: no cyanosis or clubbing, extremities motor strength 5/5 Skin: no rashes, warm and dry Neurologic: PERRL, EOMI, accommodation nl, no face palsy, no dysarthria Psychiatric: Orientation: alert and oriented x 3 Affect: + flat affect Results & Data Vital Signs (Past 12 Hours) Vital Signs Temp Pulse Pulse Resp BP BP Pulse Ox 03/04/19 15:45 36.7 C 107 H 19 95/60 L 96 03/04/19 07:35 36.7 C 109 H 20 109/74 96
[2019-03-05] MEDS: MoRPHine SULFATE 2 MG/ML CARP IV PRN ×6 (02:18→23:22)
--- NOTE | 2019-03-05 08:03 | Progress Note ---
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 She was referred to the hospital on 02/24/19 after findings on repeat CT scan for possible abscess drainage. In review of the CT scan she continued to have free air in the pelvis, which is only slightly increased as well as a small fluid collection (~3.8 cm), which is undrainable. The case was discussed with Dr. Haas, Director Of Design Onc at [facility], who agreed with conservative management. Patient had repeat CT scan with oral contrast on 03/01/19 which showed concern for vaginal perforation instead of sigmoid colon perforation. No abscesses. She had positive PET scan in October with new vaginal lesion. Concern for peritoneal seeding given vaginal perforation with new vaginal tumor. Dr. Haas has been kept apprised of her status. - Okay to transition to oral abx, continue a minimum of 2 weeks, but would continue at least until she sees Dr. Haas and final duration to be determined by him - Regular diet, continue boost with all meals plus as snack for nutrition (okay for family to bring Ensure as she prefers this) - Educated pt that it is most important to stay hydrated. Also, taking in high protein in attempt to maintain nutritional status and promote healing. As long as staying hydrated and taking in some soft diet okay for discharge - Discussed patient status with Urology and potential for discharge in the next 1-2 days, they were planning a voiding trial either today or as an outpatient next week. They will discuss with the patient her preferences for discharge to determine whether voiding trial will be attempted prior to discharge - Pt may benefit from psychiatric evaluation, could consider this as an inpatie nt or outpatient referral - Close follow up with Dr. Haas early next week if discharged end of week/weekend Malignant neoplasm of cervix location: unspecified location Qualified Code(s): C53.9 - Malignant neoplasm of cervix uteri, unspecified Subjective Abdominal pain remains unchanged. Did not attempt to eat solid food because she hasn't attempted to wear her dentures in a long time, and when she tried to put them in she gagged herself. Thus, she decided not to try solids. She did tolerate liquids and soft food. She continues to be incontinent of stool. Mccollum remains in place. Continues to be tachycardic. Physical Exam Constitutional: no acute distress chronically ill appearing Respiratory: normal respiratory effort Cardiovascular: Rate/Rhythm: + tachycardic Gastrointestinal (Abdomen): soft, nondistended, suprapubic tenderness which has decreased (but pt reported she recently received pain medication) Results & Data Vital Signs (Past 12 Hours) Vital Signs Temp Pulse Resp BP BP Pulse Ox 03/05/19 07:07 36.8 C 109 H 20 111/79 97 03/04/19 23:11 36.8 C 110 H 17 118/72 93 Laboratory Results 03/05/19 03/04/19 03/04/19 Range/Units 07:23 20:47 17:05 Creatinine Pending Est Cr Clr Drug Dosing Pending Est GFR ( Amer) Pending Est GFR (Non-Af Amer) Pending POC Glucose 129 H 120 H (70-99) 03/04/19 03/04/19 Range/Units 12:03 08:19 Creatinine Est Cr Clr Drug Dosing Est GFR ( Amer) Est GFR (Non-Af Amer) POC Glucose 150 H 109 H (70-99)
[2019-03-05 08:23] LABS: Creatinine Clr Calc Pharmacy 77.4 ml/min; Est GFR (African American) 119.6; Est GFR (Non-African American) 103.2
--- NOTE | 2019-03-05 08:41 | Urology Progress Note ---
Date of Service March 05, 2019 Assessment & Plan (1) Acute urinary retention: 53yo F with metastatic cervical ca, sigmoid bowel perforation, incomplete emptying with indwelling catheter. Pt has had catheter in x7days at this point, tolerating fine. Discussed with Dr. Plascencia, plan for potential discharge home soon in 1-2 days with prompt followup with [facility] Physician Onc at [facility] next week to discuss options. Discussed option for passive TOV today. Pt is agreeable. Appears tamsulosin was discontinued, likely did not tolerate. Okay to keep off. Plan to discontinue dean catheter. Bladder scan qshift. Straight cath if PVR >300cc - orders placed. Thank you for allowing us to participate in the inpatient care of Ms. Whiting. Please reconsult with any issues or concerns. Will arrange for close follow-up as outpatient to monitor voiding status. (2) Hydronephrosis: Remains asymptomatic. No flank pain, Creatinine within normal limits. Subjective 53yo F with metastatic cervical ca, sigmoid bowel perforation, incomplete emptying with indwelling catheter. Sleeping but easily arousable and alert today. Denies new complaints, tolerating catheter without bladder spasms or pain. Dean draining clear yellow. Review of Systems Review of Systems: All systems reviewed & are unremarkable except as noted in HPI & below Physical Exam Physical Exam: A&Ox3 RRR dean draining clear yellow Results & Data Vital Signs (Past 12 Hours) Vital Signs Temp Pulse Resp BP BP Pulse Ox 03/05/19 07:07 36.8 C 109 H 20 111/79 97 03/04/19 23:11 36.8 C 110 H 17 118/72 93 Laboratory Results Laboratory Results - last 48 hr 03/03/19 03/03/19 03/03/19 12:16 17:35 21:32 Creatinine Est Cr Clr Drug Dosing Est GFR ( Amer) Est GFR (Non-Af Amer) POC Glucose 151 H 126 H 122 H 03/04/19 03/04/19 03/04/19 08:19 12:03 17:05 Creatinine Est Cr Clr Drug Dosing Est GFR ( Amer) Est GFR (Non-Af Amer) POC Glucose 109 H 150 H 120 H 03/04/19 03/05/19 03/05/19 20:47 07:23 08:26 Creatinine 0.59 L Est Cr Clr Drug Dosing 77.4 Est GFR ( Amer) 119.6 Est GFR (Non-Af Amer) 103.2 POC Glucose 129 H 117 H
[2019-03-05] MEDS: METOPROLOL SUCC 25MG EXT REL TAB PO SCH (09:24)
[2019-03-05] MEDS: AMOXICILLIN/CLAVULANATE 875 MG TAB PO SCH ×2 (09:24→17:14)
[2019-03-05] MEDS: ENOXAPARIN INJ 30 MG/0.3 ML SYR SQ SCH (09:25)
[2019-03-05] MEDS: INSULIN ASPART 100 UNITS/ML 3 ML PEN SC SCH ×4 (09:25→22:28)
--- NOTE | 2019-03-05 10:22 | Hospitalist Progress Note ---
Date of Service March 05, 2019 Assessment & Plan (1) Cervical carcinoma: Diagnosed in May 2017 Was admitted to [facility] for complicated UTI, newly diagnosed diabetes CT abdomen pelvis showed cervical mass Status post cervical biopsy in clinic by [facility] Dr. Soler Noted to have poorly differentiated squamous cell carcinoma Patient subsequently underwent chemotherapy followed by radiation. Psoas muscle mets later found status post radiation. PET scan done October 2018 showed left perirectal fossa/left posterior vaginal area tumor recurrence. 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 The extraluminal gas at this location is consistent with focal microperforation and remains unchanged. However, there has been interval development of extraluminal bowel contents/stool anterior to the distal sigmoid colon extending through the site of perforation. The progressive inflammatory change surrounding the distal sigmoid colon appears to result in focal narrowing of the distal left ureter with mild left hydronephrosis as well as focal narrowing of the distal sigmoid colon likely resulting in a low-grade partial large bowel obstruction. Surgery on board recommended conservative management. No surgical intervention since abscess is not drainable (also surgery discussed case with [facility] in [place] who agreed as well that that the collection was not drainable.) Continue to have pain CT abd/pelvis w/wo contrast : 03/01/2019 Persistent extraluminal gas and fluid in the rectouterine recess with associated inflammatory change. Mucosal discontinuity of the vaginal vault is highly suspicious for vaginal perforation. Given the history of cervical and/or uterine radiation, this may be a consequence of postradiation necrosis and/or inflammatory change. No evidence of sigmoid perforation noted, Patient input from surgery, CT images reviewed with [facility] oncology Dr. Haas and [facility] Recommend continue conservative approach, as patient does not have any clinical decline, no evidence of sepsis or evidence of peritonitis Antibiotic changed to Augmentin Diet advanced to solid, very poor appetite Plan to discharge home in next 1 to 2 days to follow-up with [facility] oncology Dr. Trujillo in [facility] next week Chronic Diarrhea Related to, chemo treatment/radiation proctitis Stool C. difficile negative Prior surgery patient will have chronic stool incontinence, needs to be evaluated by [facility] oncology in [facility] For consideration of pelvic exenteration surgery Left Hydronephrosis Possible due to progression of pelvic malignancy Denies flank pain Urology on board recommended conservative management No ureteral stent placement unless patient condition declined Was on Mccollum catheter, voiding trial to be done during this hospital stay by urology Recurrent Metastatic Cervical Cancer Diagnosed in 2017 with mets to Psoas muscle S/P radiation, ongoing chemotherapy Surgery discussed case with [employer]/onc that recommended conservative management with IV abx Recent PET scan done on 10/2018: Showed evidence of new malignancy/focal lesion in the vaginal wall CT abdomen pelvis on 03/01/2019 shows vaginal wall perforation possibly secondary to invasive malignancy Overall prognosis remains extremely poor Patient and aware Anemia of Chronic disease Hemoglobin remained stable, no evidence of GI bleed DM II: Most recent Hba1c 7 Currently diet controlled Continue monitor BS Tobacco Use: Counseling on smoking cessation DVT Px: Moderate to high risk given extensive malignancy, debilitating status with poor functional capacity Lovenox SQ Code Status Discussed with the patient, aware of the poor prognosis, does not have a living with Does not want heroic measures or resuscitation status in the case of cardiopulmonary arrest CODE STATUS changed to DNR/DNI Disposition: Briefly discussed role of hospice/palliative care Patient wants to consider further treatment, surgery if possible in [place] Plan to discharge home in next 1 to 2 days, as pain improves, Scheduled to see [facility] oncology Dr. Trujillo in [place] next week 03/10/2019 Subjective Complains of no abdominal pain, appetite remains poor, patient evaluated by urology today, Plan to discontinue Mccollum with voiding trial today Discussed the plan of care with patient and patient's , Given metastatic progressive malignancy, it would be hard patient to have complete symptom control in order to go home Patient needs as soon as possible follow-up with [facility] oncology in [place] discussed future treatment plan if available Patient is concerned, returning home but she is still not able to tolerate food, still have significant pain requiring IV pain medications We will try to transition to p.o. pain medications, We will consult pain management team to assist for intractable Pain control due to malignancy Patient scheduled to have [facility] oncology follow-up on next 03/10/2019 at [facility] We will continue to do symptom management Plan is to discharge patient home prior to appointment in [place] Physical Exam Constitutional: + ill appearing, + thin and + cachectic Eyes: + anicteric sclerae ENMT: external ear and nose normal, oropharynx normal Neck: trachea midline, no thyromegaly Respiratory: normal respiratory effort, lungs clear to auscultation Cardiovascular: RRR, no murmur, no edema Gastrointestinal (Abdomen): Percussion/Palpation: + abdomen tender (On suprapubic area) Musculoskeletal: no cyanosis or clubbing, extremities motor strength 5/5 Skin: no rashes, warm and dry Neurologic: PERRL, EOMI, accommodation nl, no face palsy, no dysarthria Psychiatric: Orientation: alert and oriented x 3 Affect: + flat affect Results & Data Vital Signs (Past 12 Hours) Vital Signs Temp Pulse Resp BP BP Pulse Ox 03/05/19 07:07 36.8 C 109 H 20 111/79 97 03/04/19 23:11 36.8 C 110 H 17 118/72 93
[2019-03-05] MEDS ORDERED: ONDANSETRON INJ 2 MG/ML 2 ML VIAL IV STA (19:48)
[2019-03-05] MEDS: OXYCODONE HCL IR 5 MG TAB (IMMEDIATE RELEASE) PO PRN (20:00)
[2019-03-05] MEDS: SODIUM CHLORIDE 0.9% 1000ML 1,000 ML IV SCH (20:00)
[2019-03-06] MEDS: MoRPHine SULFATE 2 MG/ML CARP IV PRN ×6 (04:03→20:29)
[2019-03-06] MEDS: SODIUM CHLORIDE 0.9% 1000ML 1,000 ML IV SCH (08:23)
[2019-03-06] MEDS: ENOXAPARIN INJ 30 MG/0.3 ML SYR SQ SCH (09:06)
[2019-03-06] MEDS: AMOXICILLIN/CLAVULANATE 875 MG TAB PO SCH ×2 (09:06→18:07)
[2019-03-06] MEDS: METOPROLOL SUCC 25MG EXT REL TAB PO SCH (09:06)
[2019-03-06] MEDS: INSULIN ASPART 100 UNITS/ML 3 ML PEN SC SCH ×4 (09:09→21:13)
--- NOTE | 2019-03-06 15:11 | Hospitalist Progress Note ---
Date of Service March 06, 2019 Assessment & Plan (1) Cervical carcinoma: Diagnosed in May 2017 Was admitted to [facility] for complicated UTI, newly diagnosed diabetes CT abdomen pelvis showed cervical mass Status post cervical biopsy in clinic by SERVICE RIG OPERATOR Dr. Soler Noted to have poorly differentiated squamous cell carcinoma Patient subsequently underwent chemotherapy followed by radiation. Psoas muscle mets later found status post radiation. PET scan done October 2018 showed left perirectal fossa/left posterior vaginal area tumor recurrence. 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 Haas SERVICE RIG OPERATOR oncology at [place] After failure of both radiation and chemo treatment, ongoing progression of disease Patient now willing to consider surgery, if she is still a candidate for the extensive surgical procedure Once patient clinically improves, less abdominal pain, able to tolerate diet Transition antibiotic to p.o today.- needs 2 weeks of treatment Patient is scheduled to see SERVICE RIG OPERATOR oncology to [facility] 03/10/2019 Due to ongoing chronic pain symptoms poor appetite, Hoping to discharge patient at least by 03/07/2019 so patient Keep that appointment at [facility] (2) Perforated bowel: Present on admission with worsening abdominal pain 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 The extraluminal gas at this location is consistent with focal microperforation and remains unchanged. However, there has been interval development of extraluminal bowel contents/stool anterior to the distal sigmoid colon extending through the site of perforation. The progressive inflammatory change surrounding the distal sigmoid colon appears to result in focal narrowing of the distal left ureter with mild left hydronephrosis as well as focal narrowing of the distal sigmoid colon likely resulting in a low-grade partial large bowel obstruction. Surgery on board recommended conservative management. No surgical intervention since abscess is not drainable (also surgery discussed case with [facility] IR in [place] who agreed as well that that the collection was not drainable.) Continue to have pain CT abd/pelvis w/wo contrast : 03/01/2019 Persistent extraluminal gas and fluid in the rectouterine recess with associated inflammatory change. Mucosal discontinuity of the vaginal vault is highly suspicious for vaginal perforation. Given the history of cervical and/or uterine radiation, this may be a consequence of postradiation necrosis and/or inflammatory change. No evidence of sigmoid perforation noted, Patient input from surgery, CT images reviewed with SERVICE RIG OPERATOR oncology Dr. Haas and [facility] Recommend continue conservative approach, as patient does not have any clinical decline, no evidence of sepsis or evidence of peritonitis Antibiotic changed to Augmentin Diet advanced to solid, very poor appetite Plan to discharge home in next 1 to 2 days to follow-up with SERVICE RIG OPERATOR oncology Dr. Trujillo in [facility] next week Chronic Diarrhea Related to, chemo treatment/radiation proctitis Stool C. difficile negative Prior surgery patient will have chronic stool incontinence, needs to be evaluated by SERVICE RIG OPERATOR oncology in [facility] For consideration of pelvic exenteration surgery Left Hydronephrosis Possible due to progression of pelvic malignancy Denies flank pain Urology on board recommended conservative management No ureteral stent placement unless patient condition declined Was on Mccollum catheter, voiding trial to be done during this hospital stay by urology Recurrent Metastatic Cervical Cancer Diagnosed in 2017 with mets to Psoas muscle S/P radiation, ongoing chemotherapy Surgery discussed case with Planting Machine Crewman/onc that recommended conservative management with IV abx Recent PET scan done on 10/2018: Showed evidence of new malignancy/focal lesion in the vaginal wall CT abdomen pelvis on 03/01/2019 shows vaginal wall perforation possibly secondary to invasive malignancy Overall prognosis remains extremely poor Patient and aware Anemia of Chronic disease Hemoglobin remained stable, no evidence of GI bleed DM II: Most recent Hba1c 7 Currently diet controlled Continue monitor BS Tobacco Use: Counseling on smoking cessation DVT Px: Moderate to high risk given extensive malignancy, debilitating status with poor functional capacity Lovenox SQ Code Status Discussed with the patient, aware of the poor prognosis, does not have a living with Does not want heroic measures or resuscitation status in the case of cardiopulmonary arrest CODE STATUS changed to DNR/DNI Disposition: Briefly discussed role of hospice/palliative care Patient wants to consider further treatment, surgery if possible in [place] Plan to discharge home in next 1 to 2 days, as pain improves, Scheduled to see SERVICE RIG OPERATOR oncology Dr. Trujillo in [place] next week 03/10/2019 Subjective No change in symptoms, getting intermittent lower abdominal pain, Mccollum was discontinued yesterday Patient started to have urinary retention> 300 mL, Mccollum reinserted Appetite remains poor, no nausea vomiting Physical Exam Constitutional: + ill appearing, + thin and + cachectic Eyes: + anicteric sclerae ENMT: external ear and nose normal, oropharynx normal Neck: trachea midline, no thyromegaly Respiratory: normal respiratory effort, lungs clear to auscultation Cardiovascular: RRR, no murmur, no edema Gastrointestinal (Abdomen): Percussion/Palpation: + abdomen tender (On suprapubic area) Musculoskeletal: no cyanosis or clubbing, extremities motor strength 5/5 Skin: no rashes, warm and dry Neurologic: PERRL, EOMI, accommodation nl, no face palsy, no dysarthria Psychiatric: Orientation: alert and oriented x 3 Affect: + flat affect Results & Data Vital Signs (Past 12 Hours) Vital Signs Temp Pulse Resp BP Pulse Ox 03/06/19 12:03 36.8 C 94 H 12 116/78 92 03/06/19 07:45 36.6 C 98 H 12 110/68 95
[2019-03-07] MEDS: MoRPHine SULFATE 2 MG/ML CARP IV PRN ×5 (01:38→15:57)
[2019-03-07] MEDS: INSULIN ASPART 100 UNITS/ML 3 ML PEN SC SCH ×4 (09:04→22:11)
[2019-03-07] MEDS: AMOXICILLIN/CLAVULANATE 875 MG TAB PO SCH ×2 (09:07→17:32)
[2019-03-07] MEDS: METOPROLOL SUCC 25MG EXT REL TAB PO SCH (09:07)
[2019-03-07] MEDS: ENOXAPARIN INJ 30 MG/0.3 ML SYR SQ SCH (09:08)
--- NOTE | 2019-03-07 16:59 | Hospitalist Progress Note ---
Date of Service March 07, 2019 Assessment & Plan (1) Cervical carcinoma: Diagnosed in May 2017 Was admitted to [facility] for complicated UTI, newly diagnosed diabetes CT abdomen pelvis showed cervical mass Status post cervical biopsy in clinic by WELDING MACHINE OPERATOR ELECTROSLAG Dr. Soler Noted to have poorly differentiated squamous cell carcinoma Patient subsequently underwent chemotherapy followed by radiation. Psoas muscle mets later found status post radiation. PET scan done October 2018 showed left perirectal fossa/left posterior vaginal area tumor recurrence. 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 Haas WELDING MACHINE OPERATOR ELECTROSLAG oncology at [place] After failure of both radiation and chemo treatment, ongoing progression of disease Patient now willing to consider surgery, if she is still a candidate for the extensive surgical procedure Antibiotic changed to p.o., started on p.o. Roxanol as needed to improve pain control Patient is scheduled to see WELDING MACHINE OPERATOR ELECTROSLAG oncology to [facility] 03/10/2019 Patient continues to have lower abdominal pain, very poor appetite Hoping to discharge patient at least by 03/07/2019 so patient Keep that appointment at 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 The extraluminal gas at this location is consistent with focal microperforation and remains unchanged. However, there has been interval development of extraluminal bowel contents/stool anterior to the distal sigmoid colon extending through the site of perforation. The progressive inflammatory change surrounding the distal sigmoid colon appears to result in focal narrowing of the distal left ureter with mild left hydronephrosis as well as focal narrowing of the distal sigmoid colon likely resulting in a low-grade partial large bowel obstruction. Surgery on board recommended conservative management. No surgical intervention since abscess is not drainable (also surgery discussed case with [facility] IR in [place] who agreed as well that that the collection was not drainable.) Continue to have pain CT abd/pelvis w/wo contrast : 03/01/2019 Persistent extraluminal gas and fluid in the rectouterine recess with associated inflammatory change. Mucosal discontinuity of the vaginal vault is highly suspicious for vaginal perforation. Given the history of cervical and/or uterine radiation, this may be a consequence of postradiation necrosis and/or inflammatory change. No evidence of sigmoid perforation noted, Patient input from surgery, CT images reviewed with WELDING MACHINE OPERATOR ELECTROSLAG oncology Dr. Haas and [facility] Recommend continue conservative approach, as patient does not have any clinical decline, no evidence of sepsis or evidence of peritonitis Antibiotic changed to Augmentin Diet advanced to solid, very poor appetite Plan to discharge home in next 1 to 2 days to follow-up with WELDING MACHINE OPERATOR ELECTROSLAG oncology Dr. Trujillo in [facility] next week Chronic Diarrhea Related to, chemo treatment/radiation proctitis Stool C. difficile negative Prior surgery patient will have chronic stool incontinence, needs to be evaluated by WELDING MACHINE OPERATOR ELECTROSLAG oncology in [facility] For consideration of pelvic exenteration surgery Left Hydronephrosis Possible due to progression of pelvic malignancy Denies flank pain Urology on board recommended conservative management No ureteral stent placement unless patient condition declined Was on Mccollum catheter, voiding trial to be done during this hospital stay by urology Recurrent Metastatic Cervical Cancer Diagnosed in 2017 with mets to Psoas muscle S/P radiation, ongoing chemotherapy Surgery discussed case with Lead Nuclear Medicine Technologist/onc that recommended conservative management with IV abx Recent PET scan done on 10/2018: Showed evidence of new malignancy/focal lesion in the vaginal wall CT abdomen pelvis on 03/01/2019 shows vaginal wall perforation possibly secondary to invasive malignancy Overall prognosis remains extremely poor Patient and aware Anemia of Chronic disease Hemoglobin remained stable, no evidence of GI bleed DM II: Most recent Hba1c 7 Currently diet controlled Continue monitor BS Tobacco Use: Counseling on smoking cessation DVT Px: Moderate to high risk given extensive malignancy, debilitating status with poor functional capacity Lovenox SQ Code Status Discussed with the patient, aware of the poor prognosis, does not have a living with Does not want heroic measures or resuscitation status in the case of cardiopulmonary arrest CODE STATUS changed to DNR/DNI Disposition: Briefly discussed role of hospice/palliative care Patient wants to consider further treatment, surgery if possible in [place] Plan to discharge home in next 1 to 2 days, as pain improves, Started on p.o. Roxanol today Scheduled to see WELDING MACHINE OPERATOR ELECTROSLAG oncology Dr. Trujillo in [place] next week 03/10/2019 at 12 PM Subjective No change in status, appetite remains poor, Mccollum reinserted yesterday for urinary retention Continues to have intermittent lower abdominal pain Patient is willing to try p.o. Roxanol, which can be continued when she is discharged home Physical Exam Constitutional: + ill appearing, + thin and + cachectic Eyes: + anicteric sclerae ENMT: external ear and nose normal, oropharynx normal Neck: trachea midline, no thyromegaly Respiratory: normal respiratory effort, lungs clear to auscultation Cardiovascular: RRR, no murmur, no edema Gastrointestinal (Abdomen): Percussion/Palpation: + abdomen tender (On suprapubic area) Musculoskeletal: no cyanosis or clubbing, extremities motor strength 5/5 Skin: no rashes, warm and dry Neurologic: PERRL, EOMI, accommodation nl, no face palsy, no dysarthria Psychiatric: Orientation: alert and oriented x 3 Affect: + flat affect Results & Data Vital Signs (Past 12 Hours) Vital Signs Temp Pulse Resp BP Pulse Ox 03/07/19 15:51 36.7 C 109 H 16 105/67 95 03/07/19 07:00 36.6 C 97 H 14 105/62 94
[2019-03-07] MEDS: MoRPHine SULFATE 10 MG/0.5 ML UDP PO PRN (19:53)
[2019-03-08] MEDS: MoRPHine SULFATE 10 MG/0.5 ML UDP PO PRN ×5 (00:10→23:20)
[2019-03-08] MEDS: ENOXAPARIN INJ 30 MG/0.3 ML SYR SQ SCH (08:01)
[2019-03-08] MEDS: AMOXICILLIN/CLAVULANATE 875 MG TAB PO SCH ×2 (08:01→19:36)
[2019-03-08] MEDS: METOPROLOL SUCC 25MG EXT REL TAB PO SCH (08:02)
[2019-03-08] MEDS: INSULIN ASPART 100 UNITS/ML 3 ML PEN SC SCH ×4 (09:22→22:40)
--- NOTE | 2019-03-08 17:59 | Hospitalist Progress Note ---
Date of Service March 08, 2019 Assessment & Plan (1) Cervical carcinoma: Metastatic cervical carcinoma-leading to vaginal perforation/ureteric obstruction Scheduled to see TOWER TECHNICIAN oncology at [facility] tomorrow 03/10/2000 Diagnosed in May 2017-admission at [facility] CT abdomen pelvis showed cervical mass Status post cervical biopsy in clinic by TOWER TECHNICIAN Dr. Soler Noted to have poorly differentiated squamous cell carcinoma Patient subsequently underwent chemotherapy followed by radiation. Psoas muscle mets later found status post radiation. PET scan done October 2018 showed left perirectal fossa/left posterior vaginal area tumor recurrence. 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 Haas TOWER TECHNICIAN oncology at [place] After failure of both radiation and chemo treatment, ongoing progression of disease Patient now willing to consider surgery, if she is still a candidate for the extensive surgical procedure Antibiotic changed to p.o., started on p.o. 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 The extraluminal gas at this location is consistent with focal microperforation and remains unchanged. However, there has been interval development of extraluminal bowel contents/stool anterior to the distal sigmoid colon extending through the site of perforation. The progressive inflammatory change surrounding the distal sigmoid colon appears to result in focal narrowing of the distal left ureter with mild left hydronephrosis as well as focal narrowing of the distal sigmoid colon likely resulting in a low-grade partial large bowel obstruction. Surgery on board recommended conservative management. No surgical intervention since abscess is not drainable (also surgery discussed case with [facility] in [place] who agreed as well that that the collection was not drainable.) Continue to have pain CT abd/pelvis w/wo contrast : 03/01/2019 Persistent extraluminal gas and fluid in the rectouterine recess with associated inflammatory change. Mucosal discontinuity of the vaginal vault is highly suspicious for vaginal perforation. Given the history of cervical and/or uterine radiation, this may be a consequence of postradiation necrosis and/or inflammatory change. No evidence of sigmoid perforation noted, Appreciate input from surgery, CT images reviewed with TOWER TECHNICIAN oncology Dr. Haas and [facility] Recommend continue conservative approach, as patient does not have any clinical decline, no evidence of sepsis or evidence of peritonitis Once patient to see as an outpatient in clinic to discussion of further treatment plan Antibiotic changed to Augmentin Diet advanced to solid, very poor appetite Plan to discharge home tomorrow to follow-up with TOWER TECHNICIAN oncology Dr. Trujillo in [facility] on 03/10/2019 Chronic Diarrhea Related to, chemo treatment/radiation proctitis Stool C. difficile negative Prior surgery patient will have chronic stool incontinence, needs to be evaluated by TOWER TECHNICIAN oncology in [facility] For consideration of pelvic exenteration surgery Left Hydronephrosis Possible due to progression of pelvic malignancy Denies flank pain Urology on board recommended conservative management No ureteral stent placement unless patient condition declined Mccollum was discontinued by urology for trial of voiding Continued to retain urine more than 300 mL without any sensation of urination Mccollum reinserted She will be discharged home with Mccollum catheter Outpatient follow-up with urology Recurrent Metastatic Cervical Cancer Diagnosed in 2017 with mets to Psoas muscle S/P radiation, ongoing chemotherapy Recent PET scan done on 10/2018: Showed evidence of new malignancy/focal lesion in the vaginal wall CT abdomen pelvis on 03/01/2019 shows vaginal wall perforation possibly secondary to invasive malignancy Overall prognosis remains extremely poor Patient and aware Anemia of Chronic disease Hemoglobin remained stable, no evidence of GI bleed DM II: Most recent Hba1c 7 Currently diet controlled Continue monitor BS Tobacco Use: Counseling on smoking cessation DVT Px: Moderate to high risk given extensive malignancy, debilitating status with poor functional capacity Lovenox SQ Code Status Discussed with the patient, aware of the poor prognosis, does not have a living with Does not want heroic measures or resuscitation status in the case of card iopulmonary arrest CODE STATUS changed to DNR/DNI Disposition: Briefly discussed role of hospice/palliative care Patient wants to consider further treatment, surgery if possible in [place] Plan to discharge home in next 1 to 2 days, as pain improves, Scheduled to see TOWER TECHNICIAN oncology Dr. Trujillo in [place] next week 03/10/2019 at 12 PM Subjective Pain better controlled with as needed Roxanol Appetite remains extremely poor No fever or chills Physical Exam Constitutional: + ill appearing, + thin and + cachectic Eyes: + anicteric sclerae ENMT: external ear and nose normal, oropharynx normal Neck: trachea midline, no thyromegaly Respiratory: normal respiratory effort, lungs clear to auscultation Cardiovascular: RRR, no murmur, no edema Gastrointestinal (Abdomen): Percussion/Palpation: + abdomen tender (On suprapubic area) Musculoskeletal: no cyanosis or clubbing, extremities motor strength 5/5 Skin: no rashes, warm and dry Neurologic: PERRL, EOMI, accommodation nl, no face palsy, no dysarthria Psychiatric: Orientation: alert and oriented x 3 Affect: + flat affect Results & Data Vital Signs (Past 12 Hours) Vital Signs Temp Pulse Pulse Resp BP Pulse Ox 03/08/19 16:04 36.9 C 105 H 19 107/71 95 03/08/19 06:50 36.7 C 110 H 19 102/67 94
[2019-03-09] MEDS: OXYCODONE HCL IR 5 MG TAB (IMMEDIATE RELEASE) PO PRN (02:36)
[2019-03-09] MEDS: AMOXICILLIN/CLAVULANATE 875 MG TAB PO SCH (07:28)
[2019-03-09] MEDS: ENOXAPARIN INJ 30 MG/0.3 ML SYR SQ SCH (07:29)
[2019-03-09] MEDS: METOPROLOL SUCC 25MG EXT REL TAB PO SCH (07:30)
[2019-03-09] MEDS: MoRPHine SULFATE 10 MG/0.5 ML UDP PO PRN ×3 (07:30→15:53)
[2019-03-09] MEDS: INSULIN ASPART 100 UNITS/ML 3 ML PEN SC SCH ×2 (09:06→13:53)
--- NOTE | 2019-03-09 09:49 | Hospitalist Progress Note ---
Date of Service March 09, 2019 Assessment & Plan (1) Cervical carcinoma: Metastatic cervical carcinoma-leading to vaginal perforation/ureteric obstruction Scheduled to see BICYCLE COURIER oncology at [facility] tomorrow 03/10/2000 Diagnosed in May 2017-admission at [facility] CT abdomen pelvis showed cervical mass Status post cervical biopsy in clinic by BICYCLE COURIER Dr. Soler Noted to have poorly differentiated squamous cell carcinoma Patient subsequently underwent chemotherapy followed by radiation. Psoas muscle mets later found status post radiation. PET scan done October 2018 showed left perirectal fossa/left posterior vaginal area tumor recurrence. 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 Haas BICYCLE COURIER oncology at [place] After failure of both radiation and chemo treatment, ongoing progression of disease Patient now willing to consider surgery, if she is still a candidate for the extensive surgical procedure Antibiotic changed to p.o., started on p.o. 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 The extraluminal gas at this location is consistent with focal microperforation and remains unchanged. However, there has been interval development of extraluminal bowel contents/stool anterior to the distal sigmoid colon extending through the site of perforation. The progressive inflammatory change surrounding the distal sigmoid colon appears to result in focal narrowing of the distal left ureter with mild left hydronephrosis as well as focal narrowing of the distal sigmoid colon likely resulting in a low-grade partial large bowel obstruction. Surgery on board recommended conservative management. No surgical intervention since abscess is not drainable (also surgery discussed case with [facility] [place] [place] [facility] in [place] who agreed as well that that the collection was not drainable.) Continue to have pain CT abd/pelvis w/wo contrast : 03/01/2019 Persistent extraluminal gas and fluid in the rectouterine recess with associated inflammatory change. Mucosal discontinuity of the vaginal vault is highly suspicious for vaginal perforation. Given the history of cervical and/or uterine radiation, this may be a consequence of postradiation necrosis and/or i nflammatory change. No evidence of sigmoid perforation noted, Appreciate input from surgery, CT images reviewed with BICYCLE COURIER oncology Dr. Haas and [facility] Recommend continue conservative approach, as patient does not have any clinical decline, no evidence of sepsis or evidence of peritonitis Once patient to see as an outpatient in clinic to discussion of further treatment plan Antibiotic changed to Augmentin needs 10 days of treatment Diet advanced to solid, very poor appetite Chronic Diarrhea Related to, chemo treatment/radiation proctitis Stool C. difficile negative Prior surgery patient will have chronic stool incontinence, needs to be evaluated by BICYCLE COURIER oncology in [facility] For consideration of pelvic exenteration surgery Left Hydronephrosis Possible due to progression of pelvic malignancy Denies flank pain Urology on board recommended conservative management No ureteral stent placement unless patient condition declined Mccollum was discontinued by urology for trial of voiding Continued to retain urine more than 300 mL without any sensation of urination Mccollum reinserted She will be discharged home with Mccollum catheter Outpatient follow-up with urology Recurrent Metastatic Cervical Cancer Diagnosed in 2017 with mets to Psoas muscle S/P radiation, ongoing chemotherapy Recent PET scan done on 10/2018: Showed evidence of new malignancy/focal lesion in the vaginal wall CT abdomen pelvis on 03/01/2019 shows vaginal wall perforation possibly secondary to invasive malignancy Overall prognosis remains extremely poor Patient and aware Anemia of Chronic disease Hemoglobin remained stable, no evidence of GI bleed DM II: Most recent Hba1c 7 Currently diet controlled Continue monitor BS Tobacco Use: Counseling on smoking cessation DVT Px: Moderate to high risk given extensive malignancy, debilitating status with poor functional capacity Lovenox SQ Code Status Discussed with the patient, aware of the poor prognosis, does not have a living with Does not want heroic measures or resuscitation status in the case of cardiopulmonary arrest CODE STATUS changed to DNR/DNI Disposition: Briefly discussed role of hospice/palliative care Patient wants to consider further treatment, surgery if possible in [place] Patient is discharged home today with p.o. Roxanol as needed for pain c ontrol/p.o. antibiotic Home health visiting nurse, as patient needs to be on chronic Mccollum catheter Scheduled to see BICYCLE COURIER oncology Dr. Trujillo in [place] next week 03/10/2019 at 12 PM Subjective Patient utilizing p.o. Roxanol only, This gets intermittent pain but improves with Roxanol Wants to be discharged home with Roxanol, does not want p.o. oxycodone as it has not been effective at all Appetite remains poor Patient will be discharged home today, scheduled for BICYCLE COURIER oncology follow-up tomorrow 03/10/2019 Physical Exam Constitutional: + ill appearing, + thin and + cachectic Eyes: + anicteric sclerae ENMT: external ear and nose normal, oropharynx normal Neck: trachea midline, no thyromegaly Respiratory: normal respiratory effort, lungs clear to auscultation Cardiovascular: RRR, no murmur, no edema Gastrointestinal (Abdomen): Percussion/Palpation: + abdomen tender (On suprapubic area) Musculoskeletal: no cyanosis or clubbing, extremities motor strength 5/5 Skin: no rashes, warm and dry Neurologic: PERRL, EOMI, accommodation nl, no face palsy, no dysarthria Psychiatric: Orientation: alert and oriented x 3 Affect: + flat affect Results & Data Vital Signs (Past 12 Hours) Vital Signs Temp Pulse Pulse Resp BP BP Pulse Ox 03/09/19 07:10 36.9 C 119 H 16 102/68 96 03/08/19 23:16 36.8 C 107 H 16 107/76 97
--- NOTE | 2019-03-09 09:50 | Discharge Summary ---
Date of Service March 09, 2019 Admission HPI Per Admitting Provider Patient is a 53-year-old female with history of recurrent metastatic cervical cancer, DM II, likely use disorder, dyslipidemia and other problems who was recently transferred from [facility] to [facility] for management of sigmoid perforation, radiation proctitis. Patient was treated conservatively at [facility]. Patient was seen by PCP after being discharged from [facility] for hospital discharge follow up. Patient complains of ongoing abdominal pain since last admission, which is intermittent, 6/10 intensity, lower abdominal, nonradiating, with no aggravating relieving factors, associated with diarrhea w hich is nonbloody. Patient also reports poor appetite, weight loss of about 25 pounds since 2 to 3 months duration. Currently she follows with [facility]/Onc is planning to discuss options of surgical exoneration with ostomy versus systemic chemotherapy. Also follows with Oncology locally. CT abdomen suggestive of focal microperforation of the sigmoid colon, possible abscess , left ureteral, hydronephrosis and findings suggestive low-grade partial large bowel obstruction. ED physician consulted surgery who discussed with [facility] and was thought that this is not drainable. Plan is to treat conservatively with IV antibiotics. Denies any history of chest pain, SOB, dizziness, cough, fever, chills, headache, dysuria, hematuria. Principal Diagnosis Metastatic cervical cancer/perforation of the vagina secondary to malignancy,/severe lower abdominal pain secondary to malignancy Discharge Exam Constitutional + ill appearing, + thin and + cachectic Eyes + anicteric sclerae ENMT external ear and nose normal, oropharynx normal Neck trachea midline, no thyromegaly Respiratory normal respiratory effort, lungs clear to auscultation Cardiovascular RRR, no murmur, no edema Gastrointestinal (Abdomen) Percussion/Palpation: + abdomen tender (On suprapubic area) Musculoskeletal no cyanosis or clubbing, extremities motor strength 5/5 Skin no rashes, warm and dry Neurologic PERRL, EOMI, accommodation nl, no face palsy, no dysarthria Psychiatric Orientation: alert and oriented x 3 Affect: + flat affect Discharge Data Allergies Allergy/AdvReac Type Severity Reaction Status Date / Time No Known Allergies Allergy Verified 02/24/19 17:11 Consultations 02/24/19 22:02 Consult Case Management - Discharge Planning Routine Consult General Surgery Routine 02/25/19 08:00 Consult Urology Routine Ordered Studies 03/01/19 10:03 CT abd pelvis oral and IV con Routine Hospital Course (1) Cervical carcinoma: Metastatic cervical carcinoma-leading to vaginal perforation/ureteric obstruction Scheduled to see RIVET HOLE MACHINE OPERATOR oncology at [facility] tomorrow 03/10/2000 Diagnosed in May 2017-admission at [facility] CT abdomen pelvis showed cervical mass Status post cervical biopsy in clinic by RIVET HOLE MACHINE OPERATOR Dr. Soler Noted to have poorly differentiated squamous cell carcinoma Patient subsequently underwent chemotherapy followed by radiation. Psoas muscle mets later found status post radiation. PET scan done October 2018 showed left perirectal fossa/left posterior vaginal area tumor recurrence. 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 Haas RIVET HOLE MACHINE OPERATOR oncology at [place] After failure of both radiation and chemo treatment, ongoing progression of disease Patient now willing to consider surgery, if she is still a candidate for the extensive surgical procedure Antibiotic changed to p.o., started on p.o. 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 The extraluminal gas at this location is consistent with focal microperforation and remains unchanged. However, there has been interval development of extraluminal bowel contents/stool anterior to the distal sigmoid colon extending through the site of perforation. The progressive inflammatory change surrounding the distal sigmoid colon appears to result in focal narrowing of the distal left ureter with mild left hydronephrosis as well as focal narrowing of the distal sigmoid colon likely resulting in a low-grade partial large bowel obstruction. Surgery on board recommended conservative management. No surgical intervention since abscess is not drainable (also surgery discussed case with [facility] in [place] who agreed as well that that the collection was not drainable.) Continue to have pain CT abd/pelvis w/wo contrast : 03/01/2019 Persistent extraluminal gas and fluid in the rectouterine recess with associated inflammatory change. Mucosal discontinuity of the vaginal vault is highly suspicious for vaginal perforation. Given the history of cervical and/or uterine radiation, this may be a consequence of postradiation necrosis and/or inflammatory change. No evidence of sigmoid perforation noted, Appreciate input from surgery, CT images reviewed with RIVET HOLE MACHINE OPERATOR oncology Dr. Haas and [facility] Recommend continue conservative approach, as patient does not have any clinical decline, no evidence of sepsis or evidence of peritonitis Once patient to see as an outpatient in clinic to discussion of further treatment plan Antibiotic changed to Augmentin needs 10 days of treatment Diet advanced to solid, very poor appetite Chronic Diarrhea Related to, chemo treatment/radiation proctitis Stool C. difficile negative Prior surgery patient will have chronic stool incontinence, needs to be evaluated by RIVET HOLE MACHINE OPERATOR oncology in [facility] For consideration of pelvic exenteration surgery Left Hydronephrosis Possible due to progression of pelvic malignancy Denies flank pain Urology on board recommended conservative management No ureteral stent placement unless patient condition declined Cervantes was discontinued by urology for trial of voiding Continued to retain urine more than 300 mL without any sensation of urination Cervantes reinserted She will be discharged home with Cervantse catheter Outpatient follow-up with urology Recurrent Metastatic Cervical Cancer Diagnosed in 2017 with mets to Psoas muscle S/P radiation, ongoing chemotherapy Recent PET scan done on 10/2018: Showed evidence of new malignancy/focal lesion in the vaginal wall CT abdomen pelvis on 03/01/2019 shows vaginal wall perforation possibly secondary to invasive malignancy Overall prognosis remains extremely poor Patient and aware Anemia of Chronic disease Hemoglobin remained stable, no evidence of GI bleed DM II: Most recent Hba1c 7 Currently diet controlled Continue monitor BS Tobacco Use: Counseling on smoking cessation DVT Px: Moderate to high risk given extensive malignancy, debilitating status with poor functional capacity Lovenox SQ Code Status Discussed with the patient, aware of the poor prognosis, does not have a living with Does not want heroic measures or resuscitation status in the case of cardiopulmonary arrest CODE STATUS changed to DNR/DNI Disposition: Briefly discussed role of hospice/palliative care Patient wants to consider further treatment, surgery if possible in [place] Patient is discharged home today with p.o. Roxanol as needed for pain control/p.o. antibiotic Home health visiting nurse, as patient needs to be on chronic Cervantes catheter Scheduled to see RIVET HOLE MACHINE OPERATOR oncology Dr. Trujillo in [place] next week 03/10/2019 at 12 PM Total Time Total Time Spent Total Time Spent (In Minutes): Approximately 45 minutes Total Time Includes: Examination of the Patient, Discharge Planning and Medication Reconciliation Discharge Plan Discharge Items Patient Disposition: Home - Self-Care Reason For Visit: BOWEL PERFORATION Discharge Diagnosis: Metastatic cervical cancer/perforation of the vagina secondary to malignancy,/severe lower abdominal pain secondary to malignancy Discharge Goals: Decrease discomfort Activity: Resume your previous activity Non-emergency contact: Primary Care Provider Call non-emergency contact if: you have any medication questions Follow-up/Referrals: Guicho Escudero MD [Physician] - (In 1 to 2 weeks) Dorita Pride MD [Primary Care Provider] - 03/15/19 11:00 am Diet: Regular Addtl Provider Instructions: RIVET HOLE MACHINE OPERATOR oncology follow-up with Dr. Boris Haas, DO on tomorrow Friday03/10/2019 @12:00 PM DEPARTMENT OF GYNECOLOGY/ONCOLOGY, [place] FOLLOW UP WITH UROLOGY DR ESCUDERO FOR CERVANTES CATHETER/URINARY RETENTION IN 1 TO 2 WEEKS Hospital follow-up with Dr. Michel Mendoza: On 03/15/2019 at 11 AM At [facility] New medications: Augmentin (antibiotic) 1 tablet twice daily for 10 days-treatment for possible infection related to bowel perforation Roxanol(pain medication) 10 mg/1 ML by mouth every 4 hours as needed for pain Do not take oxycodone Pain medications/narcotics can cause you to have constipation: Please take [id number] MiraLAX/Colace or Dulcolax as needed to have regular bowel movement Please notify your family physician if you are not having bowel movement for more than 2 days/increased pain in abdomen Please discussed with Dr. Michel Mendoza/your family physician-if you pain is not adequately controlled and you need increment/refill of pain medication dose Prescriptions: New amoxicillin-pot clavulanate 875-125 mg Tablet 1 tab PO BIDM 10 Days Qty: 20 RF: 0 morphine concentrate 100 mg/5 mL (20 mg/mL) Solution 20 mg PO Q4H PRN (Reason: pain) Qty: 30 RF: 0 Continued promethazine 25 mg Tablet 25 mg PO Q6H PRN (Reason: Nausea And Vomiting) RF: 0 metoprolol succinate 25 mg tablet extended release 24 hr 25 mg PO DAILY RF: 0 Discontinued metronidazole 500 mg Tablet 500 mg PO TID RF: 0 ciprofloxacin HCl [Cipro] 500 mg Tablet 500 mg PO Q12H RF: 0 oxycodone 5 mg Tablet 5 mg PO Q4H PRN (Reason: Pain) RF: 0 Stand-Alone Forms: [facility]/Other Patient Handouts: Diabetes Type 2 Coping, Diabetes Meal Planning Discharge Orders: Discharge Order (Routine); Ordered 03/09/19 Ordered By: Ashlie Duke Admission Data Admit Date/Time: 02/24/19 20:10 Attending Provider: Ashlie Duke Admit Provider: Víctor Simon Primary Care Provider: Dorita Pride Other Providers: Chloé Plascencia ; Guicho Escudero ; Alexandra Em Service: Surgical Services
[2019-03-09 15:28] VITALS: BP 107/78; PULSE 114; TEMP 97.9; O2SAT 94
== END 2019-03-09 16:26 | disposition home health service (06) | DRG 754 ==
LOC: ED 16:17 → 3W 20:10 → SUATTDRO 20:10 → 3W 21:41

== ENCOUNTER 2019-03-17 13:59 | Inpatient (IN) ==
[2019-03-17] MEDS ORDERED: SODIUM CHLORIDE 0.9% 1000ML 1,000 ML IV ONE ×2 (14:39)
[2019-03-17] MEDS ORDERED: MoRPHine SULFATE 4 MG/ML 1 ML CARP\\VIAL IV STA (14:39)
[2019-03-17] MEDS ORDERED: ONDANSETRON INJ 2 MG/ML 2 ML VIAL IV STA (14:39)
[2019-03-17 14:48] LABS: Basophils # (auto) 0.03 K/uL (0-0.2); Basophils % (auto) 0.2 %; Hematocrit (blood only) 33.9 % (37-47); Hemoglobin 11.1 g/dL (12.0-16.0); Immature Granulocytes # (auto) 0.03 K/uL (0.00-0.02); Immature Granulocytes % (auto) 0.2 %; Lymphocytes # (auto) 0.65 K/uL (1.2-3.4); Lymphocytes % (auto) 5.2 %; Mean Corpuscular Hgb Conc 32.7 g/dL (32-36); Mean Corpuscular Volume 95.8 fL (80-100); Mean Platelet Volume 9.2 fL (7.4-10.4); Monocytes # (auto) 0.78 K/uL (0.11-0.59); Monocytes % (auto) 6.3 %; Neutrophils # (auto) 10.91 K/uL (1.4-6.5); Neutrophils % (auto) 88.1 %; Platelet Count 519 K/uL (130-400); RDW Standard Deviation 56.2 fL (36.4-46.3); Red Blood Count 3.54 M/uL (4.2-5.4)
[2019-03-17 15:01] LABS: Alanine Aminotransferase 21 U/L (12-78); Albumin Level 2.8 gm/dl (3.4-5.0); Aspartate Aminotransferase 14 U/L (15-37); BUN Creatinine Ratio 16.1 (10-20); Blood Urea Nitrogen 14 mg/dl (7-18); Calcium 10.9 mg/dl (8.5-10.1); Carbon Dioxide 31 mmol/L (21-32); Chloride 84 mmol/L (98-107); Est GFR (African American) 84.6; Glucose 200 mg/dl (70-99); Sodium 133 mmol/L (136-145)
[2019-03-17 15:06] LABS: Albumin Globulin Ratio 0.5 (0.9-2); Alkaline Phosphatase 95 U/L (45-117); Bilirubin,Total 0.7 mg/dl (0.2-1); Globulin 5.6 gm/dl (2.5-4.0); Total Protein 8.4 gm/dl (6.4-8.2); Troponin I < 0.015 ng/ml (0-0.045)
[2019-03-17] MEDS ORDERED: IOVERSOL 100ml IV PRN (16:14)
--- NOTE | 2019-03-17 16:40 | CT Scan Report ---
CT OF THE ABDOMEN AND PELVIS WITH CONTRAST CLINICAL HISTORY: Cervical cancer. Recent perforation. Abdominal pain. COMPARISON STUDY: CT of the abdomen and pelvis March 01, 2019. TECHNIQUE: Following IV administration of 94 mL of Optiray-320, axial images of the abdomen and pelvi s were obtained from the lung bases to the proximal femurs. Images were reviewed in the axial, sagitt al, and coronal planes. IV contrast was administered without complication. Automated exposure contro l was utilized for the study. A dose lowering technique was utilized adhering to the principles of A YAAKOV. CT DOSE: 272.65 mGy.cm FINDINGS: Lung bases are unremarkable. The liver, spleen, adrenal glands, right kidney and pancreas a re normal. Moderate to severe left hydroureteronephrosis with a delayed left nephrogram is similar to CT of March 01, 2019. Caliber change of the left ureter at the level of the left pelvic sidewall on i mage 348 of 446 is again noted. There is no evidence for a bowel obstruction. No pneumatosis is prese nt. A Mccollum balloon is present within the bladder. Bladder wall is thickened. Wall thickening of the sigmoid colon and rectum is similar to CT of March 01, 2019. Pelvic infiltration and fluid has slightl y diminished. A fluid and gas containing collection within the rectouterine space on image 358 measur es 3.8 x 0.9 cm. The amount of fluid has slightly decreased since exam of March 01, 2019. Multiple loc ules of extraluminal gas extending superiorly are again noted. No new fluid collections are present. The site of previous sigmoid colon perforation is not visualized on this exam. There are no suspiciou s osseous lesions. IMPRESSION: 1. 3.8 x 0.9 cm fluid and gas containing collection within the rectouterine space. Extraluminal gas a nd fluid slightly diminished since CT of March 01, 2019. Apparent discontinuity at the level of the ce rvix could result in these findings. However, an underlying sigmoid perforation which was shown on ea rlier exams cannot be excluded and could result in similar findings. No new fluid collections. 2. No change in moderate to severe left hydroureteronephrosis with caliber change of the left ureter at the level of the left pelvic sidewall. 3. Persistent bladder wall thickening as well as wall thickening of the sigmoid colon and rectum. 4. No bowel obstruction. Electronically signed by: Leo Louis M.D. 03/17/2019 4:39 PM
[2019-03-17] MEDS ORDERED: HYDROmorphone INJ 1 MG/ML SYRINGE ONE (16:44)
[2019-03-17 16:57] LABS: Appearance Urine Cloudy (Clear); Bilirubin Urine Negative (Negative); Blood Urine Negative (Negative); Color Urine Yellow; Epithelial Cell Urine Auto >30 /lpf (0-5); Glucose Urine UA Negative (Negative); Leukocyte Esterase Urine Trace (Negative); Nitrite Urine Negative (Negative); Protein Urine 1+ (Negative); Specific Gravity Urine 1.029 (1.000-1.030); Urobilinogen Urine Negative (Negative)
[2019-03-17] MEDS ORDERED: PIPERACILL/TAZOBAC CONSULT ACTIVE PRN (17:09)
[2019-03-17] MEDS ORDERED: PIPERACILLIN/TAZOBACTAM 4.5 GM/120 ML BAG IV ONE (17:09)
[2019-03-17 17:22] LABS: Ketones Urine 4+ (Negative)
[2019-03-17 17:23] LABS: Mucus Urine Present (None Prsent)
[2019-03-17 17:24] LABS: Bacteria Urine Automated 1+ (Negative); RBC Urine Automated 0-4 /hpf (0-4)
--- NOTE | 2019-03-17 18:24 | Surgery Consultation ---
Date of Consultation March 17, 2019 Assessment & Plan (1) Abdominal pain: Patient is to be admitted with nausea, vomiting likely dehydration , and abdominal pain. It appears the collection in the pelvis has improved with antibiotics. No evidence of obstruction or significant colonic inflammation outside the area of the retrouterine space. There is no plan for urgent surgical intervention. He said that if she cannot tolerate further chemo she would like to have surgery. This would obviously be performed in [place] if at all. At the present time fluid and electrolyte management, IV antibiotics, IV pain control and antiemetics are the plan. She is not a candidate for interventional radiology. History of Present Illness History of Present Illness Patient presenting to the emergency room with nausea vomiting and diarrhea with abdominal pain. He has a history of static cervical cancer for which she has been treated with radiation and recent chemotherapy. She has developed fluid and gas collection in the pelvis may be related to colovaginal fistula or breakdown of her vaginal cuff. This has recently been treated with IV antibiotic with some improvement over the past month or so. She was admitted to the hospital in January again early February and just discharged March 09. She had an evaluation at [facility] for possible IR but collection is not amenable to that type of drainage. She has had a 25 pound weight loss over the past 2 to 3 months. She has severe left hydronephrosis most likely from tumor involvement. Some of the problem may be coming from radiation to the pelvis. She recently saw her surgeon in [place], Dr. Haas, he attempted examination but it was too painful. Apparently she has a PET scan either ordered pending. Allergies Allergy/AdvReac Type Severity Reaction Status Date / Time No Known Allergies Allergy Verified 03/17/19 15:48 Home Medications Home Medications Medication Instructions Recorded Confirmed Type metoprolol succinate 25 mg PO .DAILY@NOON 02/24/19 03/17/19 History promethazine 25 mg PO Q6H PRN 02/24/19 03/17/19 History morphine concentrate 20 mg PO Q4H PRN #30 ml 03/09/19 03/17/19 Rx amoxicillin-pot clavulanate 1 tab PO BID 03/17/19 03/17/19 History Patient History Medical History HTN (hypertension) Hydronephrosis Perforated bowel (Acute) Intra-abdominal abscess (Acute) Ureteral stricture, left (Acute) Cervical cancer (Acute) Radiation proctitis Sepsis Weakness (Acute) Perforation of sigmoid colon (Acute) Acute urinary retention (Acute) Cervical carcinoma (Acute 05/23/17) "Abdominal pain, ER evaluation and finding of a cervical mass on CT Status post cervical biopsy 05/23/2017 revealing 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 Radiation completed January 20, 2018. She had external beam therapy as well as HDR treatments. She received 5940 cGy with external beam treatment. She had 5 HDR treatments at 550 cGy for a total of 2750 cGy. Chemotherapy was comprised of weekly cisplatin." PET positive and biopsy-proven recurrence left psoas muscle 07/14/2018 Status post completion of stereotactic body radiation therapy completed August 19, 2018. She received 2500 cGy. Cornea abrasion (Acute) Hydronephrosis Hyperglycemia Pain in right eye (Acute) Cervical carcinoma Family History Other No significant family history Social History Preferred Language: Slovak Communication Ability: Effective Correction Worker Required: No Beliefs That Will Affect Care: None marital status: Current Living Situation: Spouse current occupational status: disabled Feels Safe at Home: Yes Safety Concerns: Feels Safe At This Time Smoking Status: Current every day smoker Tobacco Type: cigarettes Cigarettes Per Day: 4-8 per day Do You Dip or Chew Tobacco: No Tobacco Cessation Education Requested by Patient: No Hx Alcohol Use: No (former user) Hx Substance Use: No Review of Systems Review of Systems: All systems reviewed & are unremarkable except as noted in HPI & below Physical Exam Physical Exam: Patient is currently in her ER bed she is in no distress and is normally responsive. She is very thin and appears cachectic. Her skin is pale she is in no respiratory distress she has a regular heart rhythm. Her abdomen is soft she does describe pain in the lower abdomen. Her extremities are warm Results & Data Vital Signs (Past 12 Hours) Vital Signs Temp Pulse Resp BP Pulse Ox 03/17/19 18:01 86 14 128/77 100 03/17/19 17:31 90 10 L 116/77 100 03/17/19 17:01 91 H 9 L 114/76 100 03/17/19 16:36 92 H 13 121/75 100 03/17/19 15:31 102 H 10 L 136/94 91 03/17/19 15:06 108 H 14 91 03/17/19 14:15 36.3 C L 145 H 20 109/77 99 I did review her CAT scan. (1) Abdominal pain Abdominal location: lower abdomen, unspecified Qualified Code(s): R10.30 - Lower abdominal pain, unspecified
--- NOTE | 2019-03-17 18:32 | History & Physical Report ---
Date of Service March 17, 2019 Assessment & Plan (1) Leukocytosis: (2) Intra-abdominal fluid collection: H/O metastatic cervical cancer with history of hospitalization 02/09/2019- 02/16/2019 initially at [facility] and transferred to [facility] for sigmoid perforation and was seen by colorectal surgery and no indication for surgery at that time. 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 Conservative measures with Zosyn and patient was discharged on Augmentin. Pt presents with vomiting 1-2 times/day with eating over the past 2 days. Reports increased lower abdominal pain. Chronic loose stool incontinence continues. Denies fever/chills. Poor oral intake. In ER T: 36.3C, P: 145 down to 102, R: 20, BP: 109/77, 99% on RA down to 91% on RA. WBC: 12, lactate: 2.1. CT ABD/PELVIS: 1. 3.8 x 0.9 cm fluid and gas containing collection within the rectouterine space. Extraluminal gas and fluid slightly diminished since CT of March 01, 2019. Apparent discontinuity at the level of the cervix could result in these findings. However, an underlying sigmoid perforation which was shown on earlier exams cannot be excluded and could result in similar findings. No new fluid collections. 2. No change in moderate to severe left hydroureteronephrosis with caliber change of the left ureter at the level of the left pelvic sidewall. 3. Persistent bladder wall thickening as well as wall thickening of the sigmoid colon and rectum. 4. No bowel obstruction. -In ER was given Zosyn, 2L NSS, Zofran, morphine, Dilaudid -Meets SIRS criteria -Pending blood cultures (obtained after antibiotics started) -General surgery consult - specimen accessioner Dr Gutierrez contact by ER -IVF -Zosyn -Trend lactate -Monitor CBC, CMP (3) Hydronephrosis: (4) Urinary retention: Has indwelling Mccollum in place. CT ABD/PELVIS: No change in moderate to severe left hydroureteronephrosis with caliber change of the left ureter at the level of the left pelvic sidewall. Persistent bladder wall thickening -pending urine culture (5) Hypokalemia: K: 3.0 Poor oral intake -replace and monitor (6) Diabetes mellitus, type II: A1c: 7.0 Diet controlled -Novolog sliding scale per protocol (7) Cervical carcinoma: Hx metastatic cervical carcinoma. Follows with Dr Haas DUL[facility]ER/Onc at [facility] Chemo and radiation have been discontinued -Consider palliative consult (8) Chronic anemia: Hgb: 11. Baseline ~9-11 -Monitor H&H (9) Tobacco use: -Denies nicotine patch DVT Prophylaxis -Lovenox SQ Full Code as per discussion with pt Follows with Dr Michel Mendoza for routine care Pt was seen and care coordinated with Dr Simon. See addendum History of Present Illness Chief Complaint: Vomiting Primary Care Provider: Dorita Mendoza MD Pt is 53 y/o F with PMH recurrent metastatic cervical cancer, DM II, tobacco use presented to ER with c/o vomiting with eating x 2 days. Patient with history of hospitalization 02/09/2019-02/16/2019 initially at [facility] and transferred to [facility] for sigmoid perforation and was seen by colorectal surgery and no indication for surgery at that time. 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 Conservative measures with Zosyn and patient was discharged on Augmentin. Had follow-up on 03/10/[address] Haas [facility]Onc patient was unable to tolerate exam so plan for pelvic exam under anesthesia and plan for PET scan. Patient states has not had PET scan done yet. Patient reports chemo and radiation has been discontinued 2 months ago. Patient with continued lower abdominal pain which she reports as felt increased the past couple of days. Reports morphine is helping pain. Also complains of chronic nausea. Patient states past 2 days has had vomiting with eating. States is vomited 1-2 times daily over the past 2 days. Denies hematemesis, denies any fever or chills. Patient reports decreased appetite has continued in the last couple days has had very poor oral intake. She has had continuation of incontinence of loose stool and is wearing adult brief. She has Mccollum catheter still in place secondary to urinary retention. Denies diaphoresis, melena, hematochezia, WHITTAKER, dizziness, syncope, vision changes, neck pain, CP, SOB, orthopnea, palpitations, cough, sore throat, choking, otalgia, rhinorrhea, paresthesias, increased weakness, extremity edema, rashes. Allergies Allergy/AdvReac Type Severity Reaction Status Date / Time No Known Allergies Allergy Verified 03/17/19 15:48 Home Medications Home Medications Medication Instructions Recorded Confirmed Type metoprolol succinate 25 mg PO .DAILY@NOON 02/24/19 03/17/19 History promethazine 25 mg PO Q6H PRN 02/24/19 03/17/19 History morphine concentrate 20 mg PO Q4H PRN #30 ml 03/09/19 03/17/19 Rx amoxicillin-pot clavulanate 1 tab PO BID 03/17/19 03/17/19 History Past Med/Surg History Medical History Urinary retention (Chronic) Diabetes mellitus, type II (Chronic) HTN (hypertension) (Chronic) Hydronephrosis (Chronic) Perforated bowel (Acute) Intra-abdominal abscess (Acute) Ureteral stricture, left (Acute) Radiation proctitis Weakness (Acute) Perforation of sigmoid colon (Acute) Cervical carcinoma (Chronic 05/23/17) "Abdominal pain, ER evaluation and finding of a cervical mass on CT Status post cervical biopsy 05/23/2017 revealing 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 Radiation completed January 20, 2018. She had external beam therapy as well as HDR treatments. She received 5940 cGy with external beam treatment. She had 5 HDR treatments at 550 cGy for a total of 2750 cGy. Chemotherapy was comprised of weekly cisplatin." PET positive and biopsy-proven recurrence left psoas muscle 07/14/2018 Status post completion of stereotactic body radiation therapy completed August 19, 2018. She received 2500 cGy. Hydronephrosis (Chronic) Cervical carcinoma Surgical History History of surgery (Chronic) Hx 12/26/2017 - insertion of uterine tandems for brachytherapy - Dr Haas at [facility] History of esophagogastroduodenoscopy (EGD) (Chronic) 03/2018 - EGD with endoscopic US - benign mucinous cyst, GB sludge Family History Other Diabetes Social History Preferred Language: Mongolian Communication Ability: Effective Mercerizer Required: No Beliefs That Will Affect Care: None marital status: Current Living Situation: Spouse current occupational status: disabled Feels Safe at Home: Yes Safety Concerns: Feels Safe At This Time Smoking Status: Current every day smoker Tobacco Type: cigarettes Cigarettes Per Day: 4-8 per day Do You Dip or Chew Tobacco: No Tobacco Cessation Education Requested by Patient: No Hx Alcohol Use: No (former user) Hx Substance Use: No Review of Systems Review of Systems: All systems reviewed & are unremarkable except as noted in HPI & below Physical Exam Physical Exam: General: chronic ill appearing, no distress, moderately developed, moderately nourished Head: normocephalic, atraumatic Eyes: PERRL, EOM's intact, conjunctiva non-injected, anicteric ENT: normal inspection external ears, nose, mucous membranes dry Neck: supple, trachea midline Lungs: clear, no respiratory distress, no wheezing/rhonchi/rales CV: RRR, no murmur, no pretibial edema Abd: normal BS, soft, tender to palpation RLQ, LLQ, suprapubic without guarding or rebound, no CVA tenderness to percussion Ext: no cyanosis, no calf tenderness Neuro: A&O x 3, no focal deficits noted, normal affect Skin: warm, dry Results & Data Vital Signs (Past 12 Hours) Vital Signs Temp Pulse Resp BP Pulse Ox 03/17/19 18:01 86 14 128/77 100 03/17/19 17:31 90 10 L 116/77 100 03/17/19 17:01 91 H 9 L 114/76 100 03/17/19 16:36 92 H 13 121/75 100 03/17/19 15:31 102 H 10 L 136/94 91 03/17/19 15:06 108 H 14 91 03/17/19 14:15 36.3 C L 145 H 20 109/77 99 Laboratory Results Short CBC 03/17/19 Range/Units 14:30 WBC 12.40 H (4.8-10.8) K/uL Hgb 11.1 L (12.0-16.0) g/dL Hct 33.9 L (37-47) % Plt Count 519 H (130-400) K/uL BMP 03/17/19 14:30 Sodium 133 L Potassium 3.0 L Chloride 84 L Carbon Dioxide 31 BUN 14 Creatinine 0.89 Glucose 200 H Calcium 10.9 H Cardiac Enzymes 03/17/19 Range/Units 14:30 Troponin I < 0.015 (0-0.045) ng/ml Liver Function 03/17/19 Range/Units 14:30 Total Bilirubin 0.7 (0.2-1) mg/dl AST 14 L (15-37) U/L ALT 21 (12-78) U/L Alkaline Phosphatase 95 (45-117) U/L Albumin 2.8 L (3.4-5.0) gm/dl Urine 03/17/19 Range/Units 16:35 Urine Color Yellow Urine Appearance Cloudy A (Clear) Urine pH 5.0 (4.5-7.5) Ur Specific Leivasy 1.029 (1.000-1.030) Urine Protein 1+ H (Negative) Urine Glucose (UA) Negative (Negative) Diagnostic Findings CT ABD/PELVIS: IMPRESSION: 1. 3.8 x 0.9 cm fluid and gas containing collection within the rectouterine space. Extraluminal gas and fluid slightly diminished since CT of March 01, 2019. Apparent discontinuity at the level of the cervix could result in these findings. However, an underlying sigmoid perforation which was shown on earlier exams cannot be excluded and could result in similar findings. No new fluid collections. 2. No change in moderate to severe left hydroureteronephrosis with caliber change of the left ureter at the level of the left pelvic sidewall. 3. Persistent bladder wall thickening as well as wall thickening of the sigmoid colon and rectum. 4. No bowel obstruction. ECG Rate (beats per minute): 104 Rhythm: sinus tachycardia Findings: + PVC Additional Comments: Read by cardiology: Sinus tachycardia with occasional Premature ventricular complexes Inferior- posterior infarct (cited on or before 05-MAR-2019) Abnormal ECG When compared with ECG of 05-MAR-2019 20:04, Premature ventricular complexes are now Present Confirmed by Chandler Barajas ([id number]) on 03/17/2019 4:23:46 PM Supervising Physician Co-Signing Physician Notes Patient is a 52-year-old female with history of recurrent metastatic cervical cancer, tobacco use disorder and other problems presents with history of nausea, vomiting, poor appetite, urinary/bowel incontinence, abdominal pain since 2 days duration. 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 Please review HPI for complete details of presentation. Meets sirs criteria. Lactate elevated at 2.1. UA abnormal suggestive of UTI. Hyponatremia, hypochloremia, hypokalemia noted. CT abdomen suggestive of renal trauma abdominal fluid collection, underlying sigmoid perforation cannot be excluded. Chronic left hydroureteronephrosis noted on imaging studies which is unchanged. On exam patient is chronically appearing, normocephalic atraumatic, lungs are clear to auscultation, S1-S2,+ tachycardia, no murmur, abdomen soft, tenderness diffusely, no guarding or rigidity, grossly no focal neurological deficits, no pedal edema. Acute abdomen, to rule out abdominal perforation. Keep patient n.p.o. Agree with IV fluids, Zosyn, pain control. Surgery is consulted. Replace electrolytes as needed. Consider palliative care evaluation to address goals of care given advanced cervical cancer. I personally reviewed the record. Patient is interviewed and examined at bedside. Patient's care is coordinated with Emily Barrett PA-C. Please refer to the documentation above for details of patient's presentation and for discussion of other issues.
--- NOTE | 2019-03-17 19:10 | Emergency Department Note ---
Entered by Dania Rosales acting as a scribe for History of Present Illness General Chief complaint: Illness Stated complaint: ILLNESS Time Seen by Provider: 03/17/19 14:32 Source: patient Mode of arrival: ambulatory Limitations: no limitations History of Present Illness Onset (ago): day(s) 2 Location: abdomen Pain Consistency: + other (worsening) Maximum Pain Intensity: 8 Associated symptoms: + nausea/vomiting and + other (The patient complains of diarrhea and lower abdominal pain. ) Treatments prior to arrival: none The patient is a 53 white female w/ PMHx cervical cancer, sigmoid perforation, radiation proctitis, hypertension, hydronephrosis, sepsis, hyperglycemia who presents to the ED w/ CC of worsening illness beginning 2 days ago. The patient was discharged from [facility] [place] on 03/09/2019. She states that she is no longer getting treatment for her cancer. The patient reports that she was started on an antibiotic during her hospital stay and denies any surgery. The patient complains of nausea, vomiting, diarrhea, and lower abdominal pain. The patient denies taking any medications today. She states that she does not have a port or a PICC line and uses IVS. The patient reports that she has a Mccollum catheter. Home Medications Home Medications Medication Instructions Recorded Confirmed Type metoprolol succinate 25 mg PO .DAILY@NOON 02/24/19 03/17/19 History promethazine 25 mg PO Q6H PRN 02/24/19 03/17/19 History morphine concentrate 20 mg PO Q4H PRN #30 ml 03/09/19 03/17/19 Rx amoxicillin-pot clavulanate 1 tab PO BID 03/17/19 03/17/19 History Allergies Allergy/AdvReac Type Severity Reaction Status Date / Time No Known Allergies Allergy Verified 03/17/19 15:48 Past Med/Surg History Medical History Urinary retention (Chronic) Diabetes mellitus, type II (Chronic) HTN (hypertension) (Chronic) Hydronephrosis (Chronic) Perforated bowel (Acute) Intra-abdominal abscess (Acute) Ureteral stricture, left (Acute) Radiation proctitis Weakness (Acute) Perforation of sigmoid colon (Acute) Cervical carcinoma (Chronic 05/23/17) "Abdominal pain, ER evaluation and finding of a cervical mass on CT Status post cervical biopsy 05/23/2017 revealing 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 Radiation completed January 20, 2018. She had external beam therapy as well as HDR treatments. She received 5940 cGy with external beam treatment. She had 5 HDR treatments at 550 cGy for a total of 2750 cGy. Chemotherapy was comprised of weekly cisplatin." PET positive and biopsy-proven recurrence left psoas muscle 07/14/2018 Status post completion of stereotactic body radiation therapy completed August 19, 2018. She received 2500 cGy. Hydronephrosis (Chronic) Cervical carcinoma Surgical History History of surgery (Chronic) Hx 12/26/2017 - insertion of uterine tandems for brachytherapy - Dr Haas at [facility] [place] History of esophagogastroduodenoscopy (EGD) (Chronic) 03/2018 - EGD with endoscopic US - benign mucinous cyst, GB sludge Family History Other Diabetes Social History Preferred Language: [place] Communication Ability: Effective Surgical Attendant Required: No Beliefs That Will Affect Care: None marital status: Current Living Situation: Spouse current occupational status: disabled Feels Safe at Home: Yes Safety Concerns: Feels Safe At This Time Smoking Status: Current every day smoker Tobacco Type: cigarettes Cigarettes Per Day: 4-8 per day Do You Dip or Chew Tobacco: No Tobacco Cessation Education Requested by Patient: No Hx Alcohol Use: No (former user) Hx Substance Use: No Review of Systems See HPI for pertinent positives & negatives. and A total of 10 systems reviewed and were otherwise negative Physical Exam Vital Signs Vital Signs - 24 hr 03/17/19 14:15 03/17/19 15:06 03/17/19 15:31 Temperature 36.3 C L Temperature Source Oral Sepsis Recent Fever Within 48 Hours No Sepsis Action Taken by Nursing No Action Required Pulse Rate 145 H 108 H 102 H Pulse Rate from SpO2 Sensor 102 H Pulse Rhythm Regular Pulse Strength Normal Respiratory Rate 20 14 10 L Respiratory Effort / Characteristics Non-Labored Spontaneous Respiratory Depth Normal Respiratory Pattern Regular Blood Pressure 109/77 136/94 Blood Pressure Mean 87 108 Blood Pressure Position Sitting Pulse Oximetry 99 91 91 Oxygen Delivery Method Room Air Room Air Oxygen Flow Rate 03/17/19 16:36 03/17/19 17:01 03/17/19 17:31 Temperature Temperature Source Sepsis Recent Fever Within 48 Hours Sepsis Action Taken by Nursing Pulse Rate 92 H 91 H 90 Pulse Rate from SpO2 Sensor 91 H 90 Pulse Rhythm Pulse Strength Respiratory Rate 13 9 L 10 L Respiratory Effort / Characteristics Respiratory Depth Respiratory Pattern Blood Pressure 121/75 114/76 116/77 Blood Pressure Mean 90 88 90 Blood Pressure Position Pulse Oximetry 100 100 100 Oxygen Delivery Method Nasal Cannula Nasal Cannula Oxygen Flow Rate 2 2 03/17/19 18:01 03/17/19 18:19 Temperature Temperature Source Sepsis Recent Fever Within 48 Hours Sepsis Action Taken by Nursing Pulse Rate 86 Pulse Rate from SpO2 Sensor 87 Pulse Rhythm Pulse Strength Respiratory Rate 14 Respiratory Effort / Characteristics Non-Labored Spontaneous Respiratory Depth Normal Respiratory Pattern Regular Blood Pressure 128/77 Blood Pressure Mean 94 Blood Pressure Position Pulse Oximetry 100 Oxygen Delivery Method Nasal Cannula Oxygen Flow Rate 2 GENERAL: Ill appearing, cachectic, moderate distress. EYE EXAM: Normal conjunctiva. PERRL, no anisocoria and EOM's grossly intact w/o pain. OROPHARYNX: Dry mucus membranes. Poor dentition. NECK: Supple, no nuchal rigidity, no adenopathy, non-tender. No signs of meningismus. LUNGS: Clear to auscultation. Normal chest wall mechanics. HEART: Tachycardic and regular, no MRG. ABDOMEN: Abdomen soft, lower abdominal pain, not peritonitic, normo-active bowel sounds, no masses, no rebound or guarding. : Mccollum catheter in place BACK: No CVA TTP. SKIN: No rashes and no bruising. UPPER EXTREMITIES: Upper extremities are grossly normal. LOWER EXTREMITIES: No pitting edema. No calf pain. Mccollum catheter leg bag on right lower extremity NEURO EXAM: A&O x3, cranial nerves II-XII grossly intact, normal speech, moves all 4 extremities on command w/o issue. Course 1440: Past medical records reviewed. The patient was evaluated in room C01B. A complete history and physical examination was performed. 1716: I reviewed the patient's case with Dr. Matt Fields. He recommends conservative treatment, IV antibiotics, reassessment, and admission to medication. 1718: I reviewed the patient's case with Emily Owens. She will evaluate the patient for further management. 1737: The patient states that she feels better. Consultations Consultation #1: [id number]: I reviewed the patient's case with Dr. Gutierrez - General Surgery. He recommends conservative treatment, IV antibiotics, reassessment, and admission to medication. Time: 17:16 Consultation #2: [id number]: I reviewed the patient's case with Emily Barrett PA-C Hospitalist - [facility]. She will evaluate the patient for further man agement. Time: 17:18 Administered Medications Enoxaparin Sodium (Lovenox) 40 mg SQ Q24H TYRESE Stop: 04/16/19 20:59 Last Admin: 03/17/19 21:28 Dose: 40 mg Documented by: [id number] Piperacillin Sod/Tazobactam (Sod 3.375 gm/ Dextrose) 115 mls @ 28.75 mls/hr IV Q8H TYRESE; Protocol Stop: 03/28/19 00:00 Last Infusion: 03/18/19 11:36 Dose: 0 mls/hr Documented by: [id number] Admin: 03/18/19 07:24 Dose: 28.8 mls/hr Documented by: [id number] Infusion: 03/18/19 04:27 Dose: 0 mls/hr Documented by: [id number] Admin: 03/18/19 00:06 Dose: 28.8 mls/hr Documented by: [id number] Insulin Aspart (Novolog Flexpen) 0 units SC Q6 TYRESE Stop: 04/17/19 00:00 Last Admin: 03/18/19 12:42 Dose: 1 units Documented by: [id number] Cosigned by: [id number] Admin: 03/18/19 06:03 Dose: Not Given Documented by: [id number] Cosigned by: [id number] Admin: 03/18/19 00:46 Dose: Not Given Documented by: [id number] Cosigned by: [id number] Metoprolol Succinate (Toprol Xl) 25 mg PO DAILY@1200 TYRESE Stop: 04/17/19 11:59 Last Admin: 03/18/19 11:35 Dose: 25 mg Documented by: [id number] Morphine Sulfate (Morphine Sulfate) 3 mg IV Q3H PRN PRN Reason: Pain Stop: 03/31/19 19:54 Last Admin: 03/18/19 11:35 Dose: 3 mg Documented by: [id number] Admin: 03/18/19 07:23 Dose: 3 mg Documented by: [id number] Admin: 03/18/19 00:05 Dose: 3 mg Documented by: [id number] Admin: 03/17/19 20:59 Dose: 3 mg Documented by: [id number] Discontinued Medications Hydromorphone HCl (Dilaudid) Confirm Administered Dose 1 mg .ROUTE .STK-MED ONE Stop: 03/17/19 16:45 Last Admin: 03/17/19 16:45 Dose: 1 mg Documented by: [id number] Sodium Chloride (Nss 1000ml) 1,000 mls @ 999 mls/hr IV .Q1H1M ONE Stop: 03/17/19 15:39 Last Infusion: 03/17/19 16:06 Dose: 0 mls/hr Documented by: [id number] Admin: 03/17/19 14:51 Dose: 999 mls/hr Documented by: [id number] Sodium Chloride (Nss 1000ml) 1,000 mls @ 999 mls/hr IV .Q1H1M ONE Stop: 03/17/19 15:39 Last Infusion: 03/17/19 17:29 Dose: 0 mls/hr Documented by: [id number] Admin: 03/17/19 16:06 Dose: 999 mls/hr Documented by: [id number] Piperacillin Sod/Tazobactam Sod (Zosyn) 4.5 gm in 120 mls @ 240 mls/hr IV NOW ONE Stop: 03/17/19 17:38 Last Infusion: 03/17/19 18:08 Dose: 0 mls/hr Documented by: [id number] Admin: 03/17/19 17:33 Dose: 240 mls/hr Documented by: [id number] Potassium Chloride/Sodium Chloride (Normal Saline W/20 Meq Kcl) 20 meq in 1,000 mls @ 125 mls/hr IV .Q8H TYRESE Stop: 03/18/19 12:29 Last Admin: 03/18/19 05:00 Dose: 125 mls/hr Documented by: [id number] Infusion: 03/18/19 05:00 Dose: 125 mls/hr Documented by: [id number] Admin: 03/17/19 21:04 Dose: 125 mls/hr Documented by: [id number] Ioversol (Optiray 320 100ml) 94 ml IV ONCE PRN PRN Reason: Interaction Checking Stop: 03/21/19 16:13 Last Admin: 03/17/19 16:15 Dose: 1 ml Documented by: [id number] Morphine Sulfate (Morphine Sulfate) 4 mg IV NOW STA Stop: 03/17/19 14:40 Last Admin: 03/17/19 14:56 Dose: 4 mg Documented by: [id number] Ondansetron HCl (Zofran) 4 mg IV NOW STA Stop: 03/17/19 14:40 Last Admin: 03/17/19 14:53 Dose: 4 mg Documented by: [id number] Potassium Chloride (Klor-Con M20) 40 meq PO NOW STA Stop: 03/17/19 19:56 Last Admin: 03/17/19 21:00 Dose: 20 meq Documented by: [id number] Medical Decision Making Differential Diagnosis Differential diagnoses: Metabolic, infection, hypo/hyperglycemia, electrolyte abnormalities, cardiac sources, intracerebral event, toxicologic, neurologic, as well as others were entertained. Medical Records Attestation: I reviewed the patient's medical records. Home Medications Current Medication List: was personally reviewed by me Laboratory Data Attestation: I reviewed the patient's lab results. Result diagrams: 03/18/19 06:06 03/18/19 06:06 Lab Results 03/17/19 03/17/19 03/17/19 Range/Units 14:30 14:30 14:30 WBC 12.40 H (4.8-10.8) K/uL RBC 3.54 L (4.2-5.4) M/uL Hgb 11.1 L (12.0-16.0) g/dL Hct 33.9 L (37-47) % MCV 95.8 (80-100) fL MCH 31.4 (25-34) pg MCHC 32.7 (32-36) g/dL RDW Std Deviation 56.2 H (36.4-46.3) fL RDW Coeff of Jessica 16.0 H (11.5-14.5) % Plt Count 519 H (130-400) K/uL MPV 9.2 (7.4-10.4) fL Immature Gran % (Auto) 0.2 % Neut % (Auto) 88.1 % Lymph % (Auto) 5.2 % [place] % (Auto) 6.3 % Eos % (Auto) 0.0 % Baso % (Auto) 0.2 % Immature Gran # (Auto) 0.03 H (0.00-0.02) K/uL Neut # (Auto) 10.91 H (1.4-6.5) K/uL Lymph # (Auto) 0.65 L (1.2-3.4) K/uL [place] # (Auto) 0.78 H (0.11-0.59) K/uL Eos # (Auto) 0.00 (0-0.5) K/uL Baso # (Auto) 0.03 (0-0.2) K/uL PT (9.0-12.0) Seconds INR (0.9-1.1) APTT (21.0-31.0) Seconds PTT Ratio Sodium 133 L (136-145) mmol/L Potassium 3.0 L (3.5-5.1) mmol/L Chloride 84 L (98-107) mmol/L Carbon Dioxide 31 (21-32) mmol/L Anion Gap 18.0 H (3-11) BUN 14 (7-18) mg/dl Creatinine 0.89 (0.6-1.2) mg/dl Est Cr Clr Drug Dosing Not Reportable Est GFR ( Amer) 84.6 Est GFR (Non-Af Amer) 73.0 BUN/Creatinine Ratio 16.1 (10-20) Glucose 200 H (70-99) mg/dl Lactate (0.4-2.0) mmol/L Calcium 10.9 H (8.5-10.1) mg/dl Magnesium 1.8 (1.8-2.4) mg/dl Total Bilirubin 0.7 (0.2-1) mg/dl AST 14 L (15-37) U/L ALT 21 (12-78) U/L Alkaline Phosphatase 95 (45-117) U/L Troponin I < 0.015 (0-0.045) ng/ml Total Protein 8.4 H (6.4-8.2) gm/dl Albumin 2.8 L (3.4-5.0) gm/dl Globulin 5.6 H (2.5-4.0) gm/dl Albumin/Globulin Ratio 0.5 L (0.9-2) Lipase 102 (73-393) U/L Urine Color Urine Appearance (Clear) Urine pH (4.5-7.5) Ur Specific [place] (1.000-1.030) Urine Protein (Negative) Urine Glucose (UA) (Negative) Urine Ketones (Negative) Urine Blood (Negative) Urine Nitrite (Negative) Urine Bilirubin (Negative) Urine Urobilinogen (Negative) Ur Leukocyte Esterase (Negative) Urine WBC (Auto) (0-5) /hpf Urine RBC (Auto) (0-4) /hpf U Hyaline Cast (Auto) (0-5) /lpf U Epithel Cells (Auto) (0-5) /lpf Urine Bacteria (Auto) (Negative) Ur Renal Epithelial Cell Urine Crystals Urine Mucus (None Prsent) Urine Yeast (None Prsent) 03/17/19 03/17/19 03/17/19 Range/Units 14:30 14:59 16:35 WBC (4.8-10.8) K/uL RBC (4.2-5.4) M/uL Hgb (12.0-16.0) g/dL Hct (37-47) % MCV (80-100) fL MCH (25-34) pg MCHC (32-36) g/dL RDW Std Deviation (36.4-46.3) fL RDW Coeff of Jessica (11.5-14.5) % Plt Count (130-400) K/uL MPV (7.4-10.4) fL Immature Gran % (Auto) % Neut % (Auto) % Lymph % (Auto) % [place] % (Auto) % Eos % (Auto) % Baso % (Auto) % Immature Gran # (Auto) (0.00-0.02) K/uL Neut # (Auto) (1.4-6.5) K/uL Lymph # (Auto) (1.2-3.4) K/uL [place] # (Auto) (0.11-0.59) K/uL Eos # (Auto) (0-0.5) K/uL Baso # (Auto) (0-0.2) K/uL PT 11.5 (9.0-12.0) Seconds INR 1.1 (0.9-1.1) APTT 25.6 (21.0-31.0) Seconds PTT Ratio 0.9 Sodium (136-145) mmol/L Potassium (3.5-5.1) mmol/L Chloride (98-107) mmol/L Carbon Dioxide (21-32) mmol/L Anion Gap (3-11) BUN (7-18) mg/dl Creatinine (0.6-1.2) mg/dl Est Cr Clr Drug Dosing Est GFR ( Amer) Est GFR (Non-Af Amer) BUN/Creatinine Ratio (10-20) Glucose (70-99) mg/dl Lactate 2.1 H* (0.4-2.0) mmol/L Calcium (8.5-10.1) mg/dl Magnesium (1.8-2.4) mg/dl Total Bilirubin (0.2-1) mg/dl AST (15-37) U/L ALT (12-78) U/L Alkaline Phosphatase (45-117) U/L Troponin I (0-0.045) ng/ml Total Protein (6.4-8.2) gm/dl Albumin (3.4-5.0) gm/dl Globulin (2.5-4.0) gm/dl Albumin/Globulin Ratio (0.9-2) Lipase (73-393) U/L Urine Color Yellow Urine Appearance Cloudy A (Clear) Urine pH 5.0 (4.5-7.5) Ur Specific [place] 1.029 (1.000-1.030) Urine Protein 1+ H (Negative) Urine Glucose (UA) Negative (Negative) Urine Ketones 4+ H (Negative) Urine Blood Negative (Negative) Urine Nitrite Negative (Negative) Urine Bilirubin Negative (Negative) Urine Urobilinogen Negative (Negative) Ur Leukocyte Esterase Trace H (Negative) Urine WBC (Auto) 10-30 H (0-5) /hpf Urine RBC (Auto) 0-4 (0-4) /hpf U Hyaline Cast (Auto) 10-30 H (0-5) /lpf U Epithel Cells (Auto) >30 H (0-5) /lpf Urine Bacteria (Auto) 1+ H (Negative) Ur Renal Epithelial Cell Not Reportable Urine Crystals Not Reportable Urine Mucus Present A (None Prsent) Urine Yeast Present A (None Prsent) Imaging Data Radiologist's Impression: Radiology results as stated below per my review and the radiologist's interpretation: CT OF THE ABDOMEN AND PELVIS WITH CONTRAST CLINICAL HISTORY: Cervical cancer. Recent perforation. Abdominal pain. COMPARISON STUDY: CT of the abdomen and pelvis March 01, 2019. TECHNIQUE: Following IV administration of 94 mL of Optiray-320, axial images of the abdomen and pelvis were obtained from the lung bases to the proximal femurs. Images were reviewed in the axial, sagittal, and coronal planes. IV contrast was administered without complication. Automated exposure control was utilized for the study. A dose lowering technique was utilized adhering to the principles of ALARA. CT DOSE: 272.65 mGy.cm FINDINGS: Lung bases are unremarkable. The liver, spleen, adrenal glands, right kidney and pancreas are normal. Moderate to severe left hydroureteronephrosis with a delayed left nephrogram is similar to CT of March 01, 2019. Caliber change of the left ureter at the level of the left pelvic sidewall on image 348 of 446 is again noted. There is no evidence for a bowel obstruction. No pneumatosis is present. A Mccollum balloon is present within the bladder. Bladder wall is thickened. Wall thickening of the sigmoid colon and rectum is similar to CT of March 01, 2019. Pelvic infiltration and fluid has slightly diminished. A fluid and gas containing collection within the rectouterine space on image 358 measures 3.8 x 0.9 cm. The amount of fluid has slightly decreased since exam of March 01, 2019. Multiple locules of extraluminal gas extending superiorly are again noted. No new fluid collections are present. The site of previous sigmoid colon perforation is not visualized on this exam. There are no suspicious osseous lesions. IMPRESSION: 1. 3.8 x 0.9 cm fluid and gas containing collection within the rectouterine space. Extraluminal gas and fluid slightly diminished since CT of March 01, 2019. Apparent discontinuity at the level of the cervix could result in these findings. However, an underlying sigmoid perforation which was shown on earlier exams cannot be excluded and could result in similar findings. No new fluid collections. 2. No change in moderate to severe left hydroureteronephrosis with caliber change of the left ureter at the level of the left pelvic sidewall. 3. Persistent bladder wall thickening as well as wall thickening of the sigmoid colon and rectum. 4. No bowel obstruction. Electronically signed by: Leo Louis M.D. 03/17/2019 4:39 PM Dictated: 03/17/19 1624 Transcribed: 03/17/191623 ECG Data Attestation: I personally reviewed and interpreted this ECG as follows: Indication: weakness Rate (beats per minute): 104 Rhythm: sinus tachycardia Findings: + other (normal intervals, normal axis, a lot of motion) and + T-wave inversion (V2) Blood Pressure Blood Pressure Findings: Normal blood pressure MDM Narrative The patient is a 53 white female w/ PMHx cervical cancer, sigmoid perforation, radiation proctitis, hypertension, hydronephrosis, sepsis, hyperglycemia who presents to the ED w/ CC of worsening illness beginning 2 days ago. Patient was seen and evaluated the bedside. The patient does have a known history of metastatic cervical cancer. The patient did have a recent sigmoid perforation which was treated conservatively. I did review the surgical consultation note which did relate that the patient did have a small fluid collection which was not amenable to even IR drainage after consultation with Graciela Palomares. The patient was presented with lower abdominal pain. The patient is tachycardic. The patient has not taken anything for pain today. The patient was started on IV fluids and did have blood work and blood cultures. Urinalysis was also pending. The patient did have mild white count. The patient's repeat CT scan does show that the patient does have redemonstration of a fluid collection. This is slightly smaller in size compared to previous. Given the patient's elevated white count tachycardia the patient was redosed with IV antibiotics. The patient had been on Augmentin as an outpatient so Zosyn was ordered. The patient was briefly discussed with the on-call surgeon and I did relate the past surgical consult and recommended conservative management that I are had not been amenable to possible drainage as it was not feasible. He agreed with the current plan of care given that the fluid collection was there but was actually decreased in size without other new changes. I did speak the on-call hospitalist agreed to further evaluate treat the patient. Patient was admitted to the medicine service. Impression & Plan Sepsis, Abdominal pain, Intra-abdominal fluid collection, Hx of cervical cancer Discharge Plan Visit Data *Final* Discharge Date/Time: 03/17/19 18:35 Chief Complaint: Illness Stated Complaint: ILLNESS ED Provider: Cody Herrera Discharge Problem: Sepsis, Abdominal pain, Intra-abdominal fluid collection, Hx of cervical cancer Patient Disposition: Admitted As Inpatient Discharge Instructions Interventions: ED Discharge Assessment Last Done: 03/17/19 18:35 Discharge Problem: Sepsis Qualifiers: Sepsis type: sepsis due to unspecified organism Qualified Code(s): A41.9 - Sepsis, unspecified organism Abdominal pain Qualifiers: Abdominal location: lower abdomen, unspecified Qualified Code(s): R10.30 - Lower abdominal pain, unspecified The scribe's documentation has been prepared under my direction and personally reviewed by me in its entirety. I confirm that the note above accurately reflects all work, treatment, procedures, and medical decision making performed by me.
[2019-03-17] MEDS ORDERED: GLUCAGON FOR INJ 1 MG VIAL SQ PRN (19:55)
[2019-03-17] MEDS ORDERED: ACETAMINOPHEN 325 MG TAB PO PRN (19:55)
[2019-03-17] MEDS ORDERED: GLUCOSE 40% GEL 15 GM TUBE PO PRN (19:55)
[2019-03-17] MEDS ORDERED: DEXTROSE 50% 50 ML SYRINGE IV PRN (19:55)
[2019-03-17] MEDS ORDERED: GLUCOSE 10 TABS/TUBE PO PRN (19:55)
[2019-03-17] MEDS ORDERED: CARBOHYDRATES FOR HYPOGLYCEMIA PO PRN (19:55)
[2019-03-17] MEDS ORDERED: POTASSIUM CHLORIDE 20 MEQ TABCR PO STA (19:55)
[2019-03-17] MEDS ORDERED: PROMETHAZINE HCL 12.5 MG in SODIUM CHLORIDE 0.9% 50 ML IV PRN (19:55)
[2019-03-17] MEDS ORDERED: Nursing to Pharmacy Communication ONE (20:12)
[2019-03-17 20:28] LABS: INR 1.1 (0.9-1.1); Partial Thromboplastin Ratio 0.9; Partial Thromboplastin Time 25.6 Seconds (21.0-31.0); Prothrombin Time 11.5 Seconds (9.0-12.0)
[2019-03-17] MEDS: MoRPHine SULFATE 4 MG/ML 1 ML CARP\\VIAL IV PRN (20:59)
[2019-03-17] MEDS ORDERED: INSULIN ASPART 100 UNITS/ML 3 ML PEN SC SCH (21:00)
--- NOTE | 2019-03-17 21:00 | XRay Report ---
XR chest 2V routine CLINICAL HISTORY: r/o pneumonia COMPARISON STUDY: Chest radiograph December 18, 2018. FINDINGS: Lung volumes are normal. Lungs are clear. There is no pneumothorax or pleural effusion. Car diac size is normal. Mediastinal contours are normal. There is no evidence for pulmonary edema. Incid ental note is made of a dilated left collecting system which contains excreted contrast from prior co ntrast enhanced CT. IMPRESSION: No acute cardiopulmonary findings. Electronically signed by: Leo Louis M.D. 03/17/2019 8:58 PM
[2019-03-17] MEDS: NSS + 20MEQ KCL 20 MEQ/1,000 ML BAG IV SCH (21:04)
[2019-03-17] MEDS: ENOXAPARIN INJ 40 MG/0.4 ML SYR SQ SCH (21:28)
[2019-03-18] MEDS: MoRPHine SULFATE 4 MG/ML 1 ML CARP\\VIAL IV PRN ×6 (00:05→23:27)
[2019-03-18] MEDS: PIPERACILLIN/TAZOBACTAM 3.375 GM in DEXTROSE 5% 100 ML IV SCH ×4 (00:06→23:47)
[2019-03-18] MEDS: INSULIN ASPART 100 UNITS/ML 3 ML PEN SC SCH ×5 (00:46→23:58)
[2019-03-18] MEDS: NSS + 20MEQ KCL 20 MEQ/1,000 ML BAG IV SCH (05:00)
[2019-03-18 06:18] LABS: Basophils # (auto) 0.02 K/uL (0-0.2); Basophils % (auto) 0.3 %; Eosinophils # (auto) 0.02 K/uL (0-0.5); Eosinophils % (auto) 0.3 %; Hematocrit (blood only) 25.9 % (37-47); Immature Granulocytes # (auto) 0.02 K/uL (0.00-0.02); Immature Granulocytes % (auto) 0.3 %; Lymphocytes # (auto) 0.65 K/uL (1.2-3.4); Mean Corpuscular Hgb Conc 30.9 g/dL (32-36); Mean Corpuscular Volume 96.6 fL (80-100); Mean Platelet Volume 8.5 fL (7.4-10.4); Monocytes # (auto) 0.61 K/uL (0.11-0.59); Monocytes % (auto) 9.4 %; Neutrophils % (auto) 79.7 %; Platelet Count 319 K/uL (130-400); RDW Coefficient of Variation 16.3 % (11.5-14.5); RDW Standard Deviation 57.2 fL (36.4-46.3); Red Blood Count 2.68 M/uL (4.2-5.4); White Blood Count 6.52 K/uL (4.8-10.8)
[2019-03-18 07:04] LABS: Albumin Globulin Ratio 0.5 (0.9-2); Albumin Level 1.9 gm/dl (3.4-5.0); BUN Creatinine Ratio 13.7 (10-20); Bilirubin,Total 0.4 mg/dl (0.2-1); Calcium 8.5 mg/dl (8.5-10.1); Creatinine Clr Calc Pharmacy 68.1 ml/min; Est GFR (African American) 114.7; Globulin 3.8 gm/dl (2.5-4.0); Magnesium 1.5 mg/dl (1.8-2.4); Potassium 3.4 mmol/L (3.5-5.1); Total Protein 5.7 gm/dl (6.4-8.2)
--- NOTE | 2019-03-18 07:10 | Progress Note ---
Date of Service March 18, 2019 Assessment & Plan (1) Intra-abdominal fluid collection: Suspect this may be more related to vaginal necrosis than colon leakage No plan for any surgical intervention in this hospital. Coordination between her oncologist and Surg onc in [place] would be best- It is likely heroic surgery with pelvic exenteration would be needed and with metastatic disease possibly not curative. Subjective see a/p Results & Data Vital Signs (Past 12 Hours) Vital Signs Temp Pulse Pulse Pulse Resp BP BP 03/18/19 03:15 36.7 C 87 18 109/71 03/18/19 00:00 93 H 03/17/19 22:58 36.7 C 96 H 18 110/72 03/17/19 20:30 119 H 03/17/19 19:59 36.5 C 97 H 18 115/62 Pulse Ox 03/18/19 03:15 96 03/18/19 00:00 03/17/19 22:58 99 03/17/19 20:30 03/17/19 19:59 97
--- NOTE | 2019-03-18 10:57 | Hospitalist Progress Note ---
Date of Service March 18, 2019 Assessment & Plan (1) Leukocytosis: (2) Intra-abdominal fluid collection: H/O metastatic cervical cancer with history of hospitalization 02/09/2019- 02/16/2019 initially at [facility] and [place] [facility] [place] and was seen by colorectal surgery and no indication for surgery at that time. 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 Conservative measures with Zosyn and patient was discharged on Augmentin. Pt presents with vomiting 1-2 times/day with eating over the past 2 days. Reports increased lower abdominal pain. Chronic loose stool incontinence continues. Denies fever/chills. Poor oral intake. In ER T: 36.3C, P: 145 down to 102, R: 20, BP: 109/77, 99% on RA down to 91% on RA. WBC: 12, lactate: 2.1. CT ABD/PELVIS: 1. 3.8 x 0.9 cm fluid and gas containing collection within the rectouterine space. Extraluminal gas and fluid slightly diminished since CT of March 01, 2019. Apparent discontinuity at the level of the cervix could result in these findings. However, an underlying sigmoid perforation which was shown on earlier exams cannot be excluded and could result in similar findings. No new fluid collections. 2. No change in moderate to severe left hydroureteronephrosis with caliber change of the left ureter at the level of the left pelvic sidewall. 3. Persistent bladder wall thickening as well as wall thickening of the sigmoid colon and rectum. 4. No bowel obstruction. -In ER was given Zosyn, 2L NSS, Zofran, morphine, Dilaudid -Meets SIRS criteria -Pending blood cultures (obtained after antibiotics started) -General surgery on case -Oncology eval, possible transfer to [facility] -IVF -Zosyn -Trend lactate -Monitor CBC, CMP (3) Hydronephrosis: IVFs (4) Urinary retention: Has indwelling Mccollum in place. CT ABD/PELVIS: No change in moderate to severe left hydroureteronephrosis with caliber change of the left ureter at the level of the left pelvic sidewall. Persistent bladder wall thickening -pending urine culture (5) Hypokalemia: K: 3.0 Poor oral intake -replace and monitor (6) Diabetes mellitus, type II: A1c: 7.0 Diet controlled -Novolog sliding scale per protocol (7) Cervical carcinoma: Hx metastatic cervical carcinoma. Follows with Dr Haas LOGISTICS COORDINATOR/Onc [place] [facility] Bonilla-Oncology Chemo and radiation have been discontinued -Consider palliative consult (8) Chronic anemia: Hgb: 11. Baseline ~9-11, Down to 8.0 -Monitor H&H (9) Tobacco use: -Denies nicotine patch DVT Prophylaxis -Lovenox SQ Full Code as per discussion with pt Follows with Dr Michel Mendoza for routine care Labs reviewed Clears, SSI ROS-No Headache, No Visual Changes, +Nausea, +Vomiting, No Fever, No Chills, No Neck Pain or Stiffness, No Chest Pain, No Palpitations, No SOB, No CARL, No Cough, No Sputum, No Wheezing, +Abdominal Pain, No Diarrhea, No Hematemesis, No Hemoptysis, No Unexpected Weight Loss, No Flank pain, No Melena, No Hematochezia, No Frequency, No Urgency, No Burning, No Hematuria, No Rashes, No Diaphoresis. Appetite is Normal Physical Exam Gen-AAO x 3, NAD, Afebrile, Cachectic Head-NCAT, EOMI, PERRLA, Anicteric Sclera, No Posterior Pharyngeal Erythema Neck-Supple, No JVD, No Thyromegaly, No Masses, No LAD, No Bruits Lungs-Clear to Auscultation Bilaterally, No Rales, No Rhonchi, No Wheezing, No Crepitus Chest-No S4, +S1, +S2, No S3, No Murmurs, No Rubs, No Gallops, No Ectopy Abdomen-Soft, sore , Non Tender, Non Distended, No Hepatomegaly, No Splenomegaly, No Palpable Masses, No Rebound, No Rigidity, No Guarding Musculoskeletal-Full Range of Motion Bilaterally, No CVAT Extremities-No Cyanosis, No Clubbing, No Edema Nuero-Cranial Nerves II-XII grossly intact, Motor WNL, DTRs WNL, Strength WNL, Non Focal Psych-Normal Mood Results & Data Vital Signs (Past 12 Hours) Vital Signs Temp Pulse Pulse Resp BP Pulse Ox 03/18/19 07:15 80 03/18/19 07:09 36.6 C 84 16 105/67 98 03/18/19 03:15 36.7 C 87 18 109/71 96 03/18/19 00:00 93 H 03/17/19 22:58 36.7 C 96 H 18 110/72 99
[2019-03-18] MEDS: METOPROLOL SUCC 25MG EXT REL TAB PO SCH (11:35)
[2019-03-18] MEDS: ENOXAPARIN INJ 40 MG/0.4 ML SYR SQ SCH (19:49)
[2019-03-19] MEDS: INSULIN ASPART 100 UNITS/ML 3 ML PEN SC SCH ×3 (05:56→18:05)
[2019-03-19 06:14] LABS: INR 1.2 (0.9-1.1); Prothrombin Time 11.7 Seconds (9.0-12.0)
[2019-03-19 06:51] LABS: Albumin Level 1.9 gm/dl (3.4-5.0); BUN Creatinine Ratio 7.7 (10-20); Calcium 7.9 mg/dl (8.5-10.1); Creatinine Clr Calc Pharmacy 77.4 ml/min; Est GFR (African American) 119.6; Est GFR (Non-African American) 103.2
[2019-03-19 06:54] LABS: Albumin Globulin Ratio 0.5 (0.9-2); Bilirubin,Total 0.3 mg/dl (0.2-1); Globulin 3.7 gm/dl (2.5-4.0); Total Protein 5.6 gm/dl (6.4-8.2)
--- NOTE | 2019-03-19 08:03 | Hospitalist Progress Note ---
Date of Service March 19, 2019 Assessment & Plan (1) Leukocytosis: (2) Intra-abdominal fluid collection: H/O metastatic cervical cancer with history of hospitalization 02/09/2019- 02/16/2019 initially at [facility] and [place] [facility] [place] and was seen by colorectal surgery and no indication for surgery at that time. 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 Conservative measures with Zosyn and patient was discharged on Augmentin. Pt presents with vomiting 1-2 times/day with eating over the past 2 days. Reports increased lower abdominal pain. Chronic loose stool incontinence continues. Denies fever/chills. Poor oral intake. In ER T: 36.3C, P: 145 down to 102, R: 20, BP: 109/77, 99% on RA down to 91% on RA. WBC: 12, lactate: 2.1. CT ABD/PELVIS: 1. 3.8 x 0.9 cm fluid and gas containing collection within the rectouterine space. Extraluminal gas and fluid slightly diminished since CT of March 01, 2019. Apparent discontinuity at the level of the cervix could result in these findings. However, an underlying sigmoid perforation which was shown on earlier exams cannot be excluded and could result in similar findings. No new fluid collections. 2. No change in moderate to severe left hydroureteronephrosis with caliber change of the left ureter at the level of the left pelvic sidewall. 3. Persistent bladder wall thickening as well as wall thickening of the sigmoid colon and rectum. 4. No bowel obstruction. -In ER was given Zosyn, 2L NSS, Zofran, morphine, Dilaudid -Meets SIRS criteria -All cultures are negative -General surgery on case, D/W [facility] in [place], Collection seems to getting better no need for transfer -Oncology eval done, No need to transfer to [place] [facility] Pall Care eval try iv hct DC home 1-2 days (3) Hydronephrosis: IVFs (4) Urinary retention: Has indwelling Mccollum in place. CT ABD/PELVIS: No change in moderate to severe left hydroureteronephrosis with caliber change of the left ureter at the level of the left pelvic sidewall. Persistent bladder wall thickening -pending urine culture (5) Hypokalemia: K: 3.0 Poor oral intake -replace and monitor (6) Diabetes mellitus, type II: A1c: 7.0 Diet controlled -Novolog sliding scale per protocol (7) Cervical carcinoma: Hx metastatic cervical carcinoma. Follows with Dr Haas SOUND EFFECTS TECHNICIAN/Onc at [facility] Bonilla-Oncology Chemo and radiation have been discontinued (8) Chronic anemia: Hgb: 11. Baseline ~9-11, Down to 8.0 -Monitor H&H (9) Tobacco use: -Denies nicotine patch DVT Prophylaxis -Lovenox SQ Full Code as per discussion with pt Follows with Dr Michel Mendoza for routine care Labs reviewed Clears, SSI ROS-No Headache, No Visual Changes, +Nausea, +Vomiting, No Fever, No Chills, No Neck Pain or Stiffness, No Chest Pain, No Palpitations, No SOB, No CARL, No Cough, No Sputum, No Wheezing, +Abdominal Pain, No Diarrhea, No Hematemesis, No Hemoptysis, No Unexpected Weight Loss, No Flank pain, No Melena, No Hematochezia, No Frequency, No Urgency, No Burning, No Hematuria, No Rashes, No Diaphoresis. Appetite is Normal Physical Exam Gen-AAO x 3, NAD, Afebrile, Cachectic Head-NCAT, EOMI, PERRLA, Anicteric Sclera, No Posterior Pharyngeal Erythema Neck-Supple, No JVD, No Thyromegaly, No Masses, No LAD, No Bruits Lungs-Clear to Auscultation Bilaterally, No Rales, No Rhonchi, No Wheezing, No Crepitus Chest-No S4, +S1, +S2, No S3, No Murmurs, No Rubs, No Gallops, No Ectopy Abdomen-Soft, sore , Non Tender, Non Distended, No Hepatomegaly, No Splenomegaly, No Palpable Masses, No Rebound, No Rigidity, No Guarding Musculoskeletal-Full Range of Motion Bilaterally, No CVAT Extremities-No Cyanosis, No Clubbing, No Edema Nuero-Cranial Nerves II-XII grossly intact, Motor WNL, DTRs WNL, Strength WNL, Non Focal Psych-Normal Mood Results & Data Vital Signs (Past 12 Hours) Vital Signs Temp Pulse Pulse Resp BP Pulse Ox 03/19/19 07:45 67 03/19/19 07:26 36.5 C 73 17 108/68 99 03/19/19 04:00 36.7 C 68 18 96/61 L 99 03/19/19 00:06 73 03/18/19 23:03 36.7 C 71 18 101/64 98
[2019-03-19] MEDS: PIPERACILLIN/TAZOBACTAM 3.375 GM in DEXTROSE 5% 100 ML IV SCH ×3 (08:42→23:49)
[2019-03-19 08:54] LABS: Basophils # (auto) 0.02 K/uL (0-0.2); Basophils % (auto) 0.3 %; Eosinophils # (auto) 0.08 K/uL (0-0.5); Eosinophils % (auto) 1.3 %; Hematocrit (blood only) 25.2 % (37-47); Hemoglobin 7.8 g/dL (12.0-16.0); Immature Granulocytes # (auto) 0.01 K/uL (0.00-0.02); Immature Granulocytes % (auto) 0.2 %; Lymphocytes # (auto) 0.64 K/uL (1.2-3.4); Lymphocytes % (auto) 10.8 %; Mean Corpuscular Volume 96.2 fL (80-100); Mean Platelet Volume 9.1 fL (7.4-10.4); Monocytes # (auto) 0.52 K/uL (0.11-0.59); Monocytes % (auto) 8.8 %; Neutrophils # (auto) 4.66 K/uL (1.4-6.5); Neutrophils % (auto) 78.6 %; Platelet Count 342 K/uL (130-400); RDW Coefficient of Variation 16.1 % (11.5-14.5); Red Blood Count 2.62 M/uL (4.2-5.4); White Blood Count 5.93 K/uL (4.8-10.8)
[2019-03-19] MEDS: MoRPHine SULFATE 4 MG/ML 1 ML CARP\\VIAL IV PRN ×4 (08:56→21:37)
--- NOTE | 2019-03-19 09:19 | Surgery Progress Note ---
Date of Service March 19, 2019 Assessment & Plan (1) Intra-abdominal fluid collection: change back to clear liquids, Boost Breeze abdominal exam unchanged has discussed treatment options with obstetrics gyn onc, but may time to consider palliative options Dr Gutierrez- surgical mgt per Surg onc team- Marielle Owens they were trying to obtain PET scan to confirm extent of disease Subjective cannot tolerate regular diet, sent tray back, having more suprapubic pain Physical Exam Gastrointestinal (Abdomen): Inspection/Auscultation: abdomen not distended Percussion/Palpation: + abdomen tender (suprapubic) and abdomen soft Results & Data Vital Signs (Past 12 Hours) Vital Signs Temp Pulse Pulse Resp BP Pulse Ox 03/19/19 07:45 67 03/19/19 07:26 36.5 C 73 17 108/68 99 03/19/19 04:00 36.7 C 68 18 96/61 L 99 03/19/19 00:06 73 03/18/19 23:03 36.7 C 71 18 101/64 98
[2019-03-19 09:45] LABS: RBC Morphology Unremarkable
[2019-03-19] MEDS: POTASSIUM CHLORIDE / WTR 10 MEQ/100 ML PLCT IV SCH ×4 (11:08→15:18)
[2019-03-19] MEDS: HYDROCORTISONE SOD 25 MG in SYRINGE 0 ML IV SCH ×3 (12:00→23:50)
[2019-03-19] MEDS: POTASSIUM CHLORIDE 20 MEQ TABCR PO SCH ×3 (12:24→18:21)
[2019-03-19] MEDS: METOPROLOL SUCC 25MG EXT REL TAB PO SCH (13:53)
[2019-03-19] MEDS: MAGNESIUM SULFATE / D5W 1 GM/100 ML BAG IV SCH ×3 (13:54→16:16)
[2019-03-19 17:01] LABS: BUN Creatinine Ratio 6.1 (10-20); Calcium 8.6 mg/dl (8.5-10.1); Creatinine Clr Calc Pharmacy 84.6 ml/min; Est GFR (African American) 123.1; Est GFR (Non-African American) 106.2; Potassium 4.1 mmol/L (3.5-5.1)
[2019-03-19] MEDS: ENOXAPARIN INJ 40 MG/0.4 ML SYR SQ SCH (21:38)
[2019-03-20] MEDS: MoRPHine SULFATE 4 MG/ML 1 ML CARP\\VIAL IV PRN ×6 (00:35→20:10)
[2019-03-20] MEDS: INSULIN ASPART 100 UNITS/ML 3 ML PEN SC SCH ×4 (01:04→18:06)
[2019-03-20] MEDS: HYDROCORTISONE SOD 25 MG in SYRINGE 0 ML IV SCH ×4 (05:48→23:40)
[2019-03-20 06:20] LABS: Basophils # (auto) 0.01 K/uL (0-0.2); Basophils % (auto) 0.2 %; Hematocrit (blood only) 27.2 % (37-47); Hemoglobin 8.5 g/dL (12.0-16.0); Immature Granulocytes # (auto) 0.01 K/uL (0.00-0.02); Immature Granulocytes % (auto) 0.2 %; Lymphocytes # (auto) 0.42 K/uL (1.2-3.4); Lymphocytes % (auto) 7.1 %; Mean Corpuscular Hgb Conc 31.3 g/dL (32-36); Mean Corpuscular Volume 95.4 fL (80-100); Mean Platelet Volume 8.4 fL (7.4-10.4); Monocytes # (auto) 0.26 K/uL (0.11-0.59); Monocytes % (auto) 4.4 %; Neutrophils # (auto) 5.25 K/uL (1.4-6.5); Neutrophils % (auto) 88.1 %; Platelet Count 317 K/uL (130-400); RDW Coefficient of Variation 15.5 % (11.5-14.5); RDW Standard Deviation 54.7 fL (36.4-46.3); Red Blood Count 2.85 M/uL (4.2-5.4); White Blood Count 5.95 K/uL (4.8-10.8)
[2019-03-20 06:54] LABS: Creatinine Clr Calc Pharmacy 76.1 ml/min; Est GFR (African American) 118.9; Est GFR (Non-African American) 102.6
--- NOTE | 2019-03-20 07:32 | Hospitalist Progress Note ---
Date of Service March 20, 2019 Assessment & Plan (1) Leukocytosis: (2) Intra-abdominal fluid collection: H/O metastatic cervical cancer with history of hospitalization 02/09/2019- 02/16/2019 initially at [facility] and [place] [facility] [place] and was seen by colorectal surgery and no indication for surgery at that time. 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 Conservative measures with Zosyn and patient was discharged on Augmentin. Pt presents with vomiting 1-2 times/day with eating over the past 2 days. Reports increased lower abdominal pain. Chronic loose stool incontinence continues. Denies fever/chills. Poor oral intake. In ER T: 36.3C, P: 145 down to 102, R: 20, BP: 109/77, 99% on RA down to 91% on RA. WBC: 12, lactate: 2.1. CT ABD/PELVIS: 1. 3.8 x 0.9 cm fluid and gas containing collection within the rectouterine space. Extraluminal gas and fluid slightly diminished since CT of March 01, 2019. Apparent discontinuity at the level of the cervix could result in these findings. However, an underlying sigmoid perforation which was shown on earlier exams cannot be excluded and could result in similar findings. No new fluid collections. 2. No change in moderate to severe left hydroureteronephrosis with caliber change of the left ureter at the level of the left pelvic sidewall. 3. Persistent bladder wall thickening as well as wall thickening of the sigmoid colon and rectum. 4. No bowel obstruction. -In ER was given Zosyn, 2L NSS, Zofran, morphine, Dilaudid -Met SIRS criteria -All cultures are negative -General surgery on case, D/W [facility] in [place] and Dr Valverde from Onc. Collection seems to getting better no need for transfer -Oncology eval done, No need to transfer to [place] [facility] Pall Care eval Pain Control IV HCT DC home when tolerating diet (3) Hydronephrosis: IVFs (4) Urinary retention: Has indwelling Mccollum in place. CT ABD/PELVIS: No change in moderate to severe left hydroureteronephrosis with caliber change of the left ureter at the level of the left pelvic sidewall. Persistent bladder wall thickening -Urine culture +Yeast-Not Neda (5) Hypokalemia: K: 3.0 Poor oral intake -replace and monitor (6) Diabetes mellitus, type II: A1c: 7.0 Diet controlled -Novolog sliding scale per protocol (7) Cervical carcinoma: Hx metastatic cervical carcinoma. Follows with Dr Haas RECORD PRESS OPERATOR/Onc at [facility] Bonilla-Oncology Chemo and radiation have been discontinued (8) Chronic anemia: Hgb: 11. Baseline ~9-11, up -Monitor H&H-Up now (9) Tobacco use: -Denies nicotine patch DVT Prophylaxis -Lovenox SQ Full Code as per discussion with pt Follows with Dr Michel Mendoza for routine care Labs reviewed Clears, SSI ROS-No Headache, No Visual Changes, +Nausea, +Vomiting, No Fever, No Chills, No Neck Pain or Stiffness, No Chest Pain, No Palpitations, No SOB, No CARL, No Cough, No Sputum, No Wheezing, +Abdominal Pain, No Diarrhea, No Hematemesis, No Hemoptysis, No Unexpected Weight Loss, No Flank pain, No Melena, No Hematochezia, No Frequency, No Urgency, No Burning, No Hematuria, No Rashes, No Diaphoresis. Appetite is Normal Physical Exam Gen-AAO x 3, NAD, Afebrile, Cachectic Head-NCAT, EOMI, PERRLA, Anicteric Sclera, No Posterior Pharyngeal Erythema Neck-Supple, No JVD, No Thyromegaly, No Masses, No LAD, No Bruits Lungs-Clear to Auscultation Bilaterally, No Rales, No Rhonchi, No Wheezing, No Crepitus Chest-No S4, +S1, +S2, No S3, No Murmurs, No Rubs, No Gallops, No Ectopy Abdomen-Soft, sore , Tender, Non Distended, No Hepatomegaly, No Splenomegaly, No Palpable Masses, No Rebound, No Rigidity, No Guarding Musculoskeletal-Full Range of Motion Bilaterally, No CVAT Extremities-No Cyanosis, No Clubbing, No Edema Nuero-Cranial Nerves II-XII grossly intact, Motor WNL, DTRs WNL, Strength WNL, Non Focal Psych-Normal Mood Results & Data Vital Signs (Past 12 Hours) Vital Signs Temp Pulse Pulse Resp BP Pulse Ox 06/29/19 07:10 59 L 03/20/19 06:37 36.5 C 60 16 109/71 99 03/20/19 04:00 36.5 C 60 20 113/72 97 03/20/19 01:11 65 03/19/19 23:00 36.6 C 71 17 115/72 98
[2019-03-20] MEDS: POTASSIUM CHLORIDE 20 MEQ TABCR PO SCH ×3 (08:54→16:03)
[2019-03-20] MEDS: PIPERACILLIN/TAZOBACTAM 3.375 GM in DEXTROSE 5% 100 ML IV SCH ×3 (08:57→23:40)
[2019-03-20] MEDS: METOPROLOL SUCC 25MG EXT REL TAB PO SCH (12:34)
--- NOTE | 2019-03-20 17:03 | Infectious Disease Consult ---
Date of Consultation March 20, 2019 Assessment & Plan (1) Candidal UTI (urinary tract infection): Patient with what appears to be urinary tract infection in the setting of indwelling Mccollum catheter with Neda glabrata, good possibility that isolate would be fluconazole resistant. We will therefore initiate amphotericin B bladder irrigation along with IV caspofungin for 5 days. Would continue on Zosyn for now for intra-abdominal abscess status post sigmoid perforation. Will follow. (2) Intra-abdominal abscess: History of Present Illness Reason for Consultation: Yeast in urine Attending Physician: Han Perez DO History of Present Illness 53-year-old female with complicated medical history including metastatic cervical carcinoma, on chemotherapy status post radiation therapy, recently hospitalized with perforated sigmoid colon with abscess, treated with IV and then oral antibiotics, readmitted with worsening abdominal pain, distention, difficulty eating, nausea and vomiting. Is been found to have some improvement in intra-abdominal infection on CT scan, has been restarted on IV antibiotics. Urine culture now growing Neda glabrata. Patient has chronic indwelling Mccollum catheter. Currently afebrile. Other cultures have been unremarkable. Allergies Allergy/AdvReac Type Severity Reaction Status Date / Time No Known Allergies Allergy Verified 03/17/19 15:48 Home Medications Home Medications Medication Instructions Recorded Confirmed Type metoprolol succinate 25 mg PO .DAILY@NOON 02/24/19 03/17/19 History promethazine 25 mg PO Q6H PRN 02/24/19 03/17/19 History morphine concentrate 20 mg PO Q4H PRN #30 ml 03/09/19 03/17/19 Rx amoxicillin-pot clavulanate 1 tab PO BID 03/17/19 03/17/19 History Patient History Medical History Urinary retention (Chronic) Diabetes mellitus, type II (Chronic) HTN (hypertension) (Chronic) Hydronephrosis (Chronic) Perforated bowel (Acute) Intra-abdominal abscess (Acute) Ureteral stricture, left (Acute) Radiation proctitis Weakness (Acute) Perforation of sigmoid colon (Acute) Cervical carcinoma (Chronic 05/23/17) "Abdominal pain, ER evaluation and finding of a cervical mass on CT Status post cervical biopsy 05/23/2017 revealing 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 Radiation completed January 20, 2018. She had external beam therapy as well as HDR treatments. She received 5940 cGy with external beam treatment. She had 5 HDR treatments at 550 cGy for a total of 2750 cGy. Chemotherapy was comprised of weekly cisplatin." PET positive and biopsy-proven recurrence left psoas muscle 07/14/2018 Status post completion of stereotactic body radiation therapy completed August 19, 2018. She received 2500 cGy. Hydronephrosis (Chronic) Cervical carcinoma Surgical History History of surgery (Chronic) Hx 12/26/2017 - insertion of uterine tandems for brachytherapy - Dr Haas at [facility] [place] History of esophagogastroduodenoscopy (EGD) (Chronic) 03/2018 - EGD with endoscopic US - benign mucinous cyst, GB sludge Family History Other Diabetes Social History Preferred Language: Icelandic Communication Ability: Effective Dental Financial Coordinator Required: No Beliefs That Will Affect Care: None marital status: Current Living Situation: Spouse current occupational status: disabled Feels Safe at Home: Yes Safety Concerns: Feels Safe At This Time Smoking Status: Current every day smoker Tobacco Type: cigarettes Cigarettes Per Day: 4-8 per day Do You Dip or Chew Tobacco: No Tobacco Cessation Education Requested by Patient: No Hx Alcohol Use: No (former user) Hx Substance Use: No Review of Systems Review of Systems: All systems reviewed & are unremarkable except as noted in HPI & below Physical Exam Constitutional: + ill appearing and + cachectic; no acute distress Eyes: PERRL, conjunctivae normal, anicteric sclerae ENMT: external ear and nose normal, oropharynx normal Neck: trachea midline, no thyromegaly normal visual inspection Respiratory: normal respiratory effort, lungs clear to auscultation normal percussion Cardiovascular: RRR, no murmur, no edema Heart Sounds: no gallop and no cardiac rub Gastrointestinal (Abdomen): Inspection/Auscultation: normal bowel sounds Percussion/Palpation: + abdomen tender; no hepatosplenomegaly and no abdominal mass Musculoskeletal: no cyanosis or clubbing, extremities motor strength 5/5 Skin: no rashes, warm and dry Neurologic: moves all extremities; no focal motor deficits Psychiatric: A+Ox3, euthymic affect Lymphatic: no cervical or axillary lymphadenopathy no inguinal lymphadenopathy Results & Data Vital Signs (Past 12 Hours) Vital Signs Temp Pulse Pulse Resp BP Pulse Ox 03/20/19 15:48 36.7 C 66 16 123/73 97 03/20/19 15:32 65 03/20/19 12:12 36.6 C 62 19 132/81 100 03/20/19 07:10 59 L 03/20/19 06:37 36.5 C 60 16 109/71 99 Laboratory Results Short CBC 03/20/19 Range/Units 06:09 WBC 5.95 (4.8-10.8) K/uL Hgb 8.5 L (12.0-16.0) g/dL Hct 27.2 L (37-47) % Plt Count 317 (130-400) K/uL BMP 03/19/19 03/20/19 15:55 06:09 Sodium 135 L Potassium 4.1 D Chloride 97 L Carbon Dioxide 29 BUN 3 L Creatinine 0.54 L 0.60 Glucose 101 H Calcium 8.6 Diagnostic Findings Microbiology 03/17/19 16:35 Urine,Clean Catch Urine Culture - Final Neda glabrata 03/17/19 20:05 Blood Aerobic Blood Culture - Preliminary No growth in Aerobic bottle after 48 hours. 03/17/19 20:05 Blood Anaerobic Blood Culture - Preliminary No growth in Anaerobic bottle after 48 hours. 03/17/19 20:22 Blood Aerobic Blood Culture - Preliminary No growth in Aerobic bottle after 48 hours. 03/17/19 20:22 Blood Anaerobic Blood Culture - Final CT OF THE ABDOMEN AND PELVIS WITH CONTRAST CLINICAL HISTORY: Cervical cancer. Recent perforation. Abdominal pain. COMPARISON STUDY: CT of the abdomen and pelvis March 01, 2019. TECHNIQUE: Following IV administration of 94 mL of Optiray-320, axial images of the abdomen and pelvis were obtained from the lung bases to the proximal femurs. Images were reviewed in the axial, sagittal, and coronal planes. IV contrast was administered without complication. Automated exposure control was utilized for the study. A dose lowering technique was utilized adhering to the principles of ALARA. CT DOSE: 272.65 mGy.cm FINDINGS: Lung bases are unremarkable. The liver, spleen, adrenal glands, right kidney and pancreas are normal. Moderate to severe left hydroureteronephrosis with a delayed left nephrogram is similar to CT of March 01, 2019. Caliber change of the left ureter at the level of the left pelvic sidewall on image 348 of 446 is again noted. There is no evidence for a bowel obstruction. No pneumatosis is present. A Mccollum balloon is present within the bladder. Bladder wall is thickened. Wall thickening of the sigmoid colon and rectum is similar to CT of March 01, 2019. Pelvic infiltration and fluid has slightly diminished. A fluid and gas containing collection within the rectouterine space on image 358 measures 3.8 x 0.9 cm. The amount of fluid has slightly decreased since exam of March 01, 2019. Multiple locules of extraluminal gas extending superiorly are again noted. No new fluid collections are present. The site of previous sigmoid colon perforation is not visualized on this exam. There are no suspicious osseous lesions. IMPRESSION: 1. 3.8 x 0.9 cm fluid and gas containing collection within the rectouterine space. Extraluminal gas and fluid slightly diminished since CT of March 01, 2019. Apparent discontinuity at the level of the cervix could result in these findings. However, an underlying sigmoid perforation which was shown on earlier exams cannot be excluded and could result in similar findings. No new fluid collections. 2. No change in moderate to severe left hydroureteronephrosis with caliber change of the left ureter at the level of the left pelvic sidewall. 3. Persistent bladder wall thickening as well as wall thickening of the sigmoid colon and rectum. 4. No bowel obstruction. Electronically signed by: Leo Louis M.D. 03/17/2019 4:39 PM Dictated: 03/17/19 [id number]
[2019-03-20] MEDS ORDERED: CASPOFUNGIN 70 MG in SODIUM CHLORIDE 0.9% 250 ML IV ONE (18:00)
[2019-03-20] MEDS: AMPHOTERICIN B 50 MG in WATER, STERILE 1,000 ML IR SCH (20:11)
[2019-03-20] MEDS ORDERED: MoRPHine SULFATE 4 MG/ML 1 ML CARP\\VIAL IV STA (21:02)
[2019-03-20] MEDS: ENOXAPARIN INJ 40 MG/0.4 ML SYR SQ SCH (21:52)
[2019-03-21] MEDS: MoRPHine SULFATE 4 MG/ML 1 ML CARP\\VIAL IV PRN ×5 (03:42→21:19)
[2019-03-21] MEDS: INSULIN ASPART 100 UNITS/ML 3 ML PEN SC SCH ×5 (04:16→20:31)
[2019-03-21] MEDS: HYDROCORTISONE SOD 25 MG in SYRINGE 0 ML IV SCH (05:51)
[2019-03-21 06:41] LABS: Hematocrit (blood only) 27.5 % (37-47); Hemoglobin 8.7 g/dL (12.0-16.0); Mean Corpuscular Hgb Conc 31.6 g/dL (32-36); Mean Corpuscular Volume 95.8 fL (80-100); Mean Platelet Volume 8.5 fL (7.4-10.4); Platelet Count 326 K/uL (130-400); RDW Coefficient of Variation 15.7 % (11.5-14.5); RDW Standard Deviation 54.7 fL (36.4-46.3); Red Blood Count 2.87 M/uL (4.2-5.4); White Blood Count 5.92 K/uL (4.8-10.8)
[2019-03-21 07:08] LABS: BUN Creatinine Ratio 9.4 (10-20); Calcium 8.9 mg/dl (8.5-10.1); Creatinine Clr Calc Pharmacy 73.7 ml/min; Est GFR (African American) 120.3; Est GFR (Non-African American) 103.8; Potassium 3.3 mmol/L (3.5-5.1)
[2019-03-21] MEDS: PIPERACILLIN/TAZOBACTAM 3.375 GM in DEXTROSE 5% 100 ML IV SCH ×3 (07:21→23:42)
[2019-03-21] MEDS: POTASSIUM CHLORIDE / WTR 10 MEQ/100 ML PLCT IV SCH ×4 (08:05→14:44)
[2019-03-21] MEDS: POTASSIUM CHLORIDE 20 MEQ TABCR PO SCH ×3 (08:06→17:01)
--- NOTE | 2019-03-21 10:07 | Hospitalist Progress Note ---
Date of Service March 21, 2019 Assessment & Plan (1) Leukocytosis: (2) Intra-abdominal fluid collection: H/O metastatic cervical cancer with history of hospitalization 02/09/2019- 02/16/2019 initially at [facility] and transferred to [facility] for sigmoid perforation and was seen by colorectal surgery and no indication for surgery at that time. 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 Conservative measures with Zosyn and patient was discharged on Augmentin. Pt presents with vomiting 1-2 times/day with eating over the past 2 days. Reports increased lower abdominal pain. Chronic loose stool incontinence continues. Denies fever/chills. Poor oral intake. In ER T: 36.3C, P: 145 down to 102, R: 20, BP: 109/77, 99% on RA down to 91% on RA. WBC: 12, lactate: 2.1. CT ABD/PELVIS: 1. 3.8 x 0.9 cm fluid and gas containing collection within the rectouterine space. Extraluminal gas and fluid slightly diminished since CT of March 01, 2019. Apparent discontinuity at the level of the cervix could result in these findings. However, an underlying sigmoid perforation which was shown on earlier exams cannot be excluded and could result in similar findings. No new fluid collections. 2. No change in moderate to severe left hydroureteronephrosis with caliber change of the left ureter at the level of the left pelvic sidewall. 3. Persistent bladder wall thickening as well as wall thickening of the sigmoid colon and rectum. 4. No bowel obstruction. -In ER was given Zosyn, 2L NSS, Zofran, morphine, Dilaudid -Met SIRS criteria -All cultures are negative -General surgery on case, D/W Meat Lugger/Onc in [place] and Dr Valverde from Onc. Collection seems to getting better no need for transfer -Oncology eval done, No need to transfer to [place] [facility]/Onc Pall Care eval Pain Control Taper HCT DC home when tolerating diet (3) Hydronephrosis: IVFs (4) Urinary retention: Has indwelling Mccollum in place. CT ABD/PELVIS: No change in moderate to severe left hydroureteronephrosis with caliber change of the left ureter at the level of the left pelvic sidewall. Persistent bladder wall thickening -Urine culture +Yeast-Not Neda-Amphoterecin ans Caspofungin started (5) Hypokalemia: -replace and monitor (6) Diabetes mellitus, type II: A1c: 7.0 Diet controlled -Novolog sliding scale per protocol (7) Cervical carcinoma: Hx metastatic cervical carcinoma. Follows with Dr Haas ORTHOPAEDIC SURGEON/Onc at [facility], Dr Bonilla-Oncology Chemo and radiation have been discontinued (8) Chronic anemia: Hgb: 11. Baseline ~9-11, up -Monitor H&H-Up now (9) Tobacco use: -Denies nicotine patch DVT Prophylaxis -Lovenox SQ Full Code as per discussion with pt Follows with Dr Michel Mendoza for routine care Labs reviewed Clears, SSI ROS-No Headache, No Visual Changes, +Nausea, +Vomiting, No Fever, No Chills, No Neck Pain or Stiffness, No Chest Pain, No Palpitations, No SOB, No CARL, No Cough, No Sputum, No Wheezing, +Abdominal Pain, No Diarrhea, No Hematemesis, No Hemoptysis, No Unexpected Weight Loss, No Flank pain, No Melena, No Hematochezia, No Frequency, No Urgency, No Burning, No Hematuria, No Rashes, No Diaphoresis. Appetite is Normal Physical Exam Gen-AAO x 3, NAD, Afebrile, Cachectic Head-NCAT, EOMI, PERRLA, Anicteric Sclera, No Posterior Pharyngeal Erythema Neck-Supple, No JVD, No Thyromegaly, No Masses, No LAD, No Bruits Lungs-Clear to Auscultation Bilaterally, No Rales, No Rhonchi, No Wheezing, No Crepitus Chest-No S4, +S1, +S2, No S3, No Murmurs, No Rubs, No Gallops, No Ectopy Abdomen-Soft, sore , Tender, Non Distended, No Hepatomegaly, No Splenomegaly, No Palpable Masses, No Rebound, No Rigidity, No Guarding Musculoskeletal-Full Range of Motion Bilaterally, No CVAT Extremities-No Cyanosis, No Clubbing, No Edema Nuero-Cranial Nerves II-XII grossly intact, Motor WNL, DTRs WNL, Strength WNL, Non Focal Psych-Normal Mood Results & Data Vital Signs (Past 12 Hours) Vital Signs Temp Pulse Resp BP Pulse Ox 03/21/19 07:37 36.5 C 57 L 18 146/76 H 97 03/21/19 03:59 36.4 C L 55 L 20 133/77 96 03/20/19 22:57 36.7 C 63 17 137/79 97
--- NOTE | 2019-03-21 10:47 | Surgery Progress Note ---
Date of Service March 21, 2019 Assessment & Plan (1) Intra-abdominal abscess: complicated pt with a h/o metastatic cervical cancer with history of hospitalization 02/09/2019-02/16/2019 initially at [facility] and transferred to [facility] for sigmoid perforation and was seen by colorectal surgery and no indication for surgery at that time. 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 IR and no drainage was recommended. Now with intrabdominal 3.8 cm collection most c/w abscess - appears stable on IV abx. Unable to advance diet past liquids due to increased discomfort likely from multiple etiologies. No new recommendations. Will sign off - please call with questions or if clinical course changes. Present on Admission?: Yes Subjective Pt was seen yesterday also. Unfortunately, I forgot to write note yesterday. Both times, she is stable with no new changes. Unable to tolerate diet advancement beyond clear liquids without increase in pain. On Sat, dean catheter changed to 3 way. Physical Exam Gastrointestinal (Abdomen): Inspection/Auscultation: normal bowel sounds; abdomen not distended Percussion/Palpation: + abdomen tender (mild, pelvic); no guarding Results & Data Vital Signs (Past 12 Hours) Vital Signs Temp Pulse Resp BP Pulse Ox 03/21/19 07:37 36.5 C 57 L 18 146/76 H 97 03/21/19 03:59 36.4 C L 55 L 20 133/77 96 03/20/19 22:57 36.7 C 63 17 137/79 97
[2019-03-21] MEDS: METOPROLOL SUCC 25MG EXT REL TAB PO SCH (12:20)
[2019-03-21] MEDS: CASPOFUNGIN 50 MG in SODIUM CHLORIDE 0.9% 250 ML IV SCH (19:55)
[2019-03-21] MEDS: AMPHOTERICIN B 50 MG in WATER, STERILE 1,000 ML IR SCH (20:50)
[2019-03-21] MEDS ORDERED: HYDROCORTISONE SOD 25 MG in SYRINGE 0 ML IV SCH (21:00)
[2019-03-21] MEDS: ENOXAPARIN INJ 40 MG/0.4 ML SYR SQ SCH (21:19)
[2019-03-22] MEDS: MoRPHine SULFATE 4 MG/ML 1 ML CARP\\VIAL IV PRN ×7 (00:29→23:33)
[2019-03-22 05:35] LABS: Calcium 8.4 mg/dl (8.5-10.1); Creatinine Clr Calc Pharmacy 73.7 ml/min; Est GFR (African American) 120.3; Est GFR (Non-African American) 103.8; Potassium 3.1 mmol/L (3.5-5.1)
[2019-03-22 05:38] LABS: Albumin Globulin Ratio 0.6 (0.9-2); Bilirubin,Total 0.3 mg/dl (0.2-1); Globulin 3.5 gm/dl (2.5-4.0); Total Protein 5.5 gm/dl (6.4-8.2)
[2019-03-22 06:41] LABS: Basophils # (auto) 0.01 K/uL (0-0.2); Basophils % (auto) 0.2 %; Eosinophils # (auto) 0.02 K/uL (0-0.5); Eosinophils % (auto) 0.4 %; Hematocrit (blood only) 27.9 % (37-47); Hemoglobin 8.7 g/dL (12.0-16.0); Immature Granulocytes # (auto) 0.02 K/uL (0.00-0.02); Immature Granulocytes % (auto) 0.4 %; Lymphocytes # (auto) 0.72 K/uL (1.2-3.4); Lymphocytes % (auto) 14.4 %; Mean Corpuscular Hgb Conc 31.2 g/dL (32-36); Mean Corpuscular Volume 95.2 fL (80-100); Mean Platelet Volume 8.3 fL (7.4-10.4); Monocytes # (auto) 0.41 K/uL (0.11-0.59); Monocytes % (auto) 8.2 %; Neutrophils # (auto) 3.82 K/uL (1.4-6.5); Neutrophils % (auto) 76.4 %; Platelet Count 274 K/uL (130-400); RDW Coefficient of Variation 15.9 % (11.5-14.5); RDW Standard Deviation 55.2 fL (36.4-46.3); Red Blood Count 2.93 M/uL (4.2-5.4)
[2019-03-22 07:15] LABS: Albumin Level 2.1 gm/dl (3.4-5.0); BUN Creatinine Ratio 9.6 (10-20); Calcium 8.4 mg/dl (8.5-10.1); Creatinine Clr Calc Pharmacy 72.5 ml/min; Est GFR (African American) 119.6; Est GFR (Non-African American) 103.2; Potassium 3.1 mmol/L (3.5-5.1)
[2019-03-22 07:18] LABS: Albumin Globulin Ratio 0.6 (0.9-2); Bilirubin,Total 0.3 mg/dl (0.2-1); Globulin 3.6 gm/dl (2.5-4.0); Total Protein 5.7 gm/dl (6.4-8.2)
--- NOTE | 2019-03-22 08:33 | Hospitalist Progress Note ---
Date of Service March 22, 2019 Assessment & Plan (1) Leukocytosis: (2) Intra-abdominal fluid collection: H/O metastatic cervical cancer with history of hospitalization 02/09/2019- 02/16/2019 initially at [facility] and transferred to [facility] for sigmoid perforation and was seen by colorectal surgery and no indication for surgery at that time. 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 Conservative measures with Zosyn and patient was discharged on Augmentin. Pt presents with vomiting 1-2 times/day with eating over the past 2 days. Reports increased lower abdominal pain. Chronic loose stool incontinence continues. Denies fever/chills. Poor oral intake. In ER T: 36.3C, P: 145 down to 102, R: 20, BP: 109/77, 99% on RA down to 91% on RA. WBC: 12, lactate: 2.1. CT ABD/PELVIS: 1. 3.8 x 0.9 cm fluid and gas containing collection within the rectouterine space. Extraluminal gas and fluid slightly diminished since CT of March 01, 2019. Apparent discontinuity at the level of the cervix could result in these findings. However, an underlying sigmoid perforation which was shown on earlier exams cannot be excluded and could result in similar findings. No new fluid collections. 2. No change in moderate to severe left hydroureteronephrosis with caliber change of the left ureter at the level of the left pelvic sidewall. 3. Persistent bladder wall thickening as well as wall thickening of the sigmoid colon and rectum. 4. No bowel obstruction. -In ER was given Zosyn, 2L NSS, Zofran, morphine, Dilaudid -Met SIRS criteria -All cultures are negative -General surgery on case, D/W [employer]/Onc in [place] and Dr Valverde from Onc. Collection seems to getting better no need for transfer -Oncology eval done, No need to transfer to [place] [employer]/Onc Pall Care eval Pain Control Taper HCT DC home when tolerating diet (3) Hydronephrosis: IVFs (4) Urinary retention: Has indwelling Mccollum in place. CT ABD/PELVIS: No change in moderate to severe left hydroureteronephrosis with caliber change of the left ureter at the level of the left pelvic sidewall. Persistent bladder wall thickening -Urine culture +Yeast-Not Neda-Amphoterecin ans Caspofungin started (5) Hypokalemia: -replace and monitor -Renal Eval (6) Diabetes mellitus, type II: A1c: 7.0 Diet controlled -Novolog sliding scale per protocol (7) Cervical carcinoma: Hx metastatic cervical carcinoma. Follows with Dr Haas HEAD SAWYER/Onc at [facility], Dr Bonilla-Oncology Chemo and radiation have been discontinued (8) Chronic anemia: Monitor (9) Tobacco use: -Denies nicotine patch DVT Prophylaxis -Lovenox SQ Full Code as per discussion with pt Follows with Dr Michel Mendoza for routine care Labs reviewed Clears, SSI ROS-No Headache, No Visual Changes, +Nausea, +Vomiting, No Fever, No Chills, No Neck Pain or Stiffness, No Chest Pain, No Palpitations, No SOB, No CARL, No Cough, No Sputum, No Wheezing, +Abdominal Pain, No Diarrhea, No Hematemesis, No Hemoptysis, No Unexpected Weight Loss, No Flank pain, No Melena, No Hematochezia, No Frequency, No Urgency, No Burning, No Hematuria, No Rashes, No Diaphoresis. Appetite is Normal Physical Exam Gen-AAO x 3, NAD, Afebrile, Cachectic Head-NCAT, EOMI, PERRLA, Anicteric Sclera, No Posterior Pharyngeal Erythema Neck-Supple, No JVD, No Thyromegaly, No Masses, No LAD, No Bruits Lungs-Clear to Auscultation Bilaterally, No Rales, No Rhonchi, No Wheezing, No Crepitus Chest-No S4, +S1, +S2, No S3, No Murmurs, No Rubs, No Gallops, No Ectopy Abdomen-Soft, sore , Tender, Non Distended, No Hepatomegaly, No Splenomegaly, No Palpable Masses, No Rebound, No Rigidity, No Guarding Musculoskeletal-Full Range of Motion Bilaterally, No CVAT Extremities-No Cyanosis, No Clubbing, No Edema Nuero-Cranial Nerves II-XII grossly intact, Motor WNL, DTRs WNL, Strength WNL, Non Focal Psych-Normal Mood Results & Data Vital Signs (Past 12 Hours) Vital Signs Temp Pulse Resp BP Pulse Ox 03/22/19 07:43 36.5 C 56 L 20 133/74 98 03/22/19 04:35 36.4 C L 54 L 17 154/81 H 95 03/21/19 23:25 36.5 C 54 L 16 111/66 97
[2019-03-22] MEDS: POTASSIUM CHLORIDE 20 MEQ TABCR PO SCH ×3 (08:43→19:53)
[2019-03-22] MEDS: PIPERACILLIN/TAZOBACTAM 3.375 GM in DEXTROSE 5% 100 ML IV SCH ×3 (08:47→23:31)
[2019-03-22] MEDS: INSULIN ASPART 100 UNITS/ML 3 ML PEN SC SCH ×4 (08:57→21:57)
[2019-03-22] MEDS ORDERED: POTASSIUM CHLORIDE 40 MEQ in SODIUM CHLORIDE 0.9% 1000ML 1,000 ML IV SCH (09:00)
[2019-03-22] MEDS: SPIRONOLACTONE 25 MG TAB PO SCH ×2 (10:03→21:41)
[2019-03-22] MEDS: POTASSIUM CHLORIDE / WTR 10 MEQ/100 ML PLCT IV SCH ×2 (10:03→14:48)
--- NOTE | 2019-03-22 11:07 | Palliative Care Consultation ---
Date of Consultation March 22, 2019 Assessment & Plan (1) Goals of care, counseling/discussion: -53 year old female with metastatic cervical cancer presented to the hospital with worsening abdominal pain. She was in [facility] 02/09/2019-02/16/2019 initially at [facility] and transferred to [facility] for sigmoid perforation and was seen by colorectal surgery and no indication for surgery at that time. 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 Conservative measures with Zosyn and patient was discharged on Augmentin. Patient returned with abdominal pain. CT abd/pelvis shows 3.8cm x 0.9cm abscess in retrouterine space. Surgeon is consulted again who states no need for emergent surgery, no need for IR if responding to abx (on Zoysn). Patient also has candidal UTI so she is receiving IV caspofungin and amphotericin B bladder irrigation. ID is consulted. Patient is having trouble advancing diet past clear liquids, experiencing nausea and abdominal pain. She also continues to experience diarrhea and fecal incontinence 2/2 radiation enteritis, as well as occasional urinary incontinence. 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 She underwent chemo and XRT. More recently, she was under the care of Dr. Haas with [facility] and Dr. Ramses Valverde locally. She did miss the last dose of her chemo regimen due to intolerance. Palliative care is now consulted to discuss goals of care. -Met with patient in room 289-2. She is awake, alert and oriented x4. Somewhat stoic and flat, difficult to get her to elaborate on anything. -Patient states that she was to have a PET/CT scheduled as an outpatient soon and follow up with her oncologists to discuss further treatment options. Patient states, "Other than my cancer, I'm doing well. I'm fine." -Patient's goal is to continue to live at home with her and spend time with their grandchildren. Her and her both have children from previous marriages. Her children live in [place], husbands children live locally. -it became apparent throughout our conversation that patient is not in any way ready to discuss hospice or end of life care, so we focused more on her symptoms. Patient is mostly focused on getting the abscess treated and is hoping this will make her feel much better. She is also looking forward to seeing her oncologist to discuss potential further treatment options. -Patient does have [facility], could see if there are palliative providers who could continue with symptom management and goals of care discussion when patient is more open to it. We of course will follow during hospitalization, though. -Consider starting Decadron for appetite and energy once the abscess is resolved. (2) Cancer related pain: -Pain is all in her lower abdomen that she describes as intermittent cramping. When she is lying still and not eating, pain is 0/10. When patient is eating or moving, pain rises to 8/10 at times. At home, she was taking Roxanol 20mg PRN pain and could not recall exactly how many times she took it in a day. -Here, patient used 5 doses of 3mg IV morphine in 24 hours. -Will start fentanyl patch at 25mcg/hr. Can possibly expect some sedation at 12- 24 hours after starting patch, but should hopefully level out. -Will then likely convert IV morphine back to PO Roxanol 10mg PO Q3h PRN pain. (3) Intra-abdominal fluid collection: (4) Cervical carcinoma: Hx metastatic cervical carcinoma. Follows with Dr Haas SUBSCRIPTION AGENT/Onc at [facility], Dr Bonilla-Oncology Chemo and radiation have been discontinued (5) Candidal UTI (urinary tract infection): Supervising Physician Co-Signing Physician Notes Chart reviewed, patient seen and examined, no family at bedside Collaborated with LOUIS Marinelli PE: Patient awake and alert, no acute distress, patient does report some lower abdominal pain-requested pain medication HEENT: EOMI, hearing within normal limits Respirations: Unlabored, clear breath sounds CV: Regular rate, no edema Abdomen: tenderness lower quadrants, positive bowel sounds Extremities: Full range of motion Neuro: Alert and oriented x4 Agree with above note, assessment and plan as per LOUIS Marinelli. Will continue to follow and assist with medical decision making as needed. Patient to have follow-up PET scan-further chemo options per Dr. Valverde. Discussed with patient the possibility of initiating Decadron after abscesses completely treated to assist with pain, appetite and mood. History of Present Illness Reason for Consultation: hospice discussion, GOC, pain Requesting Physician: Dr. Perez Attending Physician: Han Perez, History of Present Illness This 53 year old female with metastatic cervical cancer presented to the hospital with worsening abdominal pain. She was in [facility] 02/09/2019-02/16/2019 initially at [facility] and transferred to [facility] for sigmoid perforation and was seen by colorectal surgery and no indication for surgery at that time. 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 Conservative measures with Zosyn and patient was discharged on Augmentin. Patient returned with abdominal pain. CT abd/pelvis shows 3.8cm x 0.9cm abscess in retrouterine space. Surgeon is consulted again who states no need for emergent surgery, no need for IR if r esponding to abx (on Zoysn). Patient also has candidal UTI so she is receiving IV caspofungin and amphotericin B bladder irrigation. ID is consulted. Patient is having trouble advancing diet past clear liquids, experiencing nausea and abdominal pain. 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 She underwent chemo and XRT. More recently, she was under the care of Dr. Haas with [facility] and Dr. Ramses Valverde locally. She did miss the last dose of her chemo regimen due to not tolerating it well. Palliative care is now consulted to discuss goals of care. Thank you kindly for this consult. I will follow as needed. Allergies Allergy/AdvReac Type Severity Reaction Status Date / Time No Known Allergies Allergy Verified 03/17/19 15:48 Home Medications Home Medications Medication Instructions Recorded Confirmed Type metoprolol succinate 25 mg PO .DAILY@NOON 02/24/19 03/17/19 History promethazine 25 mg PO Q6H PRN 02/24/19 03/17/19 History morphine concentrate 20 mg PO Q4H PRN #30 ml 03/09/19 03/17/19 Rx amoxicillin-pot clavulanate 1 tab PO BID 03/17/19 03/17/19 History Patient History Medical History Urinary retention (Chronic) Diabetes mellitus, type II (Chronic) HTN (hypertension) (Chronic) Hydronephrosis (Chronic) Perforated bowel (Acute) Intra-abdominal abscess (Acute) Ureteral stricture, left (Acute) Radiation proctitis Weakness (Acute) Perforation of sigmoid colon (Acute) Cervical carcinoma (Chronic 05/23/17) "Abdominal pain, ER evaluation and finding of a cervical mass on CT Status post cervical biopsy 05/23/2017 revealing 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 Radiation completed January 20, 2018. She had external beam therapy as well as HDR treatments. She received 5940 cGy with external beam treatment. She had 5 HDR treatments at 550 cGy for a total of 2750 cGy. Chemotherapy was comprised of weekly cisplatin." PET positive and biopsy-proven recurrence left psoas muscle 07/14/2018 Status post completion of stereotactic body radiation therapy completed August 19, 2018. She received 2500 cGy. Hydronephrosis (Chronic) Cervical carcinoma Surgical History History of surgery (Chronic) Hx 12/26/2017 - insertion of uterine tandems for brachytherapy - Dr Haas at [facility] History of esophagogastroduodenoscopy (EGD) (Chronic) 03/2018 - EGD with endoscopic US - benign mucinous cyst, GB sludge Family History Other Diabetes Social History Preferred Language: Tanzanian Communication Ability: Effective Cut Off Sawyer Required: No Beliefs That Will Affect Care: None marital status: Current Living Situation: Spouse current occupational status: disabled Feels Safe at Home: Yes Safety Concerns: Feels Safe At This Time Smoking Status: Current every day smoker Tobacco Type: cigarettes Cigarettes Per Day: 4-8 per day Do You Dip or Chew Tobacco: No Tobacco Cessation Education Requested by Patient: No Hx Alcohol Use: No (former user) Hx Substance Use: No Review of Systems Constitutional: + weakness Respiratory: no cough and no dyspnea Cardiovascular: no chest pain and no edema Gastrointestinal: + abdominal pain, + nausea, + diarrhea/loose stools and + fecal incontinence Genitourinary: + urinary incontinence Neurologic: no confusion Psychiatric: no depression and no anxiety Physical Exam Constitutional: + ill appearing (appears mildly deconditioned) and comfortable; no acute distress ENMT: Ears: no hearing impairment Neck: normal visual inspection Respiratory: normal respiratory effort, lungs clear to auscultation Cardiovascular: RRR, no murmur, no edema Vessels: dorsalis pedis pulses present Gastrointestinal (Abdomen): Inspection/Auscultation: normal bowel sounds; abdomen not distended Percussion/Palpation: + abdomen tender (lower abdomen/pelvic area) and abdomen soft Skin: no rashes, warm and dry Neurologic: moves all extremities and awake; not confused Psychiatric: Orientation: alert and oriented x 3 Affect: + flat affect Results & Data Vital Signs (Past 12 Hours) Vital Signs Temp Pulse Resp BP Pulse Ox 03/22/19 07:43 36.5 C 56 L 20 133/74 98 03/22/19 04:35 36.4 C L 54 L 17 154/81 H 95 03/21/19 23:25 36.5 C 54 L 16 111/66 97 PG Care Time/CCT Total # of Minutes Spent Total Time Spent with Patient: Total time spent is greater than 50% in coordination of care (as documented) at patient's floor/unit and/or counseling patient: Time Spent Midlevel 70 minutes with >50% of the time spent at bedside with patient discussing condition and GOC.
[2019-03-22] MEDS ORDERED: POTASSIUM CHLORIDE 10 MEQ in SODIUM CHLORIDE 0.9% 250 ML IV ONE (11:45)
[2019-03-22] MEDS: fentaNYL 25 MCG/HR TDSY TD SCH (13:08)
[2019-03-22] MEDS: METOPROLOL SUCC 25MG EXT REL TAB PO SCH (13:12)
[2019-03-22] MEDS: POTASSIUM CHLORIDE 10 MEQ in SODIUM CHLORIDE 0.9% 250 ML IV SCH ×3 (15:15→17:19)
[2019-03-22] MEDS: CHECK FENTANYL PATCH PLACEMENT SCH ×2 (15:19→23:34)
--- NOTE | 2019-03-22 17:39 | Nephrology Consultation ---
Date of Consultation March 22, 2019 Assessment & Plan (1) Hypokalemia: persistent hypokalemia from GI losses -getting large dose of IV, po K supplements today -recheck bmp and mag ordered for 1999 -after that will consider changing bp meds as appropriate for this evening and / or AM to help her hold on to K >> she has no cardiac hx so reasonble to wean bb and add other medications to complement spironolactone -daily labs while in house vital -added mag to labs for am as well Present on Admission?: Yes History of Present Illness Reason for Consultation: hypokalemia Requesting Physician: Dr Perez Attending Physician: Han Perez, DO History of Present Illness 53 y/o F whom I'm asked to see for hypokalemia after she was admitted on 03/17 for mgt of N/V and abdominal pain, complications of metastatic cervical CA. PMH includes DM, HTN, active tobacco abuse, chronic urinary retention and hydronephrosis, metastatic cervical CA first dx'd early/mid 2017 w/ recent hospitalization here from 02/09-02/16 for this, then transfer to [facility] for colorectal eval of sigmoid perforation. Pt was not deemed a surgical candidate. Hospitalized again 02/24-03/09 [facility] for sigmoid perforation and retrouterine abscess 4 x 1 cm : evaluated by IR and conservative rather than surgical approach again recommended. Also w/ candidal UTI and getting IV caspofungin and amphotericin bladder irrigation. She has undergone CTX and XRT, though these now stopped. Thanh follows w/ Dr. Haas at [facility] pool lifeguard onc and Yolanda Bonilla/ [facility] for onc care locally. 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 She had BL L>R hydronephrosis at time of dx. Urology knows this pt (not actively following this admission); recommended conservative mgt. Palliative care was consulted today > focus for now is on improving sx. follow up PET CT is planned after d/c for consideration of further CTX options. her potassium today is 3.1; was 3.0 on presentation. mag has also been on lower side in mid 1's. both low K and low mag (not surprisingly w/ above hx) have been ongoing challenge for her. She is struggling to advance diet past clears. her creatinine is 0.6 and stable. today she received 7 x 10 mEq K riders. She takes 20 mEq po K tid since admission. Also on spironolactone just started today and beta blockade. she was on no K supplements prior to admission. Pt is currently finishing her K riders and will in about 30 min get her po K for evening. She denies cardiac history or outpt cardiology care. Allergies Allergy/AdvReac Type Severity Reaction Status Date / Time No Known Allergies Allergy Verified 03/17/19 15:48 Home Medications Home Medications Medication Instructions Recorded Confirmed Type metoprolol succinate 25 mg PO .DAILY@NOON 02/24/19 03/17/19 History promethazine 25 mg PO Q6H PRN 02/24/19 03/17/19 History morphine concentrate 20 mg PO Q4H PRN #30 ml 03/09/19 03/17/19 Rx amoxicillin-pot clavulanate 1 tab PO BID 03/17/19 03/17/19 History Patient History Medical History Urinary retention (Chronic) Diabetes mellitus, type II (Chronic) HTN (hypertension) (Chronic) Hydronephrosis (Chronic) Perforated bowel (Acute) Intra-abdominal abscess (Acute) Ureteral stricture, left (Acute) Radiation proctitis Weakness (Acute) Perforation of sigmoid colon (Acute) Cervical carcinoma (Chronic 05/23/17) "Abdominal pain, ER evaluation and finding of a cervical mass on CT Status post cervical biopsy 05/23/2017 revealing 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 R adiation completed January 20, 2018. She had external beam therapy as well as HDR treatments. She received 5940 cGy with external beam treatment. She had 5 HDR treatments at 550 cGy for a total of 2750 cGy. Chemotherapy was comprised of weekly cisplatin." PET positive and biopsy-proven recurrence left psoas muscle 07/14/2018 Status post completion of stereotactic body radiation therapy completed August 19, 2018. She received 2500 cGy. Hydronephrosis (Chronic) Cervical carcinoma Surgical History History of surgery (Chronic) Hx 12/26/2017 - insertion of uterine tandems for brachytherapy - Dr Haas at [facility] History of esophagogastroduodenoscopy (EGD) (Chronic) 03/2018 - EGD with endoscopic US - benign mucinous cyst, GB sludge Family History Other Diabetes Social History Preferred Language: Citizen Of [place] Communication Ability: Effective Head Counselor Required: No Beliefs That Will Affect Care: None marital status: Current Living Situation: Spouse current occupational status: disabled Feels Safe at Home: Yes Safety Concerns: Feels Safe At This Time Smoking Status: Current every day smoker Tobacco Type: cigarettes Cigarettes Per Day: 4-8 per day Do You Dip or Chew Tobacco: No Tobacco Cessation Education Requested by Patient: No Hx Alcohol Use: No (former user) Hx Substance Use: No Review of Systems Review of Systems: All systems reviewed & are unremarkable except as noted in HPI & below Constitutional: + body aches, + fatigue, + malaise, + weakness and + anorexia Eyes: no worsening vision Ear, Nose, Mouth, Throat: no dry mouth Respiratory: no cough and no dyspnea Cardiovascular: no orthopnea and no edema Gastrointestinal: + abdominal pain (low L abd near pubis), + early satiety, + vomiting and + diarrhea/loose stools Genitourinary: very worried about dean bag/position Musculoskeletal: + back pain, + muscle weakness and + body aches Integumentary: no non-healing lesions Neurologic: + generalized weakness Psychiatric: + difficulty concentrating Endocrine: + fatigue Hematologic / Lymphatic: no easy bleeding Physical Exam Constitutional: well developed, + cachectic and + frail appearing alert and oriented x 4, uncomfortable from mm aches/pains, lying flat on RA Eyes: EOM intact bilaterally ENMT: Ears: no external ear abnormality Nose: no external nose abnormality Mouth: + dry oral mucous membranes Neck: no nuchal rigidity Respiratory: normal respiratory effort Auscultation: lungs clear to auscultation bilaterally and + diminished lung sounds Cardiovascular: Rate/Rhythm: regular rate and regular rhythm Extremities: + edema Gastrointestinal (Abdomen): Inspection/Auscultation: normal bowel sounds Percussion/Palpation: + abdomen tender (BLQ) and abdomen soft Musculoskeletal: Extremities: strength 5/5 throughout Skin: no rashes, warm and dry Neurologic: yao, fluent speech, no tremor Psychiatric: Orientation: alert and oriented x 3 Affect: + anxious affect Genitourinary: dean w/ ample light yellow urine Results & Data Vital Signs (Past 12 Hours) Vital Signs Temp Pulse Resp BP Pulse Ox 03/22/19 14:36 36.7 C 60 20 133/81 95 03/22/19 11:37 36.5 C 48 L 20 131/73 98 03/22/19 07:43 36.5 C 56 L 20 133/74 98 Laboratory Results Abnormal lab results 03/22/19 03/22/19 03/22/19 Range/Units 05:02 06:33 06:33 RBC 2.93 L (4.2-5.4) M/uL Hgb 8.7 L (12.0-16.0) g/dL Hct 27.9 L (37-47) % MCHC 31.2 L (32-36) g/dL RDW Std Deviation 55.2 H (36.4-46.3) fL RDW Coeff of Jessica 15.9 H (11.5-14.5) % Lymph # (Auto) 0.72 L (1.2-3.4) K/uL Potassium 3.1 L 3.1 L (3.5-5.1) mmol/L Carbon Dioxide 34 H 34 H (21-32) mmol/L BUN 5 L 6 L (7-18) mg/dl Creatinine 0.58 L 0.59 L (0.6-1.2) mg/dl BUN/Creatinine Ratio 9.0 L 9.6 L (10-20) Calcium 8.4 L 8.4 L (8.5-10.1) mg/dl Total Protein 5.5 L 5.7 L (6.4-8.2) gm/dl Albumin 2.0 L 2.1 L (3.4-5.0) gm/dl Albumin/Globulin Ratio 0.6 L 0.6 L (0.9-2) Diagnostic Findings CT abd/pelvis 1. 3.8 x 0.9 cm fluid and gas containing collection within the rectouterine space. Extraluminal gas and fluid slightly diminished since CT of March 01, 2019. Apparent discontinuity at the level of the cervix could result in these findings. However, an underlying sigmoid perforation which was shown on earlier exams cannot be excluded and could result in similar findings. No new fluid collections. 2. No change in moderate to severe left hydroureteronephrosis with caliber change of the left ureter at the level of the left pelvic sidewall. 3. Persistent bladder wall thickening as well as wall thickening of the sigmoid colon and rectum. 4. No bowel obstruction.
[2019-03-22] MEDS: CASPOFUNGIN 50 MG in SODIUM CHLORIDE 0.9% 250 ML IV SCH (18:35)
--- NOTE | 2019-03-22 18:35 | Infectious Disease Progress Nt ---
Date of Service March 22, 2019 Assessment & Plan (1) Intra-abdominal abscess: (2) Candidal UTI (urinary tract infection): Patient with what appears to be urinary tract infection in the setting of indwelling Mccollum catheter with Neda glabrata, good possibility that isolate would be fluconazole resistant. We will continue amphotericin B bladder irrigation along with IV caspofungin for 5 days. Would continue on Zosyn for now for intra-abdominal abscess status post sigmoid perforation. Will follow. Subjective cannot tolerate regular diet, sent tray back, having more suprapubic pain Review of Systems Review of Systems: All systems reviewed & are unremarkable except as noted in HPI & below Physical Exam Constitutional: + ill appearing and + cachectic; no acute distress Eyes: PERRL, conjunctivae normal, anicteric sclerae ENMT: external ear and nose normal, oropharynx normal Neck: trachea midline, no thyromegaly normal visual inspection Respiratory: normal respiratory effort, lungs clear to auscultation normal percussion Cardiovascular: RRR, no murmur, no edema Heart Sounds: no gallop and no cardiac rub Gastrointestinal (Abdomen): Inspection/Auscultation: normal bowel sounds Percussion/Palpation: + abdomen tender; no hepatosplenomegaly and no abdominal mass Musculoskeletal: no cyanosis or clubbing, extremities motor strength 5/5 Skin: no rashes, warm and dry Neurologic: moves all extremities; no focal motor deficits Psychiatric: A+Ox3, euthymic affect Lymphatic: no cervical or axillary lymphadenopathy no inguinal lymphadenopathy Results & Data Vital Signs (Past 12 Hours) Vital Signs Temp Pulse Resp BP Pulse Ox 03/22/19 14:36 36.7 C 60 20 133/81 95 03/22/19 11:37 36.5 C 48 L 20 131/73 98 03/22/19 07:43 36.5 C 56 L 20 133/74 98 Laboratory Results Short CBC 03/22/19 Range/Units 06:33 WBC 5.00 (4.8-10.8) K/uL Hgb 8.7 L (12.0-16.0) g/dL Hct 27.9 L (37-47) % Plt Count 274 (130-400) K/uL BMP 03/22/19 03/22/19 05:02 06:33 Sodium 138 136 Potassium 3.1 L 3.1 L Chloride 99 99 Carbon Dioxide 34 H 34 H BUN 5 L 6 L Creatinine 0.58 L 0.59 L Glucose 84 76 Calcium 8.4 L 8.4 L Liver Function 03/22/19 03/22/19 Range/Units 05:02 06:33 Total Bilirubin 0.3 0.3 (0.2-1) mg/dl AST 22 20 (15-37) U/L ALT 23 23 (12-78) U/L Alkaline Phosphatase 58 63 (45-117) U/L Albumin 2.0 L 2.1 L (3.4-5.0) gm/dl Diagnostic Findings Microbiology 03/17/19 16:35 Urine,Clean Catch Urine Culture - Final Neda glabrata 03/17/19 20:05 Blood Aerobic Blood Culture - Preliminary No growth in Aerobic bottle after 48 hours. 03/17/19 20:05 Blood Anaerobic Blood Culture - Preliminary No growth in Anaerobic bottle after 48 hours. 03/17/19 20:22 Blood Aerobic Blood Culture - Preliminary No growth in Aerobic bottle after 48 hours. 03/17/19 20:22 Blood Anaerobic Blood Culture - Final
[2019-03-22] MEDS: AMPHOTERICIN B 50 MG in WATER, STERILE 1,000 ML IR SCH (19:46)
[2019-03-22 20:36] LABS: BUN Creatinine Ratio 7.4 (10-20); Calcium 8.5 mg/dl (8.5-10.1); Creatinine Clr Calc Pharmacy 78.7 ml/min; Est GFR (African American) 120.3; Est GFR (Non-African American) 103.8; Magnesium 1.7 mg/dl (1.8-2.4); Potassium 4.2 mmol/L (3.5-5.1)
[2019-03-22] MEDS: ENOXAPARIN INJ 40 MG/0.4 ML SYR SQ SCH (20:51)
[2019-03-23 06:21] LABS: Basophils # (auto) 0.02 K/uL (0-0.2); Basophils % (auto) 0.3 %; Eosinophils # (auto) 0.13 K/uL (0-0.5); Eosinophils % (auto) 2.2 %; Hematocrit (blood only) 30.7 % (37-47); Hemoglobin 9.5 g/dL (12.0-16.0); Immature Granulocytes # (auto) 0.01 K/uL (0.00-0.02); Immature Granulocytes % (auto) 0.2 %; Lymphocytes # (auto) 0.69 K/uL (1.2-3.4); Lymphocytes % (auto) 11.4 %; Mean Corpuscular Hgb Conc 30.9 g/dL (32-36); Mean Corpuscular Volume 95.9 fL (80-100); Monocytes # (auto) 0.55 K/uL (0.11-0.59); Monocytes % (auto) 9.1 %; Neutrophils # (auto) 4.64 K/uL (1.4-6.5); Neutrophils % (auto) 76.8 %; Platelet Count 321 K/uL (130-400); RDW Standard Deviation 56.4 fL (36.4-46.3); White Blood Count 6.04 K/uL (4.8-10.8)
[2019-03-23 06:57] LABS: BUN Creatinine Ratio 6.3 (10-20); Calcium 8.7 mg/dl (8.5-10.1); Creatinine Clr Calc Pharmacy 77.4 ml/min; Est GFR (African American) 119.6; Est GFR (Non-African American) 103.2; Magnesium 1.7 mg/dl (1.8-2.4)
[2019-03-23] MEDS: POTASSIUM CHLORIDE 20 MEQ TABCR PO SCH ×3 (07:21→16:00)
[2019-03-23] MEDS: PIPERACILLIN/TAZOBACTAM 3.375 GM in DEXTROSE 5% 100 ML IV SCH ×3 (07:22→23:25)
[2019-03-23] MEDS: SPIRONOLACTONE 25 MG TAB PO SCH ×3 (07:22→15:59)
[2019-03-23] MEDS: CHECK FENTANYL PATCH PLACEMENT SCH ×3 (07:23→23:25)
[2019-03-23] MEDS: INSULIN ASPART 100 UNITS/ML 3 ML PEN SC SCH ×4 (08:33→21:15)
--- NOTE | 2019-03-23 08:56 | Hospitalist Progress Note ---
Date of Service March 23, 2019 Assessment & Plan (1) Leukocytosis: Normal (2) Intra-abdominal fluid collection: H/O metastatic cervical cancer with history of hospitalization 02/09/2019- 02/16/2019 initially at [facility] and transferred to [facility] for sigmoid perforation and was seen by colorectal surgery and no indication for surgery at that time. History of recurrent hospitalization 02/24/2019-03/09/2019 for sigmoid perforation likely secondary to radiation enteritis and intra-abdominal abscess and was seen by surgery with consulting [facility] IR and no drainage was recommended. Conservative measures with Zosyn and patient was discharged on Augmentin. Pt presents with vomiting 1-2 times/day with eating over the past 2 days. Reports increased lower abdominal pain. Chronic loose stool incontinence continues. Denies fever/chills. Poor oral intake. In ER T: 36.3C, P: 145 down to 102, R: 20, BP: 109/77, 99% on RA down to 91% on RA. WBC: 12, lactate: 2.1. CT ABD/PELVIS: 1. 3.8 x 0.9 cm fluid and gas containing collection within the rectouterine space. Extraluminal gas and fluid slightly diminished since CT of March 01, 2019. Apparent discontinuity at the level of the cervix could result in these findings. However, an underlying sigmoid perforation which was shown on earlier exams cannot be excluded and could result in similar findings. No new fluid collections. 2. No change in moderate to severe left hydroureteronephrosis with caliber change of the left ureter at the level of the left pelvic sidewall. 3. Persistent bladder wall thickening as well as wall thickening of the sigmoid colon and rectum. 4. No bowel obstruction. -In ER was given Zosyn, 2L NSS, Zofran, morphine, Dilaudid -Met SIRS criteria -All cultures are negative -General surgery on case, D/W Flexboard Operator/Onc in [place] and Dr Valverde from Onc. Collection seems to getting better no need for transfer Pall Care eval done Pain Control Off HCT On Ampho B, Caspofungin-C. Glabrata in urine Zosyn for intra-abdominal fluid collection (3) Hydronephrosis: IVFs (4) Urinary retention: Has indwelling Mccollum in place. CT ABD/PELVIS: No change in moderate to severe left hydroureteronephrosis with caliber change of the left ureter at the level of the left pelvic sidewall. Persistent bladder wall thickening -Urine culture +Yeast-Neda Glabrata-Amphoterecin and Caspofungin were ordered by Dr Madden (5) Hypokalemia: -replace and monitor -Renal on Case (6) Diabetes mellitus, type II: A1c: 7.0 Diet controlled -Novolog sliding scale per protocol (7) Cervical carcinoma: Hx metastatic cervical carcinoma. Follows with Dr Haas TOWEL FOLDER/Onc at [facility], Dr Bonilla-Oncology Chemo and radiation have been discontinued I discussed case c Dr Haas and he saw no need to transfer to [facility] on case, PT wishes to remain full code and doesn't want hospice (8) Chronic anemia: Monitor (9) Tobacco use: -Denies nicotine patch DVT Prophylaxis -Lovenox SQ Full Code as per discussion with pt Follows with Dr Michel Mendoza for routine care Dr Martinez-Heme/Onc, Dr Haas in [place] Flexboard Operator/Onc Labs reviewed Clears, SSI ROS-No Headache, No Visual Changes, +Nausea, +Vomiting, No Fever, No Chills, No Neck Pain or Stiffness, No Chest Pain, No Palpitations, No SOB, No CARL, No Cough, No Sputum, No Wheezing, +Abdominal Pain, No Diarrhea, No Hematemesis, No Hemoptysis, No Unexpected Weight Loss, No Flank pain, No Melena, No Hematochezia, No Frequency, No Urgency, No Burning, No Hematuria, No Rashes, No Diaphoresis. Appetite is Normal Physical Exam Gen-AAO x 3, NAD, Afebrile, Cachectic Head-NCAT, EOMI, PERRLA, Anicteric Sclera, No Posterior Pharyngeal Erythema Neck-Supple, No JVD, No Thyromegaly, No Masses, No LAD, No Bruits Lungs-Clear to Auscultation Bilaterally, No Rales, No Rhonchi, No Wheezing, No Crepitus Chest-No S4, +S1, +S2, No S3, No Murmurs, No Rubs, No Gallops, No Ectopy Abdomen-Soft, sore , Tender, Non Distended, No Hepatomegaly, No Splenomegaly, No Palpable Masses, No Rebound, No Rigidity, No Guarding Musculoskeletal-Full Range of Motion Bilaterally, No CVAT Extremities-No Cyanosis, No Clubbing, No Edema Nuero-Cranial Nerves II-XII grossly intact, Motor WNL, DTRs WNL, Strength WNL, Non Focal Psych-Normal Mood Results & Data Vital Signs (Past 12 Hours) Vital Signs Temp Pulse Resp BP Pulse Ox 03/23/19 08:00 36.8 C 66 20 100/66 96 03/23/19 00:00 36.6 C 61 18 122/75 95
[2019-03-23] MEDS ORDERED: METOPROLOL SUCC 25MG EXT REL TAB PO SCH (12:00)
[2019-03-23] MEDS: MoRPHine SULFATE 4 MG/ML 1 ML CARP\\VIAL IV PRN (15:52)
--- NOTE | 2019-03-23 16:07 | Palliative Care Progress Note ---
Date of Service March 23, 2019 Assessment & Plan (1) Goals of care, counseling/discussion: -Patient's pain is mildly improved today and she is tolerating fentanyl patch wel. See below. -Patient slightly more animated and talkative today. -She states that she absolutely does not want to undergo any further chemotherapy because of how sick it makes her. However, she is still hoping to "get better," and is anxious to talk with her oncologist about options for her treatment. It's uncertain of how much the patient truly knows about her disease or what to expect in the future. -Goal is for patient to remain living at home with her . -Still unable to advance diet today. (2) Cancer related pain: -Pain is all in her lower abdomen that she describes as intermittent cramping. -Has improved somewhat today. Still can be 7/10 when moving. -Used 4 doses of 3mg IV morphine in 24 hours. -Converted IV morphine to Roxanol 10mg PO Q3h PRN pain. -Continue fentanyl patch at 25mcg/hr. If pain persists and patient is still using frequent PRN doses, will consider increasing to 50mcg/hr based on opioid conversion. (3) Intra-abdominal fluid collection: (4) Cervical carcinoma: Hx metastatic cervical carcinoma. Follows with Dr Haas KEG FILLER/Onc at [facility], Dr Bonilla-Oncology Chemo and radiation have been discontinued (5) Candidal UTI (urinary tract infection): Subjective Patient is tolerating fentanyl patch well. No sedation or drowsiness. Pain is mildly improved. Still can be 7/10 at times when moving around. Used 4 doses of 3mg IV morphine in 24 hours. Review of Systems Review of Systems: + weakness no cough and no dyspnea no chest pain and no edema + abdominal pain, + nausea, + diarrhea/loose stools and + fecal incontinence + urinary incontinence no confusion no depression and no anxiety Physical Exam Constitutional: + ill appearing (appears mildly deconditioned) and comfortable; no acute distress ENMT: Ears: no hearing impairment Neck: normal visual inspection Respiratory: normal respiratory effort, lungs clear to auscultation Cardiovascular: RRR, no murmur, no edema Vessels: dorsalis pedis pulses present Gastrointestinal (Abdomen): Inspection/Auscultation: normal bowel sounds; abdomen not distended Percussion/Palpation: + abdomen tender (lower abdomen/pelvic area) and abdomen soft Skin: no rashes, warm and dry Neurologic: moves all extremities and awake; not confused Psychiatric: Orientation: alert and oriented x 3 Affect: + flat affect Results & Data Vital Signs (Past 12 Hours) Vital Signs Temp Pulse Resp BP Pulse Ox 03/23/19 15:20 36.8 C 71 21 116/76 98 03/23/19 08:00 36.8 C 66 20 100/66 96 Supervising Physician Co-Signing Physician Notes I was present during moore portion of the visit and exam, I concur with above note , assessment and plan as per LOUIS Marinelli. PG Care Time/CCT Total # of Minutes Spent Total Time Spent with Patient: Total time spent is greater than 50% in coordination of care (as documented) at patient's floor/unit and/or counseling patient: Time Spent Midlevel 35 minutes with >50% of the time spent at bedside with patient discussing condition and pain management.
[2019-03-23] MEDS: AMPHOTERICIN B 50 MG in WATER, STERILE 1,000 ML IR SCH (18:53)
--- NOTE | 2019-03-23 19:11 | Nephrology Progress Note ---
Date of Service March 23, 2019 Assessment & Plan (1) Hypokalemia: persistent hypokalemia from GI losses > after aggressive therapy yesterday, K normalized today; despite large salt rich abtc infusions and ampho bladder irrigation, not polyuric. not on K supplements as OP; amiloride free standing is not formulary here -hold further IV K; cont po K as currently ordered today -would not recheck labs today; reordered for am; mag acceptable; daily bmp/mag Present on Admission?: Yes (2) HTN (hypertension): relative hypotension this am; stopped her BB and moved her spironolactone to 12.5 gm bid from 25 gm q am; no cardiac hx requiring BB Present on Admission?: Yes Subjective seen on rounds this am at 0820; lying flat; pain for now controlled; states she's "not yet" nauseous no edema, no sob. repeatedly states she prefers po K repletion to K riders, even when diluted Review of Systems Review of Systems: All systems reviewed & are unremarkable except as noted in HPI & below Physical Exam Constitutional: well developed, + cachectic and + frail appearing lying flat on ra Eyes: EOM intact bilaterally ENMT: Ears: no external ear abnormality Nose: no external nose abnormality Mouth: + dry oral mucous membranes Neck: no nuchal rigidity Respiratory: normal respiratory effort Auscultation: lungs clear to auscultation bilaterally and + diminished lung sounds Cardiovascular: Rate/Rhythm: regular rate and regular rhythm Gastrointestinal (Abdomen): Inspection/Auscultation: normal bowel sounds Percussion/Palpation: + abdomen tender (BLQ) and abdomen soft Musculoskeletal: Extremities: strength 5/5 throughout Skin: no rashes, warm and dry Neurologic: yao, fluent speech Psychiatric: Orientation: alert and oriented x 3 Affect: euthymic affect Genitourinary: dean w/ ample clear urine /amphoB bladder irrigation Results & Data Vital Signs (Past 12 Hours) Vital Signs Temp Pulse Resp BP Pulse Ox 03/23/19 15:20 36.8 C 71 21 116/76 98 03/23/19 08:00 36.8 C 66 20 100/66 96
[2019-03-23] MEDS: MoRPHine SULFATE 5 MG/0.25 ML UDP PO PRN ×2 (19:12→23:24)
--- NOTE | 2019-03-23 20:26 | Infectious Disease Progress Nt ---
Date of Service March 23, 2019 Assessment & Plan (1) Candidal UTI (urinary tract infection): Patient with what appears to be urinary tract infection in the setting of indwelling Mccollum catheter with Neda glabrata, good possibility that isolate would be fluconazole resistant. We will continue amphotericin B bladder irrigation along with IV caspofungin for 5 days. Would continue on Zosyn for now for intra-abdominal abscess status post sigmoid perforation. Will follow. (2) Intra-abdominal abscess: Subjective Patient is tolerating fentanyl patch well. No sedation or drowsiness. Pain is mildly improved. Still can be 7/10 at times when moving around. Used 4 doses of 3mg IV morphine in 24 hours. Review of Systems Review of Systems: All systems reviewed & are unremarkable except as noted in HPI & below Physical Exam Constitutional: + ill appearing and + cachectic; no acute distress Eyes: PERRL, conjunctivae normal, anicteric sclerae ENMT: external ear and nose normal, oropharynx normal Neck: trachea midline, no thyromegaly normal visual inspection Respiratory: normal respiratory effort, lungs clear to auscultation normal percussion Cardiovascular: RRR, no murmur, no edema Heart Sounds: no gallop and no cardiac rub Gastrointestinal (Abdomen): Inspection/Auscultation: normal bowel sounds Percussion/Palpation: + abdomen tender; no hepatosplenomegaly and no abdominal mass Musculoskeletal: no cyanosis or clubbing, extremities motor strength 5/5 Skin: no rashes, warm and dry Neurologic: moves all extremities; no focal motor deficits Psychiatric: A+Ox3, euthymic affect Lymphatic: no cervical or axillary lymphadenopathy no inguinal ly mphadenopathy Results & Data Vital Signs (Past 12 Hours) Vital Signs Temp Pulse Resp BP Pulse Ox 03/23/19 15:20 36.8 C 71 21 116/76 98 Laboratory Results Short CBC 03/23/19 Range/Units 05:35 WBC 6.04 (4.8-10.8) K/uL Hgb 9.5 L (12.0-16.0) g/dL Hct 30.7 L (37-47) % Plt Count 321 (130-400) K/uL BMP 03/22/19 03/23/19 19:46 05:35 Sodium 140 137 Potassium 4.2 D 4.0 Chloride 105 102 Carbon Dioxide 30 32 BUN 4 L 4 L Creatinine 0.58 L 0.59 L Glucose 108 H 72 Calcium 8.5 8.7 Diagnostic Findings Microbiology 03/17/19 20:22 Blood Aerobic Blood Culture - Final No growth in Aerobic bottle after 5 days. 03/17/19 20:22 Blood Anaerobic Blood Culture - Final 03/17/19 20:05 Blood Aerobic Blood Culture - Final No growth in Aerobic bottle after 5 days. 03/17/19 20:05 Blood Anaerobic Blood Culture - Final No growth in Anaerobic bottle after 5 days. 03/17/19 16:35 Urine,Clean Catch Urine Culture - Final Neda glabrata
[2019-03-23] MEDS: CASPOFUNGIN 50 MG in SODIUM CHLORIDE 0.9% 250 ML IV SCH (21:04)
[2019-03-23] MEDS: ENOXAPARIN INJ 40 MG/0.4 ML SYR SQ SCH (21:08)
[2019-03-24] MEDS: MoRPHine SULFATE 5 MG/0.25 ML UDP PO PRN ×4 (02:09→21:22)
[2019-03-24 07:36] LABS: Albumin Globulin Ratio 0.6 (0.9-2); Albumin Level 2.2 gm/dl (3.4-5.0); BUN Creatinine Ratio 5.3 (10-20); Bilirubin,Total 0.3 mg/dl (0.2-1); Calcium 9.5 mg/dl (8.5-10.1); Creatinine Clr Calc Pharmacy 64.3 ml/min; Est GFR (African American) 111.1; Est GFR (Non-African American) 95.9; Magnesium 1.6 mg/dl (1.8-2.4); Potassium 4.2 mmol/L (3.5-5.1); Total Protein 6.2 gm/dl (6.4-8.2)
[2019-03-24] MEDS: CHECK FENTANYL PATCH PLACEMENT SCH ×3 (08:38→23:49)
[2019-03-24] MEDS: SPIRONOLACTONE 25 MG TAB PO SCH (08:39)
[2019-03-24] MEDS: POTASSIUM CHLORIDE 20 MEQ TABCR PO SCH ×3 (08:39→15:58)
[2019-03-24] MEDS: INSULIN ASPART 100 UNITS/ML 3 ML PEN SC SCH ×4 (08:40→21:43)
[2019-03-24] MEDS: PIPERACILLIN/TAZOBACTAM 3.375 GM in DEXTROSE 5% 100 ML IV SCH ×3 (08:52→23:49)
--- NOTE | 2019-03-24 13:32 | Palliative Care Progress Note ---
Date of Service March 24, 2019 Assessment & Plan (1) Cancer related pain: -Pain is all in her lower abdomen that she describes as intermittent cramping. -Has improved somewhat today. Still can be 7/10 when moving. -Patient states an acceptable level of pain to her is 4/10. Right now at rest, her pain is about a 4/10. -Used 3 doses of 10mg PO morphine and one dose of 3mg IV morphine in 24 hours. -Continue fentanyl patch at 25mcg/hr. If pain persists and patient is still using frequent PRN doses, will consider increasing to 50mcg/hr based on opioid conversion. -For now, will leave the pain medication where it's at, as patient is happy wit her current pain control and is using less frequent PRN doses. -Will follow as needed throughout hospitalization. (2) Intra-abdominal fluid collection: (3) Cervical carcinoma: Hx metastatic cervical carcinoma. Follows with Dr Haas [employer]INE[employer] [facility] [place] Bon[place]-Oncology Chemo and radiation have been discontinued (4) Candidal UTI (urinary tract infection): Subjective Patient is overall feeling a little better. Still abdominal pain at times but feels like it is improved. NO family at bedside. Still unable to advance diet. Review of Systems Review of Systems: + weakness no cough and no dyspnea no chest pain and no edema + abdominal pain (with movement or after trying to eat solids); no nausea (at this time) + urinary incontinence no confusion no depression and no anxiety Physical Exam Constitutional: comfortable; no acute distress ENMT: Ears: no hearing impairment Neck: normal visual inspection Respiratory: normal respiratory effort, lungs clear to auscultation Cardiovascular: RRR, no murmur, no edema Vessels: dorsalis pedis pulses present Gastrointestinal (Abdomen): Inspection/Auscultation: normal bowel sounds; abdomen not distended Percussion/Palpation: + abdomen tender (lower abdomen/pelvic area) and abdomen soft Skin: no rashes, warm and dry Neurologic: moves all extremities and awake; not confused Psychiatric: Orientation: alert and oriented x 3 Affect: + flat affect Results & Data Vital Signs (Past 12 Hours) Vital Signs Temp Pulse Resp BP Pulse Ox 03/24/19 07:03 36.4 C L 86 18 95/66 L 96 PG Care Time/CCT Total # of Minutes Spent Total Time Spent with Patient: Total time spent is greater than 50% in coordination of care (as documented) at patient's floor/unit and/or counseling patient: Time Spent Midlevel 35 minutes with >50% of the time spent at bedside with patient discussing pain management.
--- NOTE | 2019-03-24 14:44 | Nephrology Progress Note ---
Date of Service March 24, 2019 Assessment & Plan (1) Hypokalemia: persistent hypokalemia from GI losses > after aggressive therapy on 03/22, K normalized x 2 days; despite large salt rich abtc infusions and ampho bladder irrigation and now diuretics, not polyuric. not on K supplements as OP; am iloride free standing is not formulary here -cont po K as currently ordered 20 mEq tid today >> look to lower dose if labs stable -would not recheck labs today; reordered for am; mag acceptable; daily bmp/mag (2) HTN (hypertension): relative hypotension again this am; continue to hold her BB and lower spironolactone dose from 12.5 mg bid to 12.5 mg daily; no cardiac hx requiring BB; she will need close f/u of labs and volume status if d/c on spironolactone; consider switch to amiloride (will also need close f/u w/ this) after hospital d/c if low K still an issue (has been chronically in low 3's in past) Subjective has controlled abdominal pain, ? less chronic diarrhea today (per nursing) but pt worried about fecal incontinence. no sob. no chills. Review of Systems Review of Systems: All systems reviewed & are unremarkable except as noted in HPI & below Constitutional: + weakness Physical Exam Constitutional: well developed, + cachectic and + frail appearing on RA, rolls in bed w/ assist, A& o x 3 Eyes: EOM intact bilaterally ENMT: Ears: no external ear abnormality Nose: no external nose abnormality Mouth: + dry oral mucous membranes Neck: no nuchal rigidity Respiratory: normal respiratory effort Auscultation: lungs clear to auscultation bilaterally and + diminished lung sounds Cardiovascular: Rate/Rhythm: regular rate and regular rhythm Extremities: no edema Gastrointestinal (Abdomen): Inspection/Auscultation: normal bowel sounds Percussion/Palpation: abdomen soft; abdomen nontender Musculoskeletal: Extremities: strength 5/5 throughout Skin: no rashes, warm and dry Neurologic: yao, fluent speech, no tremor Psychiatric: Orientation: alert and oriented x 3 Affect: euthymic affect Results & Data Vital Signs (Past 12 Hours) Vital Signs Temp Pulse Resp BP Pulse Ox 03/24/19 07:03 36.4 C L 86 18 95/66 L 96 Laboratory Results Abnormal lab results 03/24/19 03/24/19 Range/Units 06:36 11:58 BUN 4 L (7-18) mg/dl BUN/Creatinine Ratio 5.3 L (10-20) POC Glucose 149 H (70-99) Magnesium 1.6 L (1.8-2.4) mg/dl Total Protein 6.2 L (6.4-8.2) gm/dl Albumin 2.2 L (3.4-5.0) gm/dl Albumin/Globulin Ratio 0.6 L (0.9-2)
[2019-03-24] MEDS: AMPHOTERICIN B 50 MG in WATER, STERILE 1,000 ML IR SCH (18:10)
[2019-03-24] MEDS: CASPOFUNGIN 50 MG in SODIUM CHLORIDE 0.9% 250 ML IV SCH (21:24)
[2019-03-24] MEDS: ENOXAPARIN INJ 40 MG/0.4 ML SYR SQ SCH (21:24)
--- NOTE | 2019-03-24 21:39 | Hospitalist Progress Note ---
Date of Service March 24, 2019 Assessment & Plan (1) Severe sepsis: Met criteria for severe sepsis in ED per current CMS criteria (tachycardia, leukocytosis, lactate greater than 2). Blood cultures were obtained. Patient was placed on broad-spectrum intravenous antibiotic coverage with pipera cillin/tazobactam. Repeat lactate improved. Source of sepsis felt to be most likely related to perforation of sigmoid colon as discussed below. 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 Evaluated at [facility] and nonsurgical management was recommended. CT of obtained at the time of admission demonstrated persistent fluid collection in the pelvis measuring 3.8 x 0.9 cm. Probable pelvic abscess. General Surgery consult was obtained. Ongoing nonsurgical management was recommended. Continue intravenous piperacillin/tazobactam. (3) Candidal UTI (urinary tract infection): Has Mccollum catheter for chronic urinary retention. Urine culture on 03/17 grew Neda glabrata. ID consulted. Receiving intravenous caspofungin and amphotericin via Mccollum catheter. (4) Cancer related pain: Continue analgesics. (5) Cervical carcinoma: Advanced cervical carcinoma. Management per Gynecologic Oncology. (6) Diarrhea: Has been having loose stools for some time. Stool determinations in November, December, February were positive for C. difficile gene by PCR, but negative for C. difficile toxin. Stool culture in November was negative. 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 (7) Hypokalemia: Serum potassium as low as 3.0. Hypokalemia attributed to electrolyte losses from diarrhea. Receiving potassium replacement. Started on spironolactone. (8) HTN (hypertension): History of hypertension treated with metoprolol. Blood pressures have been relatively low and metoprolol has been discontinued. Follow. (9) Diabetes mellitus, type II: History of diabetes mellitus, recently diet controlled. Fasting blood sugar today = 70. (10) Urinary retention: Mccollum catheter for urinary retention. Ongoing management per Urology. (11) Protein calorie malnutrition: Poor nutritional status due to underlying malignancy. Weight is fallen about 6 kg over the last 6 weeks. Serum albumin is low as 1.9. Being followed by Nutrition. Advanced diet as tolerated. Nutritional supplements as tolerated. (12) DVT prophylaxis: SQ enoxaparin. Ambulate as tolerated. (13) Discharge planning issues: Discharge disposition to be determined. Medical follow-up with Dr. Gilmore. Subjective Recheck for multiple problems.. Patient seen in their room around 1000. Continues to have lower abdominal pain, relief for a few hours by analgesics. Tolerating clear liquids without vomiting. Ongoing loose stools. Review of Systems: Constitutional- no fever. Cardiac- no chest pain. Pulmonary- no cough or SOB. GI- as noted above. - Mccollum cath. Otherwise, as noted above. Physical Exam Constitutional: + cachectic; no acute distress Respiratory: no respiratory distress Auscultation: lungs clear to auscultation bilaterally Cardiovascular: Rate/Rhythm: regular rate and regular rhythm Vessels: no JVD Extremities: no calf tenderness and no edema Gastrointestinal (Abdomen): Inspection/Auscultation: + abdomen distended (slightly) and normal bowel sounds Percussion/Palpation: + abdomen tender (lower abd) and abdomen soft; no guarding Skin: no rashes, warm and dry Psychiatric: Orientation: alert and oriented x 3 Results & Data Vital Signs (Past 12 Hours) Vital Signs Temp Pulse Resp BP Pulse Ox 03/24/19 19:35 36.7 C 95 H 18 90/65 L 97 03/24/19 15:23 36.5 C 88 18 90/54 L 97 Laboratory Results Laboratory Results - last 24 hr 03/24/19 03/24/19 03/24/19 06:36 07:36 11:58 Sodium 136 Potassium 4.2 Chloride 101 Carbon Dioxide 28 Anion Gap 7.0 BUN 4 L Creatinine 0.71 Est Cr Clr Drug Dosing 64.3 Est GFR ( Amer) 111.1 Est GFR (Non-Af Amer) 95.9 BUN/Creatinine Ratio 5.3 L Glucose 70 POC Glucose 70 149 H Calcium 9.5 Magnesium 1.6 L Total Bilirubin 0.3 AST 21 ALT 25 Alkaline Phosphatase 72 Total Protein 6.2 L Albumin 2.2 L Globulin 4.0 Albumin/Globulin Ratio 0.6 L 03/24/19 03/24/19 16:40 20:14 Sodium Potassium Chloride Carbon Dioxide Anion Gap BUN Creatinine Est Cr Clr Drug Dosing Est GFR ( Amer) Est GFR (Non-Af Amer) BUN/Creatinine Ratio Glucose POC Glucose 84 131 H Calcium Magnesium Total Bilirubin AST ALT Alkaline Phosphatase Total Protein Albumin Globulin Albumin/Globulin Ratio
[2019-03-25] MEDS: MoRPHine SULFATE 5 MG/0.25 ML UDP PO PRN ×5 (03:09→23:22)
[2019-03-25 09:23] LABS: Basophils # (auto) 0.01 K/uL (0-0.2); Basophils % (auto) 0.2 %; Eosinophils # (auto) 0.13 K/uL (0-0.5); Eosinophils % (auto) 2.1 %; Hematocrit (blood only) 35.7 % (37-47); Hemoglobin 11.1 g/dL (12.0-16.0); Immature Granulocytes # (auto) 0.02 K/uL (0.00-0.02); Immature Granulocytes % (auto) 0.3 %; Lymphocytes # (auto) 0.89 K/uL (1.2-3.4); Lymphocytes % (auto) 14.4 %; Mean Corpuscular Hgb Conc 31.1 g/dL (32-36); Mean Corpuscular Volume 96.2 fL (80-100); Mean Platelet Volume 9.1 fL (7.4-10.4); Monocytes # (auto) 0.44 K/uL (0.11-0.59); Monocytes % (auto) 7.1 %; Neutrophils # (auto) 4.67 K/uL (1.4-6.5); Neutrophils % (auto) 75.9 %; Platelet Count 326 K/uL (130-400); RDW Coefficient of Variation 16.5 % (11.5-14.5); RDW Standard Deviation 58.2 fL (36.4-46.3); Red Blood Count 3.71 M/uL (4.2-5.4); White Blood Count 6.16 K/uL (4.8-10.8)
[2019-03-25] MEDS: INSULIN ASPART 100 UNITS/ML 3 ML PEN SC SCH ×4 (09:31→21:02)
[2019-03-25] MEDS: PIPERACILLIN/TAZOBACTAM 3.375 GM in DEXTROSE 5% 100 ML IV SCH ×3 (09:31→23:30)
[2019-03-25] MEDS: POTASSIUM CHLORIDE 20 MEQ TABCR PO SCH ×3 (09:32→16:50)
[2019-03-25] MEDS: CHECK FENTANYL PATCH PLACEMENT SCH ×2 (09:33→16:49)
[2019-03-25] MEDS: SPIRONOLACTONE 25 MG TAB PO SCH (09:36)
[2019-03-25 09:55] LABS: BUN Creatinine Ratio 6.7 (10-20); Calcium 9.9 mg/dl (8.5-10.1); Creatinine Clr Calc Pharmacy 64.3 ml/min; Est GFR (African American) 111.1; Est GFR (Non-African American) 95.9; Magnesium 1.5 mg/dl (1.8-2.4); Potassium 4.1 mmol/L (3.5-5.1)
[2019-03-25] MEDS: fentaNYL 25 MCG/HR TDSY TD SCH (13:01)
--- NOTE | 2019-03-25 16:31 | Nephrology Progress Note ---
Date of Service March 25, 2019 Assessment & Plan (1) Hypokalemia: persistent hypokalemia from GI losses > after aggressive therapy on 03/22, K normalized x 2 days; despite large salt rich abtc infusions and ampho bladder irrigation and now diuretics, not polyuric. not on K supplements as OP; am iloride free standing is not formulary here -cont po K as currently ordered 20 mEq tid today >> look to lower dose if labs stable (2) HTN (hypertension): relative hypotension again this am; continue to hold her BB and stop spironolactone Subjective Seen in follow up for electrolyte abnormalities. She feels better. No SOB. Eating well. Review of Systems Review of Systems: All systems reviewed & are unremarkable except as noted in HPI & below Physical Exam Physical Exam: General exam: Appears comfortable, no acute distress HEENT: Pupils are equal and reactive to light Neck: No JVD, neck is supple trachea is midline Respiratory system: Clear breath sounds bilaterally. Gastrointestinal: Abdomen is soft, non distended, non tender, bowel sounds are present CVS: Regular rate and rhythm. No murmurs, rubs or gallops Musculoskeletal: No joint or muscle tenderness Extremities: Non tender, no edema, peripheral pulses are present Neuro: Oriented, no tremors, no focal neurological deficits Skin: No rashes Results & Data Vital Signs (Past 12 Hours) Vital Signs Temp Pulse Resp BP Pulse Ox 03/25/19 15:03 36.6 C 103 H 20 104/71 98 03/25/19 07:38 36.5 C 103 H 16 91/68 L 96 Laboratory Results Laboratory Results - last 24 hr 03/24/19 03/24/19 03/25/19 16:40 20:14 07:11 WBC RBC Hgb Hct MCV MCH MCHC RDW Std Deviation RDW Coeff of Jessica Plt Count MPV Immature Gran % (Auto) Neut % (Auto) Lymph % (Auto) [place] % (Auto) Eos % (Auto) Baso % (Auto) Immature Gran # (Auto) Neut # (Auto) Lymph # (Auto) [place] # (Auto) Eos # (Auto) Baso # (Auto) Sodium Potassium Chloride Carbon Dioxide Anion Gap BUN Creatinine Est Cr Clr Drug Dosing Est GFR ( Amer) Est GFR (Non-Af Amer) BUN/Creatinine Ratio Glucose POC Glucose 84 131 H 88 Calcium Magnesium 0703/25/19 03/25/19 08:33 08:33 11:22 WBC 6.16 RBC 3.71 L Hgb 11.1 L Hct 35.7 L MCV 96.2 MCH 29.9 MCHC 31.1 L RDW Std Deviation 58.2 H RDW Coeff of Jessica 16.5 H Plt Count 326 MPV 9.1 Immature Gran % (Auto) 0.3 Neut % (Auto) 75.9 Lymph % (Auto) 14.4 [place] % (Auto) 7.1 Eos % (Auto) 2.1 Baso % (Auto) 0.2 Immature Gran # (Auto) 0.02 Neut # (Auto) 4.67 Lymph # (Auto) 0.89 L [place] # (Auto) 0.44 Eos # (Auto) 0.13 Baso # (Auto) 0.01 Sodium 136 Potassium 4.1 Chloride 100 Carbon Dioxide 28 Anion Gap 8.0 BUN 5 L Creatinine 0.71 Est Cr Clr Drug Dosing 64.3 Est GFR ( Amer) 111.1 Est GFR (Non-Af Amer) 95.9 BUN/Creatinine Ratio 6.7 L Glucose 103 H POC Glucose 131 H Calcium 9.9 Magnesium 1.5 L
--- NOTE | 2019-03-25 18:33 | Hospitalist Progress Note ---
Date of Service March 25, 2019 Assessment & Plan (1) Severe sepsis: Met criteria for severe sepsis in ED per current CMS criteria (tachycardia, leukocytosis, lactate greater than 2). Blood cultures were obtained. Patient was placed on broad-spectrum intravenous antibiotic coverage with pipera cillin/tazobactam. Repeat lactate improved. Source of sepsis felt to be most likely related to perforation of sigmoid colon with pelvic abscess as discussed below. 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 Evaluated at [facility] and nonsurgical management was recommended. CT of obtained at the time of admission demonstrated persistent fluid collection in the pelvis measuring 3.8 x 0.9 cm. Probable pelvic abscess. General Surgery consult was obtained. Ongoing nonsurgical management was recommended. Afebrile. Continue intravenous piperacillin/tazobactam. (3) Candidal UTI (urinary tract infection): Has Mccollum catheter for chronic urinary retention. Urine culture on 03/17 grew Neda glabrata. ID consulted. Receiving intravenous caspofungin and amphotericin via Mccollum catheter. (4) Cancer related pain: Continue analgesics. (5) Cervical carcinoma: Advanced cervical carcinoma. Management per Gynecologic Oncology. (6) Diarrhea: Has been having loose stools for some time. Stool determinations in November, December, February were positive for C. difficile gene by PCR, but negative for C. difficile toxin. Stool culture in November was negative. 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 (7) Hypokalemia: Serum potassium as low as 3.0. Hypokalemia attributed to electrolyte losses from diarrhea. Receiving potassium replacement. Started on spironolactone. K today = 4.1. (8) HTN (hypertension): History of hypertension treated with metoprolol. Blood pressures have been relatively low and metoprolol has been discontinued. Follow. (9) Diabetes mellitus, type II: History of diabetes mellitus, recently diet controlled. Fasting blood sugar today = 88. (10) Urinary retention: Mccollum catheter for urinary retention. Ongoing management per Urology. (11) Protein calorie malnutrition: Poor nutritional status due to underlying malignancy. Weight is fallen about 6 kg over the last 6 weeks. Serum albumin is low as 1.9. Being followed by Nutrition. Advanced diet as tolerated. Nutritional supplements as tolerated. (12) DVT prophylaxis: SQ enoxaparin. Ambulate as tolerated. (13) Discharge planning issues: Discharge disposition to be determined. Medical follow-up with Dr. Gilmore. Subjective Recheck for multiple problems.. Patient seen in their room around 14:40. Continues to have lower abdominal pain. Analgesics offer some relief. Tolerating full liquids without vomiting. Ongoing loose stools. No melena or hematochezia. Has not been ambulating. Review of Systems: Constitutional- no feverl; generalized weakness. Cardiac- no chest pain. Pulmonary- no cough or SOB. GI- as noted above. - Mccollum cath. Otherwise, as noted above. Physical Exam Constitutional: + cachectic; no acute distress Respiratory: no respiratory distress Auscultation: lungs clear to auscultation bilaterally Cardiovascular: Rate/Rhythm: regular rate and regular rhythm Vessels: no JVD Extremities: no calf tenderness and no edema Gastrointestinal (Abdomen): Inspection/Auscultation: + abdomen distended (slightly) and normal bowel sounds Percussion/Palpation: + abdomen tender (lower abd) and abdomen soft; no guarding Skin: no rashes, warm and dry Psychiatric: Orientation: alert and oriented x 3 Results & Data Vital Signs (Past 12 Hours) Vital Signs Temp Pulse Resp BP Pulse Ox 03/25/19 15:03 36.6 C 103 H 20 104/71 98 03/25/19 07:38 36.5 C 103 H 16 91/68 L 96 Laboratory Results Laboratory Results - last 24 hr 03/24/19 03/25/19 03/25/19 20:14 07:11 08:33 WBC RBC Hgb Hct MCV MCH MCHC RDW Std Deviation RDW Coeff of Jessica Plt Count MPV Immature Gran % (Auto) Neut % (Auto) Lymph % (Auto) [place] % (Auto) Eos % (Auto) Baso % (Auto) Immature Gran # (Auto) Neut # (Auto) Lymph # (Auto) [place] # (Auto) Eos # (Auto) Baso # (Auto) Sodium 136 Potassium 4.1 Chloride 100 Carbon Dioxide 28 Anion Gap 8.0 BUN 5 L Creatinine 0.71 Est Cr Clr Drug Dosing 64.3 Est GFR ( Amer) 111.1 Est GFR (Non-Af Amer) 95.9 BUN/Creatinine Ratio 6.7 L Glucose 103 H POC Glucose 131 H 88 Calcium 9.9 Magnesium 1.5 L 03/25/19 03/25/19 03/25/19 08:33 11:22 16:37 WBC 6.16 RBC 3.71 L Hgb 11.1 L Hct 35.7 L MCV 96.2 MCH 29.9 MCHC 31.1 L RDW Std Deviation 58.2 H RDW Coeff of Jessica 16.5 H Plt Count 326 MPV 9.1 Immature Gran % (Auto) 0.3 Neut % (Auto) 75.9 Lymph % (Auto) 14.4 [place] % (Auto) 7.1 Eos % (Auto) 2.1 Baso % (Auto) 0.2 Immature Gran # (Auto) 0.02 Neut # (Auto) 4.67 Lymph # (Auto) 0.89 L [place] # (Auto) 0.44 Eos # (Auto) 0.13 Baso # (Auto) 0.01 Sodium Potassium Chloride Carbon Dioxide Anion Gap BUN Creatinine Est Cr Clr Drug Dosing Est GFR ( Amer) Est GFR (Non-Af Amer) BUN/Creatinine Ratio Glucose POC Glucose 131 H 96 Calcium Magnesium
[2019-03-25] MEDS ORDERED: MAGNESIUM SULFATE / D5W 1 GM/100 ML BAG IV ONE (19:00)
[2019-03-25] MEDS: AMPHOTERICIN B 50 MG in WATER, STERILE 1,000 ML IR SCH (19:31)
[2019-03-25] MEDS: MAGNESIUM CHLORIDE 64MG DELAYED REL TAB PO SCH (21:03)
[2019-03-25] MEDS: ENOXAPARIN INJ 40 MG/0.4 ML SYR SQ SCH (21:04)
[2019-03-26] MEDS: CASPOFUNGIN 50 MG in SODIUM CHLORIDE 0.9% 250 ML IV SCH ×2 (00:05→15:35)
[2019-03-26] MEDS: CHECK FENTANYL PATCH PLACEMENT SCH ×3 (00:08→16:42)
[2019-03-26 06:54] LABS: BUN Creatinine Ratio 6.1 (10-20); Calcium 9.4 mg/dl (8.5-10.1); Creatinine Clr Calc Pharmacy 70.2 ml/min; Est GFR (African American) 115.8; Est GFR (Non-African American) 99.9
[2019-03-26] MEDS: PIPERACILLIN/TAZOBACTAM 3.375 GM in DEXTROSE 5% 100 ML IV SCH ×2 (07:50→18:55)
[2019-03-26] MEDS: POTASSIUM CHLORIDE 20 MEQ TABCR PO SCH ×3 (07:51→16:43)
[2019-03-26] MEDS: MAGNESIUM CHLORIDE 64MG DELAYED REL TAB PO SCH ×2 (07:51→22:20)
[2019-03-26] MEDS: INSULIN ASPART 100 UNITS/ML 3 ML PEN SC SCH ×4 (07:52→22:41)
[2019-03-26] MEDS: MoRPHine SULFATE 5 MG/0.25 ML UDP PO PRN ×5 (08:09→22:18)
--- NOTE | 2019-03-26 13:15 | Palliative Care Progress Note ---
Date of Service March 26, 2019 Assessment & Plan (1) Cancer related pain: -Patient continues to report adequate pain relief. -Continue fentanyl patch at 25mcg/hr. -Continue Roxanol 10mg PO/SL Q3h PRN breakthrough pain. -Patient continues to use about 4 doses in 24 hours. -Palliative care will sign off at this time but please do not hesitate to contact us with any further palliative care needs. (2) Intra-abdominal fluid collection: (3) Cervical carcinoma: (4) Candidal UTI (urinary tract infection): Subjective Patient continues to report adequate pain relief with current regimen. Has been able to tolerate about half of her liquid diet. Review of Systems Review of Systems: + weakness no cough and no dyspnea no chest pain and no edema + abdominal pain (with movement or after trying to eat solids); no nausea (at this time) no confusion no depression and no anxiety Physical Exam Constitutional: + ill appearing (appears mildly deconditioned) and comfortable; no acute distress ENMT: Ears: no hearing impairment Neck: normal visual inspection Respiratory: normal respiratory effort, lungs clear to auscultation Cardiovascular: RRR, no murmur, no edema Vessels: dorsalis pedis pulses present Gastrointestinal (Abdomen): Inspection/Auscultation: normal bowel sounds; abdomen not distended Percussion/Palpation: abdomen soft Skin: no rashes, warm and dry Neurologic: moves all extremities and awake; not confused Psychiatric: Orientation: alert and oriented x 3 Affect: + flat affect Results & Data Vital Signs (Past 12 Hours) Vital Signs Temp Pulse Resp BP Pulse Ox 03/26/19 11:34 36.7 C 113 H 18 104/73 97 03/26/19 07:53 36.6 C 105 H 20 97/66 L 96 03/26/19 03:55 36.8 C 103 H 16 110/78 95 PG Care Time/CCT Total # of Minutes Spent Total Time Spent with Patient: Total time spent is greater than 50% in coordination of care (as documented) at patient's floor/unit and/or counseling patient: Time Spent Midlevel 25 minutes with >50% of the time spent at bedside with patient discussing pain management.
--- NOTE | 2019-03-26 18:48 | Nephrology Progress Note ---
Date of Service March 26, 2019 Assessment & Plan (1) Hypokalemia: hypokalemia from GI losses > Improved on Kcl tid. Off aldactone due to hypotension -cont po K as currently ordered 20 mEq tid today >> look to lower dose to bid tomorrow (2) HTN (hypertension): relative hypotension again this am; continue to hold her BB and spironolactone. Has tachycardia likely reflex tachy after stopping lopressor Subjective Patient seen during morning rounds for electrolyte abnormalities. K is better. BP is better but has tachycardia. No SOB. She is eating better Review of Systems 2 Review of Systems: All systems reviewed & are unremarkable except as noted in HPI & below Physical Exam Physical Exam: General exam: Appears comfortable, no acute distress HEENT: Pupils are equal and reactive to light Neck: No JVD, neck is supple trachea is midline Respiratory system: Clear breath sounds bilaterally. Gastrointestinal: Abdomen is soft, non distended, non tender, bowel sounds are present CVS: Regular rate and rhythm. No murmurs, rubs or gallops Musculoskeletal: No joint or muscle tenderness Extremities: Non tender, no edema, peripheral pulses are present Neuro: Oriented, no tremors, no focal neurological deficits Skin: No rashes Results & Data Vital Signs (Past 12 Hours) Vital Signs Temp Pulse Resp BP Pulse Ox 03/26/19 15:15 36.5 C 107 H 20 110/72 94 03/26/19 11:34 36.7 C 113 H 18 104/73 97 03/26/19 07:53 36.6 C 105 H 20 97/66 L 96 Laboratory Results Laboratory Results - last 24 hr 03/25/19 03/26/19 03/26/19 20:45 05:44 07:37 Sodium 134 L Potassium 4.0 Chloride 99 Carbon Dioxide 29 Anion Gap 6.0 BUN 4 L Creatinine 0.65 Est Cr Clr Drug Dosing 70.2 Est GFR ( Amer) 115.8 Est GFR (Non-Af Amer) 99.9 BUN/Creatinine Ratio 6.1 L Glucose 102 H POC Glucose 147 H 106 H Calcium 9.4 03/26/19 03/26/19 11:22 16:40 Sodium Potassium Chloride Carbon Dioxide Anion Gap BUN Creatinine Est Cr Clr Drug Dosing Est GFR ( Amer) Est GFR (Non-Af Amer) BUN/Creatinine Ratio Glucose POC Glucose 119 H 107 H Calcium
[2019-03-26] MEDS: AMPHOTERICIN B 50 MG in WATER, STERILE 1,000 ML IR SCH (19:55)
--- NOTE | 2019-03-26 20:39 | Hospitalist Progress Note ---
Date of Service March 26, 2019 Assessment & Plan (1) Severe sepsis: Met criteria for severe sepsis in ED per current CMS criteria (tachycardia, leukocytosis, lactate greater than 2). Blood cultures were obtained. Patient was placed on broad-spectrum intravenous antibiotic coverage with pipera cillin/tazobactam. Repeat lactate improved. Source of sepsis felt to be most likely related to perforation of sigmoid colon with pelvic abscess as discussed below. 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 Evaluated at [facility] and nonsurgical management was recommended. CT of obtained at the time of admission demonstrated persistent fluid collection in the pelvis measuring 3.8 x 0.9 cm. Probable pelvic abscess. General Surgery consult was obtained. Ongoing nonsurgical management was recommended. Afebrile. Continue intravenous piperacillin/tazobactam. (3) Candidal UTI (urinary tract infection): Has Mccollum catheter for chronic urinary retention. Urine culture on 03/17 grew Neda glabrata. ID consulted. Received intravenous caspofungin and amphotericin via Mccollum catheter. Has completed 5 day course of therapy. (4) Cancer related pain: Continue analgesics. (5) Cervical carcinoma: Advanced cervical carcinoma. Management per Gynecologic Oncology. (6) Diarrhea: Has been having loose stools for some time. Stool determinations in November, December, February were positive for C. difficile gene by PCR, but negative for C. difficile toxin. Stool culture in November was negative. 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 (7) Hypokalemia: Serum potassium as low as 3.0. Hypokalemia attributed to electrolyte losses from diarrhea. Receiving potassium replacement. Started on spironolactone. K today = 4.0. (8) Hypomagnesemia: Serum Mg as low as 1.4. Replace. Follow. (9) HTN (hypertension): History of hypertension treated with metoprolol. Blood pressures have been relatively low and metoprolol has been discontinued. Follow. (10) Diabetes mellitus, type II: History of diabetes mellitus, recently diet controlled. Fasting blood sugar today = 106. (11) Urinary retention: Mccollum catheter for urinary retention. Ongoing management per Urology. (12) Protein calorie malnutrition: Poor nutritional status due to underlying malignancy. Weight is fallen about 6 kg over the last 6 weeks. Serum albumin is low as 1.9. Being followed by Nutrition. Advanced diet as tolerated. Nutritional supplements as tolerated. (13) DVT prophylaxis: SQ enoxaparin. Ambulate as tolerated. (14) Discharge planning issues: Discharge disposition to be determined. Medical follow-up with Dr. Gilmore. Subjective Recheck for multiple problems.. Patient seen in their room around 09:40. Lower abdominal pain well-controlled. Tolerating full liquids without vomiting. Pt prefers not to advance diet yet. Ongoing loose stools. No melena or hematochezia. Review of Systems: Constitutional- no fever; generalized weakness. Cardiac- no chest pain. Pulmonary- no cough or SOB. GI- as noted above. - Mccollum cath. Otherwise, as noted above. Physical Exam Constitutional: + cachectic; no acute distress Respiratory: no respiratory distress Auscultation: lungs clear to auscultation bilaterally Cardiovascular: Rate/Rhythm: regular rate and regular rhythm Vessels: no JVD Extremities: no calf tenderness and no edema Gastrointestinal (Abdomen): Inspection/Auscultation: + abdomen distended (slightly) and normal bowel sounds Percussion/Palpation: + abdomen tender (lower abd) and abdomen soft; no guarding Skin: no rashes, warm and dry Psychiatric: Orientation: alert and oriented x 3 Genitourinary: + bladder abnormality (Mccollum cath) Results & Data Vital Signs (Past 12 Hours) Vital Signs Temp Pulse Resp BP BP Pulse Ox 03/26/19 20:00 36.9 C 106 H 18 104/70 98 03/26/19 15:15 36.5 C 107 H 20 110/72 94 03/26/19 11:34 36.7 C 113 H 18 104/73 97 Laboratory Results Laboratory Results - last 24 hr 03/25/19 03/26/19 03/26/19 20:45 05:44 07:37 Sodium 134 L Potassium 4.0 Chloride 99 Carbon Dioxide 29 Anion Gap 6.0 BUN 4 L Creatinine 0.65 Est Cr Clr Drug Dosing 70.2 Est GFR ( Amer) 115.8 Est GFR (Non-Af Amer) 99.9 BUN/Creatinine Ratio 6.1 L Glucose 102 H POC Glucose 147 H 106 H Calcium 9.4 03/26/19 03/26/19 11:22 16:40 Sodium Potassium Chloride Carbon Dioxide Anion Gap BUN Creatinine Est Cr Clr Drug Dosing Est GFR ( Amer) Est GFR (Non-Af Amer) BUN/Creatinine Ratio Glucose POC Glucose 119 H 107 H Calcium
[2019-03-26] MEDS: ENOXAPARIN INJ 40 MG/0.4 ML SYR SQ SCH (22:19)
[2019-03-27] MEDS: PIPERACILLIN/TAZOBACTAM 3.375 GM in DEXTROSE 5% 100 ML IV SCH ×4 (00:48→23:58)
[2019-03-27] MEDS: CHECK FENTANYL PATCH PLACEMENT SCH ×4 (00:49→23:58)
[2019-03-27] MEDS: MoRPHine SULFATE 10 MG/0.5 ML UDP PO PRN ×4 (01:21→19:47)
[2019-03-27 07:02] LABS: BUN Creatinine Ratio 7.7 (10-20); Calcium 9.2 mg/dl (8.5-10.1); Creatinine Clr Calc Pharmacy 69.3 ml/min; Est GFR (African American) 115.8; Est GFR (Non-African American) 99.9; Potassium 4.2 mmol/L (3.5-5.1)
[2019-03-27] MEDS: MAGNESIUM CHLORIDE 64MG DELAYED REL TAB PO SCH ×2 (08:12→22:20)
[2019-03-27] MEDS: POTASSIUM CHLORIDE 20 MEQ TABCR PO SCH ×3 (08:12→16:22)
[2019-03-27] MEDS: INSULIN ASPART 100 UNITS/ML 3 ML PEN SC SCH ×4 (08:13→22:37)
--- NOTE | 2019-03-27 09:45 | Nephrology Progress Note ---
Date of Service March 27, 2019 Assessment & Plan (1) Hypokalemia: hypokalemia from GI losses > Improved on Kcl tid. Off aldactone due to hypotension -cont po K as currently ordered 20 mEq tid. Patient tolerating kcl. Can be discharged on the same dose. Renal will sign off. Please call if additional questions or concerns (2) HTN (hypertension): BP is better off BB and spironolactone. Has tachycardia likely reflex tachy after stopping lopressor Subjective Seen in follow up for electrolyte abnormalities. K is stable. She is eating better. Still getting amphotericin bladder irrigation and zosyn. No pain Review of Systems Review of Systems: All systems reviewed & are unremarkable except as noted in HPI & below Physical Exam Physical Exam: General exam: Appears comfortable, no acute distress HEENT: Pupils are equal and reactive to light Neck: No JVD, neck is supple trachea is midline Respiratory system: Clear breath sounds bilaterally. Gastrointestinal: Abdomen is soft, non distended, non tender, bowel sounds are present CVS: Regular rate and rhythm. No murmurs, rubs or gallops Musculoskeletal: No joint or muscle tenderness Extremities: Non tender, no edema, peripheral pulses are present Neuro: Oriented, no tremors, no focal neurological deficits Skin: No rashes Results & Data Vital Signs (Past 12 Hours) Vital Signs Temp Pulse Resp BP BP Pulse Ox Pulse Ox 03/27/19 08:04 36.8 C 98 H 20 102/72 96 03/27/19 04:38 36.5 C 76 18 95/69 L 99 03/27/19 00:20 99 03/26/19 23:34 36.6 C 110 H 20 117/79 97 Laboratory Results Laboratory Results - last 24 hr 03/26/19 03/26/19 03/26/19 11:22 16:40 20:52 Sodium Potassium Chloride Carbon Dioxide Anion Gap BUN Creatinine Est Cr Clr Drug Dosing Est GFR ( Amer) Est GFR (Non-Af Amer) BUN/Creatinine Ratio Glucose POC Glucose 119 H 107 H 156 H Calcium 03/27/19 03/27/19 05:45 07:33 Sodium 134 L Potassium 4.2 Chloride 99 Carbon Dioxide 28 Anion Gap 7.0 BUN 5 L Creatinine 0.65 Est Cr Clr Drug Dosing 69.3 Est GFR ( Amer) 115.8 Est GFR (Non-Af Amer) 99.9 BUN/Creatinine Ratio 7.7 L Glucose 92 POC Glucose 89 Calcium 9.2
--- NOTE | 2019-03-27 17:35 | Hospitalist Progress Note ---
Date of Service March 27, 2019 Assessment & Plan (1) Severe sepsis: Met criteria for severe sepsis in ED per current CMS criteria (tachycardia, leukocytosis, lactate greater than 2). Blood cultures were obtained. Patient was placed on broad-spectrum intravenous antibiotic coverage with pipera cillin/tazobactam. Repeat lactate improved. Source of sepsis felt to be most likely related to perforation of sigmoid colon with pelvic abscess as discussed below. 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 Evaluated at [facility] and nonsurgical management was recommended. CT of obtained at the time of admission demonstrated persistent fluid collection in the pelvis measuring 3.8 x 0.9 cm. Probable pelvic abscess. General Surgery consult was obtained. Ongoing nonsurgical management was recommended. Afebrile. Continue intravenous piperacillin/tazobactam for at least 14 days- today is day # 10. (3) Candidal UTI (urinary tract infection): Has Mccollum catheter for chronic urinary retention. Urine culture on 03/17 grew Neda glabrata. ID consulted. Received intravenous caspofungin and amphotericin via Mccollum catheter. Has completed course of therapy. (4) Cancer related pain: Continue analgesics. (5) Cervical carcinoma: Advanced cervical carcinoma. Management per Gynecologic Oncology. (6) Diarrhea: Has been having loose stools for some time. Stool determinations in November, December, February were positive for C. difficile gene by PCR, but negative for C. difficile toxin. Stool culture in November was negative. 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 (7) Hypokalemia: Serum potassium as low as 3.0. Hypokalemia attributed to electrolyte losses from diarrhea. Receiving potassium replacement. Started on spironolactone. K today = 4.2. (8) Hypomagnesemia: Serum Mg as low as 1.4. Replace with MgCl2. Follow. (9) HTN (hypertension): History of hypertension treated with metoprolol. Blood pressures have been relatively low and metoprolol has been discontinued. Follow. (10) Diabetes mellitus, type II: History of diabetes mellitus, recently diet controlled. Fasting blood sugar today = 89. (11) Urinary retention: Mccollum catheter for urinary retention. Ongoing management per Urology. (12) Protein calorie malnutrition: Poor nutritional status due to underlying malignancy. Weight is fallen about 6 kg over the last 6 weeks. Serum albumin is low as 1.9. Being followed by Nutrition. Advanced diet as tolerated. Nutritional supplements as tolerated. (13) DVT prophylaxis: SQ enoxaparin. Ambulate as tolerated. (14) Discharge planning issues: Discharge disposition to be determined. Medical follow-up with Dr. Gilmore. Subjective Recheck for multiple problems.. Patient seen in their room around 12:00. Pain well-controlled with fentanyl patch + PRN morphine. Tolerating full liquids without vomiting. Does not want to advance diet. Does not want to try any appetite stimulants. Ongoing loose stools. No melena or hematochezia. Review of Systems: Constitutional- no fever; generalized weakness. Cardiac- no chest pain. Pulmonary- no cough or SOB. GI- as noted above. - Mccollum cath. Otherwise, as noted above. Physical Exam Constitutional: + cachectic; no acute distress Respiratory: no respiratory distress Auscultation: lungs clear to auscultation bilaterally Cardiovascular: Rate/Rhythm: regular rate and regular rhythm Vessels: no JVD Extremities: no calf tenderness and no edema Gastrointestinal (Abdomen): Inspection/Auscultation: + abdomen distended (slightly) and normal bowel sounds Percussion/Palpation: + abdomen tender (lower abd) and abdomen soft; no guarding Skin: no rashes, warm and dry Psychiatric: Orientation: alert and oriented x 3 Genitourinary: + bladder abnormality (Mccollum cath) Results & Data Vital Signs (Past 12 Hours) Vital Signs Temp Pulse Resp BP Pulse Ox 03/27/19 16:17 36.6 C 103 H 20 100/71 98 03/27/19 11:53 36.7 C 97 H 20 91/68 L 99 03/27/19 08:04 36.8 C 98 H 20 102/72 96 Laboratory Results Laboratory Results - last 24 hr 03/26/19 03/27/19 03/27/19 20:52 05:45 07:33 Sodium 134 L Potassium 4.2 Chloride 99 Carbon Dioxide 28 Anion Gap 7.0 BUN 5 L Creatinine 0.65 Est Cr Clr Drug Dosing 69.3 Est GFR ( Amer) 115.8 Est GFR (Non-Af Amer) 99.9 BUN/Creatinine Ratio 7.7 L Glucose 92 POC Glucose 156 H 89 Calcium 9.2 03/27/19 03/27/19 11:43 16:38 Sodium Potassium Chloride Carbon Dioxide Anion Gap BUN Creatinine Est Cr Clr Drug Dosing Est GFR ( Amer) Est GFR (Non-Af Amer) BUN/Creatinine Ratio Glucose POC Glucose 110 H 100 H Calcium
[2019-03-27] MEDS: ENOXAPARIN INJ 40 MG/0.4 ML SYR SQ SCH (22:20)
[2019-03-28] MEDS: MoRPHine SULFATE 10 MG/0.5 ML UDP PO PRN ×6 (00:10→23:31)
[2019-03-28] MEDS: PIPERACILLIN/TAZOBACTAM 3.375 GM in DEXTROSE 5% 100 ML IV SCH ×3 (07:47→23:28)
[2019-03-28] MEDS: INSULIN ASPART 100 UNITS/ML 3 ML PEN SC SCH ×4 (07:57→21:11)
[2019-03-28] MEDS: MAGNESIUM CHLORIDE 64MG DELAYED REL TAB PO SCH ×2 (07:58→20:15)
[2019-03-28] MEDS: POTASSIUM CHLORIDE 20 MEQ TABCR PO SCH ×3 (07:58→17:30)
[2019-03-28] MEDS: CHECK FENTANYL PATCH PLACEMENT SCH ×3 (07:58→23:35)
[2019-03-28] MEDS: fentaNYL 25 MCG/HR TDSY TD SCH (12:15)
--- NOTE | 2019-03-28 16:32 | Hospitalist Progress Note ---
Date of Service March 28, 2019 Assessment & Plan (1) Severe sepsis: Met criteria for severe sepsis in ED per current CMS criteria (tachycardia, leukocytosis, lactate greater than 2). Blood cultures were obtained. Patient was placed on broad-spectrum intravenous antibiotic coverage with pipera cillin/tazobactam. Repeat lactate improved. Source of sepsis felt to be most likely related to perforation of sigmoid colon with pelvic abscess as discussed below. 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 Evaluated at [facility] and nonsurgical management was recommended. CT of obtained at the time of admission demonstrated persistent fluid collection in the pelvis measuring 3.8 x 0.9 cm. Probable pelvic abscess. General Surgery consult was obtained. Ongoing nonsurgical management was recommended. Afebrile. Continue intravenous piperacillin/tazobactam for at least 14 days- today is day # 11. (3) Candidal UTI (urinary tract infection): Has Mccollum catheter for chronic urinary retention. Urine culture on 03/17 grew Neda glabrata. ID consulted. Received intravenous caspofungin and amphotericin via Mccollum catheter. Has completed course of therapy. (4) Cancer related pain: Continue analgesics. (5) Cervical carcinoma: Advanced cervical carcinoma. Management per Gynecologic Oncology. (6) Diarrhea: Has been having loose stools for some time. Stool determinations in November, December, February were positive for C. difficile gene by PCR, but negative for C. difficile toxin. Stool culture in November was negative. 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 (7) Hypokalemia: Serum potassium as low as 3.0. Hypokalemia attributed to electrolyte losses from diarrhea. Receiving potassium replacement. Started on spironolactone. K / was 4.2. (8) Hypomagnesemia: Serum Mg as low as 1.4. Replace with MgCl2. Follow. (9) HTN (hypertension): History of hypertension treated with metoprolol. Blood pressures have been relatively low and metoprolol has been discontinued. Follow. (10) Diabetes mellitus, type II: History of diabetes mellitus, recently diet controlled. Fasting blood sugar today = 96. (11) Urinary retention: Mccollum catheter for urinary retention. Ongoing management per Urology. (12) Protein calorie malnutrition: Poor nutritional status due to underlying malignancy. Weight is fallen about 6 kg over the last 6 weeks. Serum albumin is low as 1.9. Being followed by Nutrition. Advanced diet as tolerated. Nutritional supplements as tolerated. (13) DVT prophylaxis: SQ enoxaparin. Ambulate as tolerated. (14) Discharge planning issues: Discharge disposition to be determined. Medical follow-up with Dr. Gilmore. Subjective Recheck for multiple problems.. Patient seen in their room around 11:40. Satisfactory pain control with fentanyl patch + PRN morphine. Tolerating full liquids without vomiting. Ongoing loose stools. No melena or hematochezia. Review of Systems: Constitutional- no fever; generalized weakness. Cardiac- no chest pain. Pulmonary- no cough or SOB. GI- as noted above. - Mccollum cath. Otherwise, as noted above. Physical Exam Constitutional: + cachectic; no acute distress Respiratory: no respiratory distress Auscultation: lungs clear to auscultation bilaterally Cardiovascular: Rate/Rhythm: regular rate and regular rhythm Vessels: no JVD Extremities: no calf tenderness and no edema Gastrointestinal (Abdomen): Inspection/Auscultation: + abdomen distended (slightly) and normal bowel sounds Percussion/Palpation: + abdomen tender (lower abd) and abdomen soft; no guarding Skin: no rashes, warm and dry Psychiatric: Orientation: alert and oriented x 3 Genitourinary: + bladder abnormality (Mccollum cath) Results & Data Vital Signs (Past 12 Hours) Vital Signs Temp Pulse Resp BP Pulse Ox 03/28/19 16:23 36.7 C 95 H 16 96/65 L 98 03/28/19 11:43 36.7 C 106 H 18 104/72 98 03/28/19 07:41 36.6 C 105 H 18 96/67 L 96 Laboratory Results Laboratory Results - last 24 hr 03/27/19 03/27/19 03/28/19 16:38 20:12 07:32 POC Glucose 100 H 119 H 96 03/28/19 11:18 POC Glucose 133 H
[2019-03-28] MEDS: ENOXAPARIN INJ 40 MG/0.4 ML SYR SQ SCH (20:15)
[2019-03-29] MEDS: MoRPHine SULFATE 10 MG/0.5 ML UDP PO PRN ×5 (04:07→19:49)
[2019-03-29 07:08] LABS: Hematocrit (blood only) 31.2 % (37-47); Hemoglobin 9.8 g/dL (12.0-16.0); Mean Corpuscular Hgb Conc 31.4 g/dL (32-36); Mean Corpuscular Volume 95.7 fL (80-100); Platelet Count 286 K/uL (130-400); RDW Coefficient of Variation 16.3 % (11.5-14.5); RDW Standard Deviation 57.2 fL (36.4-46.3); Red Blood Count 3.26 M/uL (4.2-5.4); White Blood Count 4.79 K/uL (4.8-10.8)
[2019-03-29 07:34] LABS: BUN Creatinine Ratio 6.9 (10-20); Calcium 9.3 mg/dl (8.5-10.1); Creatinine Clr Calc Pharmacy 71.2 ml/min; Est GFR (African American) 116.4; Est GFR (Non-African American) 100.5; Magnesium 1.5 mg/dl (1.8-2.4); Potassium 3.9 mmol/L (3.5-5.1)
[2019-03-29] MEDS: PIPERACILLIN/TAZOBACTAM 3.375 GM in DEXTROSE 5% 100 ML IV SCH ×2 (07:56→16:23)
[2019-03-29] MEDS: INSULIN ASPART 100 UNITS/ML 3 ML PEN SC SCH ×4 (07:57→21:23)
[2019-03-29] MEDS ORDERED: MAGNESIUM SULFATE / D5W 1 GM/100 ML BAG IV ONE (08:00)
[2019-03-29] MEDS: CHECK FENTANYL PATCH PLACEMENT SCH ×2 (08:39→16:30)
[2019-03-29] MEDS: POTASSIUM CHLORIDE 20 MEQ TABCR PO SCH ×3 (08:40→16:33)
[2019-03-29] MEDS: MAGNESIUM CHLORIDE 64MG DELAYED REL TAB PO SCH ×2 (08:40→21:23)
[2019-03-29] MEDS ORDERED: MoRPHine SULFATE 10 MG/0.5 ML UDP PO ONE (15:59)
--- NOTE | 2019-03-29 18:54 | Hospitalist Progress Note ---
Date of Service March 29, 2019 Assessment & Plan (1) Severe sepsis: Met criteria for severe sepsis in ED per current CMS criteria (tachycardia, leukocytosis, lactate greater than 2). Blood cultures were obtained. Patient was placed on broad-spectrum intravenous antibiotic coverage with pipera cillin/tazobactam. Repeat lactate improved. Source of sepsis felt to be most likely related to perforation of sigmoid colon with pelvic abscess as discussed below. 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 Evaluated at [facility] and nonsurgical management was recommended. CT of obtained at the time of admission demonstrated persistent fluid collection in the pelvis measuring 3.8 x 0.9 cm. Probable pelvic abscess. General Surgery consult was obtained. Ongoing nonsurgical management was recommended. Afebrile. Continue intravenous piperacillin/tazobactam for at least 14 days- today is day # 12. Check f/u CT pelvis tomorrow, then discuss duration of therapy with ID. (3) Candidal UTI (urinary tract infection): Has Mccollum catheter for chronic urinary retention. Urine culture on 03/17 grew Neda glabrata. ID consulted. Received intravenous caspofungin and amphotericin via Mccollum catheter. Has completed course of therapy. Change Mccollum cath. (4) Cancer related pain: Continue fentanyl patch + morphine elixir PRN. (5) Cervical carcinoma: Advanced cervical carcinoma. Management per Gynecologic Oncology. (6) Diarrhea: Has been having loose stools for some time. Stool determinations in November, December, February were positive for C. difficile gene by PCR, but negative for C. difficile toxin. Stool culture in November was negative. 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 (7) Hypokalemia: Serum potassium as low as 3.0. Hypokalemia attributed to electrolyte losses from diarrhea. Receiving potassium replacement. Started on spironolactone. K today = 3.9. (8) Hypomagnesemia: Serum Mg as low as 1.4. Replace. Follow. (9) HTN (hypertension): History of hypertension treated with metoprolol. Blood pressures have been relatively low and metoprolol has been discontinued. Follow. (10) Diabetes mellitus, type II: History of diabetes mellitus, recently diet controlled. Fasting blood sugar today = 99. (11) Urinary retention: Mccollum catheter for urinary retention. Ongoing management per Urology. Change Mccollum today. (12) Protein calorie malnutrition: Poor nutritional status due to underlying malignancy. Weight is fallen about 6 kg over the last 6 weeks. Serum albumin is low as 1.9. Being followed by Nutrition. Advance diet as tolerated. Nutritional supplements as tolerated. (13) DVT prophylaxis: SQ enoxaparin. Ambulate as tolerated. (14) Discharge planning issues: Discharge disposition to be determined. Probable discharge to home if functional status permits. Medical follow-up with Dr. Gilmore. Subjective Recheck for multiple problems.. Patient seen in their room around 12:00. Satisfactory pain control with fentanyl patch + PRN morphine. Tolerating full liquids without vomiting. Ongoing loose stools. Tired. Spending most of her time in bed. Review of Systems: Constitutional- no fever; generalized weakness. Cardiac- no chest pain. Pulmonary- no cough or SOB. GI- as noted above. - Mccollum cath. Otherwise, as noted above. Physical Exam Constitutional: + cachectic; no acute distress Respiratory: no respiratory distress Auscultation: lungs clear to auscultation bilaterally Cardiovascular: Rate/Rhythm: regular rate and regular rhythm Vessels: no JVD Extremities: no calf tenderness and no edema Gastrointestinal (Abdomen): Inspection/Auscultation: + abdomen distended (slightly) and normal bowel sounds Percussion/Palpation: + abdomen tender (lower abd) and abdomen soft; no guarding Skin: no rashes, warm and dry Psychiatric: Orientation: alert and oriented x 3 Genitourinary: + bladder abnormality (Mccollum cath) Results & Data Vital Signs (Past 12 Hours) Vital Signs Temp Pulse Resp BP Pulse Ox 03/29/19 14:58 36.5 C 97 H 16 104/73 98 03/29/19 11:41 36.5 C 96 H 16 93/53 L 99 03/29/19 07:25 37 C 105 H 16 105/72 100 Laboratory Results Laboratory Results - last 24 hr 03/28/19 03/29/19 03/29/19 20:02 06:18 06:18 WBC 4.79 L RBC 3.26 L Hgb 9.8 L Hct 31.2 L MCV 95.7 MCH 30.1 MCHC 31.4 L RDW Std Deviation 57.2 H RDW Coeff of Jessica 16.3 H Plt Count 286 MPV 9.0 Sodium 138 Potassium 3.9 Chloride 102 Carbon Dioxide 29 Anion Gap 7.0 BUN 4 L Creatinine 0.64 Est Cr Clr Drug Dosing 71.2 Est GFR ( Amer) 116.4 Est GFR (Non-Af Amer) 100.5 BUN/Creatinine Ratio 6.9 L Glucose 104 H POC Glucose 153 H Calcium 9.3 Magnesium 1.5 L 03/29/19 03/29/19 03/29/19 07:33 11:31 16:28 WBC RBC Hgb Hct MCV MCH MCHC RDW Std Deviation RDW Coeff of Jessica Plt Count MPV Sodium Potassium Chloride Carbon Dioxide Anion Gap BUN Creatinine Est Cr Clr Drug Dosing Est GFR ( Amer) Est GFR (Non-Af Amer) BUN/Creatinine Ratio Glucose POC Glucose 99 131 H 125 H Calcium Magnesium
[2019-03-29] MEDS: ENOXAPARIN INJ 40 MG/0.4 ML SYR SQ SCH (21:23)
--- NOTE | 2019-03-29 22:09 | Infectious Disease Progress Nt ---
Date of Service March 29, 2019 Assessment & Plan (1) Candidal UTI (urinary tract infection): (2) Intra-abdominal abscess: Subjective Patient seen in follow-up for sigmoid perforation with abscess was entered and UTI. Feeling better, abdominal pain improved. Remains afebrile. Review of Systems Review of Systems: All systems reviewed & are unremarkable except as noted in HPI & below Physical Exam Constitutional: + ill appearing and + cachectic; no acute distress Eyes: PERRL, conjunctivae normal, anicteric sclerae ENMT: external ear and nose normal, oropharynx normal Neck: trachea midline, no thyromegaly normal visual inspection Respiratory: normal respiratory effort, lungs clear to auscultation normal percussion Cardiovascular: RRR, no murmur, no edema Heart Sounds: no gallop and no cardiac rub Gastrointestinal (Abdomen): Inspection/Auscultation: normal bowel sounds Percussion/Palpation: + abdomen tender; no hepatosplenomegaly and no abdominal mass Musculoskeletal: no cyanosis or clubbing, extremities motor strength 5/5 Skin: no rashes, warm and dry Neurologic: moves all extremities; no focal motor deficits Psychiatric: A+Ox3, euthymic affect Lymphatic: no cervical or axillary lymphadenopathy no inguinal lymphadenopathy Results & Data Vital Signs (Past 12 Hours) Vital Signs Temp Pulse Resp BP Pulse Ox 03/29/19 19:44 36.8 C 109 H 20 103/71 98 03/29/19 14:58 36.5 C 97 H 16 104/73 98 03/29/19 11:41 36.5 C 96 H 16 93/53 L 99 Laboratory Results Short CBC 03/29/19 Range/Units 06:18 WBC 4.79 L (4.8-10.8) K/uL Hgb 9.8 L (12.0-16.0) g/dL Hct 31.2 L (37-47) % Plt Count 286 (130-400) K/uL BMP 03/29/19 06:18 Sodium 138 Potassium 3.9 Chloride 102 Carbon Dioxide 29 BUN 4 L Creatinine 0.64 Glucose 104 H Calcium 9.3 Diagnostic Findings Microbiology 03/17/19 20:22 Blood Aerobic Blood Culture - Final No growth in Aerobic bottle after 5 days. 03/17/19 20:22 Blood Anaerobic Blood Culture - Final 03/17/19 20:05 Blood Aerobic Blood Culture - Final No growth in Aerobic bottle after 5 days. 06/26/19 20:05 Blood Anaerobic Blood Culture - Final No growth in Anaerobic bottle after 5 days. 03/17/19 16:35 Urine,Clean Catch Urine Culture - Final Neda glabrata
[2019-03-30] MEDS: PIPERACILLIN/TAZOBACTAM 3.375 GM in DEXTROSE 5% 100 ML IV SCH ×4 (01:25→23:56)
[2019-03-30] MEDS: CHECK FENTANYL PATCH PLACEMENT SCH ×3 (01:26→16:06)
[2019-03-30] MEDS: MoRPHine SULFATE 10 MG/0.5 ML UDP PO PRN ×5 (01:29→18:44)
--- NOTE | 2019-03-30 08:45 | Hospitalist Progress Note ---
Date of Service March 30, 2019 Assessment & Plan (1) Severe sepsis: -Met criteria for severe sepsis in ED per current CMS criteria (tachycardia, leukocytosis, lactate greater than 2). -Source of sepsis felt to be most likely related to perforation of sigmoid colon with pelvic abscess as discussed below. 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 Evaluated at [facility] and nonsurgical management was recommended. -CT obtained at the time of admission demonstrated persistent fluid collection in the pelvis measuring 3.8 x 0.9 cm., Probable pelvic abscess. -On intravenous piperacillin/tazobactam for at least 14 days- today is day # 13. -Repeat CT scan ordered= gas and fluid collection and rectal uterine recess with no well-defined wallsunchanged from prior. No acute intra-abdominal pathology. Linear enhancement along left lateral aspect of the vaginal vault may represent vaginal mucosal enhancement or rim enhancement of the rectal uterine collection. Follow-up to exclude neoplastic enhancing soft tissue which is considered less likely, persistent moderate left hydronephrosis presumably secondary to either neoplastic infiltration or postradiation change or distal left ureter/left pelvic sidewall. (3) Candidal UTI (urinary tract infection): Has Dean catheter for chronic urinary retention. -Urine culture on 03/17 grew Neda glabrata. -Received intravenous caspofungin and amphotericin via Dean catheter- completed course of therapy. -Changed Dean cath on 03/29/19 -ID on board . (4) Cancer related pain: -Continue fentanyl patch + morphine elixir PRN. (5) Cervical carcinoma: -Advanced cervical carcinoma. -Management per Gynecologic Oncology. (6) Diarrhea: -Has been having loose stools for some time. -Stool determinations in November, December, February were positive for C. difficile gene by PCR, but negative for C. difficile toxin. -Stool culture in November was negative. 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 (7) Hypokalemia: Likely secondary to diarrhea Serum potassium as low as 3.0, Mg 1.5 -Hypokalemia attributed to electrolyte losses from diarrhea. -Receiving potassium replacement. -Started on spironolactone. (8) Hypomagnesemia: Replete Monitor (9) HTN (hypertension): History of hypertension treated with metoprolol. -Blood pressures have been relatively low and metoprolol has been discontinued. -Follow. (10) Diabetes mellitus, type II: -History of diabetes mellitus, recently diet controlled. (11) Urinary retention: -Dean catheter for urinary retention. -Ongoing management per Urology. -Changed dean on 03/29/19 (12) Protein calorie malnutrition: -Poor nutritional status due to underlying malignancy. -Weight is fallen about 6 kg over the last 6 weeks. -Serum albumin is low as 1.9. -Being followed by Nutrition. -Advance diet as tolerated. -Nutritional supplements as tolerated. (13) DVT prophylaxis: -SQ enoxaparin. -Ambulate as tolerated. (14) Discharge planning issues: -Discharge disposition to be determined. -Probable discharge to home if functional status permits. -Medical follow-up with Dr. Gilmore. Subjective Patient continues to feel better. Abdominal pain has improved but still present. States that she threw up a little in the morning when she went for a CT scan. No nausea, fever, chills, diarrhea. Tolerating full liquid diet-prefers this diet by choice Physical Exam Physical Exam: GENERAL- AAOX3, No acute distress, Cachexia + NECK- Supple, no JVD LUNGS- Air entry bilaterally equal. No rales, rhonchi, crackles, wheezes heard. HEART- Regular rate and rhythm. No murmurs ABDOMEN- Soft, lower abdominal tenderness with no guarding or rigidity, non distended, Bowel sounds heard. EXTREMITIES- Good peripheral pulses, no edema - Foleys catheter + Results & Data Vital Signs (Past 12 Hours) Vital Signs Temp Pulse Resp BP BP Pulse Ox 03/30/19 07:35 36.9 C 108 H 18 117/81 97 03/30/19 04:00 36.8 C 112 H 19 104/72 98 03/30/19 00:20 36.7 C 101 H 18 98/66 L 96
[2019-03-30] MEDS ORDERED: IOVERSOL 100ml IV PRN (09:01)
[2019-03-30] MEDS: INSULIN ASPART 100 UNITS/ML 3 ML PEN SC SCH ×4 (09:25→20:21)
[2019-03-30] MEDS: POTASSIUM CHLORIDE 20 MEQ TABCR PO SCH ×3 (09:26→17:44)
[2019-03-30] MEDS: MAGNESIUM CHLORIDE 64MG DELAYED REL TAB PO SCH ×2 (09:26→20:22)
[2019-03-30] MEDS: MAGNESIUM SULFATE / D5W 1 GM/100 ML BAG IV SCH ×2 (09:27→11:17)
--- NOTE | 2019-03-30 09:28 | CT Scan Report ---
CT abd pelvis oral and IV con CLINICAL HISTORY: 53 years-old Female presenting with f/u cervical Ca, pelvic abscess, vomiting. TECHNIQUE: Multidetector CT of the abdomen and pelvis was performed after the administration of oral and intravenous contrast. IV contrast: 94 mL of Optiray 320. One or more dose lowering techniques wer e used consistent with the principles of ALARA (as low as reasonably achievable), including automatic exposure control, mA or kV adjustment to individual patient size, and/or use of iterative reconstruc tion. COMPARISON: 03/17/2019. CT DOSE (mGy.cm): The estimated cumulative dose is 296.98 mGy.cm. FINDINGS: Utility Appraiser topogram: Unremarkable. Lung bases: Normal heart size. Coronary artery calcification. No pericardial or pleural effusion. No focal infiltrate or nodule at the lung bases. Liver: Normal morphology. No liver lesion. Patent hepatic vasculature. Biliary: No intrahepatic or extrahepatic biliary ductal dilatation. Normal gallbladder. Pancreas: Atrophy with focal pancreatic duct dilatation and parenchymal calcification in the distal m ost tail as on prior exam. Spleen: Normal. Adrenal glands: Normal. Kidneys and ureters: Persistent moderate left hydroureteronephrosis with mildly delayed perfusion of the left kidney. There is slight parenchymal atrophy of the left kidney, which is slowly developing. Normal appearance of the right kidney without hydronephrosis. Right ureter nondilated. Bladder: Mccollum catheter partially decompresses the urinary bladder, which demonstrates persistent sev ere wall thickening. Gas in the urinary bladder is noted. There is no ethel wall discontinuity of the bladder. Pelvic organs: Redemonstration of posttreatment changes of the cervix and vagina. Wall thickening of the vagina with SPECT of mucosal discontinuity at the vaginal vault. Fluid and rim enhancement along the left lateral aspect may represents the vagina or a rim-enhancing fluid collection at the rectoute rine recess (series 3 image 377). Persistent gas and fluid containing collection in the rectouterine recess, which abuts the transiting sigmoid colon near the peritoneal reflection. The collection does not have well-defined hyde. Bowel: Mild wall thickening of the rectum and sigmoid colon. Gas which surrounds the distal sigmoid c olon near the peritoneal reflection evident without a focal discontinuity in the wall the sigmoid col on. Oral contrast has not yet transited to the left: To assess for extraluminal extravasation of oral contrast. No bowel obstruction. The appendix is normal. Hyperdensity in the gastric lumen likely med ication administration. Peritoneal cavity: Fluid noted in the presacral region with fluid and fascial thickening in the extra peritoneal pelvis likely sequela of prior radiation. Poorly delineated gas and fluid collection in th e rectouterine recess. This is likely loculated/sequestered as there is no free intraperitoneal gas. Lymph nodes: No enlarged lymph nodes in the abdomen or pelvis. Vasculature: Extensive atherosclerosis of the mildly stenotic vessels. No evidence of aneurysmal dila tation of the abdominal aorta. IVC patent. Abdominal wall: Normal. Musculoskeletal: Degenerative changes of the spine. No destructive osseous lesion. IMPRESSION: 1. Similar appearance of the gas and fluid containing collection in the rectouterine recess, which d oes not have well-defined hyde. Sterility of this collection cannot be confirmed. This may relate to the apparent mucosal discontinuity at the vaginal vault or potentially perforation of the sigmoid co jolie though no such colonic perforation is detected on this exam. Notably, oral contrast has not yet r eached the left colon to evaluate for extraluminal oral contrast extravasation. The examination is es sentially unchanged from prior. 2. No new evidence of acute intra-abdominal pathology. 3. Thin linear enhancement along the left lateral aspect of the vaginal vault may either represent v aginal mucosal enhancement or rim enhancement of the rectal uterine collection. Attention on follow-u p to exclude neoplastic enhancing soft tissue, which is considered less likely. 4. Persistent moderate left hydronephrosis presumably secondary to either neoplastic infiltration or post radiation change at the distal left ureter/left pelvic sidewall. Electronically signed by: Freddie Martinez M.D. 03/30/2019 9:26 AM
[2019-03-30] MEDS: ENOXAPARIN INJ 40 MG/0.4 ML SYR SQ SCH (20:22)
[2019-03-31] MEDS: CHECK FENTANYL PATCH PLACEMENT SCH ×3 (00:02→16:09)
[2019-03-31] MEDS: MoRPHine SULFATE 10 MG/0.5 ML UDP PO PRN ×4 (03:52→13:08)
[2019-03-31 06:45] LABS: Hematocrit (blood only) 29.9 % (37-47); Hemoglobin 9.3 g/dL (12.0-16.0); Mean Corpuscular Hgb Conc 31.1 g/dL (32-36); Mean Corpuscular Volume 97.1 fL (80-100); Mean Platelet Volume 9.1 fL (7.4-10.4); Platelet Count 285 K/uL (130-400); RDW Coefficient of Variation 16.3 % (11.5-14.5); RDW Standard Deviation 58.6 fL (36.4-46.3); Red Blood Count 3.08 M/uL (4.2-5.4); White Blood Count 4.98 K/uL (4.8-10.8)
[2019-03-31 07:22] LABS: BUN Creatinine Ratio 5.1 (10-20); Creatinine Clr Calc Pharmacy 70.4 ml/min; Est GFR (African American) 116.4; Est GFR (Non-African American) 100.5; Potassium 3.9 mmol/L (3.5-5.1)
[2019-03-31] MEDS: PIPERACILLIN/TAZOBACTAM 3.375 GM in DEXTROSE 5% 100 ML IV SCH ×2 (08:34→16:09)
[2019-03-31] MEDS: MAGNESIUM CHLORIDE 64MG DELAYED REL TAB PO SCH (08:36)
[2019-03-31] MEDS: POTASSIUM CHLORIDE 20 MEQ TABCR PO SCH ×3 (08:36→16:44)
[2019-03-31] MEDS: INSULIN ASPART 100 UNITS/ML 3 ML PEN SC SCH ×3 (09:09→17:16)
--- NOTE | 2019-03-31 11:32 | Hospitalist Progress Note ---
Date of Service March 31, 2019 Assessment & Plan (1) Severe sepsis: -Met criteria for severe sepsis in ED per current CMS criteria (tachycardia, leukocytosis, lactate greater than 2). -Source of sepsis felt to be most likely related to perforation of sigmoid colon with pelvic abscess as discussed below. 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 Evaluated at and nonsurgical management was recommended. -CT obtained at the time of admission demonstrated persistent fluid collection in the pelvis measuring 3.8 x 0.9 cm., Probable pelvic abscess. -Received IV Zosyn x 14 days (last dose today evening) --> Change to Levo/Flagyl till next follow up appt with ID. -Repeat CT scan ordered= gas and fluid collection and rectal uterine recess with no well-defined wallsunchanged from prior. No acute intra-abdominal pathology. Linear enhancement along left lateral aspect of the vaginal vault may represent vaginal mucosal enhancement or rim enhancement of the rectal uterine collection. Follow-up to exclude neoplastic enhancing soft tissue which is considered less likely, persistent moderate left hydronephrosis presumably secondary to either neoplastic infiltration or postradiation change or distal left ureter/left pelvic sidewall. (3) Candidal UTI (urinary tract infection): Has Dean catheter for chronic urinary retention. -Urine culture on 03/17 grew Neda glabrata. -Received intravenous caspofungin and amphotericin via Dean catheter- completed course of therapy. -Changed Dean cath on 03/29/19 -ID inputs appreciated . (4) Cancer related pain: -Continue fentanyl patch + morphine elixir PRN. (5) Cervical carcinoma: -Advanced cervical carcinoma. -Management per Gynecologic Oncology. (6) Diarrhea: -Has been having loose stools for some time. -Stool determinations in November, December, February were positive for C. difficile gene by PCR, but negative for C. difficile toxin. -Stool culture in November was negative. 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 (7) Hypokalemia: Likely secondary to diarrhea Serum potassium as low as 3.0, Mg 1.5 -Hypokalemia attributed to electrolyte losses from diarrhea. -Receiving potassium replacement. -Started on spironolactone by nephrology. (8) Hypomagnesemia: Resolved (9) HTN (hypertension): History of hypertension treated with metoprolol. -Blood pressures have been relatively low and metoprolol has been discontinued. -Monitor outpatient (10) Diabetes mellitus, type II: -History of diabetes mellitus, recently diet controlled. (11) Urinary retention: -Dean catheter for urinary retention --> Continue at home. -Ongoing management per Urology. -Changed dean on 03/29/19 (12) Protein calorie malnutrition: -Poor nutritional status due to underlying malignancy. -Weight is fallen about 6 kg over the last 6 weeks. -Serum albumin is low as 1.9. -Being followed by Nutrition. -Advance diet as tolerated. -Nutritional supplements as tolerated. (13) DVT prophylaxis: -SQ enoxaparin. -Ambulate as tolerated. (14) Discharge planning issues: Ok to discharge home today Medical follow-up with Dr. Gilmore. Subjective Patient continues to feel better. Abdominal pain has improved significantly. No nausea, fever, chills, diarrhea. Tolerating full liquid diet-prefers this diet by choice Physical Exam Physical Exam: GENERAL- AAOX3, No acute distress, Cachexia + NECK- Supple, no JVD LUNGS- Air entry bilaterally equal. No rales, rhonchi, crackles, wheezes heard. HEART- Regular rate and rhythm. No murmurs ABDOMEN- Soft, lower abdominal tenderness with no guarding or rigidity, non distended, Bowel sounds heard. EXTREMITIES- Good peripheral pulses, no edema - Foleys catheter + Results & Data Vital Signs (Past 12 Hours) Vital Signs Temp Pulse Resp BP BP Pulse Ox 03/31/19 07:23 36.6 C 109 H 18 108/75 97 03/31/19 04:00 37.0 C 101 H 18 108/78 97 03/30/19 23:49 36.6 C 102 H 20 117/80 95
--- NOTE | 2019-03-31 11:43 | Discharge Summary ---
Date of Service March 31, 2019 Admission HPI Per Admitting Provider Pt is 53 y/o F with PMH recurrent metastatic cervical cancer, DM II, tobacco use presented to ER with c/o vomiting with eating x 2 days. Patient with history of hospitalization 02/09/2019-02/16/2019 initially at [facility] and transferred to [facility] for sigmoid perforation and was seen by colorectal surgery and no indication for surgery at that time. 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 Conservative measures with Zosyn and patient was discharged on Augmentin. Had follow-up on 03/10/[address] 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 Patient states has not had PET scan done yet. Patient reports chemo and radiation has been discontinued 2 months ago. Patient with continued lower abdominal pain which she reports as felt increased the past couple of days. Reports morphine is helping pain. Also complains of chronic nausea. Patient states past 2 days has had vomiting with eating. States is vomited 1-2 times daily over the past 2 days. Denies hematemesis, denies any fever or chills. Patient reports decreased appetite has continued in the last couple days has had very poor oral intake. She has had continuation of incontinence of loose stool and is wearing adult brief. She has Dean catheter still in place secondary to urinary retention. Denies diaphoresis, melena, hematochezia, WHITTAKER, dizziness, syncope, vision changes, neck pain, CP, SOB, orthopnea, palpitations, cough, sore throat, choking, otalgia, rhinorrhea, paresthesias, increased weakness, extremity edema, rashes. Principal Diagnosis 1 Severe sepsis 2. Perforation of sigmoid colon/probable pelvic abscess 3. Neda Glabrata UTI next line #4 hypokalemia 5. Chronic diarrhea Secondary diagnoses on discharge 1. Cervical carcinoma, advanced 2. Cancer related pain 3. Diabetes mellitus type 2 4. Chronic urinary retention with Dean's catheter in situ 6. Protein calorie malnutrition Discharge Exam GENERAL- AAOX3, No acute distress, Cachexia + NECK- Supple, no JVD LUNGS- Air entry bilaterally equal. No rales, rhonchi, crackles, wheezes heard. HEART- Regular rate and rhythm. No murmurs ABDOMEN- Soft, lower abdominal tenderness with no guarding or rigidity, non distended, Bowel sounds heard. EXTREMITIES- Good peripheral pulses, no edema - Foleys catheter + Discharge Data Allergies Allergy/AdvReac Type Severity Reaction Status Date / Time No Known Allergies Allergy Verified 03/17/19 15:48 Consultations 03/17/19 17:21 ED Decision to Admit Stat 03/17/19 19:55 Consult Case Management - Discharge Planning Routine Consult General Surgery Routine 03/18/19 07:42 Consult Hematology Routine 03/19/19 16:44 Consult Palliative Care Routine 03/20/19 07:36 Consult Infectious Diseases Routine 03/22/19 08:30 Consult Nephrology Routine Ordered Studies 03/17/19 14:39 CT abd pelvis IV con only Stat 03/30/19 07:00 CT abd pelvis oral and IV con Routine Hospital Course (1) Severe sepsis: -Met criteria for severe sepsis in ED per current CMS criteria (tachycardia, leukocytosis, lactate greater than 2). -Source of sepsis felt to be most likely related to perforation of sigmoid colon with pelvic abscess as discussed below. 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 Evaluated at [facility] and nonsurgical management was recommended. -CT obtained at the time of admission demonstrated persistent fluid collection in the pelvis measuring 3.8 x 0.9 cm., Probable pelvic abscess. -Received IV Zosyn x 14 days (last dose today evening) --> Change to Levo/Flagyl till next follow up appt with ID. -Repeat CT scan ordered= gas and fluid collection and rectal uterine recess with no well-defined wallsunchanged from prior. No acute intra-abdominal pathology. Linear enhancement along left lateral aspect of the vaginal vault may represent vaginal mucosal enhancement or rim enhancement of the rectal uterine collection. Follow-up to exclude neoplastic enhancing soft tissue which is considered less likely, persistent moderate left hydronephrosis presumably secondary to either neoplastic infiltration or postradiation change or distal left ureter/left pelvic sidewall. (3) Candidal UTI (urinary tract infection): Has Dean catheter for chronic urinary retention. -Urine culture on 03/17 grew Neda glabrata. -Received intravenous caspofungin and amphotericin via Dean catheter- completed course of therapy. -Changed Dean cath on 03/29/19 -ID inputs appreciated . (4) Cancer related pain: -Continue fentanyl patch + morphine elixir PRN. (5) Cervical carcinoma: -Advanced cervical carcinoma. -Management per Gynecologic Oncology. (6) Diarrhea: -Has been having loose stools for some time. -Stool determinations in November, December, February were positive for C. difficile gene by PCR, but negative for C. difficile toxin. -Stool culture in November was negative. 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 (7) Hypokalemia: Likely secondary to diarrhea Serum potassium as low as 3.0, Mg 1.5 -Hypokalemia attributed to electrolyte losses from diarrhea. -Receiving potassium replacement. -Started on spironolactone by nephrology. (8) Hypomagnesemia: Resolved (9) HTN (hypertension): History of hypertension treated with metoprolol. -Blood pressures have been relatively low and metoprolol has been discontinued. -Monitor outpatient (10) Diabetes mellitus, type II: -History of diabetes mellitus, recently diet controlled. (11) Urinary retention: -Dean catheter for urinary retention --> Continue at home. -Ongoing management per Urology. -Changed dean on 03/29/19 (12) Protein calorie malnutrition: -Poor nutritional status due to underlying malignancy. -Weight is fallen about 6 kg over the last 6 weeks. -Serum albumin is low as 1.9. -Being followed by Nutrition. -Advance diet as tolerated. -Nutritional supplements as tolerated. (13) DVT prophylaxis: -SQ enoxaparin. -Ambulate as tolerated. (14) Discharge planning issues: Ok to discharge home today Medical follow-up with Dr. Gilmore. Total Time Total Time Spent Total Time Spent (In Minutes): 38 minutes Discharge Plan Discharge Items Patient Disposition: Home - Self-Care Reason For Visit: ABDOMINAL PAIN Discharge Diagnosis: 1. Probable pelvic abscess 2. Sepsis 3. Hypokalemia Discharge Goals: Decrease discomfort Activity: Resume your previous activity Non-emergency contact: Primary Care Provider Call non-emergency contact if: your symptoms worsen Follow-up/Referrals: Dorita Pride MD [Primary Care Provider] - 04/05/19 10:45 am Melita Chavez DO [Physician] - (Call office to get an appointment in 2 weeks.) Diet: Regular Addtl Provider Instructions: MEDICATION CHANGES: 1. New medication- Spironolactone 12.5 mg daily per nephrology 2. Discontinued Metoprolol as Blood pressure border line low 3. New medication- Potassium 20 meq three times a day due to ongoing GI losses 4. New medications- Levofloxacin 500 mg daily and flagyl 500 mg PO three times a day till seen by ID in 2 weeks. Prescriptions: New spironolactone 25 mg Tablet 12.5 mg PO QAM 30 Days Qty: 15 RF: 0 levofloxacin 500 mg tablet 500 mg PO DAILY 14 Days Qty: 14 RF: 0 metronidazole [Flagyl] 500 mg tablet 500 mg PO Q8H 14 Days Qty: 42 RF: 0 potassium chloride 20 mEq tablet,ER particles/crystals 20 meq PO TID Qty: 90 RF: 0 Continued promethazine 25 mg Tablet 25 mg PO Q6H PRN (Reason: Nausea And Vomiting) RF: 0 morphine concentrate 100 mg/5 mL (20 mg/mL) Solution 20 mg PO Q4H PRN (Reason: pain) Qty: 30 RF: 0 Discontinued metoprolol succinate 25 mg tablet extended release 24 hr 25 mg PO .DAILY@NOON RF: 0 amoxicillin-pot clavulanate 875-125 mg tablet 1 tab PO BID RF: 0 Stand-Alone Forms: [facility] Discharge Orders: Discharge Order (Routine); Ordered 03/31/19 Ordered By: Sandy Valverde Admission Data Admit Date/Time: 03/19/19 16:33 Attending Provider: Sandy Valverde Admit Provider: Víctor Simon Primary Care Provider: Dorita Pride Other Providers: Jarrett Gutierrez ; Alexandra Em ; Cadence Bonilla ; Melita Chavez ; Rosie Cisneros ; Han Perez ; Andrew Alexandre Service: Telemetry Medical
[2019-03-31] MEDS: fentaNYL 25 MCG/HR TDSY TD SCH (12:45)
[2019-03-31] MEDS ORDERED: Nursing to Pharmacy Communication ONE (15:09)
[2019-03-31 16:07] VITALS: TEMP 97.9; O2SAT 93
[2019-03-31 17:28] VITALS: BP 117/83; PULSE 97
== END 2019-03-31 18:10 | disposition home or self-care (01) | DRG 871 ==
LOC: ED 13:59 → 2N 13:59 → SUATTDRO 03-19 16:33